=== PATIENT | female | born 1955 | race Caucasian/White ===

== ENCOUNTER → 2021-06-20 11:16 | Outpatient (REF) | payer MEDICARE, SELFPAY | LOC: ANHLAB 11:16 | PROVIDERS: PCP Internal Medicine; Visit Provider Nurse Practitioner | DX: R22.9 Localized swelling, mass and lump, unspecified (principal); L72.0 Epidermal cyst | CPT/HCPCS: 88304 ==

== ENCOUNTER 2021-12-03 22:15 | Emergency (ER) | payer MEDICARE, SELFPAY ==
[2021-12-03 22:18] VITALS: BP 194/81; PULSE 62; RESP 18; TEMP 36.8; O2SAT 99
--- NOTE | 2021-12-04 03:09 | PC.NURSE ---
0242 CALLED PT TO COME BACK TO MAIN ED - NO ANSWER
== END 2021-12-04 02:42 | disposition left against medical advice (07) ==
PROVIDERS: PCP Internal Medicine
DX: R22.0 Localized swelling, mass and lump, head (principal)
CPT/HCPCS: 99199

== ENCOUNTER 2023-10-07 09:32 | Emergency (ER) | payer MEDICARE, SELFPAY ==
--- NOTE | ~2023-10-07 | XR_ITS ---
XR heel RT min 2V Ordering provider: Jaimee Rodríguez APRN History: . TWISTING INJURY, POSTERIOR ANKLE PAIN WITH EXT/FLEX . Comparison: None. FINDINGS: BONES: No acute fracture or dislocation. Calcaneus and spur. JOINT SPACES: Normal. SOFT TISSUES: Normal. Ossification of the insertion of the tendo Achilles. IMPRESSION: No acute osseous abnormality of the right calcaneus. Reviewed, dictated and finalized at location A.
[2023-10-07 09:42] VITALS: BP 177/96; PULSE 54; RESP 20; TEMP 36.7; O2SAT 99
--- NOTE | 2023-10-07 09:55 | ED.LOWEXIN ---
HPI - Extremity Injury (Lower) General Chief Complaint: Extremity Injury, Lower Stated Complaint: Right Ankle Injury Time Seen by Provider: 10/07/23 09:55 Source: patient, RN notes reviewed and old records reviewed Mode of arrival: ambulatory Limitations: no limitations History of Present Illness HPI Narrative: 60-year-old female to [facility] for complaint right heel pain. patient reports when ambulating down a set steps yesterday she missed the bottom step causing her to twist her right ankle. Patient stating that her back tendon hurts 2/10 currently but pain increases with ambulation. patient has attempted to treat at home with Biofreeze Tylenol with little improvement. Patient denies prior injury, numbness, tingling, weakness. Patient in no acute distress. Related Data Home Medications Medication Instructions Recorded Confirmed lisinopril 40 mg tablet 40 mg PO DAILY 12/02/19 10/07/23 thyroid (pork) 15 mg tablet (CTE TEACHER 15 mg PO DAILY 10/07/23 10/07/23 Thyroid) Allergies Allergy/AdvReac Type Severity Reaction Status Date / Time No Known Allergies Allergy Verified 07/02/21 11:16 Review of Systems Review of Systems: All systems reviewed & are unremarkable except as noted in HPI and below Constitutional: Constitutional: Reports no additional constitutional complaints Eyes: Eyes: Reports no additional eye complaints ENT: Reports system reviewed and no additional complaints, except as documented Cardiovascular: Cardiovascular: Reports no additional cardiovascular complaints, Denies chest pain and Denies dyspnea Respiratory: Respiratory: Reports no additional respiratory complaints, Denies cough and Denies dyspnea Musculoskeletal: Musculoskeletal: Reports as per HPI and Reports joint swelling ( and pain; Right ankle) Neurologic: Reports as per HPI, Denies numbness, Denies Sensory deficit (Neuro), Denies tingling and Denies weakness Psychiatric: Psychiatric: Reports no additional psychiatric complaints [facility] Surgical History Surgical History History of bilateral breast reduction surgery History of cosmetic plastic surgery History of hysterectomy Abdominoplasty 2018 Family History Family History Father Family history of Alzheimer's disease Social History Social History Smoking status: Never smoker Second hand tobacco smoke exposure: No Alcohol intake: never Comments At the time of my signature, I reviewed and agree with the nursing past medical, surgical, social, and family history. There is no relevant family history pertinent to the patient complaint. Exam Const: General: cooperative, healthy appearing, comfortable, no acute distress, alert and well nourished Nutritional Appearance: well nourished Orientation/consciousness: patient oriented x3 Limitations: no limitations HENMT: Head: normal to inspection Ears: external ears normal Face/Nose/Sinus: Normal external nose present, Normal nares present, normal facial exam, No erythema and No edema Face and sinus: normal facial exam, no erythema and no edema Mouth: Yes Normal oral and palatal mucosa present Eyes: General: appearance normal, both eyes and all related structures Neck: Neck: normal visual inspection, full ROM and no meningeal signs Lymphatic: no lymphadenopathy noted and no lymphedema noted Chest: Chest palpation & inspection: normal inspection of the chest Resp: Effort & Inspection: normal respiratory effort and able to speak in complete sentences Cardio: Jugular venous distension: no JVD Rate: regular rate Rhythm: regular rhythm Back/Spine/Pelvis: Cervical Spine: cervical ROM normal Skin: General skin exam: normal color, no rashes or lesions noted and turgor normal Neuro: General: patient oriented x3, gait normal, moves all extremit
== END 2023-10-07 10:52 | disposition home or self-care (01) ==
PROVIDERS: Emergency Provider Nurse Practitioner Family
DX: S86.011A Strain of right Achilles tendon, initial encounter (principal); X50.9XXA Other and unspecified overexertion or strenuous movements or postures, initial encounter; I10 Essential (primary) hypertension; E03.9 Hypothyroidism, unspecified
CPT/HCPCS: 73650; 99213; G0463

== ENCOUNTER 2024-06-15 07:13 | Emergency (ER) | payer MEDICARE, SELFPAY ==
--- OUTSIDE RECORDS SUMMARY | 2024-06-15 07:15 | XMS_ITS | Patient Health Summary ---
Author Organization [email or web address] Address [address] [place] [address] Care Team Providers Care Electrical Logging Operator Name Role Phone Chito Harrison MD Primary Care Provider [phone] Note from [facility],non-owned Affiliates and Associated Physician Practices is amultiple site organization consisting of ambulatory clinics and hospital sitesin [place], [place], [place] and [place]. This disclosure is being madepursuant to the Care Everywhere program and may not contain all information available regarding this patient. Last updated 18.[email or web address] Allergies No known active allergies Medications * Be aware that medications may not be up to date on this document. Alwaysverify current medications with the patient. * lisinopril (PRINIVIL; ZESTRIL) 40 MG tablet Take 40 mg by mouth 2 times daily * aspirin EC (ECOTRIN) 81 MG tablet Take 81 mg by mouth once daily * rosuvastatin (CRESTOR) 20 MG tablet(Started 02/27/2020) Take 1 tablet by mouth at bedtime 3 refills by 02/26/2021 Social History Tobacco Use Types Packs/Day Years Used Date Smoking Tobacco: Never Assessed Sex and Gender Information Value Date Recorded Sex Assigned at Not on file Gender Identity Not on file Sexual Orientation Not on file Last Filed Vital Signs Vital Sign Reading Time Taken Comments Blood Pressure 140/80 02/27/2020 8:05 AM PROCESSING ASSOCIATE Pulse 60 02/27/2020 8:05 AM PROCESSING ASSOCIATE Temperature - - Respiratory Rate 12 02/27/2020 8:05 AM PROCESSING ASSOCIATE Oxygen Saturation - - Inhaled Oxygen Concentration - - Weight 108.4 kg (239 lb) 02/27/2020 8:05 AM PROCESSING ASSOCIATE Height 161.3 cm (5' 3.5 ) 02/27/2020 8:05 AM PROCESSING ASSOCIATE Body Mass Index 41.67 02/27/2020 8:05 AM PROCESSING ASSOCIATE Procedures * ECHOCARDIOGRAM LIMITED(Performed 02/27/2020) Performed for Nonrheumatic aortic valve stenosis * LAB MISC TEST(Performed 01/30/2020) * CT CHEST W CONTRAST(Performed 11/13/2018) * ECHOCARDIOGRAM COMPLETE(Performed 11/02/2018) Results * ECHOCARDIOGRAM LIMITED (02/27/2020 11:35 AM PROCESSING ASSOCIATE) Narrative Deneen Hooks - 02/27/2020 11:35 AM PROCESSING ASSOCIATE Luanne Pineda RDMS 02/27/2020 11:36 AM See scan Procedure Note Luanne Pineda RDMS - 02/27/2020 11:35 AM CST See scan Liang Rollins MD ECHO ORDERABLES * LAB MISC TEST (01/30/2020) Blood BLOOD SPECIMEN / Unknown Historical Provider LAB SEND OUT * CT CHEST W CONTRAST (11/13/2018) Anatomical Region Laterality Modality Chest Other Historical Provider CT ORDERABLES * ECHOCARDIOGRAM COMPLETE (11/02/2018) Historical Provider ECHO ORDERABLES Care Teams Electrical Logging Operator Relationship Specialty Start Date End Date Chito Harrison MD [address] [place] [address] PCP - General 06/26/21
--- OUTSIDE RECORDS SUMMARY | 2024-06-15 07:15 | XMS_ITS | Clinical Summary ---
Author Organization [employer] [facility] Address [address] [place] [address] Care Team Providers Care Qm Nurse Name Role Phone Chito Harrison MD Primary Care Provider [phone] Source Comments [facility],non-owned Affiliates and Associated Physician Practices is amultiple site organization consisting of ambulatory clinics and hospital sitesin [place], [place], [place] and [place]. This disclosure is being madepursuant to the Care Everywhere program and may not contain all information available regarding this patient. Last updated 18.[facility] Allergies No known active allergies Medications * Be aware that medications may not be up to date on this document. Alwaysverify current medications with the patient. Medication Sig Dispensed Refills Start Date End Date Status lisinopril (PRINIVIL; ZESTRIL) 40 MG tablet Take 40 mg by mouth 2 times daily Active aspirin EC (ECOTRIN) 81 MG tablet Take 81 mg by mouth once daily Active rosuvastatin (CRESTOR) 20 MG tablet Take 1 tablet by mouth at bedtime 90 tablet 3 02/27/2020 Active Social History Tobacco Use Types Packs/Day Years Used Date Smoking Tobacco: Never Assessed Sex and Gender Information Value Date Recorded Sex Assigned at Not on file Gender Identity Not on file Sexual Orientation Not on file Last Filed Vital Signs Vital Sign Reading Time Taken Comments Blood Pressure 140/80 02/27/2020 8:05 AM AIR AND WATER TESTER Pulse 60 02/27/2020 8:05 AM AIR AND WATER TESTER Temperature - - Respiratory Rate 12 02/27/2020 8:05 AM AIR AND WATER TESTER Oxygen Saturation - - Inhaled Oxygen Concentration - - Weight 108.4 kg (239 lb) 02/27/2020 8:05 AM AIR AND WATER TESTER Height 161.3 cm (5' 3.5 ) 02/27/2020 8:05 AM AIR AND WATER TESTER Body Mass Index 41.67 02/27/2020 8:05 AM AIR AND WATER TESTER Plan of Treatment Health Maintenance Due Date Last Done Comments BONE DENSITY TESTING 1955 COLOGUARD (AGES 45-75) - COL ON CA SCREENING 1955 COLON MONITORING 1955 COLONOSCOPY - COLON CA SCREENING 1955 CT COLONOGRAPHY - COLON CA SCREENING 1955 Colorectal Cancer Screening 1955 FIT - COLON CA SCREENING 1955 FLEX SIG - COLON CA SCREENING 1955 MAMMOGRAM 1955 MEDICARE AWV 12 MONTHS 1955 HEPATITIS C SCREENING 12/28/1972 DTAP/TDAP/TD VACCINES (1 - Tdap) 1974 PNEUMOCOCCAL VACCINE 50+ (1 of 1 - PCV) 2005 ZOSTER VACCINE (1 of 2) 2005 Respiratory Syncytial Virus (RSV) Vaccine Pt: or over 60 yrs (1 - Risk 60-74 years 1-dose series) 2015 SCREENING FOR DIABETES 02/27/2020 COVID-19 VACCINE ( - 2023-2 5 season) 2023 INFLUENZA VACCINE (#1) 2023 DEPRESSION SCREENING 04/13/2024 HEPATITIS B VACCINE Aged Out No longe r eligible based on patient's age to complete this topic HIB VACCINE Aged Out No longer eligi ble based on patient's age to complete this topic HPV VACCINE Aged Out No longer eligi ble based on patient's age to complete this topic MENINGOCOCCAL (Group B) VACCINE Aged Out No longer eligible based on patient's age to complete this topic MENINGOCOCCAL VACCINE Aged Out No yahir jolly eligible based on patient's age to complete this topic Care Teams Qm Nurse Relationship Specialty Start Date End Date Chito Harrison MD [address] [place] [address] PCP - General 06/26/21
--- OUTSIDE RECORDS SUMMARY | 2024-06-15 07:15 | XMS_ITS | Referral Summary ---
Author Organization [facility] Address [address] [place] [address] Care Team Providers Care Synthetic Department Supervisor Name Role Phone Chito Harrison MD Primary Care Provider [phone] Source Comments [facility],non-owned Affiliates and Associated Physician Practices is amultiple site organization consisting of ambulatory clinics and hospital sitesin [place], [place], [place] and [place]. This disclosure is being madepursuant to the Care Everywhere program and may not contain all information available regarding this patient. Last updated 18.[facility] Allergies No known active allergies Medications * [...] Comments Blood Pressure 140/80 02/27/2020 8:05 AM GARNETT FIXER Pulse 60 02/27/2020 8:05 AM GARNETT FIXER Temperature - - Respiratory Rate 12 02/27/2020 8:05 AM GARNETT FIXER Oxygen Saturation - - Inhaled Oxygen Concentration - - Weight 108.4 kg (239 lb) 02/27/2020 8:05 AM GARNETT FIXER Height 161.3 cm (5' 3.5 ) 02/27/2020 8:05 AM GARNETT FIXER Body Mass Index 41.67 02/27/2020 8:05 AM GARNETT FIXER Plan of Treatment Not on file Care Teams Synthetic Department Supervisor Relationship Specialty Start Date End Date Chito Harrison MD [address] [place] [id number] PCP - General 06/26/21
--- OUTSIDE RECORDS SUMMARY | 2024-06-15 07:15 | XMS_ITS | Clinical Summary ---
Author Organization [facility] Address [address] [place] [address] Care Team Providers Care Electric Plater Name Role Phone Shanda Mead BRIAN Primary Care Provider Allergies No known active allergies Medications UNABLE TO FIND Methyl-B12 spray daily Active UNABLE TO FIND Liposomal Vit C 1600 mg 1x a day Active ubidecarenone (coenzyme Q10) 100 mg tablet Take by mouth Active UNABLE TO FIND Orthomune (Zinc, D, C) 1x a day Active UNABLE TO FIND Balance of Nature Veggies Fruits Active UNABLE TO FIND Apply topically Med Name: E2(Estradiol), E3(estrogen0, T2(testosteron e) 1-2-2mg/ml crm - compound medication Active lisinopriL (PRINIVIL,ZESTRIL) 40 mg tablet Take 1 tablet (40 mg total) by mouth 2 (two) times a day Active UNABLE TO FIND 1 each daily Med Name: Thyrodain Active furosemide (LASIX) 20 mg tablet Take 1 tablet (20 mg total) by mouth 2 (two) times a day 60 tablet 1 05/27/19 25 025 Active cholecalciferol (VITAMIN D-3) 2,000 unit capsule daily. 025 Discontin ued(Patie nt Reported) ADVERTISING JOB TITLES Thyroid 15 mg tabletIndications: Acquired hypothyroidism Take 1 tablet (15 mg total) by mouth daily 90 tablet 3 02/19/20 23 025 Discontin ued(Patie nt Reported) hydroCHLOROthiazid e (HYDRODIURIL) 25 mg tabletIndications: Primary hypertension Take 1.5 tablets (37.5 mg total) by mouth daily 135 tablet 3 02/25/20 24 025 Discontin ued(Anayeli nt Reported) Active Problems Problem Noted Date Diagnosed Date Medicare annual wellness visit, subsequent 02/24 Assessment & Plan (02/25/2024 10:16 AM NON CATEGORICAL PRESCHOOL TEACHER): In regard to health maintenance, Colonoscopy- Declined Mammogram- declined DEXA- declined Influenza vaccine- UTD Pneumococcal vaccine- Declined Shingrix vaccine- Declined Eat a healthy diet: focus on lean meats and proteins, more fruits, vegetables and whole grains and low in sugars and fats. Limit red meat and avoid processed meat. Maintain a healthy weight; avoid being overweight. Aim for a normal body mass index (BMI) of 18.5-24.9. Help learning to eat healthier, we can set up appointment with it software developer/program aide. Have an active lifestyle, strive for 30 minutes of moderate exercise 5 times a week and strength or resistance training at least twice a week. Use broad-spectrum (UVA+UVB) sunscreen with SPF 30 or greater, is water resistant, limit time spent in the sun (10 am-4pm), wear hat, wear UV protective clothing, wear sunglasses. Never use a tanning bed. Skin that was irradiated may be more sensitive over your lifetime. Limit alcohol intake, 1 drink per day for a woman and 2 drinks per day for a man. Encounter for screening for lipid disorder 02/24 Assessment & Plan (02/25/2024 10:17 AM NON CATEGORICAL PRESCHOOL TEACHER): Lipid panel ordered. Will continue to monitor. Acquired hypothyroidism 02/18/2023 Assessment & Plan (06/07/2024 3:29 PM NON CATEGORICAL PRESCHOOL TEACHER): Last TSH at goal, taking natural supplements Will continue to monitor closely Assessment & Plan (02/25/2024 10:15 AM NON CATEGORICAL PRESCHOOL TEACHER): Will recheck TSH and T4. Will continue to take OTC thyroid medication and seeing it software developer. Class 3 severe obesity due t o excess calories with serious comorbidity and body mass index (BMI) of 40.0 to 44.9 in adult 02/18/2023 Assessment & Plan (06/07/2024 3:29 PM NON CATEGORICAL PRESCHOOL TEACHER): Not well controlled, has been having weight gain over the past 5 months Patient is counseled to work on weight loss through dietary and activity changes. Patient is encouraged to decrease caloric intake through portion control, choosing lower calorie foods, and targeting 5-6 servings of vegetables and fruit per day. Patient is encouraged to maintain or target a minimum of 30 minutes moderate intensity exercise 5 days per week. Assessment & Plan (02/25/2024 10:15 AM NON CATEGORICAL PRESCHOOL TEACHER): Encouraged heart healthy diet and lifestyle. Advised 150 min/week of aerobic exercise. Hypertension 12/02/2016 Assessment & Plan (06/07/2024 3:29 PM NON CATEGORICAL PRESCHOOL TEACHER): Stable, well controlled, blood pressure mildly elevated today, some peripheral edema with limited relief Will start furosemide 20 mg b.i.d., continue lisinopril 40 mg, discontinue hydrochlorothiazide Assessment & Plan (02/25/2024 10:14 AM NON CATEGORICAL PRESCHOOL TEACHER): Blood pressure not well controlled. Will increase HCTZ 1.5 tablets to see how that will help HTN. Will F/U in 3 months for additional evaluation. Assessment & Plan (01/08/2024 9:42 AM CDT): Chronic, stable Dr. Watson would like her to switch from Lisinopril to HCTZ or Spironolactone Stop Lisinopril and start HCTZ 25 mg daily Monitor BP at home Follow up 6 weeks Assessment & Plan (02/18/2023 10:15 AM NON CATEGORICAL PRESCHOOL TEACHER): Stable, currently well-controlled BP at visit 120/84 Continue lisinopril 40 mg daily Resolved Problems Problem Noted Date Diagnosed Date Resolved Date Ascending aortic aneurysm 07/26/2014 Assessment & Plan (02/25/2024 10:25 AM NON CATEGORICAL PRESCHOOL TEACHER): Continues with routine monitoring. Will continue to follow. Assessment & Plan (02/18/2023 11:51 AM NON CATEGORICAL PRESCHOOL TEACHER): Gets regular monitoring Patient will call back with location she would like to get next US done at Encounters Date Type Department Care Team Description 05/27/2024 1:15 PM NON CATEGORICAL PRESCHOOL TEACHER Office Visit [facility] Primary Care at [address] [place] [phone] Anibal Avendano MD Primary hypertension (Primary Dx); SHANIQUE (obstructive sleep apnea); Acquired hypothyroidism; Class 3 severe obesity due to excess calories with serious comorbidity and body mass index (BMI) of 40.0 to 44.9 in adult (HCC) 05/19/2024 [facility]phone [facility] [address] [address] Shanda Mead NP Appointment Request 04/22/2024 Telephone [facility] [address] [address] Shanda Mead NP Med Refill from Last 3 Months Immunizations Immunization Administration Dates Next Due Influenza, Unspecified 02/25/2024(Deferr ed: Patient Refused),01/08/2024(Deferred: Patient Refused),01/11/2023(Deferred: Patient Refused),01/11/2023(Deferred: Patient Refused),12/12/2022(Deferred: Patient Refused),01/11/2022(Deferred: Patient Refused) Surgical History Surgery Date Site/Laterality Comments REDUCTION MAMMAPLASTY x2 MOLE REMOVAL Right right breast CYST REMOVAL Left left shoulder blade LITHOTRIPSY HYSTERECTOMY CATARACT EXTRACTION, BILATERAL Bilateral HAND SURGERY Right thumb and ring finger OTHER SURGICAL HISTORY Tummy Tuck OTHER SURGICAL HISTORY Right PRP HIP RIGHT Medical History Medical History Date Comments Thyroid disease Thoracic ascending aortic aneurysm Hypertension Family History Medical History Relation Name Comments No Known Problems Father No Known Problems Mother Aneurysm Son Aneurysm - (Add ed by TW Conv) Relation Name Status Comments Father Mother Son Social History Tobacco Use Types Packs/Day Years Used Date Smoking Tobacco: Never Smokeless Tobacco: Never Tobacco Cessation:Counseling Given: Not Answered [facility] Utilities Answer Date Recorded In the past 12 months has [employer], gas, oil, or water [employer] threatened to shut off services in your home? No 02/18/2023 Humiliation, Afraid, Rape, and Kick questionnair e Answer Date Recorded Within the last year, have y ou been afraid of your partner or ex-partner? No 02/18/2023 Within the last year, have y ou been humiliated or emotionally abused in other ways by your partner or ex-partner? No Within the last year, have y ou been kicked, hit, slapped, or otherwise physically hurt by your partner or ex-partner? No 02/18/2023 Within the last year, have y ou been raped or forced to have any kind of sexual activity by your partner or ex-partner? No 02/18/2023 Social Connection and Isolat ion Panel [NHANES] Answer Date Recorded In a typical week, how many times do you talk on the phone with family, friends, or neighbors? More than three times a week 02/18/2023 How often do you get togethe r with friends or relatives? More than three times a week 02/18/2023 How often do you attend chur or pentecostal services? Never 02/18/2023 Do you belong to any clubs o r organizations such as presybeterian groups, unions, fraternal or athletic groups, or school groups? No 02/18/2023 How often do you attend meet ings of the clubs or organizations you belong to? Never 02/18/2023 Are you , , di vorced, , never , or living with a partner? 02/18/2023 AUDIT-C Answer Date Recorded Q1: How often do you have a drink containing alc ohol? Monthly or less 02/18/2023 Q2: How many drinks containi ng alcohol do you have on a typical day when you are drinking? 1 or 2 02/18/2023 Q3: How often do you have si x or more drinks on one occasion? Never 02/18/2023 Overall Financial Resource Strain (CARDIA) Answe r Date Recorded How hard is it for you to pa y for the very basics like food, housing, medical care, and heating? Not hard at all 02/18/2023 PHQ-2 Answer Date Recorded PHQ-2 Total Score (If total score is 3 or more points, staff should administer the PHQ-9) 0 02/25/2024 [facility] of Occupat ional Health - Occupational Stress Questionnaire Answer Date Recorded Do you feel stress - tense, restless, nervous, or anxious, or unable to sleep at night because your mind is troubled all the time - these days? Only a little 02/18/2023 Exercise Vital Sign Answer Date Recorde d On average, how many days pe r week do you engage in moderate to strenuous exercise (like a brisk walk)? 7 days 02/18/2023 On average, how many minutes do you engage in exercise at this level? 50 min 02/18/2023 Hunger Vital Sign Answer Date Recorded Within the past 12 months, y ou worried that your food would run out before you got the money to buy more. Never true 02/19/20 23 Within the past 12 months, t he food you bought just didn't last and you didn't have money to get more. Never true 02/18/2023 PRAPARE - Transportation Answer Date Re corded In the past 12 months, has l ack of transportation kept you from medical appointments or from getting medications? No 11/2022 In the past 12 months, has l ack of transportation kept you from meetings, work, or from getting things needed for daily living? No 02/18/2023 Housing Stability Vital Sign Answer Kristian e Recorded In the last 12 months, was t here a time when you were not able to pay the mortgage or rent on time? No 02/18/2023 In the last 12 months, how many places have you lived? 2 02/18/2023 In the last 12 months, was t here a time when you did not have a steady place to sleep or slept in a halfway (including now)? No 02/18/2023 Comments Unknown Sex and Gender Information Value Date Recorded Sex Assigned at Not on file Legal Sex Female 2:32 AM NON CATEGORICAL PRESCHOOL TEACHER Gender Identity Not on file Sexual Orientation Not on file Obstetrics History Last Filed Vital Signs Vital Sign Reading Time Taken Comments Blood Pressure 136/92 05/27/2024 1:09 PM NON CATEGORICAL PRESCHOOL TEACHER Pulse 65 05/27/2024 1:09 PM NON CATEGORICAL PRESCHOOL TEACHER Temperature 36.2 C (97.2 F) 05/27/2024 1:09 PM NON CATEGORICAL PRESCHOOL TEACHER Respiratory Rate 16 02/25/2024 9:53 AM NON CATEGORICAL PRESCHOOL TEACHER Oxygen Saturation 98% 05/27/2024 1:09 PM NON CATEGORICAL PRESCHOOL TEACHER Inhaled Oxygen Concentration - - Weight 113.4 kg (250 lb) 05/27/2024 1:09 PM NON CATEGORICAL PRESCHOOL TEACHER Height 165.1 cm (5' 5 ) 05/27/2024 1:09 PM NON CATEGORICAL PRESCHOOL TEACHER Body Mass Index 41.6 05/27/2024 1:09 PM NON CATEGORICAL PRESCHOOL TEACHER Plan of Treatment Health Maintenance Due Date Last Done Comments Breast Cancer Screening-Mammogram 1955 Colon Cancer Screening-Colonoscopy 1955 Hepatitis C Screening 1955 Osteoporosis Screening-Bone Density Scan 1955 DTaP/Tdap/Td Vaccine (1 - Tdap) 1966 Hepatitis B Screening 1973 Pneumococcal vaccine 65+ (1 of 1 - PCV) 2005 Zoster Vaccine (1 of 2) 2005 Influenza Vaccine (#1) 2024 Postp oned from 12/13/2023 (Patient declined, but will receive in the future) Depression Screening 02/24/2025 02/25/2024, 01/08/2024, 02/18/2023, Additional history exists Fall Risk Assessment 02/24/2025 02/25/2024, 02/19/20 23 Well Visit 65+ 02/24/2025 02/25/2024, 02/18/2023 Insurance MEDICARE BL CHOICE PRF PPO [place] MEDICARE [employer] SENIOR SUPPLEMENT Care Teams Electric Plater Relationship Specialty Start Date End Date Shanda Mead NP PCP - General Family Medicine 02/18/23
--- OUTSIDE RECORDS SUMMARY | 2024-06-15 07:15 | XMS_ITS | Encounter Summary ---
Author Organization [facility] Address [address] [place] [address] Phone Care Team Providers Care Solar Development Engineer Name Role Phone Patti Aiken MD Primary Care Provider [phone] Shanda Mead NP Primary Care Provider [phone] Encounter Details Date Type Department Care Team (Late st Contact Info) Description 03/21/2019 Telephone [facility] Cardiology [address] [facility] 8th [place] [address] [place] [address] Caleb Garcia MD PhD [address] [facility] [address] [place] [address] Social History Tobacco Use Types Packs/Day Years Used Date Smoking Tobacco: Never Smokeless Tobacco: Never Comments Unknown Sex and Gender Information Value Date Recorded Sex Assigned at Not on file 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
--- OUTSIDE RECORDS SUMMARY | 2024-06-15 07:15 | XMS_ITS | Encounter Summary ---
Author Organization [facility] Address [address] [place] [address] Care Team Providers Care Mechanic Sound Technician Name Role Phone Shanda Mead NP Primary Care Provider [phone] Reason for Visit * Reason Onset Date Comments Appointment Request 05/19/2024 Encounter Details Date Type Department Care Team (Late st Contact Info) Description 05/19/2024 Telephone [facility] [address] [place] [address] Shanda Mead NP [address] [place] [address] Appointment Request Social History Tobacco Use Types Packs/Day Years Used Date Smoking Tobacco: Never Smokeless Tobacco: Never [facility] Utilities Answer Date Recorded In the past 12 months has [facility] [employer], gas, oil, or water [address] threatened to shut off services in your [...] How often do you attend chur or jewish services? Never 02/18/2023 Do you belong to any clubs o r organizations such as jewish groups, unions, frashopandsave or athletic groups, or school groups? No [...] staff should administer the PHQ-9) 0 02/25/2024 [facility] of Occupat ional Health - Occupational Stress [...] place to sleep or slept in a alf (including now)? 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 BER PIPE FITTING * Telephone Encounter - Nancy Rob - 05/19/2024 9:55 AM CST Appointment Request What visit type does the patient need? Visit Type: Established Patient What is the reason for the visit? 3 month follow up What is the reason we were unable to schedule the appointment? Current appointment availability didnot meet patient's need. If applicable, were all members of the patient's PCP care team offered (e.g., nurse practioner(s), physician general surgery physician assistant(s)) ? Yes Additional Comments: Patient was scheduled for 05.27.24 but the appointment was cancelled by the office and rescheduled to October. Patient stated that this appointment was to discuss her blood pressure and she would like to be seen sooner. Does message need to be routed? Yes-Action Needed BER PIPE FITTING documented in this encounter Plan of Treatment Not on file documented as of this encounter Visit Diagnoses Not on filedocumented in this encounter Care Teams Mechanic Sound Technician Relationship Specialty Start Date End Date Shanda Mead NP PCP - General Family Medicine 02/18/23 documented as of this encounter
--- OUTSIDE RECORDS SUMMARY | 2024-06-15 07:15 | XMS_ITS | Referral Summary ---
Author Organization [facility] Address [address] [place] [address] Care Team Providers Care Impact Hammer Operator Name Role Phone Shanda Mead NP Primary Care Provider [phone] Encounters Date Type Department Care Team Description 05/27/2024 1:15 PM AQUATICS SPECIALIST Office Visit [facility] Primary Care at [address] [place] [phone] Anibal Avendano MD Primary hypertension (Primary Dx); SHANIQUE (obstructive sleep apnea); Acquired hypothyroidism; Class 3 severe obesity due to excess calories with serious comorbidity and body mass index (BMI) of 40.0 to 44.9 in adult (HCC) 05/19/2024 [facility]phone [facility] [address] [address] Shanda Mead NP Appointment Request 04/22/2024 Telephone [facility] [address] [address] Shanda Mead NP Med Refill from Last 3 Months Allergies No known active allergies Medications UNABLE [...] capsule daily. 025 Discontin ued(Patie nt Reported) QUALITY HEAD Thyroid 15 mg tabletIndications: Acquired hypothyroidism Take 1 tablet (15 mg total) by mouth daily 90 tablet 3 02/19/20 23 025 Discontin ued(Patie nt Reported) hydroCHLOROthiazid e (HYDRODIURIL) 25 mg tabletIndications: Primary hypertension Take 1.5 tablets (37.5 mg total) by mouth daily 135 tablet 3 02/25/20 24 025 Discontin ued(Patie nt Reported) Active Problems Problem Noted Date Diagnosed Date Medicare annual wellness visit, subsequent 02/24 Assessment & Plan (02/25/2024 10:16 AM AQUATICS SPECIALIST): In regard to health maintenance, Colonoscopy- Declined [...] healthier, we can set up appointment with textbook associate/federal mediation commissioner. Have an active lifestyle, strive for 30 [...] 02/24 Assessment & Plan (02/25/2024 10:17 AM AQUATICS SPECIALIST): Lipid panel ordered. Will continue to monitor. Acquired hypothyroidism 02/18/2023 Assessment & Plan (06/07/2024 3:29 PM AQUATICS SPECIALIST): Last TSH at goal, taking natural supplements Will continue to monitor closely Assessment & Plan (02/25/2024 10:15 AM AQUATICS SPECIALIST): Will recheck TSH and T4. Will continue to take OTC thyroid medication and seeing textbook associate. Class 3 severe obesity due t o excess calories with serious comorbidity and body mass index (BMI) of 40.0 to 44.9 in adult 02/18/2023 Assessment & Plan (06/07/2024 3:29 PM AQUATICS SPECIALIST): Not well controlled, has been having weight [...] week. Assessment & Plan (02/25/2024 10:15 AM AQUATICS SPECIALIST): Encouraged heart healthy diet and lifestyle. Advised 150 min/week of aerobic exercise. Hypertension 12/02/2016 Assessment & Plan (06/07/2024 3:29 PM AQUATICS SPECIALIST): Stable, well controlled, blood pressure mildly elevated today, some peripheral edema with limited relief Will start furosemide 20 mg b.i.d., continue lisinopril 40 mg, discontinue hydrochlorothiazide Assessment & Plan (02/25/2024 10:14 AM AQUATICS SPECIALIST): Blood pressure not well controlled. Will increase [...] weeks Assessment & Plan (02/18/2023 10:15 AM AQUATICS SPECIALIST): Stable, currently well-controlled BP at visit 120/84 Continue lisinopril 40 mg daily Resolved Problems Problem Noted Date Diagnosed Date Resolved Date Ascending aortic aneurysm 07/26/2014 Assessment & Plan (02/25/2024 10:25 AM AQUATICS SPECIALIST): Continues with routine monitoring. Will continue to follow. Assessment & Plan (02/18/2023 11:51 AM AQUATICS SPECIALIST): Gets regular monitoring Patient will call back with location she would like to get next US done at Immunizations Immunization Administration Dates Next Due Influenza, Unspecified 02/25/2024(Deferr ed: Patient Refused),01/08/2024(Deferred: Patient Refused),01/11/2023(Deferred: Patient Refused),01/11/2023(Deferred: Patient Refused),12/12/2022(Deferred: Patient Refused),01/11/2022(Deferred: Patient Refused) Social History Tobacco Use Types Packs/Day Years Used Date Smoking Tobacco: Never Smokeless Tobacco: Never Tobacco Cessation:Counseling Given: Not Answered [facility] Utilities Answer Date Recorded In the past 12 months has [facility] [employer] oil, or water [employer] threatened to shut off services in your [...] 02/18/2023 How often do you attend chur ch or spiritism services? Never 02/18/2023 Do you belong to any clubs o r organizations such as worship groups, unions, fraternal or athletic groups, or [...] staff should administer the PHQ-9) 0 02/25/2024 [facility] [place] of Occupat ional Health - Occupational Stress [...] place to sleep or slept in a chcf (including now)? No 02/18/2023 Comments Unknown Sex and Gender Information Value Date Recorded Sex Assigned at Not on file Legal Sex Female 2:32 AM AQUATICS SPECIALIST Gender Identity Not on file Sexual Orientation Not on file Last Filed Vital Signs Vital Sign Reading Time Taken Comments Blood Pressure 136/92 05/27/2024 1:09 PM AQUATICS SPECIALIST Pulse 65 05/27/2024 1:09 PM AQUATICS SPECIALIST Temperature 36.2 C (97.2 F) 05/27/2024 1:09 PM AQUATICS SPECIALIST Respiratory Rate 16 02/25/2024 9:53 AM AQUATICS SPECIALIST Oxygen Saturation 98% 05/27/2024 1:09 PM AQUATICS SPECIALIST Inhaled Oxygen Concentration - - Weight 113.4 kg (250 lb) 05/27/2024 1:09 PM AQUATICS SPECIALIST Height 165.1 cm (5' 5 ) 05/27/2024 1:09 PM AQUATICS SPECIALIST Body Mass Index 41.6 05/27/2024 1:09 PM AQUATICS SPECIALIST Plan of Treatment Not on file Insurance MEDICARE CHOICE PRF [place]PO [place] MED[place]ARE [employer] SENIOR SUPPLEMENT Care Teams Impact Hammer Operator Relationship Specialty Start Date End Date Shanda Mead NP PCP - General Family Medicine 02/18/23
--- OUTSIDE RECORDS SUMMARY | 2024-06-15 07:15 | XMS_ITS | Encounter Summary ---
Author Organization [facility] Address [address] [place] [address] Phone Care Team Providers Care Mathematical Engineer Name Role Phone Patti Aiken MD Primary Care Provider [phone] Shanda Mead NP Primary Care Provider [phone] Encounter Details Date Type Department Care Team (Latest Contact Info) Description 09/08/2018 Orders Only [facility] Scanning, Provider Social History Tobacco Use Types Packs/Day Years Used Date Smoking Tobacco: Never Smokeless Tobacco: Never Comments Unknown Sex and Gender Information Value Date Recorded Sex Assigned at Not on file 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 Gender Identity Not on file Sexual Orientation Not on file documented as of this encounter Plan of Treatment Not on file documented as of this encounter Procedures Procedure Name Priority Date/Time Associated Diagnosis Comments SCAN - LABS 09/08/2018 documented in this encounter Results * SCAN - LABS (09/08/2018) us Provider Scanning Final Result documented in this encounter Visit Diagnoses Not on filedocumented in this encounter Care Teams Mathematical Engineer Relationship Specialty Start Date End Date Patti Aiken MD PCP - General 10/31/16 02/17/23 Shanda Mead NP PCP - General Family Medicine 02/18/23 documented as of this encounter
--- OUTSIDE RECORDS SUMMARY | 2024-06-15 07:15 | XMS_ITS | Clinical Summary ---
Author Organization [facility] Address [address] [place] [address] Phone Care Team Providers Care Advanced Practice Professional Name Role Phone Patti Aiken MD Primary Care Provider [phone] Allergies No known active allergies Medications lisinopril (PRINIVIL, ZESTRIL) 10 MG Tablet Take 10 mg by mouth daily. Active Aspirin 81 MG Tablet Take 81 mg by mouth daily. 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 Gender Identity Not on file Sexual Orientation Not on file Last Filed Vital Signs Vital Sign Reading Time Taken Comments Blood Pressure 144/81 08/11/2017 2:29 PM CDT Pulse 57 08/11/2017 2:29 PM CDT Temperature - - Respiratory Rate - - Oxygen Saturation - - Inhaled Oxygen Concentration - - Weight 106.1 kg (234 lb) 08/11/2017 2:29 PM CDT Height 167.6 cm (5' 6 ) 08/11/2017 2:29 PM CDT Body Mass Index 37.77 08/11/2017 2:29 PM CDT Plan of Treatment Health Maintenance Due Date Last Done Comments DEXA Bone Density 1955 Hepatitis C Virus (HCV) Screening 1955 TdaP Immunization 1955 Colonoscopy 01/03/2000 Colorectal Cancer Screening 01/03/2000 Cologuard 2005 Immunochemical Fecal Occult Blood 2005 Mammogram 2005 Pneumococcal Immunization (5 0+ years) (1 of 1 - PCV) 2005 Zoster Immunization (1 of 2) 2005 Influenza Immunization (#1) 2023 SARS-COV-2 Immunization (1 - 2023-25 season) 2023 Respiratory Syncytial Virus (RSV) Immunization (Adult) (1 - 1-dose 75+ series) 2030 Hepatitis B Immunization Aged Out No longer eligible based on patient's age to complete this topic Meningococcal Immunization (ACWY) Aged Out No longer eligible based on patient's age to complete this topic Rotavirus Immunization Aged Out No lo nger eligible based on patient's age to complete this topic Insurance [facility] Care Teams Advanced Practice Professional Relationship Specialty Start Date End Date Patti Aiken MD [address] [place] [address] PCP - General Family Medicine 04/14/17
--- OUTSIDE RECORDS SUMMARY | 2024-06-15 07:15 | XMS_ITS | Clinical Summary ---
Author Organization [facility] Address [address] [place] [address] Care Team Providers Care Crime Scene Specialist Name Role Phone Patti Aiken MD Primary Care Provider [phone] Allergies No known active allergies Medications XARELTO 20 mg Tablet Take 20 mg by mouth daily. 3 07/13/2018 Active lisinopril (PRINIVIL) 10 mg tablet Take 20 mg by mouth daily. 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 Gender Identity Not on file Sexual Orientation Not on file Last Filed Vital Signs Vital Sign Reading Time Taken Comments Blood Pressure 121/84 09/08/2018 2:54 PM CDT Pulse 61 09/08/2018 2:54 PM CDT Temperature 36.7 C (98.1 F) 09/08/2018 2:54 PM CDT Respiratory Rate - - Oxygen Saturation 96% 09/08/2018 2:54 PM CDT Inhaled Oxygen Concentration - - Weight 89 kg (196 lb 4.8 oz) 09/08/2018 2:54 PM CDT Height 167.6 cm (5' 6 ) 09/08/2018 2:54 PM CDT Body Mass Index 31.68 09/08/2018 2:54 PM CDT Plan of Treatment Health Maintenance Due Date Last Done Comments DTAP/TDAP/TD VACCINES (1 - Tdap) 1974 BREAST CANCER SCREENING 1995 COLORECTAL SCREENING 01/03/2000 Colorectal Cancer Screening 01/03/2000 FIT-DNA Q 3 years 01/03/2000 FIT/FOBT Q 1 year 01/03/2000 Flex Sig/CT Colonography Q 5 years 01/03/2000 PNEUMOCOCCAL VACCINE 50+ YEARS (1 of 1 - PCV) 01/03/20 05 ZOSTER VACCINE (1 of 2) 2005 OSTEOPOROSIS SCREENING 01/03/2020 INFLUENZA VACCINE (#1) 2023 RSV VACCINE (60+ or ) (1 - 1-dose 75+ series) 2030 Insurance [facility] PREFERRED Care Teams Crime Scene Specialist Relationship Specialty Start Date End Date Patti Aiken MD [address] [place] [id number] PCP - General Family Practice 08/11/18
[2024-06-15 07:16] VITALS: BP 158/91; PULSE 67; RESP 16; TEMP 36.6; O2SAT 98
[2024-06-15] MEDS: FAMOTIDINE 20 MG TABLET PO (09:36)
[2024-06-15] MEDS: diphenhydrAMINE HCl CAP 25 MG CAPSULE PO (09:36)
[2024-06-15] MEDS: methylPREDNISolone SOD SUCC 125 MG VIAL IM (09:37)
[2024-06-15 09:55] VITALS: BP 166/82; PULSE 61; RESP 12; O2SAT 98
--- NOTE | 2024-06-15 09:58 | ED_ITS ---
HPI - Allergic Reaction General Chief complaint: Allergic Reaction Stated complaint: reports throat is swelling Time Seen by Provider: 06/15/24 09:18 Source: patient Mode of arrival: ambulatory Limitations: no limitations History of Present Illness HPI narrative: Patient is a 69-year-old female who presents the ED with report of throat swelling. Patient reports she woke up around 1:00 a.m. this morning with a se nsation of her throat swelling. She took a Benadryl at that time reported some improvement with this. She then woke up again this morning with persistent sensation of her throat swelling. Feels as though there is a golf ball in her throat. Attempted taking another Benadryl, but denied improvement. Prompted here for further evaluation. Patient reports she has had 4 episodes of this over the last few years. She is on lisinopril and has always attributed this to her lisinopril. Her last dose was last night around 7:00 p.m.. Patient denies any other allergic triggers that she is aware of, denies any new medications, soaps, detergents, foods, make up, exposures. She complains of slight constricted breathing and swallowing currently. Is maintaining secretions. Denies chest or abdominal pain, nausea, vomiting, rash, itching. Related Data Home Medications ?Medication ?Instructions ?Recorded ?Confirmed ?Last Taken ?Type lisinopril 40 mg tablet 40 mg PO DAILY 12/02/19 10/07/23 Unknown History thyroid (pork) 15 mg tablet (MAGAZINE WORKER 15 mg PO DAILY 10/07/23 10/07/23 Unknown History Thyroid) Allergies Allergy/AdvReac Type Severity Reaction Status Date / Time lisinopril Allergy Severe Swelling Verified 06/15/24 09:32 of Lip/Tongue/Throat Review of Systems Review of Systems: All systems reviewed & are unremarkable except as noted in HPI. All systems reviewed & are unremarkable except as noted in HPI and below PMFSH Surgical History Surgical History History of cosmetic plastic surgery History of hysterectomy Abdominoplasty 2018 History of bilateral breast reduction surgery Family History Family History Father Family history of Alzheimer's disease Social History Social History Smoking status: Never smoker Second hand tobacco smoke exposure: No Alcohol intake: never Exam Narrative: GENERAL: Well appearing, obese with BMI of 39.7, non-toxic, in no acute distress. HEAD: Normocephalic, atraumatic. ENT: No swelling of tongue/lips. No oral mucosal lesions. No stridor or trismus. No significant erythema to posterior pharynx. Slight anterior cervical lymphadenopathy palpated, nontender. Maintaining secretions. Speaking in full uninterrupted sentences. RESPIRATORY: Airway patent, respirations nonlabored. Clear to auscultation bilaterally, no rales, rhonchi, wheezing. CARDIOVASCULAR: Regular rate and rhythm without murmurs, rubs, or gallops. MUSCULOSKELETAL: Moves all extremities. No gross deformities. SKIN: Warm, dry, normal color. No rash or urticaria. NEURO: A&O X3. Speech clear. Cranial nerves II-XII grossly intact. Steady gait. No ataxic movements. PSYCHIATRIC: Appropriate mood and affect. Normal interaction. Course Vital Signs Vital signs: Vital Signs Temperature 97.8 F 06/15/24 07:16 Pulse Rate 67 06/15/24 07:16 Respiratory Rate 16 06/15/24 07:16 Blood Pressure 158/91 H 06/15/24 07:16 Pulse Oximetry 98 06/15/24 07:16 Oxygen Delivery Room Air 06/15/24 07:16 Temperature 97.8 F 06/15/24 07:16 Pulse Rate 60 06/15/24 11:16 Respiratory Rate 14 06/15/24 11:16 Blood Pressure 161/96 H 06/15/24 11:16 Pulse Oximetry 96 06/15/24 11:16 Oxygen Delivery Room Air 06/15/24 09:55 MDM - Allergic Reaction MDM Narrative Medical decision making narrative: Patient presented to ED with concern for allergic reaction to lisinopril. Described as though there is a golf ball in her throat. States she has had a few other episodes of this in the past few years, but has never been told to stop her lisinopril. Last dose was last night. Patient is tolerating secretions, no stridor/trismus or obvious respiratory distress on exam. No 2 system involvement. No evidence of anaphylaxis at this time. Given Solu- Medrol, Benadryl, Pepcid in the ED. On re-evaluation, patient feeling slightly improved. Still feels some globus sensation. Given GI cocktail and on further reeval, reports near resolution of symptoms. Discussed possibility of esophagitis picture. Will refer to GI for this. Nonetheless, did recommend that patient discontinue her lisinopril and follow-up closely with her primary care doctor for alternative to blood pressure medication. Patient is planning to go to her primary care doctor when she leaves here. Will discharge on prednisone. Patient given strict return precautions should symptoms continue or worsen. She voiced understanding. She does feel comfortable going home. Discharged in stable condition. Medical Records Attestation: I reviewed the patient's medical records. Discharge Plan Discharge Clinical Impression: Globus sensation Patient Disposition: Home, Self-Care Condition: Stable Instructions: Antibiotic Form, Anaphylaxis (ED), Esophageal Spasm (ED), Angioedema (ED), Esophagitis (ED) Additional Instructions: Discontinue Lisinopril usage. Follow-up closely with your primary care doctor for further evaluation and to discuss alternative blood pressure medications. You may also follow-up with GI for recurrent issues. Take steroids as prescribed over the next several days. Return to the ED if you experience worsening or recurrent symptoms, difficulty breathing or swallowing, unable to keep down food or drink, hives or rash, or any other symptoms of concern. Patient Language: Ghanaian Prescriptions: New prednisone 50 mg tablet 50 mg PO DAILY Qty: 5 0RF No Action thyroid (pork) [MAGAZINE WORKER Thyroid] 15 mg tablet 15 mg PO DAILY lisinopril 40 mg tablet 40 mg PO DAILY Follow-up/Referrals: Juan Alberto,MD Anibal [Primary Care Provider] - Barron Alonzo MD [Physician] - (GI) Time of Disposition: 12:37
--- OUTSIDE RECORDS SUMMARY | 2024-06-15 10:33 | XMS_ITS | Clinical Summary ---
Author Organization [facility] Address [address] [place] [address] Care Team Providers Care Restaurant Server Name Role Phone Patti Aiken MD Primary Care Provider [phone] Allergies No known active allergies Medications XARELTO [...] on file Legal Sex Female 4:34 AM RIVET PASSER Gender Identity Not on file Sexual Orientation [...] (1 - 1-dose 75+ series) 2030 Insurance [facility] PREFERRED Care Teams Restaurant Server Relationship Specialty Start Date End Date Patti Aiken MD [address] [place] [id number] PCP - General Family Practice 08/11/18
--- OUTSIDE RECORDS SUMMARY | 2024-06-15 10:33 | XMS_ITS | Clinical Summary ---
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 Care Teams Heel Splitter Relationship Specialty Start Date End Date Patti Aiken MD [address] [place] [address] PCP - General Family Medicine 04/14/17
--- OUTSIDE RECORDS SUMMARY | 2024-06-15 10:34 | XMS_ITS | Encounter Summary ---
Author Organization [facility] Address [address] [place] [address] Phone Care Team Providers Care Race Car Mechanic Name Role Phone Patti Aiken MD Primary Care Provider [phone] Shanda Mead NP Primary Care Provider [phone] Encounter Details Date Type Department Care Team (Latest Contact Info) Description 09/08/2018 Orders Only [facility] Scanning, Provider Social History Tobacco Use Types Packs/Day Years Used Date Smoking Tobacco: Never Smokeless Tobacco: Never Comments Unknown Sex and Gender Information Value Date Recorded Sex Assigned at Not on file 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
--- OUTSIDE RECORDS SUMMARY | 2024-06-15 10:34 | XMS_ITS | Patient Health Summary ---
Author Organization [facility] Address [address] [place] [address] Care Team Providers Care Supervisor Payroll Name Role Phone Chito Harrison MD Primary Care Provider [phone] Note from [facility],non-owned Affiliates and Associated Physician Practices is amultiple site organization consisting of ambulatory clinics and hospital sitesin [place], [place], [place] and [place]. This disclosure is being madepursuant to the Care Everywhere program and may not contain all information available regarding this patient. Last updated 18.[facility] Allergies No known active allergies Medications * [...] Comments Blood Pressure 140/80 02/27/2020 8:05 AM SAP CONSULTANT Pulse 60 02/27/2020 8:05 AM SAP CONSULTANT Temperature - - Respiratory Rate 12 02/27/2020 8:05 AM SAP CONSULTANT Oxygen Saturation - - Inhaled Oxygen Concentration - - Weight 108.4 kg (239 lb) 02/27/2020 8:05 AM SAP CONSULTANT Height 161.3 cm (5' 3.5 ) 02/27/2020 8:05 AM SAP CONSULTANT Body Mass Index 41.67 02/27/2020 8:05 AM SAP CONSULTANT Procedures * ECHOCARDIOGRAM LIMITED(Performed 02/27/2020) Performed for Nonrheumatic aortic valve stenosis * LAB MISC TEST(Performed 01/30/2020) * CT CHEST W CONTRAST(Performed 11/13/2018) * ECHOCARDIOGRAM COMPLETE(Performed 11/02/2018) Results * ECHOCARDIOGRAM LIMITED (02/27/2020 11:35 AM SAP CONSULTANT) Narrative Deneen Hooks - 02/27/2020 11:35 AM SAP CONSULTANT Luanne Pineda RDMS 02/27/2020 11:36 AM See [...] (11/02/2018) Historical Provider ECHO ORDERABLES Care Teams Supervisor Payroll Relationship Specialty Start Date End Date Chito Harrison MD [address] [place] [address] PCP - General 06/26/21
--- OUTSIDE RECORDS SUMMARY | 2024-06-15 10:34 | XMS_ITS | Clinical Summary ---
Author Organization [facility] Address [address] [place] [address] Care Team Providers Care Big Data Platform Architect Name Role Phone Shanda Mead BRIAN Primary Care Provider [phone] Allergies No known active allergies Medications UNABLE [...] capsule daily. 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 Have an active lifestyle, strive for 30 [...] 02/24 Assessment & Plan (02/25/2024 10:17 AM FARM BUTCHER): Lipid panel ordered. Will continue to monitor. Acquired hypothyroidism 02/18/2023 Assessment & Plan (06/07/2024 3:29 PM FARM BUTCHER): Last TSH at goal, taking natural supplements Will continue to monitor closely Assessment & Plan (02/25/2024 10:15 AM FARM BUTCHER): Will recheck TSH and T4. Will continue to take OTC thyroid medication and seeing facility environmental technician. Class 3 severe obesity due t o excess calories with serious comorbidity and body mass index (BMI) of 40.0 to 44.9 in adult 02/18/2023 Assessment & Plan (06/07/2024 3:29 PM FARM BUTCHER): Not well controlled, has been having weight [...] week. Assessment & Plan (02/25/2024 10:15 AM FARM BUTCHER): Encouraged heart healthy diet and lifestyle. Advised 150 min/week of aerobic exercise. Hypertension 12/02/2016 Assessment & Plan (06/07/2024 3:29 PM FARM BUTCHER): Stable, well controlled, blood pressure mildly elevated today, some peripheral edema with limited relief Will start furosemide 20 mg b.i.d., continue lisinopril 40 mg, discontinue hydrochlorothiazide Assessment & Plan (02/25/2024 10:14 AM FARM BUTCHER): Blood pressure not well controlled. Will increase [...] weeks Assessment & Plan (02/18/2023 10:15 AM FARM BUTCHER): Stable, currently well-controlled BP at visit 120/84 Continue lisinopril 40 mg daily Resolved Problems Problem Noted Date Diagnosed Date Resolved Date Ascending aortic aneurysm 07/26/2014 Assessment & Plan (02/25/2024 10:25 AM FARM BUTCHER): Continues with routine monitoring. Will continue to follow. Assessment & Plan (02/18/2023 11:51 AM FARM BUTCHER): Gets regular monitoring Patient will call back with location she would like to get next US done at Encounters Date Type Department Care Team Description 05/27/2024 1:15 PM FARM BUTCHER Office Visit [facility] Primary Care at [address] [place] [phone] Anibal Avendano MD Primary hypertension (Primary Dx); SHANIQUE (obstructive sleep apnea); Acquired hypothyroidism; Class 3 severe obesity due to excess calories with serious comorbidity and body mass index (BMI) of 40.0 to 44.9 in adult (HCC) 05/19/2024 [facility]phone [facility] [address] [address] Shanda Mead NP Appointment Request 04/22/2024 Telephone [facility] [address] [address] Shanda Mead NP Med Refill [...] Tobacco: Never Tobacco Cessation:Counseling Given: Not Answered [facility] Utilities Answer Date Recorded In the past 12 months has [employer], gas, oil, or water [employer] threatened to shut off services in your [...] How often do you attend chur or hoahaoism services? Never 02/18/2023 Do you belong to any clubs o r organizations such as zoroastrian groups, unions, fraternal or athletic groups, or [...] staff should administer the PHQ-9) 0 02/25/2024 [facility] [place] of Occupat ional Health - Occupational Stress [...] place to sleep or slept in a correction (including now)? No 02/18/2023 Comments Unknown Sex and Gender Information Value Date Recorded Sex Assigned at Not on file Legal Sex Female 2:32 AM FARM BUTCHER Gender Identity Not on file Sexual Orientation Not on file Obstetrics History Last Filed Vital Signs Vital Sign Reading Time Taken Comments Blood Pressure 136/92 05/27/2024 1:09 PM FARM BUTCHER Pulse 65 05/27/2024 1:09 PM FARM BUTCHER Temperature 36.2 C (97.2 F) 05/27/2024 1:09 PM FARM BUTCHER Respiratory Rate 16 02/25/2024 9:53 AM FARM BUTCHER Oxygen Saturation 98% 05/27/2024 1:09 PM FARM BUTCHER Inhaled Oxygen Concentration - - Weight 113.4 kg (250 lb) 05/27/2024 1:09 PM FARM BUTCHER Height 165.1 cm (5' 5 ) 05/27/2024 1:09 PM FARM BUTCHER Body Mass Index 41.6 05/27/2024 1:09 PM FARM BUTCHER Plan of Treatment Health Maintenance Due Date [...] 02/18/2023 Insurance MEDICARE [employer] PPO [place] MEDICARE [employer] SENIOR SUPPLEMENT Care Teams Big Data Platform Architect Relationship Specialty Start Date End Date Shanda Mead NP PCP - General Family Medicine 02/18/23
--- OUTSIDE RECORDS SUMMARY | 2024-06-15 10:34 | XMS_ITS | Encounter Summary ---
Author Organization [facility] Address [address] [place] [address] Phone Care Team Providers Care Transport Aircrewman Name Role Phone Patti Aiken MD Primary Care Provider [phone] Shanda Mead NP Primary Care Provider [phone] Encounter Details Date Type Department Care Team (Late st Contact Info) Description 03/21/2019 Telephone [facility] Cardiology [address] [facility] [address] [place] [address] [place] [address] Caleb Garcia MD PhD [address] [place] [address] Social History Tobacco Use Types Packs/Day Years Used Date Smoking Tobacco: Never Smokeless Tobacco: Never Comments Unknown Sex and Gender Information Value Date Recorded Sex Assigned at Not on file Legal Sex Female 2:32 AM SUPERINTENDENT SANITATION Gender Identity Not on file Sexual Orientation Not on file documented as of this encounter Plan of Treatment Not on file documented as of this encounter Visit Diagnoses Not on filedocumented in this encounter Care Teams Transport Aircrewman Relationship Specialty Start Date End Date Patti Aiken MD PCP - General 10/31/16 02/17/23 Shanda Mead NP PCP - General Family Medicine 02/18/23 documented as of this encounter
--- OUTSIDE RECORDS SUMMARY | 2024-06-15 10:34 | XMS_ITS | Encounter Summary ---
Author Organization [facility] Address [address] [place] [address] Care Team Providers Care General Manager Farm Name Role Phone Shanda Mead NP Primary Care Provider [phone] Reason for Visit * Reason Onset Date Comments Appointment Request 05/19/2024 Encounter Details Date Type Department Care Team (Late st Contact Info) Description 05/19/2024 Telephone [facility] [address] [place] [address] Shanda Mead NP [address] [place] [address] Appointment Request Social History Tobacco Use Types Packs/Day Years Used Date Smoking Tobacco: Never Smokeless Tobacco: Never [facility] Utilities Answer Date Recorded In the past 12 months has [facility] [employer], gas, oil, or water [employer] threatened to shut off services in your [...] How often do you attend chur or scientologist services? Never 02/18/2023 Do you belong to any clubs o r organizations such as hindu groups, unions, fraUniversity of [place] or athletic groups, or school groups? No [...] staff should administer the PHQ-9) 0 02/25/2024 [facility] of Occupat ional Health - Occupational Stress [...] place to sleep or slept in a detention (including now)? No 02/18/2023 Comments Unknown Sex and Gender Information Value Date Recorded Sex Assigned at Not on file Legal Sex Female 2:32 AM BATHHOUSE KEEPER Gender Identity Not on file Sexual Orientation Not on file documented as of this encounter Miscellaneous Notes * Telephone Encounter - Theresa Cohen - 05/19/2024 11:39 AM CST Scheduled. HOUSE KEEPER * Telephone Encounter - Nancy Rob - [...] care team offered (e.g., nurse practioner(s), physician studio assistant(s)) ? Yes Additional Comments: Patient was scheduled for 05.27.24 but the appointment was cancelled by the office and rescheduled to October. Patient stated that this appointment was to discuss her blood pressure and she would like to be seen sooner. Does message need to be routed? Yes-Action Needed HOUSE KEEPER documented in this encounter Plan of Treatment Not on file documented as of this encounter Visit Diagnoses Not on filedocumented in this encounter Care Teams General Manager Farm Relationship Specialty Start Date End Date Shanda Mead NP PCP - General Family Medicine 02/18/23 documented as of this encounter
--- OUTSIDE RECORDS SUMMARY | 2024-06-15 10:34 | XMS_ITS | Referral Summary ---
Author Organization [employer] Address [address] [facility] [place] [address] Care Team Providers Care Rehab Aid Name Role Phone Chito Harrison MD Primary Care Provider [phone] Source Comments [facility],non-owned Affiliates and Associated Physician Practices is amultiple site organization consisting of ambulatory clinics and hospital sitesin [place], [place], [place] and [place]. This disclosure is being madepursuant to the Care Everywhere program and may not contain all information available regarding this patient. Last updated 18.[facility] Allergies No known active allergies Medications * [...] Comments Blood Pressure 140/80 02/27/2020 8:05 AM PATIENT FINANCIAL SERVICES MANAGER Pulse 60 02/27/2020 8:05 AM PATIENT FINANCIAL SERVICES MANAGER Temperature - - Respiratory Rate 12 02/27/2020 8:05 AM PATIENT FINANCIAL SERVICES MANAGER Oxygen Saturation - - Inhaled Oxygen Concentration - - Weight 108.4 kg (239 lb) 02/27/2020 8:05 AM PATIENT FINANCIAL SERVICES MANAGER Height 161.3 cm (5' 3.5 ) 02/27/2020 8:05 AM PATIENT FINANCIAL SERVICES MANAGER Body Mass Index 41.67 02/27/2020 8:05 AM PATIENT FINANCIAL SERVICES MANAGER Plan of Treatment Not on file Care Teams Rehab Aid Relationship Specialty Start Date End Date Chito Harrison MD [address] [place] [id number] PCP - General 06/26/21
--- OUTSIDE RECORDS SUMMARY | 2024-06-15 10:34 | XMS_ITS | Referral Summary ---
Author Organization [facility] Address [address] [place] [address] Care Team Providers Care Computer Language Coder Name Role Phone Shanda Mead NP Primary Care Provider [phone] Encounters Date Type Department Care Team Description 05/27/2024 1:15 PM LIBRARIAN HELPER Office Visit [facility] Primary Care at [address] [place] [id number] Anibal Avendano MD Primary hypertension (Primary Dx); SHANIQUE (obstructive sleep apnea); Acquired hypothyroidism; Class 3 severe obesity due to excess calories with serious comorbidity and body mass index (BMI) of 40.0 to 44.9 in adult (HCC) 05/19/2024 [facility] [address] [address] Shanda Mead NP Appointment Request 04/22/2024 Telephone [facility] [address] [address] Shanda Mead NP Med Refill [...] capsule daily. 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 Have an active lifestyle, strive for 30 [...] 02/24 Assessment & Plan (02/25/2024 10:17 AM LIBRARIAN HELPER): Lipid panel ordered. Will continue to monitor. Acquired hypothyroidism 02/18/2023 Assessment & Plan (06/07/2024 3:29 PM LIBRARIAN HELPER): Last TSH at goal, taking natural supplements Will continue to monitor closely Assessment & Plan (02/25/2024 10:15 AM LIBRARIAN HELPER): Will recheck TSH and T4. Will continue to take OTC thyroid medication and seeing operations systems specialist. Class 3 severe obesity due t o excess calories with serious comorbidity and body mass index (BMI) of 40.0 to 44.9 in adult 02/18/2023 Assessment & Plan (06/07/2024 3:29 PM LIBRARIAN HELPER): Not well controlled, has been having weight [...] week. Assessment & Plan (02/25/2024 10:15 AM LIBRARIAN HELPER): Encouraged heart healthy diet and lifestyle. Advised 150 min/week of aerobic exercise. Hypertension 12/02/2016 Assessment & Plan (06/07/2024 3:29 PM LIBRARIAN HELPER): Stable, well controlled, blood pressure mildly elevated today, some peripheral edema with limited relief Will start furosemide 20 mg b.i.d., continue lisinopril 40 mg, discontinue hydrochlorothiazide Assessment & Plan (02/25/2024 10:14 AM LIBRARIAN HELPER): Blood pressure not well controlled. Will increase [...] weeks Assessment & Plan (02/18/2023 10:15 AM LIBRARIAN HELPER): Stable, currently well-controlled BP at visit 120/84 Continue lisinopril 40 mg daily Resolved Problems Problem Noted Date Diagnosed Date Resolved Date Ascending aortic aneurysm 07/26/2014 Assessment & Plan (02/25/2024 10:25 AM LIBRARIAN HELPER): Continues with routine monitoring. Will continue to follow. Assessment & Plan (02/18/2023 11:51 AM LIBRARIAN HELPER): Gets regular monitoring Patient will call back with location she would like to get next US done at Immunizations Immunization Administration Dates Next Due Influenza, Unspecified 02/25/2024(Deferr ed: Patient Refused),01/08/2024(Deferred: Patient Refused),01/11/2023(Deferred: Patient Refused),01/11/2023(Deferred: Patient Refused),12/12/2022(Deferred: Patient Refused),01/11/2022(Deferred: Patient Refused) Social History Tobacco Use Types Packs/Day Years Used Date Smoking Tobacco: Never Smokeless Tobacco: Never Tobacco Cessation:Counseling Given: Not Answered [facility] Utilities Answer Date Recorded In the past 12 months has [facility] [employer], [place], oil, or water [employer] threatened to shut off services in your [...] often do you attend chur ch or holiness services? Never 02/18/2023 Do you belong to any clubs o r organizations such as adventist groups, unions, fraternal or athletic groups, or [...] staff should administer the PHQ-9) 0 02/25/2024 [facility] of Occupat ional Health - Occupational Stress [...] place to sleep or slept in a residential (including now)? No 02/18/2023 Comments Unknown Sex and Gender Information Value Date Recorded Sex Assigned at Not on file Legal Sex Female 2:32 AM LIBRARIAN HELPER Gender Identity Not on file Sexual Orientation Not on file Last Filed Vital Signs Vital Sign Reading Time Taken Comments Blood Pressure 136/92 05/27/2024 1:09 PM LIBRARIAN HELPER Pulse 65 05/27/2024 1:09 PM LIBRARIAN HELPER Temperature 36.2 C (97.2 F) 05/27/2024 1:09 PM LIBRARIAN HELPER Respiratory Rate 16 02/25/2024 9:53 AM LIBRARIAN HELPER Oxygen Saturation 98% 05/27/2024 1:09 PM LIBRARIAN HELPER Inhaled Oxygen Concentration - - Weight 113.4 kg (250 lb) 05/27/2024 1:09 PM LIBRARIAN HELPER Height 165.1 cm (5' 5 ) 05/27/2024 1:09 PM LIBRARIAN HELPER Body Mass Index 41.6 05/27/2024 1:09 PM LIBRARIAN HELPER Plan of Treatment Not on file Insurance MEDICARE CHOICE PRF PPO [place] MEDICARE PARAMJIT[employer] SENIOR SUPPLEMENT Care Teams Computer Language Coder Relationship Specialty Start Date End Date Shanda Mead NP PCP - General Family Medicine 02/18/23
--- OUTSIDE RECORDS SUMMARY | 2024-06-15 10:34 | XMS_ITS | Clinical Summary ---
Author Organization [employer] Address [address] [facility] [place] [address] Care Team Providers Care Power Operator Name Role Phone Chito Harrison MD Primary Care Provider [phone] Source Comments [employer],non-owned Affiliates and Associated Physician Practices is amultiple site organization consisting of ambulatory clinics and hospital sitesin [place], [place], [place]. This disclosure is being madepursuant to the Care Everywhere program and may not contain all information available regarding this patient. Last updated 18.[employer] Allergies No known active allergies Medications * [...] Comments Blood Pressure 140/80 02/27/2020 8:05 AM LIPSTICK MOLDER Pulse 60 02/27/2020 8:05 AM LIPSTICK MOLDER Temperature - - Respiratory Rate 12 02/27/2020 8:05 AM LIPSTICK MOLDER Oxygen Saturation - - Inhaled Oxygen Concentration - - Weight 108.4 kg (239 lb) 02/27/2020 8:05 AM LIPSTICK MOLDER Height 161.3 cm (5' 3.5 ) 02/27/2020 8:05 AM LIPSTICK MOLDER Body Mass Index 41.67 02/27/2020 8:05 AM LIPSTICK MOLDER Plan of Treatment Health Maintenance Due Date [...] age to complete this topic Care Teams Power Operator Relationship Specialty Start Date End Date Chito Harrison MD [address] [place] [address] PCP - General 06/26/21
[2024-06-15 11:16] VITALS: BP 161/96; PULSE 60; RESP 14; O2SAT 96
[2024-06-15] MEDS: BELLADONNA ALK/PHENOB ELIX 10 ML, MAG HYDROX/ALUMINUM HYD/SIMETH 30 ML, LIDOCAINE 2% VI... PO (11:50)
== END 2024-06-15 13:00 | disposition home or self-care (01) ==
PROVIDERS: Emergency Provider Physician Assistant; PCP Hospitalist
DX: R09.A2 Foreign body sensation, throat (principal); T46.4X5A Adverse effect of angiotensin-converting-enzyme inhibitors, initial encounter; Z90.710 Acquired absence of both cervix and uterus
CPT/HCPCS: 96372; 99283; A9270; J2919

== ENCOUNTER 2024-09-16 10:25 | Outpatient (CLI) | payer MEDICARE, SELFPAY ==
--- OUTSIDE RECORDS SUMMARY | 2024-09-16 10:32 | XMS_ITS | Encounter Summary ---
Author Organization [facility] [employer] [facility] Address [address] [place] [address] Phone Care Team Providers Care Platform Worker Name Role Phone Patti Aiken MD Primary Care Provider [phone] Shanda Mead NP Primary Care Provider [phone] Encounter Details Date Type Department Care Team (Latest Contact Info) Description 09/08/2018 Orders Only [facility] Scanning, Provider Social History Tobacco Use Types Packs/Day Years Used Date Smoking Tobacco: Never Smokeless Tobacco: Never Comments Unknown Sex and Gender Information Value Date Recorded Sex Assigned at Not on file Legal Sex Female 2:32 AM CONTACT CENTER ASSOCIATE Gender Identity Not on file Sexual Orientation [...] on filedocumented in this encounter Care Teams Platform Worker Relationship Specialty Start Date End Date Patti Aiken MD PCP - General 10/31/16 02/17/23 Shanda Mead NP PCP - General Family Medicine 02/18/23 documented as of this encounter
--- OUTSIDE RECORDS SUMMARY | 2024-09-16 10:32 | XMS_ITS | Encounter Summary ---
Author Organization [facility] Address [address] [place] [address] Care Team Providers Care Glost Tile Sorter Name Role Phone Shanda Mead BRIAN Primary Care Provider [phone] Reason for Visit * Reason Comments Follow-up 4 week follow up Medication Problem Pt stopped taking fu rosemide, pt experienced increased swelling and red blotches under the skin in lower legs. Encounter Details Date Type Department Care Team (Late st Contact Info) Description 09/15/2024 9:00 AM CDT Office Visit [facility] [address] [facility] [place] [address] Anibal Avendano MD [address] [address] Peripheral edema (Primary Dx); Primary hypertension; Class 3 severe obesity due to excess calories with serious comorbidity and body mass index (BMI) of 40.0 to 44.9 in adult; SHANIQUE (obstructive sleep apnea) Social History Tobacco Use Types Packs/Day Years Used Date Smoking Tobacco: Never Smokeless Tobacco: Never [facility] Utilities Answer Date Recorded In the past 12 months has e electric, gas, oil, or water company threatened to shut off services in your [...] How often do you attend chur or rastafarian services? 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 Gender Identity Not on file Sexual Orientation Not on file documented as of this encounter Last Filed Vital Signs Vital Sign Reading Time Taken Comments Blood Pressure 130/80 09/15/2024 9:01 AM CDT Pulse 62 09/15/2024 9:01 AM CDT Temperature 36.6 C (97.8 F) 09/15/2024 9:01 AM CDT Respiratory Rate 18 09/15/2024 9:01 AM CDT Oxygen Saturation 95% 09/15/2024 9:01 AM CDT Inhaled Oxygen Concentration - - Weight 110.2 kg (243 lb) 09/15/2024 9:01 AM CDT Height 165.1 cm (5' 5) 09/15/2024 9:01 AM CDT Body Mass Index 40.44 09/15/2024 9:01 AM CDT documented in this encounter Progress Notes * Anibal Avendano MD - 09/15/2024 9:00 AM CDT Images from the original note were not included. Subjective/Objective Patient ID: Rere Garner is a 69 y.o. female. Chief Complaint Chief Complaint Patient presents with Follow-up 4 week follow up Medication Problem Pt stopped taking furosemide, pt experienced increased swelling and red blotches under the skin in lower legs. Diagnoses and all orders for this visit: Peripheral edema (Primary) Assessment & Plan: Improving; patient reported side effects associated with furosemide; good relief with current medication Continue spironolactone 25 mg daily Primary hypertension Assessment & Plan: Stable, well controlled, blood pressure at goal; continue spironolactone 25 mg daily Class 3 severe obesity due to excess calories with serious comorbidity and body mass index (BMI) of40.0 to 44.9 in adult Assessment & Plan: Stable, patient currently scheduled for umbilical surgery; would recommend increased physical activity; dietary changes after cleared post surgery SHANIQUE (obstructive sleep apnea) Assessment & Plan: Stable, well controlled, using CPAP; no having some difficulty due to nasal cannula; patient to follow-up with supplier for mask fitting Assessment & Plan Peripheral edema Chronic peripheral edema improved with spironolactone. Possible dehydration due to impaired thirst sensation, potentially linked to hypothalamic or pituitary dysfunction. - Continue spironolactone 25 mg oral daily. - Recommend magnesium 400-800 mg daily for muscle cramping. - Advise drinking fluids with electrolytes, especially post-activity. - Encourage gentle stretching exercises for posterior chain. - Consider evaluation for hypothalamic or pituitary dysfunction if symptoms persist. Primary hypertension Blood pressure well-controlled on spironolactone. Carvedilol discontinued. Spironolactone chosen for dual benefit in blood pressure control and edema reduction. - Continue spironolactone 25 mg oral daily. Class 3 severe obesity Class 3 obesity with BMI 40.0 to 44.9. Post-surgery focus on weight loss to reduce swelling and improve health. - Focus on weight loss after recovery from surgery. Umbilical hernia and kidney stones Scheduled for surgery to address umbilical hernia and kidney stones, minimizing anesthesia exposurerisk. - Proceed with scheduled surgery for umbilical hernia and kidney stones. Sleep apnea Uses CPAP with issues of nasal mask causing burning sensation and air leakage. Plans to consult supplier for better fitting mask. - Consult with CPAP supplier to find a better fitting mask. Return in about 3 months (around 12/16/2024). HPI Patient is a 69 y.o. year old female presenting today for management of chronic medical conditions. HPI HTN: -blood pressure at goal; has relief with edema and blood pressure with spironolactone Obesity: Hypothyroidism: SHANIQUE: -uses CPAP at night; some issues; some difficulty with current mask and machine; following with sleep medicine to adjust masks History of Present Illness Rere Garner is a 69 year old female who presents for pre-operative evaluation and management of leg swelling and CPAP issues. She is scheduled for surgery next Thursday to address kidney stones and a hernia. She has ongoing issues with leg swelling and has been taking spironolactone, which has improved her symptoms without significant side effects. Previously, she was on furosemide, which caused excessive urination and sensitivity to sunlight, leading to blotchy and swollen legs. Since stopping furosemide, her leg swelling and discoloration have improved. She experiences leg cramps, particularly at night, described as severe 'Jacques horses' that require assistance from Deondre to alleviate. She has considered dehydration and electrolyte imbalance as possible contributing factors and has been researching the role of antidiuretic hormone and magnesium in her symptoms. She uses a CPAP machine at night but experiences discomfort with the nasal mask, which causes burning around her nose and wakes her up early in the morning. She has tried different mask sizes but continues to have issues with air pressure and discomfort, particularly when sleeping on her side. She maintains an active lifestyle, engaging in heavy labor such as moving [employer] and [employer] that she is not sedentary. Despite her activity level, she experiences fluctuations in stamina and breathlessness, which she attributes to her sleep apnea and CPAP issues. BP 130/80 (BP Location: Right arm, Patient Position: Sitting) Pulse 62 Temp 36.6 ??C (97.8 ??F)(Temporal) Resp 18 Ht 165.1 cm (5' 5) Wt 110.2 kg (243 lb) SpO2 95% BMI 40.44 kg/m?? Current Outpatient Medications Medication Sig Dispense Refill spironolactone (ALDACTONE) 25 mg tablet Take 1 tablet (25 mg total) by mouth daily 90 tablet 4 ubidecarenone (coenzyme Q10) 100 mg tablet Take by mouth (Patient taking differently: Take by mouthdaily) UNABLE TO FIND Methyl-B12 spray daily UNABLE TO FIND Liposomal Vit C 1600 mg 1x a day (Patient taking differently: Take by mouth daily Liposomal Vit C 1600 mg 1x a day) UNABLE TO FIND Orthomune (Zinc, D, C) 1x a day (Patient taking differently: Take by mouth daily Orthomune (Zinc, D, C) 1x a day) UNABLE TO FIND Balance of Nature Veggies Fruits UNABLE TO FIND Apply topically Med Name: E2(Estradiol), E3(estrogen0, T2(testosterone) 1-2-2mg/ml crm - compound medication (Patient taking differently: Apply topically as needed Med Name: E2(Estradiol), E3(estrogen0, T2(testosterone) 1-2-2mg/ml crm - compound medication TWICE A WEEK) UNABLE TO FIND 1 each daily Med Name: Thyrodain (Patient taking differently: Take 1 each by mouth daily Med Name: Thyrodain) No current facility-administered medications for this visit. Allergies as of 09/15/2024 - Reviewed 09/15/2024 Allergen Reaction Noted Lisinopril Angioedema 06/15/2024 Amlodipine Swelling 08/09/2024 Review of Systems Physical Exam Vitals reviewed. Constitutional: Appearance: Normal appearance. HENT: Head: Normocephalic and atraumatic. Cardiovascular: Rate and Rhythm: Normal rate and regular rhythm. Pulses: Normal pulses. Heart sounds: Normal heart sounds. Pulmonary: Effort: Pulmonary effort is normal. Breath sounds: No wheezing, rhonchi or rales. Abdominal: General: Abdomen is flat. Palpations: Abdomen is soft. Musculoskeletal: General: No swelling or signs of injury. Normal range of motion. Skin: General: Skin is warm and dry. Neurological: General: No focal deficit present. Mental Status: She is alert and oriented to person, place, and time. Psychiatric: Mood and Affect: Mood normal. Behavior: Behavior normal. Thought Content: Thought content normal. Physical Exam Results Procedures Anibal Avendano MD documented in this encounter Miscellaneous Notes * Assessment & Plan Note - Anibal Avendano MD - 09/15/2024 12:50 PM CDT Associated Problem(s): SHANIQUE (obstructive sleep apnea) Stable, well controlled, using CPAP; no having some difficulty due to nasal cannula; patient to follow-up with supplier for mask fitting * Assessment & Plan Note - Anibal Avendano MD - 09/15/2024 12:49 PM CDT Associated Problem(s): Class 3 severe obesity due to excess calories with serious comorbidity and body mass index (BMI) of 40.0 to 44.9 in adult Stable, patient currently scheduled for umbilical surgery; would recommend increased physical activity; dietary changes after cleared post surgery * Assessment & Plan Note - Anibal Avendano MD - 09/15/2024 12:49 PM CDT Associated Problem(s): Hypertension Stable, well controlled, blood pressure at goal; continue spironolactone 25 mg daily * Assessment & Plan Note - Anibal Avendano MD - 09/15/2024 12:49 PM CDT Associated Problem(s): Peripheral edema Improving; patient reported side effects associated with furosemide; good relief with current medication Continue spironolactone 25 mg daily documented in this encounter Plan of Treatment Not on file documented as of this encounter Visit Diagnoses Diagnosis Peripheral edema- Primary Edema Primary hypertension Unspecified essential hypertension Class 3 severe obesity due to excess calories with serious comorbidity and body mass index (BMI) of 40.0 to 44.9 in adult SHANIQUE (obstructive sleep apnea) Obstructive sleep apnea (adult) (pediatric) documented in this encounter Discontinued Medications Medication Sig Discontinue Reason Start Date End Da te furosemide (LASIX) 40 mg tablet Take 1 tablet (40 mg total) by mouth daily Patient Reported 08/18/2024 09/15/2024 carvediloL (COREG) 6.25 mg tabletIndications:Primary hypertension Take 1 tablet (6.25 mg total) by mouth 2 (two) times a day with meals Patient Reported 08/09/2024 09/15/2024 documented as of this encounter Care Teams Glost Tile Sorter Relationship Specialty Start Date End Date Shanda Mead NP PCP - General Family Medicine 02/18/23 documented as of this encounter
--- OUTSIDE RECORDS SUMMARY | 2024-09-16 10:32 | XMS_ITS | Clinical Summary ---
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 Gender Identity Not on file Sexual Orientation Not on file Last Filed Vital Signs Vital Sign Reading Time Taken Comments Blood Pressure 144/81 08/11/2017 2:29 PM CDT Pulse 57 08/11/2017 2:29 PM CDT Temperature - - Respiratory Rate - - Oxygen Saturation - - Inhaled Oxygen Concentration - - Weight 106.1 kg (234 lb) 08/11/2017 2:29 PM CDT Height 167.6 cm (5' 6) 08/11/2017 2:29 PM CDT Body Mass Index [...] patient's age to complete this topic Insurance [facility] Care Teams Game Bird Farmer Relationship Specialty Start Date End Date Patti Aiken MD [address] [place] [address] PCP - General Family Medicine 04/14/17
--- OUTSIDE RECORDS SUMMARY | 2024-09-16 10:32 | XMS_ITS | Clinical Summary ---
Author Organization [facility] al Address [address] [place] [address] Care Team Providers Care Sky Cap Name Role Phone Shanda Mead BRIAN Primary Care Provider [phone] Allergies Active Allergy Reactions Criticality Noted Date Comments Amlodipine Swelling Medium 08/09/2024 Lisinopril Angioedema High 06/15/2024 Medications UNABLE TO FIND Methyl-B12 spray daily Active UNABLE TO FIND Liposomal Vit C 1600 mg 1x a day Active ubidecarenone (coenzyme Q10) 100 mg tablet Take by mouth Ac tive UNABLE TO FIND Orthomune (Zinc, D, C) 1x a day Active UNABLE TO FIND Balance of Nature Veggies Fruits Active UNABLE TO FIND Apply topically Med Name: E2(Estradiol), E3(estrogen0, T2(testosteron e) 1-2-2mg/ml crm - compound medication Active UNABLE TO FIND 1 each daily Med Name: Thyrodain Active spironolactone (ALDACTONE) 25 mg tablet Take 1 tablet (25 mg total) by mouth daily 90 tablet 4 5 026 Active carvediloL (COREG) 6.25 mg tabletIndication s:Primary hypertension Take 1 tablet (6.25 mg total) by mouth 2 (two) times a day with meals 60 tablet 11 5 025 Discontin ued(Patie nt Reported) furosemide (LASIX) 20 mg tablet Take 1 tablet (20 mg total) by mouth daily 90 tablet 4 5 025 Discontin ued(Reord er) furosemide (LASIX) 40 mg tablet Take 1 tablet (40 mg total) by mouth daily 90 tablet 5 025 Discontin ued(Patie nt Reported) Active Problems Problem Noted Date Diagnosed Date Umbilical hernia without obstruction and without gangrene 08/30/2024 Peripheral edema 08/09/2024 Assessment & Plan (09/15/2024 12:49 PM CDT): Improving; patient reported side effects associated with furosemide; good relief with current medication Continue spironolactone 25 mg daily Assessment & Plan (08/30/2024 3:30 PM CDT): Not well controlled; significant edema in bilateral lower extremities; may benefit from additional medications to help improve diuresis as well as management of electrolytes Increase furosemide to 40 mg daily, add spironolactone 25 mg daily Assessment & Plan (08/09/2024 3:06 PM CDT): Controlled; significant peripheral edema; patient reports no dyspnea on exertion; may benefit from echocardiogram Will start furosemide 20 mg 1 to twice daily to help with symptom relief SHANIQUE (obstructive sleep apnea) 06/30/2024 Assessment & Plan (09/15/2024 12:50 PM CDT): Stable, well controlled, using CPAP; no having some difficulty due to nasal cannula; patient to follow-up with supplier for mask fitting Medicare annual wellness visit, subsequent 02/24 Assessment & Plan (02/25/2024 10:16 AM 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 Have an active lifestyle, strive for 30 [...] 02/24 Assessment & Plan (02/25/2024 10:17 AM SCHOOL SECRETARY): Lipid panel ordered. Will continue to monitor. Acquired hypothyroidism 02/18/2023 Assessment & Plan (08/30/2024 3:31 PM CDT): Subclinical; continue to monitor; patient reports no symptoms associated with thyroid low Assessment & Plan (08/09/2024 3:06 PM CDT): Stable, well controlled, last TSH at goal; on supplements; continue to monitor Assessment & Plan (06/07/2024 3:29 PM SCHOOL SECRETARY): Last TSH at goal, taking natural supplements Will continue to monitor closely Assessment & Plan (02/25/2024 10:15 AM SCHOOL SECRETARY): Will recheck TSH and T4. Will continue to take OTC thyroid medication and seeing roll examiner. Class 3 severe obesity due t o excess calories with serious comorbidity and body mass index (BMI) of 40.0 to 44.9 in adult 02/18/2023 Assessment & Plan (09/15/2024 12:49 PM CDT): Stable, patient currently scheduled for umbilical surgery; would recommend increased physical activity; dietary changes after cleared post surgery Assessment & Plan (08/30/2024 3:31 PM CDT): Stable, no major changes to weight; encourage regular physical activity and exercise; may improve after hernia surgery Assessment & Plan (06/07/2024 3:29 PM SCHOOL SECRETARY): Not well controlled, has been having weight [...] week. Assessment & Plan (02/25/2024 10:15 AM SCHOOL SECRETARY): Encouraged heart healthy diet and lifestyle. Advised 150 min/week of aerobic exercise. Hypertension 12/02/2016 Assessment & Plan (09/15/2024 12:49 PM CDT): Stable, well controlled, blood pressure at goal; continue spironolactone 25 mg daily Assessment & Plan (08/30/2024 3:31 PM CDT): Stable, well controlled, blood pressure at goal; no chest pain pressure orthostatics Continue carvedilol 6.25 mg b.i.d., additional spironolactone 25 mg daily will help manage blood pressure Assessment & Plan (08/09/2024 3:06 PM CDT): Stable, well controlled, blood pressure at goal; discontinue amlodipine; start carvedilol 6.25 mg b.i.d. Assessment & Plan (06/07/2024 3:29 PM SCHOOL SECRETARY): Stable, well controlled, blood pressure mildly elevated today, some peripheral edema with limited relief Will start furosemide 20 mg b.i.d., continue lisinopril 40 mg, discontinue hydrochlorothiazide Assessment & Plan (02/25/2024 10:14 AM SCHOOL SECRETARY): Blood pressure not well controlled. Will increase [...] weeks Assessment & Plan (02/18/2023 10:15 AM SCHOOL SECRETARY): Stable, currently well-controlled BP at visit 120/84 Continue lisinopril 40 mg daily Resolved Problems Problem Noted Date Diagnosed Date Resolved Date Ascending aortic aneurysm 07/26/2014 Assessment & Plan (02/25/2024 10:25 AM SCHOOL SECRETARY): Continues with routine monitoring. Will continue to follow. Assessment & Plan (02/18/2023 11:51 AM SCHOOL SECRETARY): Gets regular monitoring Patient will call back with location she would like to get next US done at Encounters Date Type Department Care Team Description 09/15/2024 9:00 AM CDT [facility] Visit [facility] [address] [phone] Anibal Avendano MD Peripheral edema (Primary Dx); Primary hypertension; Class 3 severe obesity due to excess calories with serious comorbidity and body mass index (BMI) of 40.0 to 44.9 in adult; SHANIQUE (obstructive sleep apnea) 08/19/2024 Results [facility]Up [facility] [address] [phone] Anibal Avendano MD Hepatitis C antibody Blood, Hepatitis B surface antibody (immune status) Blood, Hepatitis B Surface Antigen Blood, Additional followed-up results: 6 08/18/2024 10:00 AM CDT Lab [facility] [address] [place] [address] Encounter for hepatitis C screening test for low risk patient; Need for hepatitis B screening test; Acquired hypothyroidism; Primary hypertension 08/18/2024 9:15 AM CDT Office Visit [facility] [address] [phone] Anibal Avendano MD Peripheral edema (Primary Dx); Need for hepatitis B screening test; Encounter for hepatitis C screening test for low risk patient; Primary hypertension; Acquired hypothyroidism; Class 3 severe obesity due to excess calories with serious comorbidity and body mass index (BMI) of 40.0 to 44.9 in adult; Umbilical hernia without obstruction and without gangrene 08/09/2024 9:00 AM CDT Office Visit [facility] [address] [phone] Anibal Avendano MD Primary hypertension (Primary Dx); Osteoporosis screening; Encounter for screening mammogram for malignant neoplasm of breast; Acquired hypothyroidism; Colon cancer screening; Peripheral edema 07/27/2024 Results Follow-Up [facility] [address] [facility] [address], [place] [address] August Pickett MD PSG 07/22/2024 7:15 PM CDT - 07/22/2024 11:59 PM CDT Hospital Encounter [facility] [address] [place] [id number] Severe Obstructive sleep apnea Discharge Disposition: Discharge to home or self care 07/08/2024 11:00 AM CDT Office Visit [facility] [address] [place] [address] [address] [place] [address] August Pickett MD Hypersomnia with sleep apnea (Primary Dx); Severe Obstructive sleep apnea; Morbid obesity with BMI of 40.0-44.9, adult (HCC) 07/06/2024 Results [facility] [address] [phone] Anibal Avendano MD Portable/Home Sleep Study 06/27/2024 10:00 AM CDT - 06/27/2024 11:59 PM CDT Hospital Encounter [facility] [address] [place] [address] SHANIQUE (obstructive sleep apnea) Discharge Disposition: Discharge to home or self care from Last 3 Months Immunizations Immunization Administration [...] Thyroid disease Thoracic ascending aortic aneurysm Hypertension Sleep apnea Kidney stones Hernia, abdominal Family History Medical History Relation Name Comments No Known Problems Father No Known Problems Mother Aneurysm Son Aneurysm - (Add ed by TW Conv) Relation Name Status Comments Father Mother Son Social History Tobacco Use Types Packs/Day Years Used Date Smoking Tobacco: Never Smokeless Tobacco: Never Tobacco Cessation:Counseling Given: Not Answered [facility] [employer] Answer Date Recorded In the past 12 months has e [employer], gas, oil, or water [employer] threatened to shut off services in your [...] How often do you attend chur or religion services? Never 02/18/2023 Do you belong to any clubs o r organizations such as anabaptism groups, unions, fraternal or athletic groups, or [...] staff should administer the PHQ-9) 0 02/[facility]2024 [facility] - Occupational Stress Questionnaire Answer Date Recorded [...] place to sleep or slept in a prison (including now)? No 02/18/2023 Comments Unknown Sex and Gender Information Value Date Recorded Sex Assigned at Not on file Legal Sex Female 2:32 AM SCHOOL SECRETARY Gender Identity Not on file Sexual Orientation [...] Mass Index 40.44 09/15/2024 9:01 AM CDT Plan of Treatment Health Maintenance Due Date Last Done Comments DTaP/Tdap/Td Vaccine (1 - Tdap) 1966 Pneumococcal vaccine 65+ (1 of 1 - PCV) 2005 Zoster Vaccine (1 of 2) 2005 Influenza Vaccine (Season Ended) 2024 Depression Screening 02/24/2025 02/25/2024, 01/08/2024, 02/18/2023, Additional history exists Fall Risk Assessment 02/24/2025 02/25/2024, 02/19/20 23 Well Visit 65+ 02/24/2025 02/25/2024, 02/18/2023 Breast Cancer Screening-Mammogram 05/16/2025 Postponed from 1955 (Patient declined, but will receive in the future) Colon Cancer Screening-Colonoscopy 05/19/2025 Postponed from 1955 (Patient declined, but will receive in the future) Osteoporosis Screening-Bone Density Scan 08/09/2025 Postponed from 1955 (Patient declined, but will receive in the future) Hepatitis B Screening Completed 08/18/2024 Hepatitis C Screening Completed 08/18/2024 Procedures Procedure Name Priority Date/Time Associated Diagnosis Comments EGFR Routine 08/18/2024 9:59 AM CDT Primary hypertension DIFFERENTIAL AUTO Routine 08/18/2024 9:5 9 AM CDT Primary hypertension LIPID PANEL Routine 08/18/2024 9:59 AM CDT Primary hypertension COMPREHENSIVE METABOLIC PANEL Routine 08/18/2024 9:59 AM CDT Primary hypertension CBC WITH AUTO DIFFERENTIAL Routine 08/18/2024 9:59 AM CDT Primary hypertension THYROID FUNCTION CASCADE Routine 08/18/2024 9:59 AM CDT Acquired hypothyroidism HEPATITIS B SURFACE ANTIGEN Routine 08/18/2024 9:59 AM CDT Need for hepatitis B screening test HEPATITIS B CORE ANTIBODY, TOTAL Routine 08/18/2024 9:59 AM CDT Need for hepatitis B screening test HEPATITIS B SURFACE ANTIBODY (IMMUNE STATUS) Routine 08/18/2024 9:59 AM CDT Need for hepatitis B screening test HEPATITIS C ANTIBODY Routine 08/18/2024 9:59 AM CDT Encounter for hepatitis C screening test for low risk patient PORTABLE/HOME SLEEP STUDY Routine 06/28/2024 11:03 AM CDT SHANIQUE (obstructive sleep apnea) from Last 3 Months Results * eGFR (08/18/2024 9:59 AM CDT) eGFR >90 >=60 mL/min/1. 73 m2 Comment: Interpretive Data Reference Interval Normal >/= 90 mL/min/1.73m2 Mildly decreased* 60 - 89 mL/min/1.73m2 Mildly to moderately decreased 45 - 59 mL/min/1.73m2 Moderately to severely decreased 30 - 44 mL/min/1.73m2 Severely decreased 15 - 29 mL/min/1.73m2 Kidney Failure < 15 mL/min/1.73m2 *Relative to young adult level Estimated glomerular filtration rate is determined by the 2020 CKD-EPI equation recommended by the National Kidney Foundation (A Unifying Approach to GFR Estimation: Recommendations of the NKF-ASK Task Force on Reassessing the Inclusion of Race in Diagnosing Kidney Disease, JASN 2020). The CKD-EPI equation should not be used for patients with unstable renal function and has not been validated in children and those over 70. Current interpretive data was last reviewed 2021. Testing performed by: [address] [address] Blood 08/18/2024 9:59 AM CDT 08/18/2024 3:51 PM CDT us Anibal Avendano MD LAB BLOOD ORDERABLES Carolyn cabezas Result WILLIAM GUTIERREZ ([place]) 1 [facility] Department [place] [address] * Differential, auto (08/18/2024 9:59 AM CDT) Neutrophil abs 2.86 1.50 - 6.50 K/cumm Comment:Testing performed by : [address], [address] Imm gran abs 0.03 0.00 - 0.10 K/cumm WILLIAM GUTIERREZ ([place]) Comment:Testing performed by : [address], [address] Lymphocyte abs 1.07 0.80 - 3.30 K/cumm WILLIAM GUTIERREZ ([place]) Comment:Testing performed by : [address], [address] Monocyte abs 0.45 0.20 - 0.80 K/cumm WILLIAM GUTIERREZ ([place]) Comment:Testing performed by : [address] [address] Eosinophil abs 0.09 0.00 - 0.50 K/cumm [facility] ([place]) Comment:Testing performed by : [address] [address] Basophil abs 0.04 0.00 - 0.10 K/cumm [facility] ([place]) Comment:Testing performed by : [address] [address] Neutrophil pct 62.9 % [facility] ([place]) Comment: Interpretive Data Percent cell count reference ranges are not reported, since discordance with absolute values may lead to misinterpretation of CBC data. Current Interpretive Data was last revised on 2017. Testing performed by: [address] [address] Imm gran pct 0.7 % [facility] ([place]) Comment: Interpretive Data Percent cell count reference ranges are not reported, since discordance with absolute values may lead to misinterpretation of CBC data. Current Interpretive Data was last revised on 2017. Testing performed by: [address] [address] Lymphocyte pct 23.6 % [facility] ([place]) Comment: Interpretive Data Percent cell count reference ranges are not reported, since discordance with absolute values may lead to misinterpretation of CBC data. Current Interpretive Data was last revised on 2017. Testing performed by: [address] [address] Monocyte pct 9.9 % [facility] ([place]) Comment: Interpretive Data Percent cell count reference ranges are not reported, since discordance with absolute values may lead to misinterpretation of CBC data. Current Interpretive Data was last revised on 2017. Testing performed by: [address] [address] Eosinophil pct 2.0 % [facility] ([place]) Comment: Interpretive Data Percent cell count reference ranges are not reported, since discordance with absolute values may lead to misinterpretation of CBC data. Current Interpretive Data was last revised on 2017. Testing performed by: [address] [address] Basophil pct 0.9 % [facility] ([place]) Comment: Interpretive Data Percent cell count reference ranges are not reported, since discordance with absolute values may lead to misinterpretation of CBC data. Current Interpretive Data was last revised on 2017. Testing performed by: [facility], [address] [place] [address]., [id number] Blood 08/18/2024 9:59 AM CDT 08/18/2024 3:51 PM CDT Anibal Avendano MD LAB BLOOD ORDERABLES Carolyn l Result WILLIAM GUTIERREZ ([place]) [address] [facility] [place] [address] * Thyroid Function Keo (08/18/2024 9:59 AM CDT) TSH 2.55 0.30 - 4.20 mcIUnit/mL Comment:Testing performed by : [facility], [address] [place] [address], [id number] Blood 08/18/2024 9:59 AM CDT 08/18/2024 3:51 PM CDT Anibal Avendano MD LAB BLOOD ORDERABLES Carolyn l Result Performing Organization Address City/[facility]/ZIP Co de Phone Number WILLIAM GUTIERREZ ([place]) [address] [place] [address] * (ABNORMAL) CBC with auto differential (08/18/2024 9:59 AM CDT) WBC 4.54 3.80 - 9.90 K/cumm Comment:Testing performed by : [address] [address] Hgb 12.0 11.9 - 15.5 g/dL [facility] ([place]) Comment:Testing performed by : [address] [address] Hct 38.7 35.6 - 45.5 % [facility] ([place]) Comment:Testing performed by : [address], [address] Plt 255 150 - 400 K/cumm [facility] ([place]) Comment:Testing performed by : [address], [address] MPV 10.2 9.1 - 12.3 fL [facility] ([place]) Comment:Testing performed by : [address], [address] RBC 4.02 3.90 - 5.20 M/cumm [facility] ([place]) Comment:Testing performed by : [address], [address] MCV 96.3 81.3 - 96.4 fL [facility] ([place]) Comment:Testing performed by : [address], [address] MCH 29.9 27.1 - 33.3 pg [facility] ([place]) Comment:Testing performed by : [address], [address] MCHC 31.0(L) 32.3 - 35.7 g/dL [facility] ([place]) Comment:Testing performed by : [address], [address] RDW CV 15.0(H) 11.1 - 14.9 % [facility] ([place]) Comment:Testing performed by : [address], [address] RDW SD 53.1(H) 35.7 - 48.1 fL [facility] ([place]) Comment:Testing performed by : [address], [address] NRBC abs 0.00 0.00 - 0.01 K/cumm [facility] ([place]) Comment:Testing performed by : [address], [address] Blood 08/18/2024 9:59 AM CDT 08/18/2024 3:51 PM CDT us Anibal Avendano MD LAB BLOOD ORDERABLES Carolyn cabezas Result WILLIAM GUTIERREZ ([place]) [address] [facility] [employer] [address] * Hepatitis C antibody Blood (08/18/2024 9:59 AM CDT) Hep C Ab Nonreactive Nonreactive Comment: Interpretive Data Nonreactive: Antibodies to HCV not detected. Does NOT exclude the possibility of recent exposure to HCV. Equivocal: Equivocal for HCV antibodies. Supplemental molecular testing will be automatically performed to determine infection status in accordance with current CDC screening recommendations. Reactive: Positive for HCV antibodies. This may represent current or past HCV infection. Supplemental molecular testing will be automatically performed to determine current infection status in accordance with current CDC screening recommendations. Interpretive data was last revised on 2019. Testing performed by: [facility], [address] [place] [address], [id number] Blood 08/18/2024 9:59 AM CDT 08/18/2024 3:52 PM CDT Anibal Avendano MD LAB MICROBIOLOGY - GENERA L ORDERABLES Final Result Performing Organization Address [facility] de Phone Number WILLIAM GUTIERREZ ([place]) [address] [place] [address] * Hepatitis B core antibody, total Blood (08/18/2024 9:59 AM CDT) Hep B core IgG/IgM Nonreactive Nonreactive Comment:Testing performed by : [facility], [address] [place] [address], [place]., [address] Blood 08/18/2024 9:59 AM CDT 08/19/2024 9:49 AM CDT Anibal Avendano MD LAB MICROBIOLOGY - GENERA L ORDERABLES Final Result [facility] ([place]) 1 [facility] Department of [employer] [place] [address] * Hepatitis B surface antibody (immune status) Blood (08/18/2024 9:59 AM CDT) HBsAb (immune status) Nonreactive Comment: Interpretive Data Nonreactive: This result is consistent with a lack of immunity to Hepatitis B Virus when used in the setting of routine screening. Equivocal: The immune status of the individual should be further assessed, if appropriate, after consideration of clinical status, risk factors, and additional diagnostic information. Reactive: This result is consistent with immunity to Hepatitis B Virus when used in the setting of routine screening. Current interpretive data was last revised on 19. Testing performed by: [facility], [address] [place] [address]., [id number] Blood 08/18/2024 9:59 AM CDT 08/18/2024 3:52 PM CDT Anibal Avendano MD LAB MICROBIOLOGY - [facility] L ORDERABLES Final Result Performing Organization Address City/[facility]/ZIP Co de Phone Number [facility] ([place]) 1 [facility] [employer] [place] [place] [address] * Hepatitis B Surface Antigen Blood (08/18/2024 9:59 AM CDT) HepBsAg Nonreactive Nonreactive Comment:Testing performed by : [facility], [address] [place] [address]., [id number] Blood 08/18/2024 9:59 AM CDT 08/18/2024 3:52 PM CDT Anibal Avendano MD LAB MICROBIOLOGY - [facility] L ORDERABLES Final Result [facility] ([place]) 1 [facility] [employer] [place] [address] * (ABNORMAL) Lipid panel (08/18/2024 9:59 AM CDT) Cholesterol 259(H) 30 - 199 mg/dL Comment: Interpretive Data Ages < or = 19 years Acceptable: <170 mg/dL Borderline high: 170-199 mg/dL High: >or= 200 mg/dL Ages > or = 20 years Desirable: <200 mg/dL Borderline high: 200-239 mg/dL High: >or= 240 mg/dL Literature References: 1. Expert Panel on Integrated Guidelines for Cardiovascular Health and Risk Reduction in Children and Adolescents. Pediatrics 2011;128:S213 2. NCEP Expert Panel. Circulation 2004;110:227 Current Interpretive Data was last revised on 2017. Testing performed by: [facility], [address] [place] [address]., [address] Triglycerides 154(H) <=149 mg/dL [facility] ([place]) Comment: Interpretive Data Ages < or = 9 years Acceptable: <75 mg/dL Borderline high: 75-99 mg/dL High: >or= 100 mg/dL Ages 10 to 20 years Acceptable: <90 mg/dL Borderline high: 90-129 mg/dL High: >or= 130 mg/dL Ages > or = 20 years Desirable: <150 mg/dL Borderline high: 150-199 mg/dL High: 200-499 mg/dL Very high: >or= 499 mg/dL Literature References: 1. Expert Panel on Integrated Guidelines for Cardiovascular Health and Risk Reduction in Children and Adolescents. Pediatrics 2011;128:S213 2. NCEP Expert Panel. Circulation 2004;110:227 Current Interpretive Data was last revised on 2017. Testing performed by: [facility], [address] [place] [address]., [id number] HDL 47 >=40 mg/dL [facility] ([place]) Comment: Interpretive Data Ages < or = 19 years Acceptable: >45 mg/dL Borderline low: 40-45 mg/dL Low: <40 mg/dL Ages > or = 20 years Desirable: >or= 60 mg/dL Low: <40 mg/dL Literature References: 1. Expert Panel on Integrated Guidelines for Cardiovascular Health and Risk Reduction in Children and Adolescents. Pediatrics 2011;128:S213 2. NCEP Expert Panel. Circulation 2004;110:227 Current Interpretive Data was last revised on 2017. Testing performed by: [facility], [address] [place] [address]., [address] LDL, calculated 184(H) <=129 mg/dL [facility] ([place]) Comment: Interpretive Data Ages < or = 19 years Acceptable: <110 mg/dL Borderline high: 110-129 mg/dL High: >or= 130 mg/dL Ages > or = 20 years Optimal: <100 mg/dL Near optimal: 100-129 mg/dL Borderline high: 130-159 mg/dL High: >160 mg/dL Calculated using the Edgar LDL-C estimating equation. This equation was implemented on 2023. Prior to this date LDL-C was estimated using the Friedewald equation. Literature References: 1. Expert Panel on Integrated Guidelines for Cardiovascular Health and Risk Reduction in Children and Adolescents. Pediatrics 2011;128:S213 2. NCEP Expert Panel. Circulation 2004;110:227 3. Edgar Beltran et al. JUNIOR Cardiol. 2020 August 11;5(5):540-548. doi: 10.1001/jamacardio.2020.0013 Current Interpretive Data was last revised on 2023. Testing performed by: [address] [address] Non-HDL Cholesterol 212 mg/dL WILLIAM GUTIERREZ ([place]) Comment: Interpretive Data Ages < or = 19 years Acceptable: <120 mg/dL Borderline high: 120-144 mg/dL High: >145 mg/dL Ages > or = 20 years When triglycerides are >200 mg/dL, Non-HDL cholesterol is a secondary target of therapy with treatment goals that are 30 mg/dL greater than the LDL cholesterol target. Literature References: 1. Expert Panel on Integrated Guidelines for Cardiovascular Health and Risk Reduction in Children and Adolescents. Pediatrics 2011;128:S213 2. NCEP Expert Panel. Circulation 2004;110:227 Current Interpretive Data was last revised on 2017. Testing performed by: [address] [address] Chol/HDL ratio 6 MARIAMA GUTIERREZ ([place]) Comment:Testing performed by : [address] [id number] Blood 08/18/2024 9:59 AM CDT 08/18/2024 3:51 PM CDT us Anibal Avendano MD LAB BLOOD ORDERABLES Carolyn cabezas Result WILLIAM GUTIERREZ ([place]) 1 [facility] Department of [employer] [place] [address] * Comprehensive metabolic panel (08/18/2024 9:59 AM CDT) Sodium 141 135 - 145 mmol/L Comment:Testing performed by : [facility], [address] [place] [address]., [id number] Potassium, pl 3.9 3.3 - 4.9 mmol/L [facility] ([place]) Comment:Testing performed by : [facility], [address] [place] [address], [id number] Chloride 105 97 - 110 mmol/L [facility] ([place]) Comment:Testing performed by : [facility], [address] [place] [address], [id number] CO2 27 22 - 32 mmol/L [facility] ([place]) Comment:Testing performed by : [address], [address] Anion gap 9 2 - 15 mmol/L [facility] ([place]) Comment:Testing performed by : [address], [address] BUN 15 6 - 25 mg/dL [facility] ([place]) Comment:Testing performed by : [address], [address] Creatinine 0.61 0.60 - 1.10 mg/dL [facility] ([place]) Comment:Testing performed by : [address], [address] Glucose 94 70 - 199 mg/dL [facility] ([place]) Comment: Interpretive Data Fasting glucose >/= 126 mg/dl is diagnostic for diabetes. Fasting is defined as no caloric intake for at least 8 hours. Fasting glucose between 100 mg/dl to 125 mg/dl is diagnostic of prediabetes. In a patient with classic symptoms of hyperglycemia or hyperglycemic crisis, a random glucose >/= 200 mg/dl is diagnostic for diabetes. In the absence of unequivocal hyperglycemia, results should be confirmed by repeat testing. The classification and Diagnosis of Diabetes Diabetes Care 2021; 46: S19-S40. Current interpretive data was last revised 2022. Testing performed by: [facility], [address] [place] [address]., [id number] Calcium 9.2 8.5 - 10.3 mg/dL [facility] ([place]) Comment:Testing performed by : [facility], [address] [place] [address]., [id number] Bilirubin, total 0.5 0.1 - 1.2 mg/dL [facility] ([place]) Comment:Testing performed by : [facility], [address] [place] [address], [id number] Protein, pl 6.9 6.5 - 8.5 g/dL [facility] ([place]) Comment:Testing performed by : [facility], [address] [place] [address], [id number] Albumin 4.0 3.5 - 5.0 g/dL [facility] ([place]) Comment:Testing performed by : [facility], [address] [place] [address], [id number] Alk phos 56 40 - 130 Units/L [facility] ([place]) Comment:Testing performed by : [facility], [address] [place] [address], [id number] ALT 34 7 - 45 Units/L [facility] ([place]) Comment:Testing performed by : [facility], [address] [place] [address], [id number] AST 30 10 - 45 Units/L [facility] ([place]) Comment:Testing performed by : [facility], [address] [place] [address], [id number] Blood 08/18/2024 9:59 AM CDT 08/18/2024 3:51 PM CDT us Anibal Avendano MD LAB BLOOD ORDERABLES Carolyn l Result [facility] ([place]) 1 [facility] Department [place] [address] * Portable/Home Sleep Study (06/28/2024 11:03 AM CDT) Impressions August Pickett MD - 06/28/2024 11:03 AM CDT Indication for study: Ms. Garner is a 69-year-old with chief complaints of snoring, unrefreshing sleep and excessive daytime sleepiness. The patient's [place] Sleepiness scale score is 10 Vital statistics: Age: 69 years BMI: 41.6 Procedure: Unless otherwise noted, respiratory events were scored in accordance with recommended parameters outlined in the AASM Manual for the Scoring of Sleep and Associated Events, Version 2.6 Hypopneas were scored in accordance with acceptable parameters as outline in Chapter IX, Part 1: HSAT utilizing Respiratory Flow and or Effort Parameters, Category H., Section 1b. This study was performed using a [employer]ito[employer] apnea Link portable monitoring unit, a type 3 portable monitoring device. Variable monitored included nasal/oral pressure transduced airflow( PTAF), single respiratory effort (thoracic belt), snoring (derived from PTAF sensor) and pulse oximetry. Description of Polysomnography findings: Patient had 8 hours and 25 minutes of monitored time. 8 hours and 13 minutes flow evaluation was present. 8 hours and 13 minutes oxygen saturation analysis was present. The apnea-hypopnea index was 45.1. The AHI was 45.6 in the supine position. There were 140 obstructive apneas and 231 hypopneas recorded. Baseline oxygen saturation was 97%. Lowest oxygen saturation was 73%. Average oxygen saturation was 91%. The oxygen desaturation index was 45.7. 1 hour and 42 minutes oxygen saturation less than 88% documented. Pulse evaluation revealed maximum 96 beats per minute, minimum 51 beats per minute and averaging 61 beats per minute Impression: 1. Severe obstructive sleep disorder breathing 2. 1 hour and 42 minutes oxygen saturation less than 88% documented. 3. Consider Positive Airway Pressure (PAP) devices such as continuous PAP (CPAP), auto-adjusting PAP (APAP), and bi-level PAP (Bi-PAP). 4. CPAP titration to determine optimal pressure required to alleviate sleep disordered breathing 5. Sleep hygiene should be reviewed to assess factors that may improve sleep quality. 6. Weight management and regular exercise should be initiated or continued 7. Avoid alcohol sedatives and other [employer] depression that may worsen sleep apnea and disrupt normal sleep architecture 8. Patients with sleep apnea may have significant daytime hypersomnolence. If that is the case, driving or handling heavy machinery should be avoided until the apnea and excessive sleepiness have resolved. Limitations of the study: 1. A sleep EEG was not recorded; therefore, the actual amount of time spent in sleep, stages of sleep and respiratory events associated with arousals cannot be determined by this study. 2. All indexes are computed against monitoring time, not total sleep time. For this reason, the degree of severity may be underestimated 3. The severity of the sleep apnea may vary from night to night depending on body position during sleep, REM sleep and sleep efficiency. These factors should be taken into consideration. Narrative August Pickett MD - 06/28/2024 11:03 AM CDT Ocst is ready for review us Anibal Avendano MD SLEEP CENTER ORDERABLES F inal Result from Last 3 Months Insurance MEDICARE CHOICE PRF PPO [place] MEDICARE [employer] SENIOR SUPPLEMENT Care Teams Sky Cap Relationship Specialty Start Date End Date Shanda Mead NP PCP - General Family Medicine 02/18/23
--- OUTSIDE RECORDS SUMMARY | 2024-09-16 10:32 | XMS_ITS | Referral Summary ---
Author Organization [facility] Address [address] [place] [address] Care Team Providers Care Fixed Route Bus Operator Name Role Phone MeadShanda BRIAN Primary Care Provider [phone] Encounters Date Type Department Care Team Description 09/15/2024 9:00 AM CDT [facility] Visit [facility] [address] [address] Anibal Avendano MD Peripheral edema (Primary Dx); Primary hypertension; Class 3 severe obesity due to excess calories with serious comorbidity and body mass index (BMI) of 40.0 to 44.9 in adult; SHANIQUE (obstructive sleep apnea) 08/19/2024 Results Follow-Up [facility] [address] [address] Anibal Avendano MD Hepatitis C antibody Blood, Hepatitis B surface antibody (immune status) Blood, Hepatitis B Surface Antigen Blood, Additional followed-up results: 6 08/18/2024 10:00 AM CDT Lab [facility] [address] [place] [address] Encounter for hepatitis C screening test for low risk patient; Need for hepatitis B screening test; Acquired hypothyroidism; Primary hypertension 08/18/2024 9:15 AM CDT [facility] Visit [facility] [address] [address] Anibal Avendano MD Peripheral edema (Primary Dx); [...] AM CDT Office Visit [facility] [address] [address] Anibal Avendano MD Primary hypertension (Primary Dx); Osteoporosis screening; Encounter for screening mammogram for malignant neoplasm of breast; Acquired hypothyroidism; Colon cancer screening; Peripheral edema 07/27/2024 Results Follow-Up [facility]/ [address] [facility] [address], [place] [address] August Pickett MD PSG 07/22/2024 7:15 PM CDT - 07/22/2024 11:59 PM CDT Hospital Encounter [facility] [address] [place] [address] Severe Obstructive sleep apnea Discharge Disposition: Discharge to home or self care 07/08/2024 11:00 AM CDT Office Visit [facility] [address] [place] [address] [address] [place] [address] August Pickett MD Hypersomnia with sleep apnea (Primary Dx); Severe Obstructive sleep apnea; Morbid obesity with BMI of 40.0-44.9, adult ([facility]) 07/06/2024 Results [facility] [address] [address] Anibal Avendano MD Portable/Home Sleep Study 06/27/2024 10:00 AM CDT - 06/27/2024 11:59 PM CDT Hospital Encounter [facility] [address] [place] [address] SHANIQUE (obstructive sleep apnea) Discharge Disposition: Discharge to home or self care from Last 3 Months Allergies Active Allergy Reactions Criticality Noted Date [...] 02/24 Assessment & Plan (02/25/2024 10:16 AM SANDER AND BUFFER): In regard to health maintenance, Colonoscopy- Declined [...] healthier, we can set up appointment with esthetician and manager medical spa/prototype machinist. Have an active lifestyle, strive for 30 [...] 02/24 Assessment & Plan (02/25/2024 10:17 AM SANDER AND BUFFER): Lipid panel ordered. Will continue to monitor. Acquired hypothyroidism 02/18/2023 Assessment & Plan (08/30/2024 3:31 PM CDT): Subclinical; continue to monitor; patient reports no symptoms associated with thyroid low Assessment & Plan (08/09/2024 3:06 PM CDT): Stable, well controlled, last TSH at goal; on supplements; continue to monitor Assessment & Plan (06/07/2024 3:29 PM SANDER AND BUFFER): Last TSH at goal, taking natural supplements Will continue to monitor closely Assessment & Plan (02/25/2024 10:15 AM SANDER AND BUFFER): Will recheck TSH and T4. Will continue to take OTC thyroid medication and seeing esthetician and manager medical spa. Class 3 severe obesity due t o [...] surgery Assessment & Plan (06/07/2024 3:29 PM SANDER AND BUFFER): Not well controlled, has been having weight [...] week. Assessment & Plan (02/25/2024 10:15 AM SANDER AND BUFFER): Encouraged heart healthy diet and lifestyle. Advised [...] b.i.d. Assessment & Plan (06/07/2024 3:29 PM SANDER AND BUFFER): Stable, well controlled, blood pressure mildly elevated today, some peripheral edema with limited relief Will start furosemide 20 mg b.i.d., continue lisinopril 40 mg, discontinue hydrochlorothiazide Assessment & Plan (02/25/2024 10:14 AM SANDER AND BUFFER): Blood pressure not well controlled. Will increase [...] weeks Assessment & Plan (02/18/2023 10:15 AM SANDER AND BUFFER): Stable, currently well-controlled BP at visit 120/84 Continue lisinopril 40 mg daily Resolved Problems Problem Noted Date Diagnosed Date Resolved Date Ascending aortic aneurysm 07/26/2014 Assessment & Plan (02/25/2024 10:25 AM SANDER AND BUFFER): Continues with routine monitoring. Will continue to follow. Assessment & Plan (02/18/2023 11:51 AM SANDER AND BUFFER): Gets regular monitoring Patient will call back with location she would like to get next US done at Immunizations Immunization Administration Dates Next Due Influenza, Unspecified 02/25/2024(Deferr ed: Patient Refused),01/08/2024(Deferred: Patient Refused),01/11/2023(Deferred: Patient Refused),01/11/2023(Deferred: Patient Refused),12/12/2022(Deferred: Patient Refused),01/11/2022(Deferred: Patient Refused) Social History Tobacco Use Types Packs/Day Years Used Date Smoking Tobacco: Never Smokeless Tobacco: Never Tobacco Cessation:Counseling Given: Not Answered [facility] Utilities Answer Date Recorded In the past 12 months has [facility] [employer], gas, oil, or water company threatened to [...] How often do you attend chur or alevism services? Never 02/18/2023 Do you belong to any clubs o r organizations such as mosque groups, unions, fraternal or athletic groups, or [...] staff should administer the PHQ-9) 0 02/25/2024 [facility] - Occupational Stress [...] place to sleep or slept in a long term (including now)? No 02/18/2023 Comments Unknown Sex and Gender Information Value Date Recorded Sex Assigned at Not on file Legal Sex Female 2:32 AM SANDER AND BUFFER Gender Identity Not on file Sexual Orientation [...] 09/15/2024 9:01 AM CDT Plan of Treatment Not on file Procedures Procedure Name Priority Date/Time Associated Diagnosis [...] was last reviewed 2021. Testing performed by: [facility], [address] [place] [address], [place]., [address] Blood 08/18/2024 9:5 9 AM CDT 08/18/2024 3:51 PM CDT us Anibal Avendano MD LAB BLOOD ORDERABLES Carolyn cabezas Result CIARANILL PWN (OSHKOSH [facility] Department [place] [address] * Differential, auto (08/18/2024 9:59 AM CDT) Neutrophil abs 2.86 1.50 - 6.50 K/cumm Comment:Testing performed by : [address] [place] [address] Imm gran abs 0.03 0.00 - 0.10 K/cumm [facility] ([place]) Comment:Testing performed by : [facility], [address] [place] [address]., [address] Lymphocyte abs 1.07 0.80 - 3.30 K/cumm [facility] ([place]) Comment:Testing performed by : [address], [address] Monocyte abs 0.45 0.20 - 0.80 K/cumm [facility] ([place]) Comment:Testing performed by : [facility], [address] [place] [address], [address] Eosinophil abs 0.09 0.00 - 0.50 K/cumm [facility] ([place]) Comment:Testing performed by : [facility], [address] [place] [address], [address] Basophil abs 0.04 0.00 - 0.10 K/cumm [facility] ([place]) Comment:Testing performed by : [address] [address] Neutrophil pct 62.9 % [facility] ([place]) Comment: Interpretive Data Percent cell count reference ranges are not reported, since discordance with absolute values may lead to misinterpretation of CBC data. Current Interpretive Data was last revised on 2017. Testing performed by: [facility], [address] [place] [address]., [address] Imm gran pct 0.7 % [facility] ([place]) Comment: Interpretive Data Percent cell count reference ranges are not reported, since discordance with absolute values may lead to misinterpretation of CBC data. Current Interpretive Data was last revised on 2017. Testing performed by: [address] [address] Lymphocyte pct 23.6 % [facility] ([place]) Comment: Interpretive Data Percent cell count reference ranges are not reported, since discordance with absolute values may lead to misinterpretation of CBC data. Current Interpretive Data was last revised on 2017. Testing performed by: [address], [address] Monocyte pct 9.9 % [facility] ([place]) Comment: Interpretive Data Percent cell count reference ranges are not reported, since discordance with absolute values may lead to misinterpretation of CBC data. Current Interpretive Data was last revised on 2017. Testing performed by: [facility], [address] [place] [address]., [address] Eosinophil pct 2.0 % [facility] ([place]) Comment: Interpretive Data Percent cell count reference ranges are not reported, since discordance with absolute values may lead to misinterpretation of CBC data. Current Interpretive Data was last revised on 2017. Testing performed by: [facility], [address] [place] [address]., [address] Basophil pct 0.9 % [facility] ([place]) Comment: Interpretive Data Percent cell count reference ranges are not reported, since discordance with absolute values may lead to misinterpretation of CBC data. Current Interpretive Data was last revised on 2017. Testing performed by: [facility], [address] [place] [address]., [id number] Blood 08/18/2024 9:59 AM CDT 08/18/2024 3:51 PM CDT Anibal Avendano MD LAB BLOOD ORDERABLES Carolyn l Result Performing Organization Address City/[facility]/ZIP Co de Phone Number WILLIAM GUTIERREZ (OSHKOSH) [address] [facility] [place] [address] * Thyroid Function Willis (08/18/2024 9:59 AM CDT) TSH 2.55 0.30 - 4.20 mcIUnit/mL Comment:Testing performed by : [facility], [address] [place] [address]., [id number] Blood 08/18/2024 9:59 AM CDT 08/18/2024 3:51 PM CDT Anibal Avendano MD LAB BLOOD ORDERABLES Carolyn l Result CIARANALIZE MATT ([place]) 1 [facility] [place] [address] * (ABNORMAL) CBC with auto differential (08/18/2024 9:59 AM CDT) WBC 4.54 3.80 - 9.90 K/cumm Comment:Testing performed by : [address], [address] Hgb 12.0 11.9 - 15.5 g/dL [facility] ([place]) Comment:Testing performed by : [address], [address] Hct 38.7 35.6 - 45.5 % [facility] ([place]) Comment:Testing performed by : [address], [address] Plt 255 150 - 400 K/cumm [facility] ([place]) Comment:Testing performed by : [address], [address] MPV 10.2 9.1 - 12.3 fL [facility] ([place]) Comment:Testing performed by : [address], [address] RBC 4.02 3.90 - 5.20 M/cumm [facility] ([place]) Comment:Testing performed by : [address], [address] MCV 96.3 81.3 - 96.4 fL [facility] ([place]) Comment:Testing performed by : [address], [address] MCH 29.9 27.1 - 33.3 pg [facility] ([place]) Comment:Testing performed by : [address], [address] MCHC 31.0(L) 32.3 - 35.7 g/dL [facility] ([place]) Comment:Testing performed by : [address], [address] RDW CV 15.0(H) 11.1 - 14.9 % [facility] ([place]) Comment:Testing performed by : [address], [address] RDW SD 53.1(H) 35.7 - 48.1 fL [facility] ([place]) Comment:Testing performed by : [facility], [address] [place] [address]., [address] NRBC abs 0.00 0.00 - 0.01 K/cumm CIARANALIZE GUTIERREZ ([place]) Comment:Testing performed by : [facility], [address] [place] [address]., [address] Blood 08/18/2024 9:59 AM CDT 08/18/2024 3:51 PM CDT Anibal Avendano MD LAB BLOOD ORDERABLES Carolyn l Result Performing Organization Address City/[facility]/ZIP Co de Phone Number WILLIAM GUTIERREZ ([place]) 1 [facility] [place] [address] * Hepatitis C antibody Blood (08/18/2024 9:59 [...] last revised on 2019. Testing performed by: [facility], [address] [place] [address]., [address] Blood 08/18/2024 9:59 AM CDT 08/18/2024 3:52 PM CDT Anibal Avendano MD LAB MICROBIOLOGY - GENERA L ORDERABLES Final Result Performing Organization Address City/[facility] Co de Phone Number WILLIAM GUTIERREZ ([place]) 1 [facility] [place] [address] * Hepatitis B core antibody, total Blood (08/18/2024 9:59 AM CDT) Hep B core IgG/IgM Nonreactive Nonreactive Comment:Testing performed by : [facility], [address] [facility] [place]., [address] Blood 08/18/2024 9:59 AM CDT 08/19/2024 9:49 AM CDT Anibal Avendano MD LAB MICROBIOLOGY - GENERA L ORDERABLES Final Result WILLIAM GUTIERREZ (OSHKOSH) [address] [place] [address] * Hepatitis B surface antibody (immune status) [...] last revised on 19. Testing performed by: [address], [address] Blood 08/18/2024 9:59 AM CDT 08/18/2024 3:52 PM CDT Anibal Avendano MD LAB MICROBIOLOGY - GENERA L ORDERABLES Final Result Performing Organization Address City/[facility] Co de Phone Number [facility] ([place]) [address] [place] [address] * Hepatitis B Surface Antigen Blood (08/18/2024 9:59 AM CDT) HepBsAg Nonreactive Nonreactive Comment:Testing performed by : [address], [address] Blood 08/18/2024 9:59 AM CDT 08/18/2024 3:52 PM CDT Anibal Avendano MD LAB MICROBIOLOGY - GENERA L ORDERABLES Final Result WILLIAM GUTIERREZ (OSHKOSH) 1 [facility] [place] [address] * (ABNORMAL) Lipid panel (08/18/2024 9:59 AM [...] last revised on 2017. Testing performed by: [address] [address] Triglycerides 154(H) <=149 mg/dL WILLIAM GUTIERREZ ([place]) Comment: Interpretive Data [...] last revised on 2017. Testing performed by: [facility], [address] [place] [address]., [address] HDL 47 >=40 mg/dL WILLIAM GUTIERREZ ([place]) Comment: Interpretive Data [...] last revised on 2017. Testing performed by: [facility], [address] [place] [address]., [address] LDL, calculated 184(H) <=129 mg/dL WILLIAM GUTIERREZ ([place]) Comment: Interpretive Data [...] 3. Edgar Beltran et al. JUNIOR Cardiol. 2019August 11;5(5):540-548. doi: [email or web address] Current Interpretive Data was last revised on 2023. Testing performed by: [address] [address] Non-HDL Cholesterol 212 mg/dL WILLIAM GUTIERREZ ([place]) [...] last revised on 2017. Testing performed by: [address] [address] Chol/HDL ratio 6 [facility] ([place]) Comment:Testing performed by : [address] [address] Blood 08/18/2024 9:59 AM CDT 08/18/2024 3:51 PM CDT us Anibal Avendano MD LAB BLOOD ORDERABLES Carolyn raulito Result [facility] ([place]) 1 [facility] Department [place] [address] * Comprehensive metabolic panel (08/18/2024 9:59 AM CDT) Sodium 141 135 - 145 mmol/L Comment:Testing performed by : [address], [address] Potassium, pl 3.9 3.3 - 4.9 mmol/L [facility] ([place]) Comment:Testing performed by : [address], [address] Chloride 105 97 - 110 mmol/L [facility] ([place]) Comment:Testing performed by : [address], [address] CO2 27 22 - 32 mmol/L [facility] ([place]) Comment:Testing performed by : [address], [address] Anion gap 9 2 - 15 mmol/L [facility] ([place]) Comment:Testing performed by : [address], [address] BUN 15 6 - 25 mg/dL [facility] ([place]) Comment:Testing performed by : [address], [address] Creatinine 0.61 0.60 - 1.10 mg/dL [facility] ([place]) Comment:Testing performed by : [address], [address] Glucose 94 70 - 199 mg/dL [facility] ([place]) Comment: Interpretive Data Fasting glucose [...] was last revised 2022. Testing performed by: [facility], [address] [place] [address], [address] Calcium 9.2 8.5 - 10.3 mg/dL [facility] ([place]) Comment:Testing performed by : [address], [address] Bilirubin, total 0.5 0.1 - 1.2 mg/dL [facility] ([place]) Comment:Testing performed by : [address], [address] Protein, pl 6.9 6.5 - 8.5 g/dL [facility] ([place]) Comment:Testing performed by : [facility], [address] [place] [address], [address] Albumin 4.0 3.5 - 5.0 g/dL [facility] ([place]) Comment:Testing performed by : [address], [address] Alk phos 56 40 - 130 Units/L [facility] ([place]) Comment:Testing performed by : [address], [address] ALT 34 7 - 45 Units/L [facility] ([place]) Comment:Testing performed by : [facility], [address] [place] [address], [address] AST 30 10 - 45 Units/L [facility] ([place]) Comment:Testing performed by : [address], [address] Blood 08/18/2024 9:59 AM CDT 08/18/2024 3:51 PM CDT us Anibal Avendano MD LAB BLOOD ORDERABLES Carolyn cabezas Result [facility] ([place]) 1 [facility] [place] [address] * Portable/Home Sleep Study (06/28/2024 11:03 AM CDT) Impressions August Pickett MD - 06/28/2024 11:03 AM CDT Indication for study: Ms. Garner is a 69-year-old with chief complaints of snoring, unrefreshing sleep and excessive daytime sleepiness. The patient's Quincy Sleepiness scale score is 10 Vital statistics: [...] 1b. This study was performed using a [employer] apnea Link portable monitoring unit, a type [...] continued 7. Avoid alcohol sedatives and other VACUUM EXTRACTOR OPERATOR depression that may worsen sleep apnea and [...] 3 Months Insurance MEDICARE [place] [facility] Address: [address] [address] [place] [address] [employer] S[employer] Care Teams Fixed Route Bus Operator Relationship Specialty Start Date End Date Shanda Mead NP PCP - General Family Medicine 02/18/23
--- OUTSIDE RECORDS SUMMARY | 2024-09-16 10:32 | XMS_ITS | Clinical Summary ---
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 Gender Identity Not on file Sexual [...] 2:54 PM CDT Height 167.6 cm (5' 6) 09/08/2018 2:54 PM CDT Body Mass Index 31.68 09/08/2018 2:54 PM CDT Plan of Treatment Health Maintenance Due Date Last Done Comments DTAP/TDAP/TD VACCINES (1 - Tdap) 1974 COLORECTAL SCREENING 01/03/2000 Colorectal Cancer Screening 01/03/2000 FIT-DNA Q 3 years 01/03/2000 FIT/FOBT Q 1 year 01/03/2000 Flex Sig/CT Colonography Q 5 years 01/03/2000 PNEUMOCOCCAL VACCINE 50+ YEA RS (1 of 1 - PCV) 2005 ZOSTER VACCINE (1 of 2) 2005 BREAST CANCER SCREENING 04/10/2018 04/10/2017, 04/10 OSTEOPOROSIS SCREENING 01/03/2020 INFLUENZA VACCINE (#1) 2023 RSV VACCINE (60+ or ) (1 - 1-dose 75+ series) 2030 Insurance [facility] PREFERRED Care Teams Assembler Seat Relationship Specialty Start Date End Date Patti Aiken MD [address] [place] [id number] PCP - General Family Practice 08/11/18
--- OUTSIDE RECORDS SUMMARY | 2024-09-16 10:32 | XMS_ITS | Clinical Summary ---
Author Organization [facility] Address [address] [facility] [place] [address] Care Team Providers Care Financial Systems Analyst Name Role Phone Chito Harrison MD Primary Care Provider Source Comments [facility],non-owned Affiliates and Associated Physician Practices is amultiple site organization consisting of ambulatory clinics and hospital sitesin [place], [place], [place] and [place]. This disclosure is being madepursuant to the Care Everywhere program and may not contain all information available regarding this patient. Last updated 18.[facility] Allergies No known active allergies Medications * Be aware that medications may not be up to date on this document. Alwaysverify current medications with the patient. 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 Gender Identity Not on file Sexual Orientation Not on file Last Filed Vital Signs Vital Sign Reading Time Taken Comments Blood Pressure 140/80 02/27/2020 8:05 AM CLAY MODELER Pulse 60 02/27/2020 8:05 AM CLAY MODELER Temperature - - Respiratory Rate 12 02/27/2020 8:05 AM CLAY MODELER Oxygen Saturation - - Inhaled Oxygen Concentration - - Weight 108.4 kg (239 lb) 02/27/2020 8:05 AM CLAY MODELER Height 161.3 cm (5' 3.5) 02/27/2020 8:05 AM CLAY MODELER Body Mass Index 41.67 02/27/2020 8:05 AM CLAY MODELER Plan of Treatment Health Maintenance Due Date Last Done Comments BONE DENSITY TESTING 1955 COLOGUARD (AGES 45-75) - COL ON CA SCREENING 1955 COLON MONITORING 1955 COLONOSCOPY - COLON CA SCREENING 1955 CT COLONOGRAPHY - COLON CA SCREENING 1955 Colorectal Cancer Screening 1955 FIT - COLON CA SCREENING 1955 FLEX SIG - COLON CA SCREENING 1955 MAMMOGRAM 1955 HEPATITIS C SCREENING 12/28/1972 DTAP/TDAP/TD VACCINES (1 - Tdap) 1974 PNEUMOCOCCAL VACCINE 50+ (1 of 1 - PCV) 2005 ZOSTER VACCINE (1 of 2) 2005 SCREENING FOR DIABETES 02/27/2020 COVID-19 VACCINE (1 - 2023-2 5 season) 2023 DEPRESSION SCREENING 04/13/2024 INFLUENZA VACCINE (Season Ended) 2024 Respiratory Syncytial Virus (RSV) Vaccine Pt: or over 60 yrs (1 - 1-dose 75+ series) 2030 HEPATITIS B VACCINE Aged Out No longe r eligible based on patient's age to complete this topic HIB VACCINE Aged Out No longer eligi ble based on patient's age to complete this topic HPV VACCINE Aged Out No longer eligi ble based on patient's age to complete this topic MENINGOCOCCAL (Group B) VACC INE SHARED DECISION-MAKING Aged Out No longer eligibl e based on patient's age to complete this topic MENINGOCOCCAL GROUPS A/C/Y/W VACCINE Aged Out No longer eligible b ased on patient's age to complete this topic Insurance MEDICARE COMMERCIAL GENERIC MEDICARE Care Teams Financial Systems Analyst Relationship Specialty Start Date End Date Chito Harrison MD [address] [place] [address] PCP - General 06/26/21
--- OUTSIDE RECORDS SUMMARY | 2024-09-16 10:32 | XMS_ITS | Encounter Summary ---
Author Organization [facility] Address [address] [place] [address] Phone Care Team Providers Care Reel Film Inspector Name Role Phone Patti Aiken MD Primary Care Provider [phone] Shanda Mead NP Primary Care Provider [phone] Encounter Details Date Type Department Care Team (Late st Contact Info) Description 03/21/2019 Telephone [facility] Cardiology [address] [facility] 8th [place] [address] [place] [address] Caleb Garcia MD PhD [address] [facility] [address] [place] [address] Social History Tobacco Use Types Packs/Day Years Used Date Smoking Tobacco: Never Smokeless Tobacco: Never Comments Unknown Sex and Gender Information Value Date Recorded Sex Assigned at Not on file 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
--- OUTSIDE RECORDS SUMMARY | 2024-09-16 10:32 | XMS_ITS | Encounter Summary ---
Author Organization [facility] Healthcare Address [address] [place] [address] Care Team Providers Care Hand Slitter Name Role Phone Shanda Mead BRIAN Primary Care Provider [phone] Reason for Visit * Reason Onset Date Comments Test results 08/19/2024 Encounter Details Date Type Department Care Team (Late st Contact Info) Description 08/19/2024 Results Follow-Up Family Physicians [facility] [address] [place] [address] Anibal Avendano MD [address] [address] Hepatitis C antibody Blood, Hepatitis B surface antibody (immune status) Blood, Hepatitis B Surface Antigen Blood, Additional followed-up results: 6 Social History Tobacco Use Types Packs/Day Years Used Date Smoking Tobacco: Never Smokeless Tobacco: Never [facility] Utilities Answer Date Recorded In the past 12 months has [facility], gas, oil, or water [employer] threatened to shut off services in your [...] often do you attend chur ch or mandaen services? 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 Patient would like a copy sent to them, so will send them a copy. documented in this encounter Plan of Treatment Not on file documented as of this encounter Visit Diagnoses Not on filedocumented in this encounter Care Teams Hand Slitter Relationship Specialty Start Date End Date Shanda Mead NP PCP - General Family Medicine 02/18/23 documented as of this encounter
--- OUTSIDE RECORDS SUMMARY | 2024-09-16 10:32 | XMS_ITS | Encounter Summary ---
Author Organization [facility] Healthcare Address [address] [place] [address] Care Team Providers Care Inside Sales Manager Name Role Phone Shanda Mead BRIAN Primary Care Provider [phone] Encounter Details Date Type Department Care Team (Late st Contact Info) Description 07/27/2024 Results Follow-Up [facility] [address] August Pickett MD [address] [place] [address] [address] [address] [place] Social History Tobacco Use Types Packs/Day Years Used Date Smoking Tobacco: Never Smokeless Tobacco: Never [facility] Utilities Answer Date Recorded In the past 12 months has [facility] [employer], gas, oil, or water [employer] threatened to shut off services in your [...] often do you attend chur ch or rastafari services? Never 02/18/2023 Do you belong to any clubs o r organizations such as christianity groups, unions, fraternal or athletic groups, or [...] PHQ-9) 0 02/25/2024 [facility] of Occupat ionar Health - Occupational Stress Questionnaire Answer Date [...] money to buy more. Never true 02/19/20 Within the past 12 months, t he [...] place to sleep or slept in a skilled nursing (including now)? 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 Order faxed to [facility]. documented in this encounter Plan of Treatment Not on file documented as of this encounter Visit Diagnoses Not on filedocumented in this encounter Care Teams Inside Sales Manager Relationship Specialty Start Date End Date Shanda Mead NP PCP - General Family Medicine 02/18/23 documented as of this encounter
--- NOTE | 2024-09-16 10:34 | ECG_ITS ---
Test Date: 2024-09-16 10:58:09 Measurements Intervals [place] Rate: 54 P: 13 OK: 168 QRS: -10 QRSD: 123 T: 50 QT: 430 QTc: 409 Interpretive Statements SINUS BRADYCARDIA INTRAVENTRICULAR CONDUCTION DELAY LEFT VENTRICULAR HYPERTROPHY WITH ST-T CHANGE POOR R WAVE PROGRESSION BASELINE ARTIFACT- I, II, III, AVR, AVL BORDERLINE ECG No previous ECG available for comparison Electronically Signed On 09-16-2024 11:10:31 CDT by Diego Barber D.O.
[2024-09-16 11:26] LABS: Anion Gap 8 mmol/L (4-12); Blood Urea Nitrogen 16 mg/dL (7-17); Calcium 9.6 mg/dL (8.4-10.2); Carbon Dioxide 28 mmol/L (22-30); Chloride 104 mmol/L (98-107); Estimated Glomerular Filt Rate > 60; Glucose 92 mg/dL (65-110); Potassium 4.1 mmol/L (3.4-5.0); Sodium 140 mmol/L (137-145)
[2024-09-16 11:27] LABS: INR 1.1
[2024-09-16 11:28] LABS: Partial Thromboplastin Time 28.6 Seconds (22.3-36.8)
== END 2024-09-16 10:26 | disposition home or self-care (01) ==
PROVIDERS: Anesthesiology; PCP Hospitalist; Visit Provider Urology
DX: Z01.818 Encounter for other preprocedural examination (principal); I45.89 Other specified conduction disorders; N20.0 Calculus of kidney; I10 Essential (primary) hypertension; K42.9 Umbilical hernia without obstruction or gangrene
CPT/HCPCS: 36415; 80048; 85610; 85730; 86850; 86900; 86901; 87086; 93005

== ENCOUNTER 2024-09-23 01:22 | Day surgery (SDC) | payer MEDICARE, SELFPAY ==
--- NOTE | 2024-09-09 15:06 | PC.NURSE ---
Report to the Outpatient Waiting Room, entrance under the green pavilion located off [facility], at time __11 AM on date _09/23/24 . Planned Procedure Time: __1:00 PM .? Time changes happen often and if your time is changed the preop area will call you the afternoon before. - You and your visitor will be asked to self-screen and do not enter if you have any COVID symptoms. Please call surgeon if you need to reschedule. - A mask is optional within the hospital at this time. Patients may have clear liquids (water, carbonated beverages, clear teas, apple juice) until 3 hours prior to surgery ( 10 AM) with a maximum of 20 ounces. - No food from midnight until time of surgery and no smoking, or chewing tobacco (or any form of nicotine). No chewing gum, candy or mints. - Take only the following medications with a SIP of water on the morning of surgery: NONE DO NOT STOP ANY OF YOUR OTHER PRESCRIPTION MEDICATIONS PRIOR TO SURGERY EXCEPT THE FOLLOWING Hold all vitamins and supplements for 3 days per anesthesiologist.LAST DOSE 09/19/24 Medications to discontinue per physician NONE Date to take last dose Please no make-up, nail citizen of [place], hairspray, perfume, deodorant, or body powder the day of surgery.? No jewelry (including any body piercings) or valuables the day of surgery, leave them at home.? Please take a shower or bath the night before, or the morning of, surgery with an antibacterial soap.? Wear comfortable, loose fitting clothing.? Children are encouraged to wear pajamas. - Jewelry must be removed prior to entering the operating room.? Rings and piercings that are not removed may be cut off. - The hospital will not accept responsibility for valuables.? - Please leave all valuables, including medications, at home the day of surgery. If you are going home after surgery, a licensed rolloff truck driver must drive you home.? - NO public transportation without another adult if you receive anesthesia. - We recommend that an adult stay with you for 24 hours following discharge. - We also recommend that you do not drive, make important decision, drink alcoholic beverages, or take any drugs that were not prescribed by your health care provider for at least 24 hours after your discharge time. For Pediatric surgeries, we recommend two adults accompany the child home. Follow any additional instructions given to you from your surgeon. Telephone instructions given to __PATIENT and asked if any additional questions and then verbalized understanding. Patient advised to call surgeon office or pre surgery nurse liaison [phone] if any additional questions.
[2024-09-09 15:24] VITALS: BMI 39.2
--- NOTE | 2024-09-21 06:54 | P.HP_ITS ---
History of Present Illness History of Present Illness Consent: Risks, benefits, and alternatives have been discussed and questions answered. Patient agrees to proceed with procedure. Chief complaint: left renal stone, umbilical hernia Narrative: Rere Garner is a 69 year old female with remote history of urolithiasis. Recent imaging demonstrates bilat. non-obstructing 13-15mm calcified stones. She denies gross hematuria, n/v or fever. Also has troublesome umbilical hematuria and has met w/ Dr. Marsh to discuss repair. Review of Systems Review of Systems: All systems reviewed & are unremarkable except as noted in HPI and below PMFSH Past Medical History Medical History (Updated 08/17/24 @ 10:28 by Octavia Baxter CMA) Hypertension Surgical History Surgical History (Updated 08/17/24 @ 10:02 by Arnie Danielle MA) H/O abdominoplasty 02/2018 History of cosmetic plastic surgery History of hysterectomy 12/2015 History of bilateral breast reduction surgery 1976 1978 Family History Family History (Updated 08/17/24 @ 10:03 by Arnie Danielle MA) Father Family history of Alzheimer's disease Mother Diabetes mellitus Sibling Hypertension Social History Social History (Updated 08/17/24 @ 10:04 by Arnie Danielle MA) Smoking status: Never smoker Second hand tobacco smoke exposure: No Alcohol intake: current Alcohol use details: ONE/MONTH Do You Feel Safe in your Home?: Yes Lack of Transportation: No Lack of Food: Never True Current Housing: I Have Housing Concerned About Future Housing: No Difficulty Paying Gas/Electric Bills: No Difficulty Paying for Meds: No Currently Unemployed: No Education: High School Diploma/GED Difficulty w/ Childcare or Family Care: No Living arrangements: with family Spiritual care concerns: No Meds Home Medications and Allergies Home Medications ?Medication ?Instructions ?Recorded ?Confirmed ?Type carvedilol 6.25 mg tablet 6.25 mg PO Q12H 08/17/24 09/09/24 History furosemide 20 mg tablet 20 mg PO QAM 08/17/24 09/09/24 History ascorbic acid (vitamin C) 1,000 mg 1 g PO DAILY 09/09/24 09/09/24 History tablet (C-1000) spironolactone 25 mg tablet 25 mg PO DAILY 09/09/24 09/09/24 History vitamin B complex (Vitamins B 1 cap PO DAILY 09/09/24 09/09/24 History Complex capsule) Allergies Allergy/AdvReac Type Severity Reaction Status Date / Time lisinopril Allergy Severe Swelling Verified 09/09/24 15:04 of Lip/Tongue/Throat Exam Const: General: no acute distress Resp: Effort & Inspection: normal respiratory effort GI: Inspection: non-distended GI Palp: No abdominal tenderness, No Guarding due to palpation present (GI) and Yes Hernia present umbilical Auscultation: normal bowel sounds Assessment and Plan Assessment and plan (1) Umbilical hernia: Qualifiers: Obstruction and gangrene presence: without obstruction or gangrene Qualified Code(s): K42.9 - Umbilical hernia without obstruction or gangrene Code(s): K42.9 - Umbilical hernia without obstruction or gangrene Status: Acute (2) Kidney stones: Code(s): N20.0 - Calculus of kidney Status: Acute Assessment and Plan: * Cystoscopy, left ureteral stent placement, left ESWL
[2024-09-23] VITALS (18 sets, daily range): BP systolic 145–170; BP diastolic 67–97; PULSE 53–63; RESP 12–18; TEMP 36.3–36.8; O2SAT 90–100; BMI 38.7
--- NOTE | ~2024-09-23 | XR_ITS ---
XR abdomen/kub 1V 09/23/2024 10:54 INDICATION: Renal stones TECHNIQUE: KUB COMPARISON: Comparison to multiple prior studies sequentially, with oldest reviewed study dated 09/2015. FINDINGS: Bowel gas pattern is normal. There is no evidence of free air, mass, organomegaly, ascites or obstruction. There are bilateral renal stones. No stones are in the expected course of the ureter s.. The bones appear intact. IMPRESSION: 1: Bilateral nephrolithiasis.. Reviewed, dictated and finalized at location B.
--- OUTSIDE RECORDS SUMMARY | 2024-09-23 01:26 | XMS_ITS | Clinical Summary ---
Author Organization [facility] Address [address] [facility] [facility] [place] [address] Care Team Providers Care Equal Opportunity Specialist Name Role Phone Patti Aiken MD Primary Care Provider [phone] Allergies No known active allergies Medications XARELTO [...] on file Legal Sex Female 4:34 AM ICT SUPPORT ENGINEER Gender Identity Not on file Sexual Orientation [...] (1 - 1-dose 75+ series) 2030 Insurance [facility] PREFERR[facility] Care Teams Equal Opportunity Specialist Relationship Specialty Start Date End Date Patti Aiken MD [address] [place] [id number] PCP - General Family Practice 08/11/18
--- OUTSIDE RECORDS SUMMARY | 2024-09-23 01:27 | XMS_ITS | Encounter Summary ---
Author Organization [facility] Healthcare Address [address] [place] [address] Care Team Providers Care Neon Glass Blower Name Role Phone Shanda Mead BRIAN Primary Care Provider [phone] Reason for Visit * Reason Onset Date Comments Test results 08/19/2024 Encounter Details Date Type Department Care Team (Late st Contact Info) Description 08/19/2024 Results Follow-Up Family Physicians [facility] [address] [place] [address] Anibal Avendano MD [address] [place] [address] Hepatitis C antibody Blood, Hepatitis B surface antibody (immune status) Blood, Hepatitis B Surface Antigen Blood, Additional followed-up results: 6 Social History Tobacco Use Types Packs/Day Years Used Date Smoking Tobacco: Never Smokeless Tobacco: Never [facility] Utilities Answer Date Recorded In the past 12 months has [facility] [employer], gas, oil, or water [employer] threatened to shut off services in your [...] often do you attend chur ch or amish services? 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
--- OUTSIDE RECORDS SUMMARY | 2024-09-23 01:27 | XMS_ITS | Clinical Summary ---
Author Organization [facility] Address [address] [facility] [place] [address] Care Team Providers Care Freight Representative Name Role Phone Chito Harrison MD Primary Care Provider Source Comments [facility],non-owned Affiliates and Associated Physician Practices is amultiple site organization consisting of ambulatory clinics and hospital sitesin [place], [place], [place] and [place]. This disclosure is being madepursuant to the Care Everywhere program and may not contain all information available regarding this patient. 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 Gender Identity Not on file Sexual Orientation Not on file Last Filed Vital Signs Vital Sign Reading Time Taken Comments Blood Pressure 140/80 02/27/2020 8:05 AM PLATFORM WORKER Pulse 60 02/27/2020 8:05 AM PLATFORM WORKER Temperature - - Respiratory Rate 12 02/27/2020 8:05 AM PLATFORM WORKER Oxygen Saturation - - Inhaled Oxygen Concentration - - Weight 108.4 kg (239 lb) 02/27/2020 8:05 AM PLATFORM WORKER Height 161.3 cm (5' 3.5) 02/27/2020 8:05 AM PLATFORM WORKER Body Mass Index 41.67 02/27/2020 8:05 AM PLATFORM WORKER Plan of Treatment Health Maintenance Due Date [...] Insurance MEDICARE COMMERCIAL GENERIC MEDICARE Care Teams Freight Representative Relationship Specialty Start Date End Date Chito Harrison MD [address] [place] [address] PCP - General 06/26/21
--- OUTSIDE RECORDS SUMMARY | 2024-09-23 01:27 | XMS_ITS | Referral Summary ---
Author Organization [facility] Address [address] [place] [address] Care Team Providers Care Food Counselor Name Role Phone MeadShanda BRIAN Primary Care Provider [phone] Encounters Date Type Department Care Team Description 09/15/2024 9:00 AM CDT [facility] Visit [facility] [address] [address] Anibal Avendano MD Peripheral edema (Primary Dx); Primary hypertension; Class 3 severe obesity due to excess calories with serious comorbidity and body mass index (BMI) of 40.0 to 44.9 in adult; SHANIQUE (obstructive sleep apnea) 08/19/2024 Results Follow-Up [facility] [address] [address] Anibal Avendano MD Hepatitis C antibody Blood, Hepatitis B surface antibody (immune status) Blood, Hepatitis B Surface Antigen Blood, Additional followed-up results: 6 08/18/2024 10:00 AM CDT Lab [facility] [address] [place] [address] Encounter for hepatitis C screening test for low risk patient; Need for hepatitis B screening test; Acquired hypothyroidism; Primary hypertension 08/18/2024 9:15 AM CDT Office Visit [facility] [address] [address] Anibal Avendano MD Peripheral edema [...] AM CDT Office Visit [facility] [address] [phone] Anibal Avendano MD Primary hypertension (Primary Dx); Osteoporosis screening; Encounter for screening mammogram for malignant neoplasm of breast; Acquired hypothyroidism; Colon cancer screening; Peripheral edema 07/27/2024 Results Follow-Up [facility]/ [address] [facility] [address], [place] [address] August Pickett MD PSG 07/22/2024 7:15 PM CDT - 07/22/2024 11:59 PM CDT Hospital Encounter [facility] [address] [place] [id number] Severe Obstructive sleep apnea Discharge Disposition: Discharge to home or self care 07/08/2024 11:00 AM CDT Office Visit [facility] [address] [place] [address] [address] [place] [address] August Pikcett MD Hypersomnia with sleep apnea (Primary Dx); Severe Obstructive sleep apnea; Morbid obesity with BMI of 40.0-44.9, adult ([facility]) 07/06/2024 Results [facility] [address] [phone] Anibal Avendano MD Portable/Home Sleep Study 06/27/2024 10:00 AM CDT - 06/27/2024 11:59 PM CDT Hospital Encounter [facility] [address] [place] [id number] SHANIQUE (obstructive sleep apnea) Discharge Disposition: Discharge [...] 025 Discontin ued(Patie nt Reported) furosemide (LASIX) 40 mg tablet Take 1 [...] 02/24 Assessment & Plan (02/25/2024 10:16 AM AIR BRAKE RIGGER): In regard to health maintenance, Colonoscopy- Declined [...] healthier, we can set up appointment with copy center specialist/desktop manager. Have an active lifestyle, strive for 30 [...] 02/24 Assessment & Plan (02/25/2024 10:17 AM AIR BRAKE RIGGER): Lipid panel ordered. Will continue to monitor. Acquired hypothyroidism 02/18/2023 Assessment & Plan (08/30/2024 3:31 PM CDT): Subclinical; continue to monitor; patient reports no symptoms associated with thyroid low Assessment & Plan (08/09/2024 3:06 PM CDT): Stable, well controlled, last TSH at goal; on supplements; continue to monitor Assessment & Plan (06/07/2024 3:29 PM AIR BRAKE RIGGER): Last TSH at goal, taking natural supplements Will continue to monitor closely Assessment & Plan (02/25/2024 10:15 AM AIR BRAKE RIGGER): Will recheck TSH and T4. Will continue to take OTC thyroid medication and seeing copy center specialist. Class 3 severe obesity due t [...] surgery Assessment & Plan (06/07/2024 3:29 PM AIR BRAKE RIGGER): Not well controlled, has been having weight [...] week. Assessment & Plan (02/25/2024 10:15 AM AIR BRAKE RIGGER): Encouraged heart healthy diet and lifestyle. Advised [...] b.i.d. Assessment & Plan (06/07/2024 3:29 PM AIR BRAKE RIGGER): Stable, well controlled, blood pressure mildly elevated today, some peripheral edema with limited relief Will start furosemide 20 mg b.i.d., continue lisinopril 40 mg, discontinue hydrochlorothiazide Assessment & Plan (02/25/2024 10:14 AM AIR BRAKE RIGGER): Blood pressure not well controlled. Will increase [...] weeks Assessment & Plan (02/18/2023 10:15 AM AIR BRAKE RIGGER): Stable, currently well-controlled BP at visit 120/84 Continue lisinopril 40 mg daily Resolved Problems Problem Noted Date Diagnosed Date Resolved Date Ascending aortic aneurysm 07/26/2014 Assessment & Plan (02/25/2024 10:25 AM AIR BRAKE RIGGER): Continues with routine monitoring. Will continue to follow. Assessment & Plan (02/18/2023 11:51 AM AIR BRAKE RIGGER): Gets regular monitoring Patient will call back with location she would like to get next US done at Immunizations Immunization Administration Dates Next Due Influenza, Unspecified 02/25/2024(Deferr ed: Patient Refused),01/08/2024(Deferred: Patient Refused),01/11/2023(Deferred: Patient Refused),01/11/2023(Deferred: Patient Refused),12/12/2022(Deferred: Patient Refused),01/11/2022(Deferred: Patient Refused) Social History Tobacco Use Types Packs/Day Years Used Date Smoking Tobacco: Never Smokeless Tobacco: Never Tobacco Cessation:Counseling Given: Not Answered [facility] Utilities Answer Date Recorded In the past 12 months has th e [employer], gas, oil, or water company threatened to [...] often do you attend chur ch or hinduism services? Never 02/18/2023 Do you belong to any clubs o r organizations such as denominational groups, unions, fraternal or athletic groups, or [...] 0 02/25/2024 [facility] Occupat [facility] - Occupational Stress Questionnaire Answer [...] on file Legal Sex Female 2:32 AM AIR BRAKE RIGGER Gender Identity Not on file Sexual Orientation [...] Results * eGFR (08/18/2024 9:59 AM CDT) Pathologist [facility] eGFR >90 >=60 mL/min/1. 73 m2 Comment: [...] was last reviewed 2021. Testing performed by: [address] [address] Blood 08/18/2024 9:59 AM CDT 08/18/2024 3:51 PM CDT us Anibal Avendano MD LAB BLOOD ORDERABLES Carolyn cabezas Result WILLIAM GUTIERREZ ([place]) 1 [facility] [place] [address] * Differential, auto (08/18/2024 9:59 AM CDT) Pathologist [facility] Neutrophil abs 2.86 1.50 - 6.50 K/cumm Comment:Testing performed by : [address] [address] Imm gran abs 0.03 0.00 - 0.10 K/cumm WILLIAM GUTIERREZ ([place]) Comment:Testing performed by : [address], [place]., [address] Lymphocyte abs 1.07 0.80 - 3.30 K/cumm [facility] ([place]) Comment:Testing performed by : [address] [address] Monocyte abs 0.45 0.20 - 0.80 K/cumm [facility] ([place]) Comment:Testing performed by : [facility], [address] [place] [address]., [address] Eosinophil abs 0.09 0.00 - 0.50 K/cumm [facility] ([place]) Comment:Testing performed by : [facility], [address] [place] [address]., [address] Basophil abs 0.04 0.00 - 0.10 K/cumm [facility] ([place]) Comment:Testing performed by : [address] [address] Neutrophil pct 62.9 % [facility] ([place]) Comment: Interpretive Data Percent cell count reference ranges are not reported, since discordance with absolute values may lead to misinterpretation of CBC data. Current Interpretive Data was last revised on 2017. Testing performed by: [address] [address] Imm gran pct 0.7 % [facility] ([place]) Comment: Interpretive Data Percent cell count reference ranges are not reported, since discordance with absolute values may lead to misinterpretation of CBC data. Current Interpretive Data was last revised on 2017. Testing performed by: [address] [address] Lymphocyte pct 23.6 % [facility] ([place]) Comment: Interpretive Data Percent cell count reference ranges are not reported, since discordance with absolute values may lead to misinterpretation of CBC data. Current Interpretive Data was last revised on 2017. Testing performed by: [address] [address] Monocyte pct 9.9 % [facility] ([place]) Comment: Interpretive Data Percent cell count reference ranges are not reported, since discordance with absolute values may lead to misinterpretation of CBC data. Current Interpretive Data was last revised on 2017. Testing performed by: [facility] [address] [place] [address]., [address] Eosinophil pct 2.0 % [facility] ([place]) Comment: Interpretive Data Percent cell count reference ranges are not reported, since discordance with absolute values may lead to misinterpretation of CBC data. Current Interpretive Data was last revised on 2017. Testing performed by: [facility], [address] [place] [address]., [address] Basophil pct 0.9 % [facility] ([place]) Comment: Interpretive Data Percent cell count reference ranges are not reported, since discordance with absolute values may lead to misinterpretation of CBC data. Current Interpretive Data was last revised on 2017. Testing performed by: [facility], [address] [place] [address]., [address] Blood 08/18/2024 9:59 AM CDT 08/18/2024 3:51 PM CDT Anibal Avendano MD LAB BLOOD ORDERABLES Carolyn l Result WILLIAM GUTIERREZ ([place]) 1 [facility] [email or web address] [address] * Thyroid Function Castro (08/18/2024 9:59 AM CDT) Pathologist [facility] TSH 2.55 0.30 - 4.20 mcIUnit/mL Comment:Testing performed by : [facility], [address] [place] [address]., [address] Blood 08/18/2024 9:59 AM CDT 08/18/2024 3:51 PM CDT Anibal Avendano MD LAB BLOOD ORDERABLES Caorlyn l Result WILLIAM GUTIERREZ ([place]) 1 [facility] [place] [address] * (ABNORMAL) CBC with auto differential (08/18/2024 9:59 AM CDT) WBC 4.54 3.80 - 9.90 K/cumm Comment:Testing performed by : [address], [address] Hgb 12.0 11.9 - 15.5 g/dL [facility] ([place]) Comment:Testing performed by : [address], [address] Hct 38.7 35.6 - 45.5 % [facility] ([place]) Comment:Testing performed by : [facility], [address] [place] [address], [address] Plt 255 150 - 400 K/cumm [facility] ([place]) Comment:Testing performed by : [address], [address] MPV 10.2 9.1 - 12.3 fL [facility] ([place]) Comment:Testing performed by : [address], [address] RBC 4.02 3.90 - 5.20 M/cumm [facility] ([place]) Comment:Testing performed by : [address], [address] MCV 96.3 81.3 - 96.4 fL [facility] ([place]) Comment:Testing performed by : [address], [address] MCH 29.9 27.1 - 33.3 pg [facility] ([place]) Comment:Testing performed by : [address], [address] MCHC 31.0(L) 32.3 - 35.7 g/dL [facility] ([place]) Comment:Testing performed by : [address], [address] RDW CV 15.0(H) 11.1 - 14.9 % [facility] ([place]) Comment:Testing performed by : [address], [address] RDW SD 53.1(H) 35.7 - 48.1 fL [facility] ([place]) Comment:Testing performed by : [address], [address] NRBC abs 0.00 0.00 - 0.01 K/cumm [facility] ([place]) Comment:Testing performed by : [facility], [address] [place] [address]., [address] Blood 08/18/2024 9:59 AM CDT 08/18/2024 3:51 PM CDT Anibal Avendano MD LAB BLOOD ORDERABLES Carolyn l Result Performing Organization Address City/[facility]/ZIP Co de Phone Number WILLIAM GUTIERREZ ([place]) 1 [facility] [place] [address] * Hepatitis C antibody Blood (08/18/2024 9:59 [...] last revised on 2019. Testing performed by: [facility], [address] [place] [address], [place]., [address] Blood 08/18/2024 9:59 AM CDT 08/18/2024 3:52 PM CDT us Anibal Avendano MD LAB MICROBIOLOGY - GENERA L ORDERABLES Final Result Performing Organization Address City/[facility] Co de Phone Number WILLIAM GUTIERREZ ([place]) 1 [facility] [place] [address] * Hepatitis B core antibody, total Blood (08/18/2024 9:59 AM CDT) Hep B core IgG/IgM Nonreactive Nonreactive Comment:Testing performed by : [facility], [address] [facility] [place]., [address] Blood 08/18/2024 9:59 AM CDT 08/19/2024 9:49 AM CDT Anibal Avendano MD LAB MICROBIOLOGY - GENERA L ORDERABLES Final Result WILLIAM GUTIERREZ ([place]) 1 [facility] [email or web address] [address] * Hepatitis B surface antibody (immune status) [...] last revised on 19. Testing performed by: [address], [address] Blood 08/18/2024 9:59 AM CDT 08/18/2024 3:52 PM CDT Anibal Avendano MD LAB MICROBIOLOGY - GENERA L ORDERABLES Final Result Performing Organization Address [facility] Co de Phone Number WILLIAM GUTIERREZ ([place]) 1 [facility] [email or web address] [address] * Hepatitis B Surface Antigen Blood (08/18/2024 9:59 AM CDT) HepBsAg Nonreactive Nonreactive Comment:Testing performed by : [address] [address] Blood 08/18/2024 9:59 AM CDT 08/18/2024 3:52 PM CDT Anibal Avendano MD LAB MICROBIOLOGY - GENERA L ORDERABLES Final Result WILLIAM GUTIERREZ ([place]) 1 [facility] [place] [address] * (ABNORMAL) Lipid panel (08/18/2024 9:59 AM [...] last revised on 2017. Testing performed by: [address] [address] Triglycerides 154(H) <=149 mg/dL WILLIAM GUTIERREZ ([place]) [...] last revised on 2017. Testing performed by: [facility], [address] [place] [address]., [address] HDL 47 >=40 mg/dL WILLIAM GUTIERREZ ([place]) [...] last revised on 2017. Testing performed by: [facility], [address] [place] [address]., [address] LDL, calculated 184(H) <=129 mg/dL WILLIAM GUTIERREZ [...] last revised on 2023. Testing performed by: [facility], [address] [place] [address]., [address] Non-HDL Cholesterol 212 mg/dL WILLIAM GUTIERREZ ([place]) [...] last revised on 2017. Testing performed by: [facility], [address] [place] [address]., [address] Chol/HDL ratio 6 [facility] ([place]) Comment:Testing performed by : [facility], [address] [place] [address]., [address] Blood 08/18/2024 9:59 AM CDT 08/18/2024 3:51 PM CDT us Anibal Avendano MD LAB BLOOD ORDERABLES Carolyn raulito Result [facility] ([place]) 1 [facility] [place] [address] * Comprehensive metabolic panel (08/18/2024 9:59 AM CDT) Sodium 141 135 - 145 mmol/L Comment:Testing performed by : [facility], [address] [place] [address]., [address] Potassium, pl 3.9 3.3 - 4.9 mmol/L [facility] ([place]) Comment:Testing performed by : [facility], [address] [place] [address]., [address] Chloride 105 97 - 110 mmol/L [facility] ([place]) Comment:Testing performed by : [address] [address] CO2 27 22 - 32 mmol/L [facility] ([place]) Comment:Testing performed by : [address] [address] Anion gap 9 2 - 15 mmol/L [facility] ([place]) Comment:Testing performed by : [address] [address] BUN 15 6 - 25 mg/dL [facility] ([place]) Comment:Testing performed by : [address], [address] Creatinine 0.61 0.60 - 1.10 mg/dL [facility] ([place]) Comment:Testing performed by : [address], [address] Glucose 94 70 - 199 mg/dL CERNER [...] classification and Diagnosis of Diabetes Diabetes Care 202; 46: S19-S40. Current interpretive data was last revised 2022. Testing performed by: [facility], [address] [place] [address]., [address] Calcium 9.2 8.5 - 10.3 mg/dL [facility] ([place]) Comment:Testing performed by : [facility], [address] [place] [address], [address] Bilirubin, total 0.5 0.1 - 1.2 mg/dL [facility] ([place]) Comment:Testing performed by : [facility], [address] [place] [address], [address] Protein, pl 6.9 6.5 - 8.5 g/dL [facility] ([place]) Comment:Testing performed by : [facility], [address] [place] [address], [address] Albumin 4.0 3.5 - 5.0 g/dL [facility] ([place]) Comment:Testing performed by : [facility], [address] [place] [address], [address] Alk phos 56 40 - 130 Units/L [facility] ([place]) Comment:Testing performed by : [address], [address] ALT 34 7 - 45 Units/L [facility] ([place]) Comment:Testing performed by : [address], [address] AST 30 10 - 45 Units/L [facility] ([place]) Comment:Testing performed by : [address], [address] Blood 08/18/2024 9:59 AM CDT 08/18/2024 3:51 PM CDT us Anibal Avendano MD LAB BLOOD ORDERABLES Carolyn cabezas Result [facility] ([place]) 1 [facility] [place] [address] * Portable/Home Sleep Study (06/28/2024 11:03 AM CDT) Impressions August Picektt MD - 06/28/2024 11:03 AM CDT Indication for study: Ms. Garner is a 69-year-old with chief complaints of snoring, unrefreshing sleep and excessive daytime sleepiness. The patient's [place] Sleepiness scale score is 10 Vital statistics: [...] 1b. This study was performed using a [employer] apnea Link portable monitoring unit, a type [...] continued 7. Avoid alcohol sedatives and other VESSEL TRAFFIC OFFICER depression that may worsen sleep apnea and [...] 3 Months Insurance MEDICARE CHOICE PRF [place]PO [place] MEDICARE [facility] Address: [address] [address] [place] [address] [employer] Care Teams Food Counselor Relationship Specialty Start Date End Date Shanda Mead NP PCP - General Family Medicine 02/18/23
--- OUTSIDE RECORDS SUMMARY | 2024-09-23 01:27 | XMS_ITS | Clinical Summary ---
Author Organization [facility] al Address [address] [place] [address] Care Team Providers Care Pit Hand Name Role Phone Shanda Mead BRIAN Primary Care Provider [phone] Allergies Active Allergy Reactions Criticality Noted Date [...] mg total) by mouth daily 90 tablet 05/08/ 025 Discontin ued(Patie nt Reported) Active Problems [...] 02/24 Assessment & Plan (02/25/2024 10:16 AM SUGAR GRINDER): In regard to health maintenance, Colonoscopy- Declined [...] healthier, we can set up appointment with recruitment director/solid waste analyst. Have an active lifestyle, strive for 30 [...] 02/24 Assessment & Plan (02/25/2024 10:17 AM SUGAR GRINDER): Lipid panel ordered. Will continue to monitor. Acquired hypothyroidism 02/18/2023 Assessment & Plan (08/30/2024 3:31 PM CDT): Subclinical; continue to monitor; patient reports no symptoms associated with thyroid low Assessment & Plan (08/09/2024 3:06 PM CDT): Stable, well controlled, last TSH at goal; on supplements; continue to monitor Assessment & Plan (06/07/2024 3:29 PM SUGAR GRINDER): Last TSH at goal, taking natural supplements Will continue to monitor closely Assessment & Plan (02/25/2024 10:15 AM SUGAR GRINDER): Will recheck TSH and T4. Will continue to take OTC thyroid medication and seeing recruitment director. Class 3 severe obesity due t o [...] surgery Assessment & Plan (06/07/2024 3:29 PM SUGAR GRINDER): Not well controlled, has been having weight [...] week. Assessment & Plan (02/25/2024 10:15 AM SUGAR GRINDER): Encouraged heart healthy diet and lifestyle. Advised [...] b.i.d. Assessment & Plan (06/07/2024 3:29 PM SUGAR GRINDER): Stable, well controlled, blood pressure mildly elevated today, some peripheral edema with limited relief Will start furosemide 20 mg b.i.d., continue lisinopril 40 mg, discontinue hydrochlorothiazide Assessment & Plan (02/25/2024 10:14 AM SUGAR GRINDER): Blood pressure not well controlled. Will increase [...] weeks Assessment & Plan (02/18/2023 10:15 AM SUGAR GRINDER): Stable, currently well-controlled BP at visit 120/84 Continue lisinopril 40 mg daily Resolved Problems Problem Noted Date Diagnosed Date Resolved Date Ascending aortic aneurysm 07/26/2014 Assessment & Plan (02/25/2024 10:25 AM SUGAR GRINDER): Continues with routine monitoring. Will continue to follow. Assessment & Plan (02/18/2023 11:51 AM SUGAR GRINDER): Gets regular monitoring Patient will call back with location she would like to get next US done at Encounters Date Type Department Care Team Description 09/15/2024 9:00 AM CDT [facility] Visit [facility] [address] [address] Anibal Avendano MD Peripheral edema (Primary Dx); Primary hypertension; Class 3 severe obesity due to excess calories with serious comorbidity and body mass index (BMI) of 40.0 to 44.9 in adult; SHANIQUE (obstructive sleep apnea) 08/19/2024 Results Follow-Up [facility] [address] [id number] Anibal Avendano MD Hepatitis C antibody Blood, Hepatitis B surface antibody (immune status) Blood, Hepatitis B Surface Antigen Blood, Additional followed-up results: 6 08/18/2024 10:00 AM CDT Lab [facility] [address] [place] [address] Encounter for hepatitis C screening test for low risk patient; Need for hepatitis B screening test; Acquired hypothyroidism; Primary hypertension 08/18/2024 9:15 AM CDT Office Visit [facility] [address] [address] Anibal Avendano MD Peripheral edema (Primary Dx); [...] AM CDT Office Visit [facility] [address] [phone] Anibal Avendnao MD Primary hypertension (Primary Dx); Osteoporosis screening; Encounter for screening mammogram for malignant neoplasm of breast; Acquired hypothyroidism; Colon cancer screening; Peripheral edema 07/27/2024 Results Follow-Up [facility] [address] [facility] [address] [place] [address] August Pickett MD PSG 07/22/2024 7:15 PM CDT - 07/22/2024 11:59 PM CDT Hospital Encounter [facility] [address] [place] [address] Severe Obstructive sleep apnea Discharge Disposition: Discharge to home or self care 07/08/2024 11:00 AM CDT Office Visit [facility] [address] [place] [address] [address] [place] [address] August Pickett MD Hypersomnia with sleep apnea (Primary Dx); Severe Obstructive sleep apnea; Morbid obesity with BMI of 40.0-44.9, adult ([facility]) 07/06/2024 Results [facility]-Up [facility] [address] [phone] Anibal Avendano MD Portable/Home Sleep Study 06/27/2024 10:00 AM CDT - 06/27/2024 11:59 PM CDT Hospital Encounter [facility] [address] [place] [address] SHANIQUE (obstructive sleep apnea) Discharge Disposition: Discharge [...] Tobacco: Never Tobacco Cessation:Counseling Given: Not Answered [facility] Utilities Answer Date Recorded In the past 12 months has e [employer], gas, oil, or water [employer] threatened to shut off services in your [...] often do you attend chur ch or sabianism services? Never 02/18/2023 Do you belong to any clubs o r organizations such as jew groups, unions, fraternal or athletic groups, or [...] staff should administer the PHQ-9) 0 02/25/2024 [facility] - Occupational Stress Questionnaire Answer Date [...] place to sleep or slept in a care home (including now)? No 02/18/2023 Comments Unknown Sex and Gender Information Value Date Recorded Sex Assigned at Not on file Legal Sex Female 2:32 AM SUGAR GRINDER Gender Identity Not on file Sexual Orientation [...] was last reviewed 2021. Testing performed by: [facility], [address] [place] [address]., [id number] Blood 08/18/2024 9:59 AM CDT 08/18/2024 3:51 PM CDT Anibal Avendano MD LAB BLOOD ORDERABLES Carolyn cabezas Result [facility]IAM [facility]IERRE[facility] ([place]) 1 [facility] Department [place] [address] * Differential, auto (08/18/2024 9:59 AM CDT) Neutrophil abs 2.86 1.50 - 6.50 K/cumm Comment:Testing performed by : [address], [address] Imm gran abs 0.03 0.00 - 0.10 K/cumm [facility] ([place]) Comment:Testing performed by : [address] [address] Lymphocyte abs 1.07 0.80 - 3.30 K/cumm [facility] ([place]) Comment:Testing performed by : [address], [address] Monocyte abs 0.45 0.20 - 0.80 K/cumm [facility] ([place]) Comment:Testing performed by : [address], [address] Eosinophil abs 0.09 0.00 - 0.50 K/cumm [facility] ([place]) Comment:Testing performed by : [address] [address] Basophil abs 0.04 0.00 - 0.10 K/cumm [facility] ([place]) Comment:Testing performed by : [address] [address] Neutrophil pct 62.9 % [facility] ([place]) Comment: Interpretive Data Percent cell count reference ranges are not reported, since discordance with absolute values may lead to misinterpretation of CBC data. Current Interpretive Data was last revised on 2017. Testing performed by: [address] [address] Imm gran pct 0.7 % [facility] ([place]) Comment: Interpretive Data Percent cell count reference ranges are not reported, since discordance with absolute values may lead to misinterpretation of CBC data. Current Interpretive Data was last revised on 2017. Testing performed by: [address] [address] Lymphocyte pct 23.6 % [facility] ([place]) Comment: Interpretive Data Percent cell count reference ranges are not reported, since discordance with absolute values may lead to misinterpretation of CBC data. Current Interpretive Data was last revised on 2017. Testing performed by: [address] [address] Monocyte pct 9.9 % [facility] ([place]) Comment: Interpretive Data Percent cell count reference ranges are not reported, since discordance with absolute values may lead to misinterpretation of CBC data. Current Interpretive Data was last revised on 2017. Testing performed by: [address] [address] Eosinophil pct 2.0 % [facility] ([place]) Comment: Interpretive Data Percent cell count reference ranges are not reported, since discordance with absolute values may lead to misinterpretation of CBC data. Current Interpretive Data was last revised on 2017. Testing performed by: [address] [address] Basophil pct 0.9 % [facility] ([place]) Comment: Interpretive Data Percent cell count reference ranges are not reported, since discordance with absolute values may lead to misinterpretation of CBC data. Current Interpretive Data was last revised on 2017. Testing performed by: [facility], [address] [place] [address]., [address] Blood 08/18/2024 9:59 AM CDT 08/18/2024 3:51 PM CDT Anibal Avendano MD LAB BLOOD ORDERABLES Carolyn l Result Performing Organization Address City/[facility]/ZIP Co de Phone Number [facility] GUTIERRE[facility] ([place]) 1 [facility] [place] [address] * Thyroid Function [place] (08/18/2024 9:59 AM CDT) TSH 2.55 0.30 - 4.20 mcIUnit/mL Comment:Testing performed by : [facility], [address] [place] [address], [address] Blood 08/18/2024 9:59 AM CDT 08/18/2024 3:51 PM CDT Anibal Avendano MD LAB BLOOD ORDERABLES Carolyn l Result Performing Organization Address [facility] de Phone Number WILLIAM GUTIERREZ ([place]) [address] [place] [address] * (ABNORMAL) CBC with auto differential (08/18/2024 9:59 AM CDT) WBC 4.54 3.80 - 9.90 K/cumm Comment:Testing performed by : [facility], [address] [place] [address]., [address] Hgb 12.0 11.9 - 15.5 g/dL [facility] ([place]) Comment:Testing performed by : [address], [address] Hct 38.7 35.6 - 45.5 % [facility] ([place]) Comment:Testing performed by : [address], [address] Plt 255 150 - 400 K/cumm [facility] ([place]) Comment:Testing performed by : [address], [address] MPV 10.2 9.1 - 12.3 fL [facility] ([place]) Comment:Testing performed by : [address], [address] RBC 4.02 3.90 - 5.20 M/cumm [facility] ([place]) Comment:Testing performed by : [address], [address] MCV 96.3 81.3 - 96.4 fL [facility] ([place]) Comment:Testing performed by : [address], [address] MCH 29.9 27.1 - 33.3 pg [facility] ([place]) Comment:Testing performed by : [address], [address] MCHC 31.0(L) 32.3 - 35.7 g/dL [facility] ([place]) Comment:Testing performed by : [address], [address] RDW CV 15.0(H) 11.1 - 14.9 % [facility] ([place]) Comment:Testing performed by : [address], [address] RDW SD 53.1(H) 35.7 - 48.1 fL [facility] ([place]) Comment:Testing performed by : [address], [address] NRBC abs 0.00 0.00 - 0.01 K/cumm [facility] ([place]) Comment:Testing performed by : [address], [address] Blood 08/18/2024 9:59 AM CDT 08/18/2024 3:51 PM CDT us Anibal Avendano MD LAB BLOOD ORDERABLES Carolyn cabezas Result [facility] ([place]) 1 [facility] [place] [address] * Hepatitis C antibody Blood (08/18/2024 9:59 [...] last revised on 2019. Testing performed by: [facility], [address] [place] [address]., [address] Blood 08/18/2024 9:59 AM CDT 08/18/2024 3:52 PM CDT Anibal Avendano MD LAB MICROBIOLOGY - [employer] L ORDERABLES Final Result Performing Organization Address City/[facility]/ZIP Co de Phone Number [facility] ([place]) [address] [place] [address] [place] [address] * Hepatitis B core antibody, total Blood (08/18/2024 9:59 AM CDT) Pathologist [facility] Hep B core IgG/IgM Nonreactive Nonreactive Comment:Testing performed by : [facility], [address] [place] [address], [place]., [address] Blood 08/18/2024 9:59 AM CDT 08/19/2024 9:49 AM CDT Anibal Avendano MD LAB MICROBIOLOGY - GENERA L ORDERABLES Final Result [facility] ([place]) 1 [facility] [place] [address] * Hepatitis B surface antibody (immune status) [...] last revised on 19. Testing performed by: [facility], [address] [place] [address]., [address] Blood 08/18/2024 9:59 AM CDT 08/18/2024 3:52 PM CDT Anibal Avendano MD LAB MICROBIOLOGY - GENERA L ORDERABLES Final Result Performing Organization Address City/[facility]/ZIP Co de Phone Number WILLIAM GUTIERREZ [place]) 1 [facility] [place] [address] * Hepatitis B Surface Antigen Blood (08/18/2024 9:59 AM CDT) HepBsAg Nonreactive Nonreactive Comment:Testing performed by : [facility], [address] [place] [address]., [address] Blood 08/18/2024 9:59 AM CDT 08/18/2024 3:52 PM CDT Anibal Avendano MD LAB MICROBIOLOGY - GENERA L ORDERABLES Final Result Performing Organization Address City/[facility] Co de Phone Number WILLIAM GUTIERREZ ([place]) 1 [facility] [place] [address] * (ABNORMAL) Lipid panel (08/18/2024 9:59 AM [...] last revised on 2017. Testing performed by: [facility], [address] [place] [address]., [address] Triglycerides 154(H) <=149 mg/dL [facility] ([place]) Comment: Interpretive Data Ages < [...] last revised on 2017. Testing performed by: [facility], [address] [place] [address]., [address] HDL 47 >=40 mg/dL [facility] ([place]) Comment: Interpretive Data Ages < [...] last revised on 2017. Testing performed by: [facility], [address] [place] [address]., [address] LDL, calculated 184(H) <=129 mg/dL [facility] ([place]) Comment: Interpretive Data Ages < or = 19 years Acceptable: <110 mg/dL Borderline high: 110-129 mg/dL High: >or= 130 mg/dL Ages > or = 20 years Optimal: <100 mg/dL Near optimal: 100-129 mg/dL Borderline high: 130-159 mg/dL High: >160 mg/dL Calculated using the Hernández LDL-C estimating equation. This equation was implemented [...] last revised on 2023. Testing performed by: [address] [address] Non-HDL Cholesterol 212 mg/dL [facility] ([place]) [...] last revised on 2017. Testing performed by: [facility], [address] [place] [address]., [address] Chol/HDL ratio 6 [facility] ([place]) Comment:Testing performed by : [address] [address] Blood 08/18/2024 9:59 AM CDT 08/18/2024 3:51 PM CDT us Anibal Avendano MD LAB BLOOD ORDERABLES Carolyn cabezas Result [facility]UT[facility] ([place]) 1 [facility] Department [place] [address] * Comprehensive metabolic panel (08/18/2024 9:59 AM CDT) [facility] Signature Sodium 141 135 - 145 mmol/L Comment:Testing performed by : [facility], [address] [place] [address]., [address] Potassium, pl 3.9 3.3 - 4.9 mmol/L [facility] ([place]) Comment:Testing performed by : [facility], [address] [place] [address]., [address] Chloride 105 97 - 110 mmol/L [facility] ([place]) Comment:Testing performed by : [facility], [address] [place] [address], [address] CO2 27 22 - 32 mmol/L [facility] ([place]) Comment:Testing performed by : [address], [address] Anion gap 9 2 - 15 mmol/L [facility] ([place]) Comment:Testing performed by : [address], [address] BUN 15 6 - 25 mg/dL [facility] ([place]) Comment:Testing performed by : [address], [address] Creatinine 0.61 0.60 - 1.10 mg/dL [facility] ([place]) Comment:Testing performed by : [address], [address] Glucose 94 70 - 199 mg/dL CERNER [...] was last revised 2022. Testing performed by: [address], [address] Calcium 9.2 8.5 - 10.3 mg/dL [facility] ([place]) Comment:Testing performed by : [address], [address] Bilirubin, total 0.5 0.1 - 1.2 mg/dL [facility] ([place]) Comment:Testing performed by : [facility], [address] [place] [address]., [address] Protein, pl 6.9 6.5 - 8.5 g/dL [facility] ([place]) Comment:Testing performed by : [facility], [address] [place] [address], [address] Albumin 4.0 3.5 - 5.0 g/dL [facility] ([place]) Comment:Testing performed by : [facility], [address] [place] [address], [address] Alk phos 56 40 - 130 Units/L [facility] ([place]) Comment:Testing performed by : [facility], [address] [place] [address], [address] ALT 34 7 - 45 Units/L [facility] ([place]) Comment:Testing performed by : [facility], [address] [place] [address], [address] AST 30 10 - 45 Units/L [facility] ([place]) Comment:Testing performed by : [facility], [address] [place] [address], [address] Blood 08/18/2024 9:59 AM CDT 08/18/2024 3:51 PM CDT Anibal Avendano MD LAB BLOOD ORDERABLES Carolyn cabezas Result [facility] ([place]) 1 [facility] Department [place] [address] * Portable/Home Sleep Study (06/28/2024 11:03 AM CDT) [facility] August Pickett MD - 06/28/2024 11:03 AM CDT Indication for study: Ms. Garner is a 69-year-old with chief complaints of snoring, unrefreshing sleep and excessive daytime sleepiness. The patient's [place] Sleepiness scale score is 10 Vital statistics: [...] 1b. This study was performed using a [employer] apnea Link portable monitoring unit, a type [...] continued 7. Avoid alcohol sedatives and other [place] depression that may worsen sleep apnea and [...] 3 Months Insurance MEDICARE CHOICE [place] [employer] SENIOR SUPPLEMENT Care Teams Pit Hand Relationship Specialty Start Date End Date Shanda Mead NP PCP - General Family Medicine 02/18/23
--- OUTSIDE RECORDS SUMMARY | 2024-09-23 01:27 | XMS_ITS | Encounter Summary ---
Author Organization [facility] Healthcare Address [address] [place] [address] Care Team Providers Care Spring Fitter Helper Name Role Phone Shanda Mead BRIAN Primary Care Provider Encounter Details Date Type Department Care Team (Late st Contact Info) Description 07/27/2024 Results Follow-Up [facility] [address] August Pickett MD [address] [place] [address] [address] [address] PSG Social History Tobacco Use Types Packs/Day Years Used Date Smoking Tobacco: Never Smokeless Tobacco: Never [facility] Utilities Answer Date Recorded In the past 12 months has [facility] electric, gas, oil, or water [employer] threatened to shut off services in your [...] often do you attend chur ch or congregation services? 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 Order faxed to [facility]. documented in this encounter Plan of Treatment Not on file documented as of this encounter Visit Diagnoses Not on filedocumented in this encounter Care Teams Spring Fitter Helper Relationship Specialty Start Date End Date Shanda Mead NP PCP - General Family Medicine 02/18/23 documented as of this encounter
--- OUTSIDE RECORDS SUMMARY | 2024-09-23 01:27 | XMS_ITS | Clinical Summary ---
Author Organization [facility] Address [address] [place] [address] Phone Care Team Providers Care Operating Table Assembler Name Role Phone Patti Aiken MD Primary Care Provider [phone] Allergies No known active allergies Medications lisinopril [...] on file Legal Sex Female 2:04 PM CLIP RIVETER Gender Identity Not on file Sexual Orientation [...] patient's age to complete this topic Insurance [facility] Care Teams Operating Table Assembler Relationship Specialty Start Date End Date Patti Aiken MD [address] [place] [address] PCP - General Family Medicine 04/14/17
--- OUTSIDE RECORDS SUMMARY | 2024-09-23 01:27 | XMS_ITS | Encounter Summary ---
Author Organization [facility] Address [address] [place] [address] Phone Care Team Providers Care Pharmacy Resource Tech Name Role Phone Patti Aiken MD Primary Care Provider [phone] Shanda Mead NP Primary Care Provider [phone] Encounter Details Date Type Department Care Team (Late st Contact Info) Description 03/21/2019 Telephone [facility] Cardiology [address] [facility] Advanced [facility] 8th [place] [address] [place] [address] Caleb Garcia MD PhD [address] [facility] [address] [place] [address] Social History Tobacco Use Types Packs/Day Years Used Date Smoking Tobacco: Never Smokeless Tobacco: Never Comments Unknown Sex and Gender Information Value Date Recorded Sex Assigned at Not on file Legal Sex Female 2:32 AM HOGSHEAD LINER Gender Identity Not on file Sexual Orientation Not on file documented as of this encounter Plan of Treatment Not on file documented as of this encounter Visit Diagnoses Not on filedocumented in this encounter Care Teams Pharmacy Resource Tech Relationship Specialty Start Date End Date Patti Aiken MD PCP - General 10/31/16 02/17/23 Shanda Mead NP PCP - General Family Medicine 02/18/23 documented as of this encounter
--- OUTSIDE RECORDS SUMMARY | 2024-09-23 01:27 | XMS_ITS | Encounter Summary ---
Author Organization [facility] Address [address] [place] [address] Phone Care Team Providers Care Oncology Technician Name Role Phone Patti Aiken MD Primary Care Provider [phone] Shanda Mead NP Primary Care Provider [phone] Encounter Details Date Type Department Care Team (Latest Contact Info) Description 09/08/2018 Orders Only [facility] Scanning, Provider Social History Tobacco Use Types Packs/Day Years Used Date Smoking Tobacco: Never Smokeless Tobacco: Never Comments Unknown Sex and Gender Information Value Date Recorded Sex Assigned at Not on file Legal Sex Female 2:32 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
--- NOTE | 2024-09-23 06:18 | WPDHPUPDATE1 ---
History and Physical Update Update Date/Time: 09/23/24 06:18 History and Physical has been reviewed, including an updated exam of the patient. There are NO changes in the patient's condition. Risks, benefits, and alternatives have been discussed and questions answered. Patient agrees to proceed with procedure.
[2024-09-23] MEDS: ceFAZolin 2 GM/D5W 50 ML 2 GM/50 ML BAG IVPB (11:25)
[2024-09-23] MEDS: LACTATED RINGERS 1,000 ML 30 ML IV CONT ×2 (11:25→16:08)
[2024-09-23] MEDS: KETOROLAC 15 MG/ML VIAL (*BKC) IV PUSH (11:30)
[2024-09-23] MEDS: ACETAMINOPHEN 500 MG TABLET 1000 MG PO (11:30)
--- NOTE | 2024-09-23 11:43 | P.PNAN_ITS ---
Anes - Initial Pre Proc Eval Procedure: Operation Date: 09/23/24 13:00 Proposed Procedures p Left Extracorporeal Shock Wave Lithotripsy, - Fernando Keane MD s Cystoscopy, Left Stent Placement, - Fernando Keane MD s Robotic Assisted Umbilical Hernia Repair with Mesh - Andria Marsh MD Date/Time: 09/23/24 11:43 Surgeon: Fernando Keane MD Pre Op Diagnosis: left renal stone, umbilical hernia Patient Data Age: 69 Gender: F Height: 1.68 m Weight: 110.25 kg Allergies Allergy/AdvReac Type Severity Reaction Status Date / Time lisinopril Allergy Severe Swelling Verified 09/23/24 11:44 of Lip/Tongue/Throat Home Medications ?Medication ?Instructions ?Recorded ?Confirmed ?Type carvedilol 6.25 mg tablet 6.25 mg PO Q12H 08/17/24 09/09/24 History furosemide 20 mg tablet 20 mg PO QAM 08/17/24 09/09/24 History ascorbic acid (vitamin C) 1,000 mg 1 g PO DAILY 09/09/24 09/09/24 History tablet (C-1000) spironolactone 25 mg tablet 25 mg PO DAILY 09/09/24 09/09/24 History vitamin B complex (Vitamins B 1 cap PO DAILY 09/09/24 09/09/24 History Complex capsule) Patient hx anesthesia problems: none Family hx anesthesia problems: none Results Review: All pre-operative results and documents have been reviewed as part of the pre- operative evaluation. [facility] Past Medical History Medical History (Updated 09/23/24 @ 11:43 by Karthik Heller MD) SHANIQUE on CPAP Obesity Hypertension Surgical History Surgical History H/O abdominoplasty 02/2018 History of cosmetic plastic surgery History of hysterectomy 12/2015 History of bilateral breast reduction surgery 1976 1978 Family History Family History Father Family history of Alzheimer's disease Mother Diabetes mellitus Sibling Hypertension Social History Social History Smoking status: Never smoker Second hand tobacco smoke exposure: No Alcohol intake: current Alcohol use details: ONE/MONTH Do You Feel Safe in your Home?: Yes Lack of Transportation: No Lack of Food: Never True Current Housing: I Have Housing Concerned About Future Housing: No Difficulty Paying Gas/Electric Bills: No Difficulty Paying for Meds: No Currently Unemployed: No Education: High School Diploma/GED Difficulty w/ Childcare or Family Care: No Living arrangements: with family Spiritual care concerns: No Anes - Eval Final PreProcedure Day of Procedure 09/23/24 11:43 Patient weight: morbidly obese Heart: regular rate and rhythm Lungs: clear to auscultation Airway: Mallampati scale class 1 Neurological: alert and oriented Last oral intake: >/= 8 hours ASA classification: III Emergent: no Anesthetic plan: proceed Anesthesia type and monitoring: general ETT and standard monitoring Results Review: All pre-operative results and documents have been reviewed as part of the pre- operative evaluation. Informed Consent: The patient's anesthetic plan and its attendant risks and benefits were discussed with the patient/family/POA. Questions were solicited and answers provided to the satisfaction of the patient/family/POA.
--- NOTE | 2024-09-23 12:05 | WPDHPUPDATE1 ---
History and Physical Update Update Date/Time: 09/23/24 12:05 History and Physical has been reviewed, including an updated exam of the patient. There are NO changes in the patient's condition. Risks, benefits, and alternatives have been discussed and questions answered. Patient agrees to proceed with procedure.
--- NOTE | 2024-09-23 12:05 | PM.IMHP ---
H&P: HPI History of Present Illness Date/Time: 09/23/24 12:05 Chief Complaint: umbilical hernia Narrative: 69 yo woman presents for umbilical hernia repair with Dr. Marsh. She reports no changes since last seen in office. Review of Systems Review of Systems: All systems reviewed & are unremarkable except as noted in HPI and below Constitutional: Constitutional: Denies chills, Denies fever(s), Denies headache(s) and Denies weight loss Eyes: Eyes: Denies change in vision ENT: Denies dizziness, Denies headache(s), Denies neck mass and Denies throat swelling Cardiovascular: Cardiovascular: Denies chest pain, Denies lightheadedness and Denies dyspnea Respiratory: Respiratory: Denies cough, Denies dyspnea and Denies wheezing Gastrointestinal: Gastrointestinal: Denies abdominal pain, Denies change in bowel habits, Denies nausea and Denies vomiting Genitourinary: Genitourinary: Denies hematuria and Denies dysuria Musculoskeletal: Musculoskeletal: Reports as per HPI Integumentary/Breasts: Skin/Breast: Reports as per HPI Neurologic: Denies dizziness and Denies headache(s) Allergic/Immunologic: Allergic/Immunologic: Denies throat swelling and Denies wheezing [facility] Past Medical History Medical History (Updated 09/23/24 @ 11:43 by Karthik Heller MD) SHANIQUE on CPAP Obesity Hypertension Surgical History Surgical History H/O abdominoplasty 02/2018 History of cosmetic plastic surgery History of hysterectomy 12/2015 History of bilateral breast reduction surgery 1976 1978 Family History Family History Father Family history of Alzheimer's disease Mother Diabetes mellitus Sibling Hypertension Social History Social History Smoking status: Never smoker Second hand tobacco smoke exposure: No Alcohol intake: current Alcohol use details: ONE/MONTH Do You Feel Safe in your Home?: Yes Lack of Transportation: No Lack of Food: Never True Current Housing: I Have Housing Concerned About Future Housing: No Difficulty Paying Gas/Electric Bills: No Difficulty Paying for Meds: No Currently Unemployed: No Education: High School Diploma/GED Difficulty w/ Childcare or Family Care: No Living arrangements: with family Spiritual care concerns: No Meds Home Medications and Allergies Home Medications ?Medication ?Instructions ?Recorded ?Confirmed ?Type carvedilol 6.25 mg tablet 6.25 mg PO Q12H 08/17/24 09/09/24 History furosemide 20 mg tablet 20 mg PO QAM 08/17/24 09/09/24 History ascorbic acid (vitamin C) 1,000 mg 1 g PO DAILY 09/09/24 09/23/24 History tablet (C-1000) spironolactone 25 mg tablet 25 mg PO DAILY 09/09/24 09/23/24 History vitamin B complex (Vitamins B 1 cap PO DAILY 09/09/24 09/23/24 History Complex capsule) Allergies Allergy/AdvReac Type Severity Reaction Status Date / Time lisinopril Allergy Severe Swelling Verified 09/23/24 11:44 of Lip/Tongue/Throat Vital Signs Vital Signs - 24 hr 09/23/24 10:50 Temperature 98.2 F Pulse Rate 58 L Respiratory Rate 18 Blood Pressure 170/79 H Pulse Oximetry 97 Oxygen Delivery Room Air Exam Const: General: no acute distress and alert Orientation/consciousness: patient oriented x3 HENMT: Head: normocephalic and atraumatic Ears: hearing grossly normal bilaterally Face/Nose/Sinus: Normal nares present Mouth: Yes Normal oral and palatal mucosa present Eyes: Periorbital: periorbital findings normal Sclera: sclerae normal EOM: EOMs intact bilaterally Neck: Neck: normal visual inspection, no lymphadenopathy and trachea midline Chest: Chest palpation & inspection: normal inspection of the chest Resp: Effort & Inspection: normal respiratory effort Auscultation: clear to auscultation bilaterally Cardio: Jugular venous distension: no JVD Rate: regular rate Rhythm: regular rhythm Heart sounds: S1 normal heart sound present and S2 normal heart sound present Peripheral pulses: Peripheral pulses 2+ throughout GI: Inspection: normal to inspection GI Palp: Yes Soft to palpation, No Tenderness to palpation present (GI), No Guarding due to palpation present (GI), Yes Hernia present umbilical 3-10 cm and No Rebound tenderness present Percussion: Yes normal to percussion Auscultation: normal bowel sounds : General: Yes no CVA tenderness Back/Spine/Pelvis: Back: no CVA tenderness Neuro: General: patient oriented x3, no focal motor deficits and CN's II-XI intact bilaterally Cognition (Neuro): normal cognition Speech: normal speech Motor exam (neuro): 5/5 motor strength present throughout Extrem: General: capillary refill normal and no clubbing, cyanosis or edema Assessment and Plan Assessment and plan (1) Umbilical hernia: Qualifiers: Obstruction and gangrene presence: without obstruction or gangrene Qualified Code(s): K42.9 - Umbilical hernia without obstruction or gangrene Code(s): K42.9 - Umbilical hernia without obstruction or gangrene Status: Acute Assessment and Plan: Dr. Marsh will proceed with Laparoscopic umbilical hernia repair with mesh, da Shadi assisted. He has discussed the procedure, risks, benefits, and alternatives with the patient. All questions answered. No changes since last seen in office.
--- NOTE | 2024-09-23 12:28 | P.OP_ITS ---
Procedure Note - Detailed Date of Procedure 09/23/24 Pre-op Diagnosis Left renal stone, umbilical hernia Post-op Diagnosis Same Procedure Performed Cystoscopy, left ureteral stent placement, left ESWL Surgeon Fernando Keane MD Anesthesia General Description of Procedure The patient was brought to the operative suite where she was placed in the frog- legged position on the Dornier lithotripter table. Flexible cystoscopy was undertaken with a 16F flexible cystoscopy. Her urethra and bladder neck were endoscopically normal. The bladder mucosa was normal and there was a single, orthotopic ureteral orifice bilaterally. A 0.035 glidewire was advanced into the left renal pelvis under fluoroscopy. A 4.8F J-J ureteral stent was positioned with the proximal coil in the renal pelvis and the distal coil in the bladder. The patient was then repositioned in the supine position and the focal point of the lithotriptor was placed at a 6-7mm left mid-ureteral calculus. A total of 2500 shocks were delivered at a power setting of 1-5. There appeared to be good fragmentation of the stone. The patient tolerated the procedure well and was taken to the recovery room in good condition. Drains No Packing No Pathology Yes Complications No immediate complications Condition Stable
[2024-09-23] MEDS: BUPIVACAINE/EPINEPHRINE 0.5% 30 ML VIAL INFILTRATE (13:25)
--- NOTE | 2024-09-23 14:15 | W.PM.PROC2 ---
Procedure Note - Detailed Date of Procedure 09/23/24 Pre-op Diagnosis Incarcerated umbilical hernia measuring 4 cm Post-op Diagnosis Same Procedure Performed Robotic assisted repair incarcerated umbilical measuring 4 cm with mesh Surgeon Andria Marsh MD Anesthesia General and Local Indications 60-year-old female presenting incarcerated hernia. Patient reports slow growth in size and symptomatology. Findings 4 cm incarcerated umbilical hernia, incarcerated omentum Description of Procedure The patient was taken the operating room placed in the supine position. After adequate induction of general anesthesia, the patient was prepped and draped in normal sterile fashion. A time-out was then done to verify the patient's identity as well as the procedure being performed. I began by making a 8 mm incision in the left upper quadrant. Through this, a Veress needle was placed into the peritoneal cavity and CO2 gas was insufflated. After adequate pneumoperitoneum was achieved, a 8 mm trocar was placed through this incision. I then placed the laparoscope through this trocar site and under direct visualization I placed a 8 mm port in the left mid abdomen as well as an additional 8 mm port in the left lower abdomen. The robot was then docked to the 3 port sites. I then went to the robotic console. I began by identifying the hernia. A moderate-sized incarcerated umbilical hernia was noted. There was noted to be incarcerated omentum and this was carefully reduced. I created a preperitoneal flap approximately 6 cm lateral to the hernia. This flap was carried widely superior and inferior to the defect. I then was able to reduce this hernia. The hernia was noted to contain a large amount of preperitoneal fat. I then carried the flap distally past the hernia. I then closed the approximately 4 cm defect with 0 strata fix suture. I then placed a 15 x [address] mesh into the abdominal cavity. The positional stitch was placed in the middle of the mesh and brought up centering the mesh over the defect. Once this was done, I used 2 O vicryl suture to suture the mesh to the abdominal wall. Once the mesh was sutured in, I was happy with our tension-free repair. The mesh was noted to have good overlap of the defect. I then closed the flap with 2 0 V lock. At this point, the robot was undocked and all ports were removed. All port sites were then closed with 4 O Monocryl subcuticular suture. The patient tolerated the procedure well, is extubated in the operating room postoperative, and will be transferred to the recovery room in stable condition. Implants 15 x [address] mesh Estimated Blood Loss 10 Drains No Packing No Pathology None sent Complications No immediate complications Condition Stable Disposition PACU [facility] Billing Surgery - Charge Forward: Surgery Billing
[2024-09-23] MEDS: ONDANSETRON INJ 4 MG/2 ML VIAL IV PUSH (15:33)
[2024-09-23] MEDS: fentaNYL CITRATE INJ (*CRX) 100 MCG/2 ML VIAL 25 MCG IV PUSH ×2 (15:55→16:06)
[2024-09-23] MEDS: SCOPOLAMINE 1 MG PATCH 1 PATCH TRANSDERM (16:46)
[2024-09-23] MEDS: diphenhydrAMINE HCl INJ 50 MG/ML VIAL 12.5 MG IV PUSH (16:49)
[2024-09-23] MEDS: oxyCODONE HCL (*CRX) 5 MG TAB IR PO (17:39)
== END 2024-09-23 18:44 | disposition home or self-care (01) ==
PROVIDERS: Surgery; PCP Hospitalist; Visit Provider Urology
PROC: (CPT 50590; principal; 2024-09-23 13:00)
PROC: (CPT 52352; 2024-09-23 13:00)
PROC: (CPT 49594; 2024-09-23 13:00)
DX: N20.0 Calculus of kidney (principal); K42.9 Umbilical hernia without obstruction or gangrene; I10 Essential (primary) hypertension; G47.33 Obstructive sleep apnea (adult) (pediatric); E66.01 Morbid (severe) obesity due to excess calories; Z68.38 Body mass index [BMI] 38.0-38.9, adult; Z99.89 Dependence on other enabling machines and devices; Z98.890 Other specified postprocedural states
CPT/HCPCS: 52332; 50590; 49594; S2900; 74018; A9270; C1769; C1781; C2617; J0690; J1200; J1885; J2003; J2250; J2405; J2704; J3010; J7030; J7120

== ENCOUNTER 2024-10-26 10:01 | Outpatient (CLI) | payer MEDICARE, SELFPAY ==
--- NOTE | ~2024-10-26 | XR_ITS ---
Supine and upright views of the abdomen Clinical history: Umbilical hernia COMPARISON: 09/23/2024 Findings: Bowel gas pattern is nonspecific. No evidence for obstruction or free air. Left ureteral st ent in place. Multiple left renal stones are present, largest measuring approximately 10 mm. 14 mm ov oid stone present at the right renal pelvis region. Osseous structures are intact. Impression: Bilateral nephrolithiasis, similar to prior exam. Left ureteral stent in place. Reviewed, dictated and finalized at location . Impression: Bilateral nephrolithiasis, similar to prior exam. Left ureteral stent in place.
--- OUTSIDE RECORDS SUMMARY | 2024-10-26 10:14 | XMS_ITS | Clinical Summary ---
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
--- OUTSIDE RECORDS SUMMARY | 2024-10-26 10:15 | XMS_ITS | Encounter Summary ---
Author Organization [facility] Address [address] [place] [address] Phone Care Team Providers Care Retail [employer] Restaurant Associate Name Role Phone Patti Aiken MD Primary Care Provider [phone] Shanda Mead NP Primary Care Provider [phone] Encounter Details Date Type Department Care Team (Latest Contact Info) Description 09/08/2018 Orders Only [facility] Scanning, Provider Social History Tobacco Use Types Packs/Day Years Used Date Smoking Tobacco: Never Smokeless Tobacco: Never Comments Unknown Sex and Gender Information Value Date Recorded Sex Assigned at Not on file 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
--- OUTSIDE RECORDS SUMMARY | 2024-10-26 10:15 | XMS_ITS | Clinical Summary ---
Author Organization [facility] Address [address] [place] [address] Care Team Providers Care Title One Teacher Name Role Phone Chito Harrison MD Primary Care Provider Source Comments [email or web address] [email or web address],non-owned Affiliates and Associated Physician Practices is amultiple site organization consisting of ambulatory clinics and hospital sitesin [place], [place], [place] and [place]. This disclosure is being madepursuant to the Care Everywhere program and may not contain all information available regarding this patient. 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 Gender Identity Not on file Sexual Orientation Not on file Last Filed Vital Signs Vital Sign Reading Time Taken Comments Blood Pressure 140/80 02/27/2020 8:05 AM BLADE GRADER OPERATOR Pulse 60 02/27/2020 8:05 AM BLADE GRADER OPERATOR Temperature - - Respiratory Rate 12 02/27/2020 8:05 AM BLADE GRADER OPERATOR Oxygen Saturation - - Inhaled Oxygen Concentration - - Weight 108.4 kg (239 lb) 02/27/2020 8:05 AM BLADE GRADER OPERATOR Height 161.3 cm (5' 3.5) 02/27/2020 8:05 AM BLADE GRADER OPERATOR Body Mass Index 41.67 02/27/2020 8:05 AM BLADE GRADER OPERATOR Plan of Treatment Health Maintenance Due Date [...] season) 2023 DEPRESSION SCREENING 04/13/2024 INFLUENZA VACCINE (#1) 2024 Respiratory Syncytial Virus (RSV) Vaccine Pt: [...] Insurance MEDICARE COMMERCIAL GENERIC MEDICARE Care Teams Title One Teacher Relationship Specialty Start Date End Date Chito Harrison MD [address] [place] [address] PCP - General 06/26/21
--- OUTSIDE RECORDS SUMMARY | 2024-10-26 10:15 | XMS_ITS | Clinical Summary ---
Author Organization [facility] al Address [address] [place] [address] Care Team Providers Care Educational Aid Name Role Phone Shanda Mead BRIAN Primary Care Provider [phone] Allergies Active Allergy Reactions Criticality Noted Date [...] FIND Apply topically Med Name: E2(Estradiol), E3(estrogen0, T2(testosterone ) 1-2-2mg/ml crm - compound medication Active UNABLE TO FIND 1 each daily Med Name: Thyrodain Active spironolactone (ALDACTONE) 25 mg tablet Take 1 tablet (25 mg total) by mouth daily 90 tablet 4 5 08/19/19 26 Active tirzepatide, weight loss, (Zepbound) 2.5 mg/0.5 mL pen injectorIndicati ons:SHANIQUE (obstructive sleep apnea),Class 3 severe obesity due to excess calories with serious comorbidity and body mass index (BMI) of 40.0 to 44.9 in adult Inject 0.5 mL (2.5 mg total) under the skin once a week 2 mL 5 Active tirzepatide, weight loss, (Zepbound) 2.5 mg/0.5 mL pen injectorIndicati ons:SHANIQUE (obstructive sleep apnea) Inject 0.5 mL (2.5 mg total) under the skin once a week 2 mL Active Active Problems Problem Noted Date Diagnosed [...] 02/24 Assessment & Plan (02/25/2024 10:16 AM HAIRSPRING II INSPECTOR): In regard to health maintenance, Colonoscopy- Declined [...] healthier, we can set up appointment with 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 Have an active lifestyle, strive for 30 [...] 02/24 Assessment & Plan (02/25/2024 10:17 AM HAIRSPRING II INSPECTOR): Lipid panel ordered. Will continue to monitor. Acquired hypothyroidism 02/18/2023 Assessment & Plan (08/30/2024 3:31 PM CDT): Subclinical; continue to monitor; patient reports no symptoms associated with thyroid low Assessment & Plan (08/09/2024 3:06 PM CDT): Stable, well controlled, last TSH at goal; on supplements; continue to monitor Assessment & Plan (06/07/2024 3:29 PM HAIRSPRING II INSPECTOR): Last TSH at goal, taking natural supplements Will continue to monitor closely Assessment & Plan (02/25/2024 10:15 AM HAIRSPRING II INSPECTOR): Will recheck TSH and T4. Will continue to take OTC thyroid medication and seeing financial sales advisor. Class 3 severe obesity due t o [...] surgery Assessment & Plan (06/07/2024 3:29 PM HAIRSPRING II INSPECTOR): Not well controlled, has been having weight [...] week. Assessment & Plan (02/25/2024 10:15 AM HAIRSPRING II INSPECTOR): Encouraged heart healthy diet and lifestyle. Advised [...] b.i.d. Assessment & Plan (06/07/2024 3:29 PM HAIRSPRING II INSPECTOR): Stable, well controlled, blood pressure mildly elevated today, some peripheral edema with limited relief Will start furosemide 20 mg b.i.d., continue lisinopril 40 mg, discontinue hydrochlorothiazide Assessment & Plan (02/25/2024 10:14 AM HAIRSPRING II INSPECTOR): Blood pressure not well controlled. Will increase [...] weeks Assessment & Plan (02/18/2023 10:15 AM HAIRSPRING II INSPECTOR): Stable, currently well-controlled BP at visit 120/84 Continue lisinopril 40 mg daily Resolved Problems Problem Noted Date Diagnosed Date Resolved Date Ascending aortic aneurysm 07/26/2014 Assessment & Plan (02/25/2024 10:25 AM HAIRSPRING II INSPECTOR): Continues with routine monitoring. Will continue to follow. Assessment & Plan (02/18/2023 11:51 AM HAIRSPRING II INSPECTOR): Gets regular monitoring Patient will call back with location she would like to get next US done at Encounters Date Type Department Care Team Description 10/07/2024 10:00 AM CDT Office Visit [facility] [address] [place] [address] [address] [place] [address] August Pickett MD Severe Obstructive sleep apnea (Primary Dx); Hypersomnia with sleep apnea; Morbid obesity with BMI of 40.0-44.9, adult ([facility]) 10/07/2024 Telephone [facility] [address] [place] [address] [address] [place] [id number] August Pickett MD 09/23/2024 Orders Only [facility] Health Information Management [address] [place] [address] Scanning, Provider 09/15/2024 9:00 AM CDT Office Visit [facility] [address] [address] Anibal Avendano MD Peripheral edema (Primary Dx); Primary hypertension; Class 3 severe obesity due to excess calories with serious comorbidity and body mass index (BMI) of 40.0 to 44.9 in adult; SHANIQUE (obstructive sleep apnea) 08/19/2024 Results Follow-Up [facility] [address] [address] Anibal Avendano MD Hepatitis C antibody Blood, Hepatitis B surface antibody (immune status) Blood, Hepatitis B Surface Antigen Blood, Additional followed-up results: 6 08/18/2024 10:00 AM CDT Lab [facility] [address] [place] [address] Encounter for hepatitis C screening test for low risk patient; Need for hepatitis B screening test; Acquired hypothyroidism; Primary hypertension 08/18/2024 9:15 AM CDT Office Visit [facility] [address] [place] [address] Anibal Avendano MD Peripheral edema (Primary [...] 9:00 AM CDT Office Visit [facility] [address] [place] [address] Anibal Avendano MD Primary hypertension (Primary Dx); Osteoporosis screening; Encounter for screening mammogram for malignant neoplasm of breast; Acquired hypothyroidism; Colon cancer screening; Peripheral edema 07/27/2024 Results Follow-Up [facility]/[address] [address] August Pickett MD PSG from Last 3 Months Immunizations Immunization Administration [...] Son Aneurysm - (Add ed by TW Cristi) Relation Name Status Comments Father Mother Son Social History Tobacco Use Types Packs/Day Years Used Date Smoking Tobacco: Never Smokeless Tobacco: Never Tobacco Cessation:Counseling Given: Not Answered [facility] Utilities Answer Date Recorded In the past 12 months has e [employer], oil, or water [employer] threatened to shut off services in your [...] often do you attend chur ch or mandaeism services? Never 02/18/2023 Do you belong to [...] staff should administer the PHQ-9) 0 02/25/2024 [facility] - [...] place to sleep or slept in a group home (including now)? No 02/18/2023 Comments Unknown Sex and Gender Information Value Date Recorded Sex Assigned at Not on file Legal Sex Female 2:32 AM HAIRSPRING II INSPECTOR Gender Identity Not on file Sexual Orientation Not on file Obstetrics History Last Filed Vital Signs Vital Sign Reading Time Taken Comments Blood Pressure 130/80 09/15/2024 9:01 AM CDT Pulse 62 10/07/2024 10:11 AM CDT Temperature 36.6 C (97.8 F) 09/15/2024 9:01 AM CDT Respiratory Rate 18 09/15/2024 9:01 AM CDT Oxygen Saturation 95% 10/07/2024 10: 11 AM CDT Inhaled Oxygen Concentration - - Weight 109.6 kg (241 lb 9.6 oz) 025 10:11 AM CDT Height 165.1 cm (5' 5) 10/07/2024 10:1 1 AM CDT Body Mass Index 40.2 10/07/2024 10:11 AM CDT Plan of Treatment Health Maintenance Due Date Last Done Comments DTaP/Tdap/Td Vaccine (1 - Tdap) 1966 Pneumococcal vaccine 65+ (1 of 1 - PCV) 2005 Zoster Vaccine (1 of 2) 2005 Influenza Vaccine (#1) 2024 Depression Screening 02/24/2025 02/25/2024, 01/08/2024, 02/18/2023, [...] Priority Date/Time Associated Diagnosis Comments SCAN - RADIOLOGY/IMAGING 09/23/2024 EGFR Routine 08/18/2024 9:59 AM CDT Primary [...] C screening test for low risk patient from Last 3 Months Results * SCAN - RADIOLOGY/IMAGING (09/23/2024) Anatomical Region Laterality Modality Other us Provider Scanning Final Result * eGFR (08/18/2024 9:59 AM CDT) eGFR [...] was last reviewed 2021. Testing performed by: [address] [address] Blood 08/18/2024 9:59 AM CDT 08/18/2024 3:51 PM CDT us Anibal Avendano MD LAB BLOOD ORDERABLES Carolyn cabezas Result WILLIAM GUTIERREZ ([place]) 1 [facility] [place] [address] * Differential, auto (08/18/2024 9:59 AM CDT) Neutrophil abs 2.86 1.50 - 6.50 K/cumm Comment:Testing performed by : [facility], [address] [place] [address]., [address] Imm gran abs 0.03 0.00 - 0.10 K/cumm [facility] ([place]) Comment:Testing performed by : [address] [address] Lymphocyte abs 1.07 0.80 - 3.30 K/cumm [facility] ([place]) Comment:Testing performed by : [address] [address] Monocyte abs 0.45 0.20 - 0.80 K/cumm [facility] ([place]) Comment:Testing performed by : [facility], [address] [place] [address]., [address] Eosinophil abs 0.09 0.00 - 0.50 K/cumm [facility] ([place]) Comment:Testing performed by : [address] [address] Basophil abs 0.04 0.00 - 0.10 K/cumm [facility] ([place]) Comment:Testing performed by : [address] [address] Neutrophil pct 62.9 % [facility] ([place]) Comment: Interpretive Data Percent cell count reference ranges are not reported, since discordance with absolute values may lead to misinterpretation of CBC data. Current Interpretive Data was last revised on 2017. Testing performed by: [address] [address] Imm gran pct 0.7 % [facility] ([place]) Comment: Interpretive Data Percent cell count reference ranges are not reported, since discordance with absolute values may lead to misinterpretation of CBC data. Current Interpretive Data was last revised on 2017. Testing performed by: [address] [address] Lymphocyte pct 23.6 % [facility] ([place]) Comment: Interpretive Data Percent cell count reference ranges are not reported, since discordance with absolute values may lead to misinterpretation of CBC data. Current Interpretive Data was last revised on 2017. Testing performed by: [address] [address] Monocyte pct 9.9 % [facility] ([place]) Comment: Interpretive Data Percent cell count reference ranges are not reported, since discordance with absolute values may lead to misinterpretation of CBC data. Current Interpretive Data was last revised on 2017. Testing performed by: [address] [address] Eosinophil pct 2.0 % [facility] ([place]) Comment: Interpretive Data Percent cell count reference ranges are not reported, since discordance with absolute values may lead to misinterpretation of CBC data. Current Interpretive Data was last revised on 2017. Testing performed by: [address], [address] Basophil pct 0.9 % [facility] ([place]) Comment: Interpretive Data Percent cell count reference ranges are not reported, since discordance with absolute values may lead to misinterpretation of CBC data. Current Interpretive Data was last revised on 2017. Testing performed by: [address] [address] Blood 08/18/2024 9:59 AM CDT 08/18/2024 3:51 PM CDT Anibal Avendano MD LAB BLOOD ORDERABLES Carolyn l Result Performing Organization Address City/[facility]/ZIP Co de Phone Number WILLIAM GUTIERREZ ([place]) 1 [facility] [place] [address] * Thyroid Function [place] (08/18/2024 9:59 AM CDT) TSH 2.55 0.30 - 4.20 mcIUnit/mL Comment:Testing performed by : [address], [address] Blood 08/18/2024 9:59 AM CDT 08/18/2024 3:51 PM CDT Anibal Avendano MD LAB BLOOD ORDERABLES Carolyn l Result Performing Organization Address [facility] Co de Phone Number WILLIAM GUTIERREZ ([place]) [address] [place] [address] * (ABNORMAL) CBC with auto differential (08/18/2024 9:59 AM CDT) WBC 4.54 3.80 - 9.90 K/cumm Comment:Testing performed by : [address] [address] Hgb 12.0 11.9 - 15.5 g/dL [facility] ([place]) Comment:Testing performed by : [address] [address] Hct 38.7 35.6 - 45.5 % [facility] ([place]) Comment:Testing performed by : [address] [address] Plt 255 150 - 400 K/cumm [facility] ([place]) Comment:Testing performed by : [facility], [address], [place]., [address] MPV 10.2 9.1 - 12.3 fL [facility] ([place]) Comment:Testing performed by : [facility], [address] [place] [address], [address] RBC 4.02 3.90 - 5.20 M/cumm [facility] ([place]) Comment:Testing performed by : [facility], [address] [place] [address], [address] MCV 96.3 81.3 - 96.4 fL [facility] ([place]) Comment:Testing performed by : [facility], [address] [place] [address], [address] MCH 29.9 27.1 - 33.3 pg [facility] ([place]) Comment:Testing performed by : [address], [address] MCHC 31.0(L) 32.3 - 35.7 g/dL [facility] ([place]) Comment:Testing performed by : [address], [address] RDW CV 15.0(H) 11.1 - 14.9 % [facility] ([place]) Comment:Testing performed by : [address], [address] RDW SD 53.1(H) 35.7 - 48.1 fL [facility] ([place]) Comment:Testing performed by : [address], [address] NRBC abs 0.00 0.00 - 0.01 K/cumm [facility] ([place]) Comment:Testing performed by : [address], [address] Blood 08/18/2024 9:59 AM CDT 08/18/2024 3:51 PM CDT us Anibal Avendano MD LAB BLOOD ORDERABLES Carolyn cabezas Result [facility] ([place]) 1 [facility] [place] [address] * Hepatitis C antibody Blood (08/18/2024 9:59 [...] last revised on 2019. Testing performed by: [facility], [address] [place] [address], [address] Blood 08/18/2024 9:59 AM CDT 08/18/2024 3:52 PM CDT Anibal Avendano MD LAB MICROBIOLOGY - [place] L ORDERABLES Final Result Performing Organization Address [facility]/ZIP Co de Phone Number [facility] ([place]) 1 [facility] [place] [employer] [place] [address] * Hepatitis B core antibody, total Blood (08/18/2024 9:59 AM CDT) Pathologist [facility] Hep B core IgG/IgM Nonreactive Nonreactive Comment:Testing performed by : [facility], [address] [place] [address]., [address] Blood 08/18/2024 9:59 AM CDT 08/19/2024 9:49 AM CDT Anibal Avendano MD LAB MICROBIOLOGY - [place] L ORDERABLES Final Result [facility] ([place]) 1 [facility] [employer] [place], [place] [id number] * Hepatitis B surface antibody (immune status) Blood (08/18/2024 9:59 AM CDT) Pathologist [facility] HBsAb (immune status) Nonreactive Comment: Interpretive Data [...] last revised on 19. Testing performed by: [facility], [address] [place] [address]., [address] Blood 08/18/2024 9:59 AM CDT 08/18/2024 3:52 PM CDT Anibal Avendano MD LAB MICROBIOLOGY - GENERA L ORDERABLES Final Result Performing Organization Address City/[facility]/ZIP Co de Phone Number [facility] ([place]) [address] [place] [address] [place] [address] * Hepatitis B Surface Antigen Blood (08/18/2024 9:59 AM CDT) HepBsAg Nonreactive Nonreactive Comment:Testing performed by : [facility], [address] [place] [address]., [address] Blood 08/18/2024 9:59 AM CDT 08/18/2024 3:52 PM CDT Anibal Avendano MD LAB MICROBIOLOGY - GENERA L ORDERABLES Final Result Performing Organization Address [facility] Co de Phone Number [facility] ([place]) 1 [facility] [place] [address] * (ABNORMAL) Lipid panel (08/18/2024 9:59 AM [...] last revised on 2017. Testing performed by: [facility], [address] [place] [address]., [address] Triglycerides 154(H) <=149 mg/dL WILLIAM GUTIERREZ ([place]) [...] last revised on 2017. Testing performed by: [facility], [address] [place] [address]., [address] HDL 47 >=40 mg/dL WILLIAM GUTIERREZ ([place]) [...] last revised on 2017. Testing performed by: [facility], [address] [place] [address]., [address] LDL, calculated 184(H) <=129 mg/dL WILLIAM GUTIERREZ [...] last revised on 2023. Testing performed by: [facility], [address] [place] [address]., [address] Non-HDL Cholesterol 212 mg/dL WILLIAM GUTIERREZ ([place]) Comment: Interpretive Data Ages < or = [...] last revised on 2017. Testing performed by: [facility], [address] [place] [address]., [address] Chol/HDL ratio 6 MARIAMA GUTIERREZ ([place]) Comment:Testing performed by : [address] [address] Blood 08/18/2024 9:59 AM CDT 08/18/2024 3:51 PM CDT us Anibal Avendano MD LAB BLOOD ORDERABLES Carolyn cabezas Result WILLIAM MATT ([place]) 1 [facility] [place] [address] * Comprehensive metabolic panel (08/18/2024 9:59 AM CDT) [facility] Signature Sodium 141 135 - 145 mmol/L Comment:Testing performed by : [address] [address] Potassium, pl 3.9 3.3 - 4.9 mmol/L [facility] ([place]) Comment:Testing performed by : [facility], [address] [place] [address]., [address] Chloride 105 97 - 110 mmol/L [facility] ([place]) Comment:Testing performed by : [address] [address] CO2 27 22 - 32 mmol/L [facility] ([place]) Comment:Testing performed by : [address] [address] Anion gap 9 2 - 15 mmol/L [facility] ([place]) Comment:Testing performed by : [address], [address] BUN 15 6 - 25 mg/dL [facility] ([place]) Comment:Testing performed by : [address], [address] Creatinine 0.61 0.60 - 1.10 mg/dL [facility] ([place]) Comment:Testing performed by : [address], [address] Glucose 94 70 - 199 mg/dL CERNER [...] was last revised 2022. Testing performed by: [address] [address] Calcium 9.2 8.5 - 10.3 mg/dL [facility] ([place]) Comment:Testing performed by : [address], [address] Bilirubin, total 0.5 0.1 - 1.2 mg/dL [facility] ([place]) Comment:Testing performed by : [address] [place] [address] Protein, pl 6.9 6.5 - 8.5 g/dL [facility] ([place]) Comment:Testing performed by : [facility], [address] [place] [address]., [address] Albumin 4.0 3.5 - 5.0 g/dL [facility] ([place]) Comment:Testing performed by : [facility], [address] [place] [address], [address] Alk phos 56 40 - 130 Units/L [facility] ([place]) Comment:Testing performed by : [facility], [address] [place] [address], [address] ALT 34 7 - 45 Units/L [facility] ([place]) Comment:Testing performed by : [facility], [address] [place] [address], [address] AST 30 10 - 45 Units/L [facility] ([place]) Comment:Testing performed by : [facility], [address] [place] [address], [address] Blood 08/18/2024 9:59 AM CDT 08/18/2024 3:51 PM CDT us Anibal Avendano MD LAB BLOOD ORDERABLES Carolyn cabezas Result [facility] ([place]) 1 [facility] [place] [address] from Last 3 Months Insurance MEDICARE [place] [employer] S[employer]IOR SUPPLEMENT Care Teams Educational Aid Relationship Specialty Start Date End Date Shanda Mead NP PCP - General Family Medicine 02/18/23
--- OUTSIDE RECORDS SUMMARY | 2024-10-26 10:15 | XMS_ITS | Referral Summary ---
Author Organization [facility] Address [address] [place] [address] Care Team Providers Care Dray Truck Driver Name Role Phone Shanda Mead BRIAN Primary Care Provider [phone] Encounters Date Type Department Care Team Description 10/07/2024 Telephone [facility] [address] [place] [address] [address] [place] [phone] August Pickett MD 10/07/2024 10:00 AM CDT Office Visit [facility] [address] [place] [address] [address] [place] [phone] August Pickett MD Severe Obstructive sleep apnea (Primary Dx); Hypersomnia with sleep apnea; Morbid obesity with BMI of 40.0-44.9, adult ([facility]) 09/23/2024 Orders Only [facility] Health Information Management [address] [place] [address] Scanning, Provider 09/15/2024 9:00 AM CDT Office Visit [facility] [address] [address] Anibal Avendano MD Peripheral edema (Primary Dx); Primary hypertension; Class 3 severe obesity due to excess calories with serious comorbidity and body mass index (BMI) of 40.0 to 44.9 in adult; SHANIQUE (obstructive sleep apnea) 08/19/2024 Results Follow-Up [facility] [address] [address] Anibal Avendano MD Hepatitis C antibody Blood, Hepatitis B surface antibody (immune status) Blood, Hepatitis B Surface Antigen Blood, Additional followed-up results: 6 08/18/2024 10:00 AM CDT Lab [facility] [address] [place] [address] Encounter for hepatitis C screening test for low risk patient; Need for hepatitis B screening test; Acquired hypothyroidism; Primary hypertension 08/18/2024 9:15 AM CDT Office Visit [facility] [address] [place] [address] Anibal Avendano MD Peripheral edema [...] 9:00 AM CDT Office Visit [facility] [address] [place] [address] Anibal Avendano MD Primary hypertension (Primary Dx); Osteoporosis screening; Encounter for screening mammogram for malignant neoplasm of breast; Acquired hypothyroidism; Colon cancer screening; Peripheral edema 07/27/2024 Results Follow-Up [facility]/[address] [address] August Pickett MD PSG from Last 3 Months Allergies Active Allergy [...] once a week 2 mL 5 Active Active Problems Problem Noted Date Diagnosed [...] 02/24 Assessment & Plan (02/25/2024 10:16 AM SAMPLE CARD MAKER): In regard to health maintenance, Colonoscopy- Declined [...] healthier, we can set up appointment with fuel verification technician/automation machine operator. Have an active lifestyle, strive for 30 [...] 02/24 Assessment & Plan (02/25/2024 10:17 AM SAMPLE CARD MAKER): Lipid panel ordered. Will continue to monitor. Acquired hypothyroidism 02/18/2023 Assessment & Plan (08/30/2024 3:31 PM CDT): Subclinical; continue to monitor; patient reports no symptoms associated with thyroid low Assessment & Plan (08/09/2024 3:06 PM CDT): Stable, well controlled, last TSH at goal; on supplements; continue to monitor Assessment & Plan (06/07/2024 3:29 PM SAMPLE CARD MAKER): Last TSH at goal, taking natural supplements Will continue to monitor closely Assessment & Plan (02/25/2024 10:15 AM SAMPLE CARD MAKER): Will recheck TSH and T4. Will continue to take OTC thyroid medication and seeing fuel verification technician. Class 3 severe obesity due t [...] surgery Assessment & Plan (06/07/2024 3:29 PM SAMPLE CARD MAKER): Not well controlled, has been having weight [...] week. Assessment & Plan (02/25/2024 10:15 AM SAMPLE CARD MAKER): Encouraged heart healthy diet and lifestyle. Advised [...] b.i.d. Assessment & Plan (06/07/2024 3:29 PM SAMPLE CARD MAKER): Stable, well controlled, blood pressure mildly elevated today, some peripheral edema with limited relief Will start furosemide 20 mg b.i.d., continue lisinopril 40 mg, discontinue hydrochlorothiazide Assessment & Plan (02/25/2024 10:14 AM SAMPLE CARD MAKER): Blood pressure not well controlled. Will increase [...] weeks Assessment & Plan (02/18/2023 10:15 AM SAMPLE CARD MAKER): Stable, currently well-controlled BP at visit 120/84 Continue lisinopril 40 mg daily Resolved Problems Problem Noted Date Diagnosed Date Resolved Date Ascending aortic aneurysm 07/26/2014 Assessment & Plan (02/25/2024 10:25 AM SAMPLE CARD MAKER): Continues with routine monitoring. Will continue to follow. Assessment & Plan (02/18/2023 11:51 AM SAMPLE CARD MAKER): Gets regular monitoring Patient will call back with location she would like to get next US done at Immunizations Immunization Administration Dates Next Due Influenza, Unspecified 02/25/2024(Deferr ed: Patient Refused),01/08/2024(Deferred: Patient Refused),01/11/2023(Deferred: Patient Refused),01/11/2023(Deferred: Patient Refused),12/12/2022(Deferred: Patient Refused),01/11/2022(Deferred: Patient Refused) Social History Tobacco Use Types Packs/Day Years Used Date Smoking Tobacco: Never Smokeless Tobacco: Never Tobacco Cessation:Counseling Given: Not Answered [facility] Utilities Answer Date Recorded In the past 12 months has th e [employer] Last 2 Left, oil, or water [employer] threatened to shut off services in your [...] often do you attend chur ch or alevism services? Never 02/18/2023 Do you belong to any clubs o r organizations such as orthodoxy groups, unions, fraternal or athletic groups, or [...] staff should administer the PHQ-9) 0 02/25/2024 [facility] Occupat ional [facility] - Occupational Stress Questionnaire Answer Date Recorded [...] place to sleep or slept in a mcfp (including now)? No 02/18/2023 Comments Unknown Sex and Gender Information Value Date Recorded Sex Assigned at Not on file Legal Sex Female 2:32 AM SAMPLE CARD MAKER Gender Identity Not on file Sexual Orientation [...] 10/07/2024 10:11 AM CDT Plan of Treatment Not on [...] was last reviewed 2021. Testing performed by: [address] [address] Blood 08/18/2024 9:59 AM CDT 08/18/2024 3:51 PM CDT Anibal Avendano MD LAB BLOOD ORDERABLES Carolyn l Result WILLIAM GUTIERREZ ([place]) 1 [facility] Department [place] [address] * Differential, auto (08/18/2024 9:59 AM CDT) Neutrophil abs 2.86 1.50 - 6.50 K/cumm Comment:Testing performed by : [facility], [address] [place] [address]., [address] Imm gran abs 0.03 0.00 - 0.10 K/cumm WILLIAM GUTIERREZ ([place]) Comment:Testing performed by : [address], [address] Lymphocyte abs 1.07 0.80 - 3.30 K/cumm [facility] ([place]) Comment:Testing performed by : [facility], [address] [place] [address]., [address] Monocyte abs 0.45 0.20 - 0.80 K/cumm [facility] ([place]) Comment:Testing performed by : [facility], [address] [place] [address]., [address] Eosinophil abs 0.09 0.00 - 0.50 K/cumm [facility] ([place]) Comment:Testing performed by : [facility], [address] [place] [address]., [address] Basophil abs 0.04 0.00 - 0.10 K/cumm [facility] ([place]) Comment:Testing performed by : [address] [address] Neutrophil pct 62.9 % [facility] ([place]) Comment: Interpretive Data Percent cell count reference ranges are not reported, since discordance with absolute values may lead to misinterpretation of CBC data. Current Interpretive Data was last revised on 2017. Testing performed by: [address] [address] Imm gran pct 0.7 % [facility] ([place]) Comment: Interpretive Data Percent cell count reference ranges are not reported, since discordance with absolute values may lead to misinterpretation of CBC data. Current Interpretive Data was last revised on 2017. Testing performed by: [address] [address] Lymphocyte pct 23.6 % [facility] ([place]) Comment: Interpretive Data Percent cell count reference ranges are not reported, since discordance with absolute values may lead to misinterpretation of CBC data. Current Interpretive Data was last revised on 2017. Testing performed by: [address] [address] Monocyte pct 9.9 % [facility] ([place]) Comment: Interpretive Data Percent cell count reference ranges are not reported, since discordance with absolute values may lead to misinterpretation of CBC data. Current Interpretive Data was last revised on 2017. Testing performed by: [facility], [address], [place]., [address] Eosinophil pct 2.0 % [facility] ([place]) Comment: Interpretive Data Percent cell count reference ranges are not reported, since discordance with absolute values may lead to misinterpretation of CBC data. Current Interpretive Data was last revised on 2017. Testing performed by: [facility], [address] [place] [address]., [address] Basophil pct 0.9 % [facility] ([place]) Comment: Interpretive Data Percent cell count reference ranges are not reported, since discordance with absolute values may lead to misinterpretation of CBC data. Current Interpretive Data was last revised on 2017. Testing performed by: [facility], [address] [place] [address]., [address] Blood 08/18/2024 9:59 AM CDT 08/18/2024 3:51 PM CDT Anibal Avendano MD LAB BLOOD ORDERABLES Carolyn l Result WILLIAM GUTIERREZ ([place]) 1 [facility] [place] [address] * Thyroid Function [place] (08/18/2024 9:59 AM CDT) TSH 2.55 0.30 - 4.20 mcIUnit/mL Comment:Testing performed by : [facility], [address] [place] [address]., [address] Blood 08/18/2024 9:59 AM CDT 08/18/2024 3:51 PM CDT Anibal Avendano MD LAB BLOOD ORDERABLES Carolyn l Result WILLIAM GUTIERREZ ([place]) 1 [facility] [place] [address] * (ABNORMAL) CBC with auto differential (08/18/2024 9:59 AM CDT) WBC 4.54 3.80 - 9.90 K/cumm Comment:Testing performed by : [facility], [address] [place] [address]., [address] Hgb 12.0 11.9 - 15.5 g/dL [facility] ([place]) Comment:Testing performed by : [address], [address] Hct 38.7 35.6 - 45.5 % [facility] ([place]) Comment:Testing performed by : [address], [address] Plt 255 150 - 400 K/cumm [facility] ([place]) Comment:Testing performed by : [facility], [address] [place] [address], [address] MPV 10.2 9.1 - 12.3 fL [facility] ([place]) Comment:Testing performed by : [address], [address] RBC 4.02 3.90 - 5.20 M/cumm [facility] ([place]) Comment:Testing performed by : [address], [address] MCV 96.3 81.3 - 96.4 fL [facility] ([place]) Comment:Testing performed by : [address], [address] MCH 29.9 27.1 - 33.3 pg [facility] ([place]) Comment:Testing performed by : [address], [address] MCHC 31.0(L) 32.3 - 35.7 g/dL [facility] ([place]) Comment:Testing performed by : [address], [address] RDW CV 15.0(H) 11.1 - 14.9 % [facility] ([place]) Comment:Testing performed by : [address], [address] RDW SD 53.1(H) 35.7 - 48.1 fL [facility] ([place]) Comment:Testing performed by : [address], [address] NRBC abs 0.00 0.00 - 0.01 K/cumm [facility] ([place]) Comment:Testing performed by : [address], [address] Blood 08/18/2024 9:59 AM CDT 08/18/2024 3:51 PM CDT Anibal Avendano MD LAB BLOOD ORDERABLES Carolyn l Result WILLIAM GUTIERREZ ([place]) [address] [place] [address] * Hepatitis C antibody Blood (08/18/2024 9:59 [...] last revised on 2019. Testing performed by: [facility], [address] [place] [address], [address] Blood 08/18/2024 9:59 AM CDT 08/18/2024 3:52 PM CDT Anibal Avendano MD LAB MICROBIOLOGY - GENERA L ORDERABLES Final Result Performing Organization Address City/[facility]/ZIP Co de Phone Number WILLIAM GUTIERREZ ([place]) [address] [place] [address] * Hepatitis B core antibody, total Blood (08/18/2024 9:59 AM CDT) Hep B core IgG/IgM Nonreactive Nonreactive Comment:Testing performed by : [facility], [address] [place] [address], [place]., [address] Blood 08/18/2024 9:59 AM CDT 08/19/2024 9:49 AM CDT Anibal Avendano MD LAB MICROBIOLOGY - GENERA L ORDERABLES Final Result Performing Organization Address City/[facility]/ZIP Co de Phone Number WILLIAM GUTIERREZ ([place]) 1 [facility] [place] [address] * Hepatitis B surface antibody (immune status) [...] last revised on 19. Testing performed by: [address], [address] Blood 08/18/2024 9:59 AM CDT 08/18/2024 3:52 PM CDT Anibal Avendano MD LAB MICROBIOLOGY - GENERA L ORDERABLES Final Result Performing Organization Address [facility] Co de Phone Number WILLIAM GUTIERREZ ([place]) [address] [place] [address] * Hepatitis B Surface Antigen Blood (08/18/2024 9:59 AM CDT) HepBsAg Nonreactive Nonreactive Comment:Testing performed by : [facility], [address] [place] [address]., [address] Blood 08/18/2024 9:59 AM CDT 08/18/2024 3:52 PM CDT Anibal Avendano MD LAB MICROBIOLOGY - GENERA L ORDERABLES Final Result WILLIAM GUTIERREZ ([place]) 1 [facility] [place] [address] * (ABNORMAL) Lipid panel (08/18/2024 9:59 AM [...] last revised on 2017. Testing performed by: [address] [address] Triglycerides 154(H) <=149 mg/dL WILLIAM GUTIERREZ ([place]) [...] last revised on 2017. Testing performed by: [facility], [address] [place] [address]., [address] HDL 47 >=40 mg/dL WILLIAM GUTIERREZ ([place]) [...] last revised on 2017. Testing performed by: [address] [address] LDL, calculated 184(H) <=129 mg/dL WILLIAM GUTIERREZ [...] last revised on 2023. Testing performed by: [address] [address] Non-HDL Cholesterol 212 mg/dL WILLIAM GUTIERREZ ([place]) [...] last revised on 2017. Testing performed by: [address] [address] Chol/HDL ratio 6 MARIAMA GUTIERREZ ([place]) Comment:Testing performed by : [address] [address] Blood 08/18/2024 9:59 AM CDT 08/18/2024 3:51 PM CDT us Anibal Avendano MD LAB BLOOD ORDERABLES Carolyn cabezas Result WILLIAM GUTIERREZ ([place]) 1 [facility] Department [place] [address] * Comprehensive metabolic panel (08/18/2024 9:59 AM CDT) Sodium 141 135 - 145 mmol/L Comment:Testing performed by : [address] [address] Potassium, pl 3.9 3.3 - 4.9 mmol/L [facility] ([place]) Comment:Testing performed by : [address] [address] Chloride 105 97 - 110 mmol/L [facility] ([place]) Comment:Testing performed by : [address], [address] CO2 27 22 - 32 mmol/L [facility] ([place]) Comment:Testing performed by : [address], [address] Anion gap 9 2 - 15 mmol/L [facility] ([place]) Comment:Testing performed by : [address] [address] BUN 15 6 - 25 mg/dL [facility] ([place]) Comment:Testing performed by : [address] [address] Creatinine 0.61 0.60 - 1.10 mg/dL [facility] ([place]) Comment:Testing performed by : [address], [address] Glucose 94 70 - 199 mg/dL [facility] ([place]) Comment: Interpretive Data Fasting glucose [...] was last revised 2022. Testing performed by: [facility], [address] [place] [address]., [address] Calcium 9.2 8.5 - 10.3 mg/dL [facility] ([place]) Comment:Testing performed by : [facility], [address] [place] [address], [address] Bilirubin, total 0.5 0.1 - 1.2 mg/dL [facility] ([place]) Comment:Testing performed by : [address], [address] Protein, pl 6.9 6.5 - 8.5 g/dL [facility] ([place]) Comment:Testing performed by : [facility], [address] [place] [address], [address] Albumin 4.0 3.5 - 5.0 g/dL [facility] ([place]) Comment:Testing performed by : [facility], [address] [place] [address], [address] Alk phos 56 40 - 130 Units/L [facility] ([place]) Comment:Testing performed by : [facility], [address] [place] [address], [address] ALT 34 7 - 45 Units/L [facility] ([place]) Comment:Testing performed by : [facility], [address] [place] [address], [address] AST 30 10 - 45 Units/L [facility] ([place]) Comment:Testing performed by : [address], [address] Blood 08/18/2024 9:5 9 AM CDT 08/18/2024 3:51 PM CDT us Anibal Avendano MD LAB BLOOD ORDERABLES Carolyn cabezas Result [facility] ([place]) 1 [facility] [place] [address] from Last 3 Months Insurance MEDICARE BL CHOICE PRF PPO [place] MEDICARE [employer] SENIOR SUPPLEMENT Care Teams Dray Truck Driver Relationship Specialty Start Date End Date Shanda Mead NP PCP - General Family Medicine 02/18/23
--- OUTSIDE RECORDS SUMMARY | 2024-10-26 10:15 | XMS_ITS | Encounter Summary ---
Author Organization [facility] [facility] Address [address] [place] [address] Phone Care Team Providers Care Assistant To The Vice President Name Role Phone Patti Aiken MD Primary Care Provider [phone] Shanda Mead NP Primary Care Provider [phone] Encounter Details Date Type Department Care Team (Late st Contact Info) Description 03/21/2019 Telephone [facility] Cardiology [address] [facility] 8th [place] [address] [place] [address] Caleb Garcia MD PhD [address] [facility] [address] [place] [address] Social History Tobacco Use Types Packs/Day Years Used Date Smoking Tobacco: Never Smokeless Tobacco: Never Comments Unknown Sex and Gender Information Value Date Recorded Sex Assigned at Not on file Legal Sex Female 2:32 AM ROVING DEPARTMENT SUPERVISOR Gender Identity Not on file Sexual Orientation Not on file documented as of this encounter Plan of Treatment Not on file documented as of this encounter Visit Diagnoses Not on filedocumented in this encounter Care Teams Assistant To The Vice President Relationship Specialty Start Date End Date Patti Aiken MD PCP - General 10/31/16 02/17/23 Shanda Mead NP PCP - General Family Medicine 02/18/23 documented as of this encounter
--- OUTSIDE RECORDS SUMMARY | 2024-10-26 10:15 | XMS_ITS | Clinical Summary ---
Author Organization [facility] Address [address] [place] [address] Care Team Providers Care Special Education Kindergarten Teacher Name Role Phone None, Provider Primary Care Provider Unavaila ble Social History Tobacco Use Types Packs/Day Years Used Date Smoking Tobacco: Never Assessed Comments Unknown Sex and Gender Information Value Date Recorded Sex Assigned at Female 06/21/2024 12:17 PM CDT Legal Sex Female 12:15 PM CDT Gender Identity Not on file Sexual Orientation Not on file Plan of Treatment Health Maintenance Due Date Last Done Comments Colorectal Cancer Screening Colonoscopy (10 Years) 1955 Hepatitis C 1973 DTaP, Tdap and Td Vaccines ( 1 - Tdap) 1974 Mammogram Screening 1995 Pneumococcal Vaccine: 50+ Ye ars (1 of 1 - PCV) 2005 Zoster Vaccines (1 of 2) 2005 Annual Medicare Wellness Visit 01/03/2020 Dexa Scan (General) 01/03/2020 COVID-19 Vaccine ( - 2023-2 5 season) 2023 RSV Immunization or 60+ Years (1 - 1-dose 75+ series) 2030 Meningococcal B Vaccine Aged Out No l onger eligible based on patient's age to complete this topic Meningococcal Vaccine Aged Out No yahir jolly eligible based on patient's age to complete this topic RSV Immunizations Under 20 Months Aged Out No longer eligible based on patient's age to complete this topic Insurance MEDICARE AET Care Teams Special Education Kindergarten Teacher Relationship Specialty Start Date End Date None, Provider, PCP - General UNKNOWN PHYSICIAN SPECIALTY 06/21/24
== END 2024-10-26 10:02 | disposition home or self-care (01) ==
PROVIDERS: PCP Hospitalist; Visit Provider Urology
DX: N20.0 Calculus of kidney (principal); K42.9 Umbilical hernia without obstruction or gangrene; Z96.0 Presence of urogenital implants
CPT/HCPCS: 74018

== ENCOUNTER 2024-10-29 10:54 | Observation (INO) | payer MEDICARE, SELFPAY ==
--- NOTE | ~2024-10-29 | CT_ITS ---
EXAMINATION: CT abdomen pelvis wo con DATE: 10/29/2024 12:09 INDICATION: Left flank pain TECHNIQUE: Computed tomography (CT) of the abdomen and pelvis was performed without intravenous contr ast. The dose-length product was 400.54 mGy-cm. Automated exposure control and iterative reconstructi on technique were employed. COMPARISON: CT dated 11/21/2011. FINDINGS: There is dependent atelectasis. Cardiomegaly. No significant pleural or pericardial effusio n. There are multiple distal left ureteral stones with moderate hydronephrosis. There are bilateral r enal stones. The liver, spleen, pancreas, adrenal glands are unremarkable. Gallbladder is present. No significant vascular abnormality. No lymphadenopathy. Nonobstructive bowel gas pattern. Moderate-s evere lumbar spondylosis. IMPRESSION: 1. Multiple obstructing distal left ureteral stones and and above the UVJ with moderate hydronephrosi s. There is perinephric and periureteral edema. 2: Bilateral nephrolithiasis. Reviewed, dictated and finalized at location A. IMPRESSION: 1. Multiple obstructing distal left ureteral stones and and above the UVJ with moderate hydronephrosis. There is perinephric and periureteral edema. 2: Bilateral nephrolithiasis.
--- NOTE | ~2024-10-29 | XR_ITS ---
XR abdomen/kub 1V 10/29/2024 13:56 Indication: Left ureteral stone Procedure: KUB Comparison: Comparison to multiple prior studies sequentially, with oldest reviewed study dated 01/12. Findings: Bowel gas pattern nonobstructive. There are bilateral renal stones. No acute osseous abnorm ality. There is mild scoliosis. Impression: 1: No acute abdominal abnormality. 2: Nonobstructing bilateral nephrolithiasis. Reviewed, dictated and finalized at location A. Impression: 1: No acute abdominal abnormality. 2: Nonobstructing bilateral nephrolithiasis.
--- NOTE | ~2024-10-29 | XR_ITS ---
Supine and upright views of the abdomen Clinical history: Ureteral stone COMPARISON: 10/29/2024 Findings: Bowel gas pattern is nonspecific. No evidence for obstruction or free air. 1 cm stone prese nt probably at the proximal to mid right ureter. Multiple stones probably at the left lower renal perfecto e are unchanged. Osseous structures are intact. Impression: Bilateral nephrolithiasis, probably unchanged from prior exam. Reviewed, dictated and finalized at location . Impression: Bilateral nephrolithiasis, probably unchanged from prior exam.
--- NOTE | ~2024-10-29 | XR_ITS ---
EXAMINATION: XR retrograde pyelo w/stent LT DATE: 10/30/2024 09:15 INDICATION: Left internal ureteral stent placement TECHNIQUE: Fluoroscopic images from a left internal ureteral stent placement are submitted for review . 35 seconds of fluoroscopy time. FINDINGS: There is a left double-J internal ureteral stent projecting in expected position, with proximal [place] loop at the level of the renal pelvis and distal loop in the pelvis within the bladder lumen. IMPRESSION: 1. Left internal ureteral stent placement. Please refer to real-time procedural findings for detail s. Reviewed, dictated and finalized at location A. IMPRESSION: 1. Left internal ureteral stent placement. Please refer to real-time procedur al findings for details.
--- OUTSIDE RECORDS SUMMARY | 2024-10-29 10:56 | XMS_ITS | Encounter Summary ---
Author Organization [facility] Address [address] [place] [address] Phone Care Team Providers Care Block Tester Name Role Phone Patti Aiken MD Primary Care Provider [phone] Shanda Mead NP Primary Care Provider [phone] Encounter Details Date Type Department Care Team (Latest Contact Info) Description 09/08/2018 Orders Only [facility] Scanning, Provider Social History Tobacco Use Types Packs/Day Years Used Date Smoking Tobacco: Never Smokeless Tobacco: Never Comments Unknown Sex and Gender Information Value Date Recorded Sex Assigned at Not on file Legal Sex Female 2:32 AM CLINICAL REHAB LIAISON Gender Identity Not on file Sexual Orientation [...] on filedocumented in this encounter Care Teams Block Tester Relationship Specialty Start Date End Date Patti Aiken MD PCP - General 10/31/16 02/17/23 Shanda Mead NP PCP - General Family Medicine 02/18/23 documented as of this encounter
--- OUTSIDE RECORDS SUMMARY | 2024-10-29 10:56 | XMS_ITS | Encounter Summary ---
Author Organization [facility] Address [address] [place] [address] Care Team Providers Care Covering Machine Operator Name Role Phone Shanda Mead BRIAN Primary Care Provider [phone] Encounter Details Date Type Department Care Team (Late st Contact Info) Description 10/07/2024 Telephone [facility] [address] [facility] [address] [place] [address] August Pickett MD [address] [place] [address] [address] [place] [address] Social History Tobacco Use Types Packs/Day Years Used Date Smoking Tobacco: Never Smokeless Tobacco: Never [facility] Utilities Answer Date Recorded In the past 12 months has [facility] electric, gas, oil, or water company threatened [...] often do you attend chur ch or shinto services? Never 02/18/2023 Do you belong to any clubs o r organizations such as latter day groups, unions, fraternal or athletic groups, or [...] staff should administer the PHQ-9) 0 02/25/2024 [facility] - Occupational Stress Questionnaire Answer Date [...] place to sleep or slept in a senior care (including now)? No 02/18/2023 Comments Unknown Sex and Gender Information Value Date Recorded Sex Assigned at Not on file Legal Sex Female 2:32 AM ROOM MAID Gender Identity Not on file Sexual Orientation Not on file documented as of this encounter Miscellaneous Notes * Telephone Encounter - Giana France MA - 10/28/2024 3:03 PM CDT Will need to call pharmacy or insurance to start prior auth * Telephone Encounter - Giana France MA - 10/27/2024 2:33 PM CDT Patient needs PA for Zepbound * Telephone Encounter - Kerline Steven CMA - 10/11/2024 10:17 AM CDT Order sent to pharmacy so we can get a yu to start a PA on zepbound 2.5mg * Telephone Encounter - Nicko Deleon - 10/07/2024 10:35 AM CDT Patient is needing prescription for zepbound and PA. documented in this encounter Plan of Treatment Not on file documented as of this encounter Visit Diagnoses Not on filedocumented in this encounter Care Teams Covering Machine Operator Relationship Specialty Start Date End Date Shanda Mead NP PCP - General Family Medicine 02/18/23 documented as of this encounter
--- OUTSIDE RECORDS SUMMARY | 2024-10-29 10:56 | XMS_ITS | Clinical Summary ---
Author Organization [facility] Address [address] [place] [address] Care Team Providers Care Quill Collector Name Role Phone Chito Harrison MD Primary Care Provider Source Comments [facility],non-owned Affiliates and Associated Physician Practices is amultiple site organization consisting of ambulatory clinics and hospital sitesin [place], [place], [place] and [place]. This disclosure is being madepursuant to the Care Everywhere program and may not contain all information available regarding this patient. Last updated 18.Ium [facility] Allergies No known active allergies Medications * [...] on file Legal Sex Female 2:32 PM CORPORATE SAFETY DIRECTOR Gender Identity Not on file Sexual Orientation Not on file Last Filed Vital Signs Vital Sign Reading Time Taken Comments Blood Pressure 140/80 02/27/2020 8:05 AM CORPORATE SAFETY DIRECTOR Pulse 60 02/27/2020 8:05 AM CORPORATE SAFETY DIRECTOR Temperature - - Respiratory Rate 12 02/27/2020 8:05 AM CORPORATE SAFETY DIRECTOR Oxygen Saturation - - Inhaled Oxygen Concentration - - Weight 108.4 kg (239 lb) 02/27/2020 8:05 AM CORPORATE SAFETY DIRECTOR Height 161.3 cm (5' 3.5) 02/27/2020 8:05 AM CORPORATE SAFETY DIRECTOR Body Mass Index 41.67 02/27/2020 8:05 AM CORPORATE SAFETY DIRECTOR Plan of Treatment Health Maintenance Due Date [...] Insurance MEDICARE COMMERCIAL GENERIC MEDICARE Care Teams Quill Collector Relationship Specialty Start Date End Date Chito Harrison MD [address] [place] [address] PCP - General 06/26/21
--- OUTSIDE RECORDS SUMMARY | 2024-10-29 10:56 | XMS_ITS | Clinical Summary ---
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
--- OUTSIDE RECORDS SUMMARY | 2024-10-29 10:56 | XMS_ITS | Encounter Summary ---
Author Organization [facility] Address [address] [place] [address] Phone Care Team Providers Care Mechanical Test Engineer Name Role Phone Patti Aiken MD Primary Care Provider [phone] Shanda Mead NP Primary Care Provider [phone] Encounter Details Date Type Department Care Team (Late st Contact Info) Description 03/21/2019 Telephone [facility] [address] [facility] 8th [place] [address] [place] [address] Caleb Garcia MD PhD [address] [facility] [address] [place] [address] Social History Tobacco Use Types Packs/Day Years Used Date Smoking Tobacco: Never Smokeless Tobacco: Never Comments Unknown Sex and Gender Information Value Date Recorded Sex Assigned at Not on file 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
--- OUTSIDE RECORDS SUMMARY | 2024-10-29 10:56 | XMS_ITS | Referral Summary ---
Author Organization [facility] Address [address] [place] [address] Care Team Providers Care Maintenance Mechanic Name Role Phone Shanda Mead BRIAN Primary Care Provider [phone] Encounters Date Type Department Care Team Description 10/07/2024 Telephone [facility] [address] [place] [address] [address] [place] [phone] August Pickett MD 10/07/2024 10:00 AM CDT Office Visit [facility] [address] [place] [address] [address] [place] [phone] August Pickett MD Severe Obstructive sleep apnea (Primary Dx); Hypersomnia with sleep apnea; Morbid obesity with BMI of 40.0-44.9, adult ([facility]) 09/23/2024 Orders Only [facility] Health Information Management [address] [place] [address] Scanning, Provider 09/15/2024 9:00 AM CDT Office Visit [facility] [address] [address] Anibal Avendano MD Peripheral edema (Primary Dx); Primary hypertension; Class 3 severe obesity due to excess calories with serious comorbidity and body mass index (BMI) of 40.0 to 44.9 in adult; SHANIQUE (obstructive sleep apnea) 08/19/2024 Results Follow-Up [facility] [address] [address] Anibal Avendano MD Hepatitis C antibody Blood, Hepatitis B surface antibody (immune status) Blood, Hepatitis B Surface Antigen Blood, Additional followed-up results: 6 08/18/2024 10:00 AM CDT Lab [facility] [address] [place] [address] Encounter for hepatitis C screening test for low risk patient; Need for hepatitis B screening test; Acquired hypothyroidism; Primary hypertension 08/18/2024 9:15 AM CDT [facility] Visit [facility] [address] [place] [address] Anibal Avendano MD Peripheral edema [...] 9:00 AM CDT [facility] [address] [place] [address] Anibal Avendano MD Primary hypertension (Primary Dx); Osteoporosis screening; Encounter for screening mammogram for malignant neoplasm of breast; Acquired hypothyroidism; Colon cancer screening; Peripheral edema from Last 3 Months Allergies Active Allergy [...] 02/24 Assessment & Plan (02/25/2024 10:16 AM PUBLIC TRANSIT SPECIALIST): In regard to health maintenance, Colonoscopy- [...] healthier, we can set up appointment with preparation department supervisor/ammonia still operator. Have an active lifestyle, strive for [...] 02/24 Assessment & Plan (02/25/2024 10:17 AM PUBLIC TRANSIT SPECIALIST): Lipid panel ordered. Will continue to monitor. Acquired hypothyroidism 02/18/2023 Assessment & Plan (08/30/2024 3:31 PM CDT): Subclinical; continue to monitor; patient reports no symptoms associated with thyroid low Assessment & Plan (08/09/2024 3:06 PM CDT): Stable, well controlled, last TSH at goal; on supplements; continue to monitor Assessment & Plan (06/07/2024 3:29 PM PUBLIC TRANSIT SPECIALIST): Last TSH at goal, taking natural supplements Will continue to monitor closely Assessment & Plan (02/25/2024 10:15 AM PUBLIC TRANSIT SPECIALIST): Will recheck TSH and T4. Will continue to take OTC thyroid medication and seeing preparation department supervisor. Class 3 severe obesity due t o [...] surgery Assessment & Plan (06/07/2024 3:29 PM PUBLIC TRANSIT SPECIALIST): Not well controlled, has been having [...] week. Assessment & Plan (02/25/2024 10:15 AM PUBLIC TRANSIT SPECIALIST): Encouraged heart healthy diet and lifestyle. [...] b.i.d. Assessment & Plan (06/07/2024 3:29 PM PUBLIC TRANSIT SPECIALIST): Stable, well controlled, blood pressure mildly elevated today, some peripheral edema with limited relief Will start furosemide 20 mg b.i.d., continue lisinopril 40 mg, discontinue hydrochlorothiazide Assessment & Plan (02/25/2024 10:14 AM PUBLIC TRANSIT SPECIALIST): Blood pressure not well controlled. Will [...] weeks Assessment & Plan (02/18/2023 10:15 AM PUBLIC TRANSIT SPECIALIST): Stable, currently well-controlled BP at visit 120/84 Continue lisinopril 40 mg daily Resolved Problems Problem Noted Date Diagnosed Date Resolved Date Ascending aortic aneurysm 07/26/2014 Assessment & Plan (02/25/2024 10:25 AM PUBLIC TRANSIT SPECIALIST): Continues with routine monitoring. Will continue to follow. Assessment & Plan (02/18/2023 11:51 AM PUBLIC TRANSIT SPECIALIST): Gets regular monitoring Patient will call back with location she would like to get next US done at Immunizations Immunization Administration Dates Next Due Influenza, Unspecified 02/25/2024(Deferr ed: Patient Refused),01/08/2024(Deferred: Patient Refused),01/11/2023(Deferred: Patient Refused),01/11/2023(Deferred: Patient Refused),12/12/2022(Deferred: Patient Refused),01/11/2022(Deferred: Patient Refused) Social History Tobacco Use Types Packs/Day Years Used Date Smoking Tobacco: Never Smokeless Tobacco: Never Tobacco Cessation:Counseling Given: Not Answered [facility] Utilities Answer Date Recorded In the past 12 months has e [employer], [employer], oil, or water [employer] threatened to shut off services in your [...] How often do you attend chur or samaritan services? Never 02/18/2023 Do you belong to any clubs o r organizations such as jehovah's witness groups, unions, fraternal or athletic groups, or [...] staff should administer the PHQ-9) 0 02/25/2024 [facility] - Occupational Stress Questionnaire Answer Date Recorded [...] place to sleep or slept in a intermediate (including now)? No 02/18/2023 Comments Unknown Sex and Gender Information Value Date Recorded Sex Assigned at Not on file Legal Sex Female 2:32 AM PUBLIC TRANSIT SPECIALIST Gender Identity Not on file Sexual [...] was last reviewed 2021. Testing performed by: [address] [address] Blood 08/18/2024 9:59 AM CDT 08/18/2024 3:51 PM CDT us Anibal Avendano MD LAB BLOOD ORDERABLES Carolyn cabezas Result WILLIAM GUTIERREZ ([place]) 1 [facility] Department [place] [address] * Differential, auto (08/18/2024 9:59 AM CDT) Neutrophil abs 2.86 1.50 - 6.50 K/cumm Comment:Testing performed by : [address] [address] Imm gran abs 0.03 0.00 - 0.10 K/cumm WILLIAM GUTIERREZ ([place]) Comment:Testing performed by : [address] [address] Lymphocyte abs 1.07 0.80 - 3.30 K/cumm WILLIAM GUTIERREZ ([place]) Comment:Testing performed by : [address] [address] Monocyte abs 0.45 0.20 - 0.80 K/cumm [facility] ([place]) Comment:Testing performed by : [facility], [address] [place] [address]., [address] Eosinophil abs 0.09 0.00 - 0.50 K/cumm [facility] ([place]) Comment:Testing performed by : [facility], [address] [place] [address]., [address] Basophil abs 0.04 0.00 - 0.10 K/cumm [facility] ([place]) Comment:Testing performed by : [facility], [address] [place] [address]., [address] Neutrophil pct 62.9 % [facility] ([place]) Comment: Interpretive Data Percent cell count reference ranges are not reported, since discordance with absolute values may lead to misinterpretation of CBC data. Current Interpretive Data was last revised on 2017. Testing performed by: [facility], [address] [place] [address]., [address] Imm gran pct 0.7 % [facility] ([place]) Comment: Interpretive Data Percent cell count reference ranges are not reported, since discordance with absolute values may lead to misinterpretation of CBC data. Current Interpretive Data was last revised on 2017. Testing performed by: [address] [address] Lymphocyte pct 23.6 % [facility] ([place]) Comment: Interpretive Data Percent cell count reference ranges are not reported, since discordance with absolute values may lead to misinterpretation of CBC data. Current Interpretive Data was last revised on 2017. Testing performed by: [address] [address] Monocyte pct 9.9 % [facility] ([place]) Comment: Interpretive Data Percent cell count reference ranges are not reported, since discordance with absolute values may lead to misinterpretation of CBC data. Current Interpretive Data was last revised on 2017. Testing performed by: [address] [address] Eosinophil pct 2.0 % [facility] ([place]) Comment: Interpretive Data Percent cell count reference ranges are not reported, since discordance with absolute values may lead to misinterpretation of CBC data. Current Interpretive Data was last revised on 2017. Testing performed by: [facility], [address] [place] [address]., [address] Basophil pct 0.9 % WILLIAM GUTIERREZ ([place]) Comment: Interpretive Data Percent cell count reference ranges are not reported, since discordance with absolute values may lead to misinterpretation of CBC data. Current Interpretive Data was last revised on 2017. Testing performed by: [facility], [address] [place] [address]., [address] Blood 08/18/2024 9:59 AM CDT 08/18/2024 3:51 PM CDT Anibal Avendano MD LAB BLOOD ORDERABLES Carolyn l Result Performing Organization Address City/[facility]/ZIP Co de Phone Number WILLIAM MATT ([place]) 1 [facility] Department [place] [address] * Thyroid Function [place] (08/18/2024 9:59 AM CDT) TSH 2.55 0.30 - 4.20 mcIUnit/mL Comment:Testing performed by : [facility], [address] [place] [address]., [address] Blood 08/18/2024 9:59 AM CDT 08/18/2024 3:51 PM CDT Anibal Avendano MD LAB BLOOD ORDERABLES Carolyn l Result Performing Organization Address City/[facility]/ZIP Co de Phone Number CIARANALIZE GUTIERREZ ([place]) 1 [facility] [place] [address] * (ABNORMAL) CBC with auto differential (08/18/2024 9:59 AM CDT) WBC 4.54 3.80 - 9.90 K/cumm Comment:Testing performed by : [facility], [address] [place] [address]., [address] Hgb 12.0 11.9 - 15.5 g/dL WILLIAM GUTIERREZ ([place]) Comment:Testing performed by : [facility], [address], [place]., [address] Hct 38.7 35.6 - 45.5 % [facility] ([place]) Comment:Testing performed by : [address], [address] Plt 255 150 - 400 K/cumm [facility] ([place]) Comment:Testing performed by : [address], [address] MPV 10.2 9.1 - 12.3 fL [facility] ([place]) Comment:Testing performed by : [address], [address] RBC 4.02 3.90 - 5.20 M/cumm [facility] ([place]) Comment:Testing performed by : [address], [address] MCV 96.3 81.3 - 96.4 fL [facility] ([place]) Comment:Testing performed by : [address], [address] MCH 29.9 27.1 - 33.3 pg [facility] ([place]) Comment:Testing performed by : [address], [address] MCHC 31.0(L) 32.3 - 35.7 g/dL [facility] ([place]) Comment:Testing performed by : [address], [address] RDW CV 15.0(H) 11.1 - 14.9 % [facility] ([place]) Comment:Testing performed by : [address], [address] RDW SD 53.1(H) 35.7 - 48.1 fL [facility] ([place]) Comment:Testing performed by : [address], [address] NRBC abs 0.00 0.00 - 0.01 K/cumm [facility] ([place]) Comment:Testing performed by : [address], [address] Blood 08/18/2024 9:59 AM CDT 08/18/2024 3:51 PM CDT Anibal Avendano MD LAB BLOOD ORDERABLES Carolyn l Result WILLIAM GUTIERREZ ([place]) 1 [facility] [place] [address] * Hepatitis C antibody Blood (08/18/2024 9:59 [...] last revised on 2019. Testing performed by: [facility], [address] [place] [address]., [address] Blood 08/18/2024 9:59 AM CDT 08/18/2024 3:52 PM CDT Anibal Avendano MD LAB MICROBIOLOGY - GENERA L ORDERABLES Final Result Performing Organization Address [facility] Co de Phone Number WILLIAM GUTIERREZ ([place]) [address] [place] [address] * Hepatitis B core antibody, total Blood (08/18/2024 9:59 AM CDT) Hep B core IgG/IgM Nonreactive Nonreactive Comment:Testing performed by : [facility], [address] [place] [address], [place]., [address] Blood 08/18/2024 9:59 AM CDT 08/19/2024 9:49 AM CDT Anibal Avendano MD LAB MICROBIOLOGY - GENERA L ORDERABLES Final Result WILLIAM GUTIERREZ ([place]) 1 [facility] [place] [address] * Hepatitis B surface antibody (immune status) [...] last revised on 19. Testing performed by: [facility], [address] [place] [address]., [address] Blood 08/18/2024 9:59 AM CDT 08/18/2024 3:52 PM CDT Anibal Avendano MD LAB MICROBIOLOGY - GENERA L ORDERABLES Final Result Performing Organization Address City/[facility]/ZIP Co de Phone Number [facility] ([place]) 1 [facility] [employer] [place] [address] * Hepatitis B Surface Antigen Blood (08/18/2024 9:59 AM CDT) HepBsAg Nonreactive Nonreactive Comment:Testing performed by : [facility], [address] [place] [address]., [address] Blood 08/18/2024 9:59 AM CDT 08/18/2024 3:52 PM CDT Anibal Avendano MD LAB MICROBIOLOGY - GENERA L ORDERABLES Final Result [facility] ([place]) 1 [facility] [employer] [place] [address] * (ABNORMAL) Lipid panel (08/18/2024 9:59 AM [...] last revised on 2017. Testing performed by: [facility], [address] [place] [address]., [address] Triglycerides 154(H) <=149 mg/dL [facility] ([place]) [...] last revised on 2017. Testing performed by: [facility], [address] [place] [address]., [address] HDL 47 >=40 mg/dL [facility] ([place]) [...] last revised on 2017. Testing performed by: [facility], [address] [place] [address]., [address] LDL, calculated 184(H) <=129 mg/dL [facility] ([place]) Comment: Interpretive Data Ages < or = [...] NCEP Expert Panel. Circulation 2004;110:227 3. Edgar M et al. JUNIOR Cardiol. 2020 August 11;5(5):540-548. doi: 10.1001/jamacardio.2020.0013 Current Interpretive Data was last revised on 2023. Testing performed by: [address] [address] Non-HDL Cholesterol 212 mg/dL WILLIAM MEREDITH) Comment: Interpretive Data Ages < or = [...] last revised on 2017. Testing performed by: [facility], [address] [place] [address]., [address] Chol/HDL ratio 6 MARIAMA GUTIERREZ ([place]) Comment:Testing performed by : [address] [address] Blood 08/18/2024 9:59 AM CDT 08/18/2024 3:51 PM CDT us Anibal Avendano MD LAB BLOOD ORDERABLES Carolyn cabezas Result WILLIAM MEREDITH) 1 [facility] Department [place] [address] * Comprehensive metabolic panel (08/18/2024 9:59 AM CDT) Sodium 141 135 - 145 mmol/L Comment:Testing performed by : [facility], [address] [place] [address]., [address] Potassium, pl 3.9 3.3 - 4.9 mmol/L WILILAM GUTIERREZ ([place]) Comment:Testing performed by : [facility], [address] [place] [address]., [address] Chloride 105 97 - 110 mmol/L [facility] ([place]) Comment:Testing performed by : [facility], [address] [place] [address]., [address] CO2 27 22 - 32 mmol/L WILLIAM GUTIERREZ ([place]) Comment:Testing performed by : [address], [address] Anion gap 9 2 - 15 mmol/L WILLIAM GUTIERREZ ([place]) Comment:Testing performed by : [facility], [address] [place] [address]., [address] BUN 15 6 - 25 mg/dL [facility] ([place]) Comment:Testing performed by : [facility], [address] [place] [address]., [address] Creatinine 0.61 0.60 - 1.10 mg/dL WILLIAM [facility] ([place]) Comment:Testing performed by : [address] [address] Glucose 94 70 - 199 mg/dL [facility] ([place]) Comment: Interpretive Data Fasting glucose >/= [...] was last revised 2022. Testing performed by: [facility], [address], [place]., [address] Calcium 9.2 8.5 - 10.3 mg/dL [facility] ([place]) Comment:Testing performed by : [facility], [address] [place] [address], [address] Bilirubin, total 0.5 0.1 - 1.2 mg/dL [facility] ([place]) Comment:Testing performed by : [facility], [address] [place] [address], [address] Protein, pl 6.9 6.5 - 8.5 g/dL [facility] ([place]) Comment:Testing performed by : [facility], [address] [place] [address], [address] Albumin 4.0 3.5 - 5.0 g/dL [facility] ([place]) Comment:Testing performed by : [facility], [address] [place] [address], [address] Alk phos 56 40 - 130 Units/L [facility] ([place]) Comment:Testing performed by : [address], [address] ALT 34 7 - 45 Units/L [facility] ([place]) Comment:Testing performed by : [facility], [address] [place] [address], [address] AST 30 10 - 45 Units/L [facility] ([place]) Comment:Testing performed by : [address], [address] Blood 08/18/2024 9:59 AM CDT 08/18/2024 3:51 PM CDT Anibal Avendano MD LAB BLOOD ORDERABLES Carolyn cabezas Result [facility] ([place]) 1 [facility] Department [place] [address] from Last 3 Months Insurance MEDICARE [facility] PPO [place] MEDICARE [employer] S[employer]IOR [employer]LEMENT Care Teams Maintenance Mechanic Relationship Specialty Start Date End Date Shanda Mead NP PCP - General Family Medicine 02/18/23
--- OUTSIDE RECORDS SUMMARY | 2024-10-29 10:56 | XMS_ITS | Clinical Summary ---
Author Organization [facility] al Address [address] [place] [address] Care Team Providers Care Spoon Maker Name Role Phone Shanad Mead BRIAN Primary Care Provider [phone] Allergies Active Allergy Reactions Criticality Noted Date [...] 02/24 Assessment & Plan (02/25/2024 10:16 AM SAP BOBJ DEVELOPER): In regard to health maintenance, Colonoscopy- Declined [...] healthier, we can set up appointment with emergency man/head librarian. Have an active lifestyle, strive for 30 [...] 02/24 Assessment & Plan (02/25/2024 10:17 AM SAP BOBJ DEVELOPER): Lipid panel ordered. Will continue to monitor. Acquired hypothyroidism 02/18/2023 Assessment & Plan (08/30/2024 3:31 PM CDT): Subclinical; continue to monitor; patient reports no symptoms associated with thyroid low Assessment & Plan (08/09/2024 3:06 PM CDT): Stable, well controlled, last TSH at goal; on supplements; continue to monitor Assessment & Plan (06/07/2024 3:29 PM SAP BOBJ DEVELOPER): Last TSH at goal, taking natural supplements Will continue to monitor closely Assessment & Plan (02/25/2024 10:15 AM SAP BOBJ DEVELOPER): Will recheck TSH and T4. Will continue to take OTC thyroid medication and seeing emergency man. Class 3 severe obesity due t o [...] surgery Assessment & Plan (06/07/2024 3:29 PM SAP BOBJ DEVELOPER): Not well controlled, has been having weight [...] week. Assessment & Plan (02/25/2024 10:15 AM SAP BOBJ DEVELOPER): Encouraged heart healthy diet and lifestyle. Advised [...] b.i.d. Assessment & Plan (06/07/2024 3:29 PM SAP BOBJ DEVELOPER): Stable, well controlled, blood pressure mildly elevated today, some peripheral edema with limited relief Will start furosemide 20 mg b.i.d., continue lisinopril 40 mg, discontinue hydrochlorothiazide Assessment & Plan (02/25/2024 10:14 AM SAP BOBJ DEVELOPER): Blood pressure not well controlled. Will increase [...] weeks Assessment & Plan (02/18/2023 10:15 AM SAP BOBJ DEVELOPER): Stable, currently well-controlled BP at visit 120/84 Continue lisinopril 40 mg daily Resolved Problems Problem Noted Date Diagnosed Date Resolved Date Ascending aortic aneurysm 07/26/2014 Assessment & Plan (02/25/2024 10:25 AM SAP BOBJ DEVELOPER): Continues with routine monitoring. Will continue to follow. Assessment & Plan (02/18/2023 11:51 AM SAP BOBJ DEVELOPER): Gets regular monitoring Patient will call back with location she would like to get next US done at Encounters Date Type Department Care Team Description 10/07/2024 10:00 AM CDT Office Visit [facility] [address] [place] [address] [address] [place] [address] August Pickett MD Severe Obstructive sleep apnea (Primary Dx); Hypersomnia with sleep apnea; Morbid obesity with BMI of 40.0-44.9, adult ([facility]LY [facility]) 10/07/2024 Telephone [facility] [address] [place] [address] [address] [place] [phone] August Pickett MD 09/23/2024 Orders Only [facility] Health Information Management [address] [place] [address] Scanning, Provider 09/15/2024 9:00 AM CDT [facility] Visit [facility] [address] [address] Anibal Avendano MD Peripheral edema (Primary Dx); Primary hypertension; Class 3 severe obesity due to excess calories with serious comorbidity and body mass index (BMI) of 40.0 to 44.9 in adult; SHANIQUE (obstructive sleep apnea) 08/19/2024 Results Follow-Up [facility] [address] [address] Anibal Avendano MD Hepatitis C antibody Blood, Hepatitis B surface antibody (immune status) Blood, Hepatitis B Surface Antigen Blood, Additional followed-up results: 6 08/18/2024 10:00 AM CDT Lab [facility] [address] [place] [phone] Encounter for hepatitis C screening test for low risk patient; Need for hepatitis B screening test; Acquired hypothyroidism; Primary hypertension 08/18/2024 9:15 AM CDT Office Visit [facility] [place] [address] [place] [phone] Anibal Avendano MD Peripheral edema (Primary Dx); [...] AM CDT Office Visit [facility] [place] [address] [place] [phone] Anibal Avendano MD Primary hypertension (Primary Dx); Osteoporosis screening; Encounter for screening mammogram for malignant neoplasm of breast; Acquired hypothyroidism; Colon cancer screening; Peripheral edema from Last 3 Months Immunizations Immunization Administration [...] Tobacco: Never Tobacco Cessation:Counseling Given: Not Answered [facility] Utilities Answer Date Recorded In the past 12 months has th e [employer], gas, oil, or water company threatened to [...] often do you attend chur ch or buddhist services? Never 02/18/2023 Do you belong to any clubs o r organizations such as gnosticism groups, unions, fraternal or athletic groups, or [...] staff should administer the PHQ-9) 0 02/[facility]/2024 [facility] - Occupational Stress Questionnaire Answer Date [...] place to sleep or slept in a snf (including now)? No 02/18/2023 Comments Unknown Sex and Gender Information Value Date Recorded Sex Assigned at Not on file Legal Sex Female 2:32 AM SAP BOBJ DEVELOPER Gender Identity Not on file Sexual Orientation [...] last reviewed 2021. Testing performed by: [facility], [address] [place] [address]., [id number] Blood 08/18/2024 9:59 AM CDT 08/18/2024 3:51 PM CDT us Anibal Avendano MD LAB BLOOD ORDERABLES Carolyn cabezas Result [facility] ([place]) 1 [facility] [place] [address] * Differential, auto (08/18/2024 9:59 AM CDT) Neutrophil abs 2.86 1.50 - 6.50 K/cumm Comment:Testing performed by : [facility], [address] [place] [address], [address] Imm gran abs 0.03 0.00 - 0.10 K/cumm [facility] ([place]) Comment:Testing performed by : [address] [address] Lymphocyte abs 1.07 0.80 - 3.30 K/cumm [facility] ([place]) Comment:Testing performed by : [address] [address] Monocyte abs 0.45 0.20 - 0.80 K/cumm [facility] ([place]) Comment:Testing performed by : [facility], [address] [place] [address]., [address] Eosinophil abs 0.09 0.00 - 0.50 K/cumm [facility] ([place]) Comment:Testing performed by : [address] [address] Basophil abs 0.04 0.00 - 0.10 K/cumm [facility] ([place]) Comment:Testing performed by : [address], [address] Neutrophil pct 62.9 % [facility] ([place]) Comment: Interpretive Data Percent cell count reference ranges are not reported, since discordance with absolute values may lead to misinterpretation of CBC data. Current Interpretive Data was last revised on 2017. Testing performed by: [facility], [address] [place] [address]., [address] Imm gran pct 0.7 % [facility] ([place]) Comment: Interpretive Data Percent cell count reference ranges are not reported, since discordance with absolute values may lead to misinterpretation of CBC data. Current Interpretive Data was last revised on 2017. Testing performed by: [address] [address] Lymphocyte pct 23.6 % [facility] ([place]) Comment: Interpretive Data Percent cell count reference ranges are not reported, since discordance with absolute values may lead to misinterpretation of CBC data. Current Interpretive Data was last revised on 2017. Testing performed by: [address] [address] Monocyte pct 9.9 % [facility] ([place]) Comment: Interpretive Data Percent cell count reference ranges are not reported, since discordance with absolute values may lead to misinterpretation of CBC data. Current Interpretive Data was last revised on 2017. Testing performed by: [address] [address] Eosinophil pct 2.0 % [facility] ([place]) Comment: Interpretive Data Percent cell count reference ranges are not reported, since discordance with absolute values may lead to misinterpretation of CBC data. Current Interpretive Data was last revised on 2017. Testing performed by: [address] [address] Basophil pct 0.9 % [facility] ([place]) Comment: Interpretive Data Percent cell count reference ranges are not reported, since discordance with absolute values may lead to misinterpretation of CBC data. Current Interpretive Data was last revised on 2017. Testing performed by: [address] [address] Blood 08/18/2024 9:59 AM CDT 08/18/2024 3:51 PM CDT Anibal Avendano MD LAB BLOOD ORDERABLES Carolyn l Result Performing Organization Address City/[facility]/ZIP Co de Phone Number [facility] ([place]) 1 [place] [address] * Thyroid Function [place] (08/18/2024 9:59 AM CDT) TSH 2.55 0.30 - 4.20 mcIUnit/mL Comment:Testing performed by : [address], [address] Blood 08/18/2024 9:59 AM CDT 08/18/2024 3:51 PM CDT Anibal Avendano MD LAB BLOOD ORDERABLES Carolyn l Result Performing Organization Address [facility] Co de Phone Number [facility] ([place]) [address] [facility] [place] [address] * (ABNORMAL) CBC with auto differential (08/18/2024 9:59 AM CDT) Pathologist [facility] WBC 4.54 3.80 - 9.90 K/cumm Comment:Testing performed by : [address], [address] Hgb 12.0 11.9 - 15.5 g/dL [facility] ([place]) Comment:Testing performed by : [address], [address] Hct 38.7 35.6 - 45.5 % [facility] ([place]) Comment:Testing performed by : [address], [address] Plt 255 150 - 400 K/cumm [facility] ([place]) Comment:Testing performed by : [address], [address] MPV 10.2 9.1 - 12.3 fL [facility] ([place]) Comment:Testing performed by : [address], [address] RBC 4.02 3.90 - 5.20 M/cumm [facility] ([place]) Comment:Testing performed by : [facility], [address] [place] [address], [address] MCV 96.3 81.3 - 96.4 fL [facility] ([place]) Comment:Testing performed by : [facility], [address] [place] [address], [address] MCH 29.9 27.1 - 33.3 pg [facility] ([place]) Comment:Testing performed by : [facility], [address] [place] [address], [address] MCHC 31.0(L) 32.3 - 35.7 g/dL [facility] ([place]) Comment:Testing performed by : [facility], [address] [place] [address], [address] RDW CV 15.0(H) 11.1 - 14.9 % [facility] ([place]) Comment:Testing performed by : [facility], [address] [place] [address], [address] RDW SD 53.1(H) 35.7 - 48.1 fL [facility] ([place]) Comment:Testing performed by : [facility], [address] [place] [address], [address] NRBC abs 0.00 0.00 - 0.01 K/cumm [facility] ([place]) Comment:Testing performed by : [address], [address] Blood 08/18/2024 9:59 AM CDT 08/18/2024 3:51 PM CDT us Anibal Avendano MD LAB BLOOD ORDERABLES Carolyn cabezas Result [facility] ([place]) 1 [facility] [place] [address] * Hepatitis C antibody Blood (08/18/2024 9:59 [...] revised on 2019. Testing performed by: [facility], [address] [place] [address]., [address] Blood 08/18/2024 9:59 AM CDT 08/18/2024 3:52 PM CDT Anibal Avendano MD LAB MICROBIOLOGY - femeninas L ORDERABLES Final Result [facility] ([place]) [facility] [place] [address] * Hepatitis B core antibody, total Blood (08/18/2024 9:59 AM CDT) Hep B core IgG/IgM Nonreactive Nonreactive Comment:Testing performed by : [facility], [address] [place] [address], [address] Blood 08/18/2024 9:59 AM CDT 08/19/2024 9:49 AM CDT Anibal Avendano MD LAB MICROBIOLOGY - femeninas L ORDERABLES Final Result [facility] ([place]) [address] [place] [address] [place] [address] * Hepatitis B surface antibody (immune status) [...] last revised on 19. Testing performed by: [facility], [address] [place] [address]., [address] Blood 08/18/2024 9:59 AM CDT 08/18/2024 3:52 PM CDT Anibal Avendano MD LAB MICROBIOLOGY - GENERA L ORDERABLES Final Result Performing Organization Address City/[facility]/ZIP Co de Phone Number [facility] ([place]) 1 [facility] [place] [address] * Hepatitis B Surface Antigen Blood (08/18/2024 9:59 AM CDT) HepBsAg Nonreactive Nonreactive Comment:Testing performed by : [address], [address] Blood 08/18/2024 9:59 AM CDT 08/18/2024 3:52 PM CDT Anibal Avendano MD LAB MICROBIOLOGY - GENERA L ORDERABLES Final Result Performing Organization Address City/[facility] Co de Phone Number [facility] ([place]) [facility] [place] [address] * (ABNORMAL) Lipid panel (08/18/2024 9:59 AM [...] last revised on 2017. Testing performed by: [address] [address] Triglycerides 154(H) <=149 mg/dL [facility] ([place]) Comment: Interpretive Data Ages < [...] last revised on 2017. Testing performed by: [address] [address] HDL 47 >=40 mg/dL [facility] ([place]) [...] revised on 2017. Testing performed by: [facility], [address] [place] [address]., [address] LDL, calculated 184(H) <=129 mg/dL [facility] [...] NCEP Expert Panel. Circulation 2004;110:227 3. Edgar Husain et al. JUNIOR Cardiol. 2020 August 11;5(5):540-548. doi: 10.1001/jamacardio.2020.0013 Current Interpretive Data was last revised on 2023. Testing performed by: [address] [address] Non-HDL Cholesterol 212 mg/dL [facility] ([place]) [...] last revised on 2017. Testing performed by: [address] [address] Chol/HDL ratio 6 [facility] ([place]) Comment:Testing performed by : [address] [address] Blood 08/18/2024 9:59 AM CDT 08/18/2024 3:51 PM CDT us Anibal Avendano MD LAB BLOOD ORDERABLES Carolyn cabezas Result [facility] ([place]) 1 [facility] [place] [address] * Comprehensive metabolic panel (08/18/2024 9:59 AM CDT) [facility] Signature Sodium 141 135 - 145 mmol/L Comment:Testing performed by : [address] [address] Potassium, pl 3.9 3.3 - 4.9 mmol/L [facility] ([place]) Comment:Testing performed by : [address] [address] Chloride 105 97 - 110 mmol/L [facility] ([place]) Comment:Testing performed by : [facility], [address] [place] [address]., [address] CO2 27 22 - 32 mmol/L [facility] ([place]) Comment:Testing performed by : [facility], [address] [place] [address]., [address] Anion gap 9 2 - 15 mmol/L [facility] ([place]) Comment:Testing performed by : [address] [address] BUN 15 6 - 25 mg/dL [facility] ([place]) Comment:Testing performed by : [address], [address] Creatinine 0.61 0.60 - 1.10 mg/dL [facility] ([place]) Comment:Testing performed by : [address], [address] Glucose 94 70 - 199 mg/dL [facility] [...] was last revised 2022. Testing performed by: [address] [address] Calcium 9.2 8.5 - 10.3 mg/dL [facility] ([place]) Comment:Testing performed by : [address] [address] Bilirubin, total 0.5 0.1 - 1.2 mg/dL [facility] ([place]) Comment:Testing performed by : [address] [address] Protein, pl 6.9 6.5 - 8.5 g/dL [facility] ([place]) Comment:Testing performed by : [facility], [address], [place]., [address] Albumin 4.0 3.5 - 5.0 g/dL [facility] ([place]) Comment:Testing performed by : [facility], [address] [place] [address], [address] Alk phos 56 40 - 130 Units/L [facility] ([place]) Comment:Testing performed by : [facility], [address] [place] [address], [address] ALT 34 7 - 45 Units/L [facility] ([place]) Comment:Testing performed by : [facility], [address] [place] [address], [address] AST 30 10 - 45 Units/L [facility] ([place]) Comment:Testing performed by : [facility], [address] [place] [address], [address] Blood 08/18/2024 9:59 AM CDT 08/18/2024 3:51 PM CDT Anibal Avendano MD LAB BLOOD ORDERABLES Carolyn cabezas Result [facility] ([place]) 1 [facility] [place] [address] from Last 3 Months [place] [address] MEDICARE [place] CHOICE [place] [employer] S[employer]IOR [employer]PPLEMENT [place] [id number] Care Teams Spoon Maker Relationship Specialty Start Date End Date Shanda Mead NP PCP - General Family Medicine 02/18/23
--- OUTSIDE RECORDS SUMMARY | 2024-10-29 10:56 | XMS_ITS | Clinical Summary ---
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
--- OUTSIDE RECORDS SUMMARY | 2024-10-29 10:56 | XMS_ITS | Clinical Summary ---
Author Organization [facility] Address [address] [place] [address] Care Team Providers Care Salt Washer [employer]ing [employer] Name Role Phone None, Provider Primary Care [...] this topic Insurance MEDICARE AET Care Teams [employer] Relationship Specialty Start Date End Date None, Provider, PCP - General UNKNOWN PHYSICIAN SPECIALTY 06/21/24
[2024-10-29 11:01] VITALS: BP 95/75; PULSE 71; RESP 20; TEMP 36.4; O2SAT 96
--- OUTSIDE RECORDS SUMMARY | 2024-10-29 11:21 | XMS_ITS | Clinical Summary ---
Author Organization [facility] Address [address] [facility] [place] [address] Care Team Providers Care Private Mortgage Banker Safe Name Role Phone Patti Aiken MD Primary Care Provider [phone] Allergies No known active allergies Medications XARELTO [...] on file Legal Sex Female 4:34 AM CURATOR [employer] Gender Identity Not on file Sexual Orientation [...] 2030 Insurance [facility] Care Teams Private Mortgage Banker Safe Relationship Specialty Start Date End Date Patti Aiken MD [address] [place] [address] PCP - General Family Practice 08/11/18
--- OUTSIDE RECORDS SUMMARY | 2024-10-29 11:21 | XMS_ITS | Clinical Summary ---
Author Organization [facility] al Address [address] [place] [address] Care Team Providers Care Scissors Sharpener Name Role Phone Shanda Mead BRIAN Primary Care Provider [phone] Allergies Active Allergy Reactions Criticality Noted Date [...] 02/24 Assessment & Plan (02/25/2024 10:16 AM LOUVER MORTISER OPERATOR): In regard to health maintenance, Colonoscopy- Declined [...] healthier, we can set up appointment with executive vice president/loop sewer. Have an active lifestyle, strive for 30 [...] 02/24 Assessment & Plan (02/25/2024 10:17 AM LOUVER MORTISER OPERATOR): Lipid panel ordered. Will continue to monitor. Acquired hypothyroidism 02/18/2023 Assessment & Plan (08/30/2024 3:31 PM CDT): Subclinical; continue to monitor; patient reports no symptoms associated with thyroid low Assessment & Plan (08/09/2024 3:06 PM CDT): Stable, well controlled, last TSH at goal; on supplements; continue to monitor Assessment & Plan (06/07/2024 3:29 PM LOUVER MORTISER OPERATOR): Last TSH at goal, taking natural supplements Will continue to monitor closely Assessment & Plan (02/25/2024 10:15 AM LOUVER MORTISER OPERATOR): Will recheck TSH and T4. Will continue to take OTC thyroid medication and seeing executive vice president. Class 3 severe obesity due t o [...] surgery Assessment & Plan (06/07/2024 3:29 PM LOUVER MORTISER OPERATOR): Not well controlled, has been having weight [...] week. Assessment & Plan (02/25/2024 10:15 AM LOUVER MORTISER OPERATOR): Encouraged heart healthy diet and lifestyle. Advised [...] b.i.d. Assessment & Plan (06/07/2024 3:29 PM LOUVER MORTISER OPERATOR): Stable, well controlled, blood pressure mildly elevated today, some peripheral edema with limited relief Will start furosemide 20 mg b.i.d., continue lisinopril 40 mg, discontinue hydrochlorothiazide Assessment & Plan (02/25/2024 10:14 AM LOUVER MORTISER OPERATOR): Blood pressure not well controlled. Will increase [...] weeks Assessment & Plan (02/18/2023 10:15 AM LOUVER MORTISER OPERATOR): Stable, currently well-controlled BP at visit 120/84 Continue lisinopril 40 mg daily Resolved Problems Problem Noted Date Diagnosed Date Resolved Date Ascending aortic aneurysm 07/26/2014 Assessment & Plan (02/25/2024 10:25 AM LOUVER MORTISER OPERATOR): Continues with routine monitoring. Will continue to follow. Assessment & Plan (02/18/2023 11:51 AM LOUVER MORTISER OPERATOR): Gets regular monitoring Patient will call back with location she would like to get next US done at Encounters Date Type Department Care Team Description 10/07/2024 10:00 AM CDT Office Visit [facility] [address] [place] [address] [address] [place] [id number] August Pickett MD Severe Obstructive sleep apnea (Primary Dx); Hypersomnia with sleep apnea; Morbid obesity with BMI of 40.0-44.9, adult ([facility]) 10/07/2024 Telephone [facility] [address] [place] [address] [address] [place] [phone] August Pickett MD 09/23/2024 Orders Only [facility] Health Information Management [address] [place] [address] Scanning, Provider 09/15/2024 9:00 AM CDT [facility] Visit [facility] [address] [address] Anibal Avendano MD Peripheral edema (Primary Dx); Primary hypertension; Class 3 severe obesity due to excess calories with serious comorbidity and body mass index (BMI) of 40.0 to 44.9 in adult; SHANIQUE (obstructive sleep apnea) 08/19/2024 Results Follow-Up [facility] [address] [address] Anibal Avendano MD Hepatitis C antibody Blood, Hepatitis B surface antibody (immune status) Blood, Hepatitis B Surface Antigen Blood, Additional followed-up results: 6 08/18/2024 10:00 AM CDT Lab [facility] [address] [place] [phone] Encounter for hepatitis C screening test for low risk patient; Need for hepatitis B screening test; Acquired hypothyroidism; Primary hypertension 08/18/2024 9:15 AM CDT Office Visit [facility] [place] [address] [place] [phone] Anibal Avendano MD Peripheral edema (Primary Dx); [...] AM CDT Office Visit [facility] [place] [address] [place] [phone] Anibal Avendano MD Primary hypertension (Primary Dx); [...] Tobacco: Never Tobacco Cessation:Counseling Given: Not Answered [facility] Utilities Answer Date Recorded In the past 12 months has th e [employer], gas, oil, or water company threatened to [...] often do you attend chur ch or gnosticism services? Never 02/18/2023 Do you belong to any clubs o r organizations such as methodist groups, unions, fraternal or athletic groups, or [...] 0 02/25/2024 [facility] - Occupational Stress Questionnaire Answer Date Recorded [...] place to sleep or slept in a penitentiary (including now)? No 02/18/2023 Comments Unknown Sex and Gender Information Value Date Recorded Sex Assigned at Not on file Legal Sex Female 2:32 AM LOUVER MORTISER OPERATOR Gender Identity Not on file Sexual [...] was last reviewed 2021. Testing performed by: [facility], [address] [place] [address]., [id number] Blood 08/18/2024 9:59 AM CDT 08/18/2024 3:51 PM CDT us Anibal Avendano MD LAB BLOOD ORDERABLES Carolyn cabezas Result WILLIAM GUTIERREZ ([place]) 1 [facility] Department [place] [address] * Differential, auto (08/18/2024 9:59 AM CDT) Neutrophil abs 2.86 1.50 - 6.50 K/cumm Comment:Testing performed by : [facility], [address] [place] [address], [id number] Imm gran abs 0.03 0.00 - 0.10 K/cumm [facility] ([place]) Comment:Testing performed by : [address] [address] Lymphocyte abs 1.07 0.80 - 3.30 K/cumm [facility] ([place]) Comment:Testing performed by : [address] [address] Monocyte abs 0.45 0.20 - 0.80 K/cumm [facility] ([place]) Comment:Testing performed by : [facility], [address] [place] [address]., [address] Eosinophil abs 0.09 0.00 - 0.50 K/cumm [facility] ([place]) Comment:Testing performed by : [address] [address] Basophil abs 0.04 0.00 - 0.10 K/cumm [facility] ([place]) Comment:Testing performed by : [address], [address] Neutrophil pct 62.9 % [facility] ([place]) Comment: Interpretive Data Percent cell count reference ranges are not reported, since discordance with absolute values may lead to misinterpretation of CBC data. Current Interpretive Data was last revised on 2017. Testing performed by: [facility], [address] [place] [address]., [address] Imm gran pct 0.7 % [facility] ([place]) Comment: Interpretive Data Percent cell count reference ranges are not reported, since discordance with absolute values may lead to misinterpretation of CBC data. Current Interpretive Data was last revised on 2017. Testing performed by: [address] [address] Lymphocyte pct 23.6 % [facility] ([place]) Comment: Interpretive Data Percent cell count reference ranges are not reported, since discordance with absolute values may lead to misinterpretation of CBC data. Current Interpretive Data was last revised on 2017. Testing performed by: [address] [address] Monocyte pct 9.9 % [facility] ([place]) Comment: Interpretive Data Percent cell count reference ranges are not reported, since discordance with absolute values may lead to misinterpretation of CBC data. Current Interpretive Data was last revised on 2017. Testing performed by: [address] [address] Eosinophil pct 2.0 % [facility] ([place]) Comment: Interpretive Data Percent cell count reference ranges are not reported, since discordance with absolute values may lead to misinterpretation of CBC data. Current Interpretive Data was last revised on 2017. Testing performed by: [address] [address] Basophil pct 0.9 % [facility] ([place]) Comment: Interpretive Data Percent cell count reference ranges are not reported, since discordance with absolute values may lead to misinterpretation of CBC data. Current Interpretive Data was last revised on 2017. Testing performed by: [address] [address] Blood 08/18/2024 9:59 AM CDT 08/18/2024 3:51 PM CDT Anibal Avendano MD LAB BLOOD ORDERABLES Carolyn l Result Performing Organization Address City/[facility]/ZIP Co de Phone Number WILLIAM GUTIERREZ ([place]) 1 [facility] [place] [address] * Thyroid Function [place] (08/18/2024 9:59 AM CDT) TSH 2.55 0.30 - 4.20 mcIUnit/mL Comment:Testing performed by : [address], [address] Blood 08/18/2024 9:59 AM CDT 08/18/2024 3:51 PM CDT Anibal Avendano MD LAB BLOOD ORDERABLES Carolyn l Result Performing Organization Address [facility] Co de Phone Number WILLIAM GUTIERREZ ([place]) 1 [facility] [place] [place] [address] * (ABNORMAL) CBC with auto differential (08/18/2024 9:59 AM CDT) Pathologist [facility] WBC 4.54 3.80 - 9.90 K/cumm Comment:Testing performed by : [address], [address] Hgb 12.0 11.9 - 15.5 g/dL [facility] ([place]) Comment:Testing performed by : [address], [address] Hct 38.7 35.6 - 45.5 % [facility] ([place]) Comment:Testing performed by : [address], [address] Plt 255 150 - 400 K/cumm [facility] ([place]) Comment:Testing performed by : [address], [address] MPV 10.2 9.1 - 12.3 fL [facility] ([place]) Comment:Testing performed by : [address], [address] RBC 4.02 3.90 - 5.20 M/cumm WILLIAM GUTIERREZ ([place]) Comment:Testing performed by : [facility], [address] [place] [address], [address] MCV 96.3 81.3 - 96.4 fL WILLIAM GUTIERREZ ([place]) Comment:Testing performed by : [facility], [address] [place] [address], [address] MCH 29.9 27.1 - 33.3 pg WILLIAM GUTIERREZ ([place]) Comment:Testing performed by : [facility], [address] [place] [address], [address] MCHC 31.0(L) 32.3 - 35.7 g/dL [facility] ([place]) Comment:Testing performed by : [facility], [address] [place] [address], [address] RDW CV 15.0(H) 11.1 - 14.9 % WILLIAM GUTIERREZ ([place]) Comment:Testing performed by : [facility], [address] [place] [address], [address] RDW SD 53.1(H) 35.7 - 48.1 fL WILLIAM GUTIERREZ ([place]) Comment:Testing performed by : [facility], [address] [place] [address], [address] NRBC abs 0.00 0.00 - 0.01 K/cumm WILLIAM GUTIERREZ ([place]) Comment:Testing performed by : [address], [address] Blood 08/18/2024 9:59 AM CDT 08/18/2024 3:51 PM CDT us Anibal Avendano MD LAB BLOOD ORDERABLES Carolyn cabezas Result WILLIAM GUTIERREZ ([place]) 1 [facility] Department [place] [address] * Hepatitis C antibody Blood [...] on 2019. Testing performed by: [facility], [address] [place] [address]., [address] Blood 08/18/2024 9:59 AM CDT 08/18/2024 3:52 PM CDT Anibal Avendano MD LAB MICROBIOLOGY - Teleport L ORDERABLES Final Result WILLIAM GUTIERREZ ([place]) 1 [facility] [place] [address] * Hepatitis B core antibody, total Blood (08/18/2024 9:59 AM CDT) Hep B core IgG/IgM Nonreactive Nonreactive Comment:Testing performed by : [facility], [address] [place] [address], [address] Blood 08/18/2024 9:59 AM CDT 08/19/2024 9:49 AM CDT Anibal Avendano MD LAB MICROBIOLOGY - Teleport L ORDERABLES Final Result WILLIAM GUTIERREZ ([place]) [address] [place] [address] [place] [address] * Hepatitis B surface antibody (immune status) [...] last revised on 19. Testing performed by: [facility], [address] [place] [address]., [address] Blood 08/18/2024 9:59 AM CDT 08/18/2024 3:52 PM CDT Anibal Avendano MD LAB MICROBIOLOGY - GENERA L ORDERABLES Final Result Performing Organization Address City/[facility]/ZIP Co de Phone Number [facility] ([place]) 1 [facility] [place] [address] * Hepatitis B Surface Antigen Blood (08/18/2024 9:59 AM CDT) HepBsAg Nonreactive Nonreactive Comment:Testing performed by : [address], [address] Blood 08/18/2024 9:59 AM CDT 08/18/2024 3:52 PM CDT Anibal Avendano MD LAB MICROBIOLOGY - GENERA L ORDERABLES Final Result Performing Organization Address City/[facility] Co de Phone Number [facility] ([place]) 1 [facility] [place] [address] * (ABNORMAL) Lipid panel (08/18/2024 9:59 AM [...] last revised on 2017. Testing performed by: [address] [address] Triglycerides 154(H) <=149 mg/dL [facility] ([place]) [...] last revised on 2017. Testing performed by: [address] [address] HDL 47 >=40 mg/dL WILLIAM GUTIERREZ ([place]) [...] on 2017. Testing performed by: [facility], [address] [place] [address]., [address] LDL, calculated 184(H) <=129 mg/dL WILLIAM GUTIERREZ [...] last revised on 2023. Testing performed by: [address] [address] Non-HDL Cholesterol 212 mg/dL WILLIAM GUTIERREZ ([place]) [...] last revised on 2017. Testing performed by: [address] [address] Chol/HDL ratio 6 MARIAMA GUTIERREZ ([place]) Comment:Testing performed by : [address] [address] Blood 08/18/2024 9:59 AM CDT 08/18/2024 3:51 PM CDT us Anibal Avendano MD LAB BLOOD ORDERABLES Carolyn cabezas Result WILLIAM GUTIERREZ ([place]) 1 [facility] Department [place] [address] * Comprehensive metabolic panel (08/18/2024 9:59 AM CDT) [facility] Signature Sodium 141 135 - 145 mmol/L Comment:Testing performed by : [address] [address] Potassium, pl 3.9 3.3 - 4.9 mmol/L WILLIAM GUTIERREZ ([place]) Comment:Testing performed by : [address] [address] Chloride 105 97 - 110 mmol/L [facility] ([place]) Comment:Testing performed by : [facility], [address] [place] [address]., [address] CO2 27 22 - 32 mmol/L [facility] ([place]) Comment:Testing performed by : [facility], [address] [place] [address]., [address] Anion gap 9 2 - 15 mmol/L [facility] ([place]) Comment:Testing performed by : [address] [address] BUN 15 6 - 25 mg/dL [facility] ([place]) Comment:Testing performed by : [address], [address] Creatinine 0.61 0.60 - 1.10 mg/dL [facility] ([place]) Comment:Testing performed by : [address], [address] Glucose 94 70 - 199 mg/dL CERNER [...] was last revised 2022. Testing performed by: [address] [address] Calcium 9.2 8.5 - 10.3 mg/dL [facility] ([place]) Comment:Testing performed by : [address] [address] Bilirubin, total 0.5 0.1 - 1.2 mg/dL [facility] ([place]) Comment:Testing performed by : [address] [address] Protein, pl 6.9 6.5 - 8.5 g/dL [facility] ([place]) Comment:Testing performed by : [facility], [address], [place]., [address] Albumin 4.0 3.5 - 5.0 g/dL [facility] ([place]) Comment:Testing performed by : [facility], [address] [place] [address], [address] Alk phos 56 40 - 130 Units/L [facility] ([place]) Comment:Testing performed by : [facility], [address] [place] [address], [address] ALT 34 7 - 45 Units/L [facility] ([place]) Comment:Testing performed by : [facility], [address] [place] [address], [address] AST 30 10 - 45 Units/L [facility] ([place]) Comment:Testing performed by : [facility], [address] [place] [address], [address] Blood 08/18/2024 9:59 AM CDT 08/18/2024 3:51 PM CDT Anibal Avendano MD LAB BLOOD ORDERABLES Carolyn cabezas Result [facility] ([place]) 1 [facility] Department [place] [address] from Last 3 Months [place] [address] MEDICARE [place]ICE [place] [employer] [place] [id number] Care Teams Scissors Sharpener Relationship Specialty Start Date End Date Shanda Mead NP PCP - General Family Medicine 02/18/23
--- OUTSIDE RECORDS SUMMARY | 2024-10-29 11:21 | XMS_ITS | Clinical Summary ---
Author Organization [facility] Address [address] [place] [address] Phone Care Team Providers Care Turn Supervisor Name Role Phone Patti Aiken MD Primary Care Provider [phone] Allergies No known active allergies Medications lisinopril [...] on file Legal Sex Female 2:[address] Gender Identity Not on file Sexual [...] patient's age to complete this topic Insurance [facility] Care Teams Turn Supervisor Relationship Specialty Start Date End Date Patti Aiken MD [address] [place] [address] PCP - General Family Medicine 04/14/17
--- OUTSIDE RECORDS SUMMARY | 2024-10-29 11:21 | XMS_ITS | Referral Summary ---
Author Organization [facility] Address [address] [place] [address] Care Team Providers Care Warp Hauler Name Role Phone Shanda Mead BRIAN Primary Care Provider [phone] Encounters Date Type Department Care Team Description 10/07/2024 Telephone [facility] [address] [place] [address] [address] [place] [phone] August Pickett MD 10/07/2024 10:00 AM CDT Office Visit [facility] [address] [place] [address] [address] [place] [phone] August Pickett MD Severe Obstructive sleep apnea (Primary Dx); Hypersomnia with sleep apnea; Morbid obesity with BMI of 40.0-44.9, adult ([facility]) 09/23/2024 Orders Only [facility] Information Management [address] [place] [address] Scanning, Provider 09/15/2024 9:00 AM CDT Office Visit [facility] [address] [address] Anibal Avendano MD Peripheral edema (Primary Dx); Primary hypertension; Class 3 severe obesity due to excess calories with serious comorbidity and body mass index (BMI) of 40.0 to 44.9 in adult; SHANIQUE (obstructive sleep apnea) 08/19/2024 Results Follow-Up [facility] [address] [address] Anibal Avendano MD Hepatitis C antibody Blood, Hepatitis B surface antibody (immune status) Blood, Hepatitis B Surface Antigen Blood, Additional followed-up results: 6 08/18/2024 10:00 AM CDT Lab [facility] [address] [place] [address] Encounter for hepatitis C screening test for low risk patient; Need for hepatitis B screening test; Acquired hypothyroidism; Primary hypertension 08/18/2024 9:15 AM CDT Office Visit [facility] [address] [place] [address] Anibal Avendano MD Peripheral edema [...] 9:00 AM CDT Office Visit [facility] [address] [place] [address] Anibal Avendano MD Primary hypertension [...] 02/24 Assessment & Plan (02/25/2024 10:16 AM SYNCHRO ASSEMBLER): In regard to health maintenance, Colonoscopy- Declined [...] healthier, we can set up appointment with cash controller/supervisor mold shop. Have an active lifestyle, strive for 30 [...] 02/24 Assessment & Plan (02/25/2024 10:17 AM SYNCHRO ASSEMBLER): Lipid panel ordered. Will continue to monitor. Acquired hypothyroidism 02/18/2023 Assessment & Plan (08/30/2024 3:31 PM CDT): Subclinical; continue to monitor; patient reports no symptoms associated with thyroid low Assessment & Plan (08/09/2024 3:06 PM CDT): Stable, well controlled, last TSH at goal; on supplements; continue to monitor Assessment & Plan (06/07/2024 3:29 PM SYNCHRO ASSEMBLER): Last TSH at goal, taking natural supplements Will continue to monitor closely Assessment & Plan (02/25/2024 10:15 AM SYNCHRO ASSEMBLER): Will recheck TSH and T4. Will continue to take OTC thyroid medication and seeing cash controller. Class 3 severe obesity due t o [...] surgery Assessment & Plan (06/07/2024 3:29 PM SYNCHRO ASSEMBLER): Not well controlled, has been having weight [...] week. Assessment & Plan (02/25/2024 10:15 AM SYNCHRO ASSEMBLER): Encouraged heart healthy diet and lifestyle. Advised [...] b.i.d. Assessment & Plan (06/07/2024 3:29 PM SYNCHRO ASSEMBLER): Stable, well controlled, blood pressure mildly elevated today, some peripheral edema with limited relief Will start furosemide 20 mg b.i.d., continue lisinopril 40 mg, discontinue hydrochlorothiazide Assessment & Plan (02/25/2024 10:14 AM SYNCHRO ASSEMBLER): Blood pressure not well controlled. Will increase [...] weeks Assessment & Plan (02/18/2023 10:15 AM SYNCHRO ASSEMBLER): Stable, currently well-controlled BP at visit 120/84 Continue lisinopril 40 mg daily Resolved Problems Problem Noted Date Diagnosed Date Resolved Date Ascending aortic aneurysm 07/26/2014 Assessment & Plan (02/25/2024 10:25 AM SYNCHRO ASSEMBLER): Continues with routine monitoring. Will continue to follow. Assessment & Plan (02/18/2023 11:51 AM SYNCHRO ASSEMBLER): Gets regular monitoring Patient will call back with location she would like to get next US done at Immunizations Immunization Administration Dates Next Due Influenza, Unspecified 02/25/2024(Deferr ed: Patient Refused),01/08/2024(Deferred: Patient Refused),01/11/2023(Deferred: Patient Refused),01/11/2023(Deferred: Patient Refused),12/12/2022(Deferred: Patient Refused),01/11/2022(Deferred: Patient Refused) Social History Tobacco Use Types Packs/Day Years Used Date Smoking Tobacco: Never Smokeless Tobacco: Never Tobacco Cessation:Counseling Given: Not Answered [facility] Utilities Answer Date Recorded In the past 12 months has e [employer], oil, or water [employer] threatened to shut off services in your [...] staff should administer the PHQ-9) 0 02/25/2024 [facility] - Occupational Stress Questionnaire Answer Date [...] on file Legal Sex Female 2:32 AM SYNCHRO ASSEMBLER Gender Identity Not on file Sexual Orientation [...] was last reviewed 2021. Testing performed by: [address] [address] Blood 08/18/2024 9:59 AM CDT 08/18/2024 3:51 PM CDT us Anibal Avendano MD LAB BLOOD ORDERABLES Carolyn cabezas Result WILLIAM GUTIERREZ ([place]) 1 [facility] Department [place] [address] * Differential, auto (08/18/2024 9:59 AM CDT) Neutrophil abs 2.86 1.50 - 6.50 K/cumm Comment:Testing performed by : [address] [address] Imm gran abs 0.03 0.00 - 0.10 K/cumm WILLIAM GUTIERREZ ([place]) Comment:Testing performed by : [address] [address] Lymphocyte abs 1.07 0.80 - 3.30 K/cumm WILLIAM GUTIERREZ ([place]) Comment:Testing performed by : [address] [address] Monocyte abs 0.45 0.20 - 0.80 K/cumm [facility] ([place]) Comment:Testing performed by : [facility], [address] [place] [address]., [address] Eosinophil abs 0.09 0.00 - 0.50 K/cumm [facility] ([place]) Comment:Testing performed by : [facility], [address] [place] [address]., [address] Basophil abs 0.04 0.00 - 0.10 K/cumm [facility] ([place]) Comment:Testing performed by : [facility], [address] [place] [address]., [address] Neutrophil pct 62.9 % [facility] ([place]) Comment: Interpretive Data Percent cell count reference ranges are not reported, since discordance with absolute values may lead to misinterpretation of CBC data. Current Interpretive Data was last revised on 2017. Testing performed by: [facility], [address] [place] [address]., [address] Imm gran pct 0.7 % [facility] ([place]) Comment: Interpretive Data Percent cell count reference ranges are not reported, since discordance with absolute values may lead to misinterpretation of CBC data. Current Interpretive Data was last revised on 2017. Testing performed by: [address] [address] Lymphocyte pct 23.6 % [facility] ([place]) Comment: Interpretive Data Percent cell count reference ranges are not reported, since discordance with absolute values may lead to misinterpretation of CBC data. Current Interpretive Data was last revised on 2017. Testing performed by: [address] [address] Monocyte pct 9.9 % [facility] ([place]) Comment: Interpretive Data Percent cell count reference ranges are not reported, since discordance with absolute values may lead to misinterpretation of CBC data. Current Interpretive Data was last revised on 2017. Testing performed by: [address] [address] Eosinophil pct 2.0 % [facility] ([place]) Comment: Interpretive Data Percent cell count reference ranges are not reported, since discordance with absolute values may lead to misinterpretation of CBC data. Current Interpretive Data was last revised on 2017. Testing performed by: [facility], [address] [place] [address]., [address] Basophil pct 0.9 % WILLIAM GUTIERREZ ([place]) Comment: Interpretive Data Percent cell count reference ranges are not reported, since discordance with absolute values may lead to misinterpretation of CBC data. Current Interpretive Data was last revised on 2017. Testing performed by: [facility], [address] [place] [address]., [address] Blood 08/18/2024 9:59 AM CDT 08/18/2024 3:51 PM CDT Anibal Avendano MD LAB BLOOD ORDERABLES Carolyn l Result Performing Organization Address City/[facility]/ZIP Co de Phone Number WILLIAM MATT ([place]) 1 [facility] [place] [address] * Thyroid Function Assumption (08/18/2024 9:59 AM CDT) TSH 2.55 0.30 - 4.20 mcIUnit/mL Comment:Testing performed by : [facility], [address] [place] [address]., [address] Blood 08/18/2024 9:59 AM CDT 08/18/2024 3:51 PM CDT Anibal Avendano MD LAB BLOOD ORDERABLES Carolyn l Result Performing Organization Address City/[facility]/ZIP Co de Phone Number CIARANALIZE GUTIERREZ ([place]) 1 [facility] [place] [address] * (ABNORMAL) CBC with auto differential (08/18/2024 9:59 AM CDT) WBC 4.54 3.80 - 9.90 K/cumm Comment:Testing performed by : [facility], [address] [place] [address]., [address] Hgb 12.0 11.9 - 15.5 g/dL WILLIAM GUTIERREZ ([place]) Comment:Testing performed by : [facility], [address], [place]., [address] Hct 38.7 35.6 - 45.5 % [facility] ([place]) Comment:Testing performed by : [address], [address] Plt 255 150 - 400 K/cumm [facility] ([place]) Comment:Testing performed by : [address], [address] MPV 10.2 9.1 - 12.3 fL [facility] ([place]) Comment:Testing performed by : [address], [address] RBC 4.02 3.90 - 5.20 M/cumm [facility] ([place]) Comment:Testing performed by : [address], [address] MCV 96.3 81.3 - 96.4 fL [facility] ([place]) Comment:Testing performed by : [address], [address] MCH 29.9 27.1 - 33.3 pg [facility] ([place]) Comment:Testing performed by : [address], [address] MCHC 31.0(L) 32.3 - 35.7 g/dL [facility] ([place]) Comment:Testing performed by : [address], [address] RDW CV 15.0(H) 11.1 - 14.9 % [facility] ([place]) Comment:Testing performed by : [address], [address] RDW SD 53.1(H) 35.7 - 48.1 fL [facility] ([place]) Comment:Testing performed by : [address], [address] NRBC abs 0.00 0.00 - 0.01 K/cumm [facility] ([place]) Comment:Testing performed by : [address], [address] Blood 08/18/2024 9:59 AM CDT 08/18/2024 3:51 PM CDT Anibal Avendano MD LAB BLOOD ORDERABLES Carolyn l Result WILLIAM GUTIERREZ ([place]) 1 [facility] [place] [address] * Hepatitis C antibody Blood (08/18/2024 9:59 [...] last revised on 2019. Testing performed by: [facility], [address] [place] [address]., [address] Blood 08/18/2024 9:59 AM CDT 08/18/2024 3:52 PM CDT Anibal Avendano MD LAB MICROBIOLOGY - GENERA L ORDERABLES Final Result Performing Organization Address [facility] Co de Phone Number WILLIAM GUTIERREZ ([place]) [address] [place] [address] * Hepatitis B core antibody, total Blood (08/18/2024 9:59 AM CDT) Hep B core IgG/IgM Nonreactive Nonreactive Comment:Testing performed by : [facility], [address] [place] [address], [place]., [address] Blood 08/18/2024 9:59 AM CDT 08/19/2024 9:49 AM CDT Anibal Avendano MD LAB MICROBIOLOGY - GENERA L ORDERABLES Final Result WILLIAM GUTIERREZ ([place]) 1 [facility] [place] [address] * Hepatitis B surface antibody (immune status) [...] last revised on 19. Testing performed by: [facility], [address] [place] [address]., [address] Blood 08/18/2024 9:59 AM CDT 08/18/2024 3:52 PM CDT Anibal Avendano MD LAB MICROBIOLOGY - GENERA L ORDERABLES Final Result Performing Organization Address City/[facility]/ZIP Co de Phone Number [facility] ([place]) 1 [facility] [place] [address] * Hepatitis B Surface Antigen Blood (08/18/2024 9:59 AM CDT) HepBsAg Nonreactive Nonreactive Comment:Testing performed by : [facility], [address] [place] [address]., [address] Blood 08/18/2024 9:59 AM CDT 08/18/2024 3:52 PM CDT Anibal Avendano MD LAB MICROBIOLOGY - GENERA L ORDERABLES Final Result [facility] ([place]) 1 [facility] [place] [address] * (ABNORMAL) Lipid panel (08/18/2024 9:59 AM [...] last revised on 2017. Testing performed by: [facility], [address] [place] [address]., [address] Triglycerides 154(H) <=149 mg/dL [facility] ([place]) [...] last revised on 2017. Testing performed by: [facility], [address] [place] [address]., [address] HDL 47 >=40 mg/dL [facility] ([place]) [...] last revised on 2017. Testing performed by: [facility], [address] [place] [address]., [address] LDL, calculated 184(H) <=129 mg/dL [facility] [...] last revised on 2023. Testing performed by: [address] [address] Non-HDL Cholesterol 212 mg/dL WILLIAM MEREDITH) Comment: [...] last revised on 2017. Testing performed by: [facility], [address] [place] [address]., [address] Chol/HDL ratio 6 MARIAMA GUTIERREZ ([place]) Comment:Testing performed by : [address] [address] Blood 08/18/2024 9:59 AM CDT 08/18/2024 3:51 PM CDT us Anibal Avendano MD LAB BLOOD ORDERABLES Carolyn cabezas Result WILLIAM MEREDITH) 1 [facility] Department [place] [address] * Comprehensive metabolic panel (08/18/2024 9:59 AM CDT) Sodium 141 135 - 145 mmol/L Comment:Testing performed by : [facility], [address] [place] [address]., [address] Potassium, pl 3.9 3.3 - 4.9 mmol/L WILLIAM GUTIERREZ ([place]) Comment:Testing performed by : [facility], [address] [place] [address]., [address] Chloride 105 97 - 110 mmol/L [facility] ([place]) Comment:Testing performed by : [facility], [address] [place] [address]., [address] CO2 27 22 - 32 mmol/L WILLIAM GUTIERREZ ([place]) Comment:Testing performed by : [address], [address] Anion gap 9 2 - 15 mmol/L WILLIAM GUTIERREZ ([place]) Comment:Testing performed by : [facility], [address] [place] [address]., [address] BUN 15 6 - 25 mg/dL [facility] ([place]) Comment:Testing performed by : [facility], [address] [place] [address]., [address] Creatinine 0.61 0.60 - 1.10 mg/dL WILLIAM [facility] ([place]) Comment:Testing performed by : [address] [address] Glucose 94 70 - 199 mg/dL [facility] ([place]) Comment: Interpretive Data Fasting [...] was last revised 2022. Testing performed by: [facility], [address], [place]., [address] Calcium 9.2 8.5 - 10.3 mg/dL [facility] ([place]) Comment:Testing performed by : [facility], [address] [place] [address], [address] Bilirubin, total 0.5 0.1 - 1.2 mg/dL [facility] ([place]) Comment:Testing performed by : [facility], [address] [place] [address], [address] Protein, pl 6.9 6.5 - 8.5 g/dL [facility] ([place]) Comment:Testing performed by : [facility], [address] [place] [address], [address] Albumin 4.0 3.5 - 5.0 g/dL [facility] ([place]) Comment:Testing performed by : [facility], [address] [place] [address], [address] Alk phos 56 40 - 130 Units/L [facility] ([place]) Comment:Testing performed by : [address], [address] ALT 34 7 - 45 Units/L [facility] ([place]) Comment:Testing performed by : [facility], [address] [place] [address], [address] AST 30 10 - 45 Units/L [facility] ([place]) Comment:Testing performed by : [address], [address] Blood 08/18/2024 9:59 AM CDT 08/18/2024 3:51 PM CDT Anibal Avendano MD LAB BLOOD ORDERABLES Carolyn cabezas Result [facility] ([place]) 1 [facility] Department [place] [address] from Last 3 Months Insurance MEDICARE [facility] [place]PO [place] MEDICARE [employer] SENIOR SUPPLEMENT Care Teams Warp Hauler Relationship Specialty Start Date End Date Shanda Mead NP PCP - General Family Medicine 02/18/23
--- OUTSIDE RECORDS SUMMARY | 2024-10-29 11:21 | XMS_ITS | Encounter Summary ---
Author Organization [facility] Address [address] [place] [address] Care Team Providers Care Ground Equipment Mechanic Name Role Phone Shanda Mead BRIAN Primary Care Provider [phone] Encounter Details Date Type Department Care Team (Late st Contact Info) Description 10/07/2024 Telephone [facility] [address] [facility] [address] [place] [address] August Pickett MD [address] [place] [address] [address] [place] [address] Social History Tobacco Use Types Packs/Day Years Used Date Smoking Tobacco: Never Smokeless Tobacco: Never [facility] Utilities Answer Date Recorded In the past 12 months has [facility] electric, gas, oil, or water company [...] often do you attend chur ch or jainism services? Never 02/18/2023 Do you belong to any clubs o r organizations such as faith groups, unions, fraternal or athletic groups, or [...] staff should administer the PHQ-9) 0 02/25/2024 [facility] - Occupational Stress Questionnaire Answer Date [...] place to sleep or slept in a longterm (including now)? No 02/18/2023 Comments Unknown Sex and Gender Information Value Date Recorded Sex Assigned at Not on file Legal Sex Female 2:32 AM GRADUATE ASSISTANT Gender Identity Not on file Sexual Orientation [...] on filedocumented in this encounter Care Teams Ground Equipment Mechanic Relationship Specialty Start Date End Date Shanda Mead NP PCP - General Family Medicine 02/18/23 documented as of this encounter
--- OUTSIDE RECORDS SUMMARY | 2024-10-29 11:22 | XMS_ITS | Encounter Summary ---
Author Organization [facility] Address [address] [place] [address] Phone Care Team Providers Care Hospital Liaison Name Role Phone Patti Aiken MD Primary Care Provider [phone] Shanda Mead NP Primary Care Provider [phone] Encounter Details Date Type Department Care Team (Latest Contact Info) Description 09/08/2018 Orders Only [facility] Scanning, Provider Social History Tobacco Use Types Packs/Day Years Used Date Smoking Tobacco: Never Smokeless Tobacco: Never Comments Unknown Sex and Gender Information Value Date Recorded Sex Assigned at Not on file Legal Sex Female 2:32 AM HOME CARE MANAGER Gender Identity Not on file Sexual [...] on filedocumented in this encounter Care Teams Hospital Liaison Relationship Specialty Start Date End Date Patti Aiken MD PCP - General 10/31/16 02/17/23 Shanda Mead NP PCP - General Family Medicine 02/18/23 documented as of this encounter
--- OUTSIDE RECORDS SUMMARY | 2024-10-29 11:22 | XMS_ITS | Encounter Summary ---
Author Organization [facility] Address [address] [place] [address] Phone Care Team Providers Care Paper Bag Machine Operator Name Role Phone Patti Aiken MD Primary Care Provider Shanda Mead NP Primary Care Provider [phone] Encounter Details Date Type Department Care Team (Late st Contact Info) Description 03/21/2019 Telephone [facility] [address] [facility] 8th [place] [address] [place] [address] Caleb Garcia MD PhD [address] [facility] [address] [place] [address] Social History Tobacco Use Types Packs/Day Years Used Date Smoking Tobacco: Never Smokeless Tobacco: Never Comments Unknown Sex and Gender Information Value Date Recorded Sex Assigned at Not on file Legal Sex Female 2:32 AM GREENHOUSE OR NURSERY TRANSPLANTER Gender Identity Not on file Sexual Orientation Not on file documented as of this encounter Plan of Treatment Not on file documented as of this encounter Visit Diagnoses Not on filedocumented in this encounter Care Teams Paper Bag Machine Operator Relationship Specialty Start Date End Date Patti Aiken MD PCP - General 10/31/16 02/17/23 Shanda Mead NP PCP - General Family Medicine 02/18/23 documented as of this encounter
--- OUTSIDE RECORDS SUMMARY | 2024-10-29 11:22 | XMS_ITS | Clinical Summary ---
Author Organization [facility] Address [address] [facility] [place] [address] Care Team Providers Care Coin Wrapping Machine Operator Name Role Phone Chito Harrison MD Primary Care Provider [phone] Source Comments [facility],non-owned Affiliates and Associated Physician Practices is amultiple site organization consisting of ambulatory clinics and hospital sitesin [place], [place], [place] and [place]. This disclosure is being madepursuant to the Care Everywhere program and may not contain all information available regarding this patient. Last updated 18.[facility] Allergies No known active allergies Medications * [...] on file Legal Sex Female 2:32 PM CONVENTION PLANNER Gender Identity Not on file Sexual Orientation Not on file Last Filed Vital Signs Vital Sign Reading Time Taken Comments Blood Pressure 140/80 02/27/2020 8:05 AM CONVENTION PLANNER Pulse 60 02/27/2020 8:05 AM CONVENTION PLANNER Temperature - - Respiratory Rate 12 02/27/2020 8:05 AM CONVENTION PLANNER Oxygen Saturation - - Inhaled Oxygen Concentration - - Weight 108.4 kg (239 lb) 02/27/2020 8:05 AM CONVENTION PLANNER Height 161.3 cm (5' 3.5) 02/27/2020 8:05 AM CONVENTION PLANNER Body Mass Index 41.67 02/27/2020 8:05 AM CONVENTION PLANNER Plan of Treatment Health Maintenance Due Date [...] Insurance MEDICARE COMMERCIAL GENERIC MEDICARE Care Teams Coin Wrapping Machine Operator Relationship Specialty Start Date End Date Chito Harrison MD [address] [place] [address] PCP - General 06/26/21
--- OUTSIDE RECORDS SUMMARY | 2024-10-29 11:22 | XMS_ITS | Clinical Summary ---
Author Organization [facility] Address [address] [place] [address] Care Team Providers Care Ornamental Painter Name Role Phone None, Provider Primary Care [...] this topic Insurance MEDICARE AET Care Teams Ornamental Painter Relationship Specialty Start Date End Date None, Provider, PCP - General UNKNOWN PHYSICIAN SPECIALTY 06/21/24
--- NOTE | 2024-10-29 11:33 | ED_ITS ---
HPI - General Adult General Chief complaint: Abdominal Pain Stated complaint: back pain/abdominal pain Time Seen by Provider: 10/29/24 11:13 History of Present Illness HPI narrative: 69-year-old female presenting to emergency department for evaluation for worsening left flank pain. Patient states that she did have a previous stone and stent. Patient did have the stent removed yesterday. Patient was told she did have some small stone fragments still the ureter and patient states that the pain significantly worsened approximately 830. Patient reports the pain is a 15/10 and patient is visibly uncomfortable at time of evaluation. Patient has history of kidney stones, obesity, hypertension Related Data Home Medications ?Medication ?Instructions ?Recorded ?Confirmed ?Last Taken ?Type ascorbic acid (vitamin C) 1,000 mg 1 g PO DAILY 09/09/24 10/29/24 09/20/24 History tablet (C-1000) spironolactone 25 mg tablet 100 mg PO DAILY 09/09/24 10/29/24 10/28/24 History vitamin B complex (Vitamins B 1 cap PO DAILY 09/09/24 10/29/24 10/28/24 History Complex capsule) Allergies Allergy/AdvReac Type Severity Reaction Status Date / Time lisinopril Allergy Severe Swelling Verified 10/29/24 15:13 of Lip/Tongue/Throat Review of Systems 2 Review of Systems: All systems reviewed & are unremarkable except as noted in HPI and below PMFSH Past Medical History Medical History (Updated 10/29/24 @ 15:04 by Lise Bergeron APRN) Kidney stones SHANIQUE on CPAP Obesity Hypertension Surgical History Surgical History H/O umbilical hernia repair 09/23/24 Robotic assisted repair incarcerated umbilical measuring [address] Marsh H/O abdominoplasty 02/2018 History of cosmetic plastic surgery History of hysterectomy 12/2015 History of bilateral breast reduction surgery 1976 1978 Family History Family History Father Family history of Alzheimer's disease Mother Diabetes mellitus Sibling Hypertension Social History Social History Smoking status: Never smoker Second hand tobacco smoke exposure: No Alcohol intake: current Alcohol use details: ONE/MONTH Substance use type: does not use Do You Feel Safe in your Home?: Yes Lack of Transportation: No Lack of Food: Never True Current Housing: I Have Housing Concerned About Future Housing: No Difficulty Paying Gas/Electric Bills: No Difficulty Paying for Meds: No Currently Unemployed: No Education: High School Diploma/GED Difficulty w/ Childcare or Family Care: No Living arrangements: with family Spiritual care concerns: No Exam 2 Narrative: APPEARANCE: Uncomfortable appearing HEAD: normocephalic, atraumatic. EYES: PERRLA/EOMI, conjunctivae clear. NOSE: Normal no drainage EARS:TMS clear with good light reflex. THROAT: Pharynx clear, no exudate. NECK: Supple. No adenopathy, no masses. RESPIRATORY: Airway patent, respirations nonlabored. Clear to auscultation bilaterally, no rales, rhonchi, wheezing. CARDIOVASCULAR: Regular rate and rhythm without murmurs rubs or gallops. ABDOMINAL: Soft, nontender, nondistended, normal bowel sounds MUSCULOSKELETAL: Moves all extremities. Strength/ROM intact, No edema, No calf tenderness. NEURO: Alert. Cranial nerves II through XII intact. Good gait. Good coordination SKIN: Warm, dry. Normal Color Course Vital Signs Vital signs: Vital Signs Temperature 97.5 F L 10/29/24 11:01 Pulse Rate 71 10/29/24 11:01 Respiratory Rate 20 10/29/24 11:01 Blood Pressure 95/75 L 10/29/24 11:01 Pulse Oximetry 96 10/29/24 11:01 Oxygen Delivery Room Air 10/29/24 11:01 Temperature 97.5 F L 10/29/24 15:44 Pulse Rate 71 10/29/24 15:44 Respiratory Rate 19 10/29/24 15:44 Blood Pressure 152/68 H 10/29/24 15:44 Pulse Oximetry 96 10/29/24 15:44 Oxygen Delivery Room Air 10/29/24 15:30 Medical Decision Making [facility] Narrative Medical decision making narrative: 69-year-old female present to the emergency department for evaluation for left flank pain. Patient is currently afebrile with no leukocytosis hemoglobin of 14.5. Patient has an INR 1.0. Patient's kidney function is similar to her baseline. UA does show some ketones and leukocyte esterase positive but no evidence of infected stone. CT scan was ordered and does show multiple small ureteral calculi at the UVJ. Patient did require 2 doses of Dilaudid for pain control and is still uncomfortable is medication wears off. I did discuss the case with Urology and Dr. Keane was consulted. Case discussed with hospitalist patient was accepted for admission. Patient family were updated on the plan for admission. Patient is already on pain medications at home and she has required multiple doses of pain medications in the emergency department and I would not be able to control her pain at home. Differential Diagnosis Differential Diagnosis: Ureteral calculi, UTI, infected kidney stone, colitis, diverticulitis Vital Signs Vital Signs: Vital Signs Temperature 97.5 F L 10/29/24 11:01 Pulse Rate 71 10/29/24 11:01 Respiratory Rate 20 10/29/24 11:01 Blood Pressure 95/75 L 10/29/24 11:01 Pulse Oximetry 96 10/29/24 11:01 Oxygen Delivery Room Air 10/29/24 11:01 Temperature 97.5 F L 10/29/24 15:44 Pulse Rate 71 10/29/24 15:44 Respiratory Rate 19 10/29/24 15:44 Blood Pressure 152/68 H 10/29/24 15:44 Pulse Oximetry 96 10/29/24 15:44 Oxygen Delivery Room Air 10/29/24 15:30 Lab Data Lab results reviewed: Yes I reviewed the patient's lab results. 10/29/24 11:35 10/29/24 11:35 Labs: Lab Results 10/29/24 10/29/24 10/29/24 Range/Units 11:35 11:46 12:06 WBC 9.8 (4.5-10.0) K/mm3 RBC 4.75 (4.2-5.4) M/mm3 Hgb 14.5 (12.0-15.0) g/dL Hct 43.0 (37.0-47.0) % MCV 90.5 (80-100) fl MCH 30.5 (26-34) pg MCHC 33.7 (32-36) g/dl RDW 14.2 (11.5-14.5) % Plt Count 265 (150-375) k/mm3 MPV 9.3 (7.4-10.4) fl Immature Gran % (Auto) 0.3 (0-0.5) % Neut % (Auto) 78.6 H (45.5-73.1) % Lymph % (Auto) 12.9 L (18.3-44.2) % Ogle % (Auto) 7.2 (2.6-8.5) % Eos % (Auto) 0.5 (0-4.4) % Baso % (Auto) 0.5 (0.2-1.2) % Lymph # (Auto) 1.26 (0.9-3.2) K/mm3 Ogle # (Auto) 0.7 H (0.1-0.6) K/mm3 Eos # (Auto) 0.1 (0-0.3) K/mm3 Baso # (Auto) 0.1 (0.0-0.1) K/mm3 Abs Immat Gran (auto) 0.03 (0.00-0.031) K/mm3 Absolute Neuts (auto) 7.7 H (1.3-6.7) K/mm3 Absolute Nucleated RBC 0.000 (0.0-0.012) K/mm3 Nucleated RBC % 0.0 (0.0-0.2) % PT 13.2 (11.1-14.7) Seconds INR 1.0 APTT 28.1 (22.3-36.8) Seconds Sodium 138 (137-145) mmol/L Potassium 4.1 (3.4-5.0) mmol/L Chloride 105 (98-107) mmol/L Carbon Dioxide 21 L (22-30) mmol/L Anion Gap 12 (4-12) mmol/L BUN 17 (7-17) mg/dL Creatinine 0.76 (0.7-1.0) mg/dL Estim Creat Clear Calc 57 ml/min Estimated GFR > 60 (59 - ) Glucose 167 H (65-110) mg/dL Calcium 10.0 (8.4-10.2) mg/dL Total Bilirubin 0.9 (0.2-1.3) mg/dL AST 46 H (14-36) U/L ALT 33 (6-35) U/L Alkaline Phosphatase 56 (38-126) U/L Total Protein 8.4 H (6.3-8.2) g/dL Albumin 4.6 (3.5-5.1) g/dL Urine Color Yellow (Yellow) Urine Appearance Clear (Clear) Urine pH 8.5 (5.0-9.0) Ur Specific [place] 1.023 (1.001-1.035) Urine Protein 1+ H (Negative) mg/dL Urine Glucose (UA) Negative (Negative) mg/dL Urine Ketones 1+ H (Negative) mg/dL Ur Blood (Man) Negative (Negative) Urine Nitrate Negative (Negative) Urine Bilirubin Negative (Negative) Urine Urobilinogen 0.2 (<2.0) mg/dL Leukocyte Esterase Rfl Trace H (Negative) [place]/UL Urine RBC 0-2 (0-2) /hpf Urine WBC 0-5 (0-3) /hpf Ur Squamous Epith Cells None seen (Few) /hpf Urine Bacteria None seen /hpf Urine Casts 0-2 Imaging Data Radiologist's impression: Impressions Abdomen/Pelvis CT 10/29/24 12:30 IMPRESSION: 1. Multiple obstructing distal left ureteral stones and and above the UVJ with moderate hydronephrosis. There is perinephric and periureteral edema. 2: Bilateral nephrolithiasis. Discharge Plan Discharge Clinical Impression: Calculus, ureteral Patient Disposition: Still a Patient Condition: Stable
[2024-10-29 11:39] LABS: Hematocrit 43.0 % (37.0-47.0); Hemoglobin 14.5 g/dL (12.0-15.0); Immature Granulocyte Percent A 0.3 % (0-0.5); Lymphocytes Absolute Auto 1.26 K/mm3 (0.9-3.2); Mean Corpuscular HGB Conc 33.7 g/dl (32-36); Mean Corpuscular Hemoglobin 30.5 pg (26-34); Mean Corpuscular Volume 90.5 fl (80-100); Nucleated Red Blood Cells Absolute Auto 0.000 K/mm3 (0.0-0.012); Nucleated Red Blood Cells Perc 0.0 % (0.0-0.2); Platelet Count Result 265 k/mm3 (150-375); Red Blood Count 4.75 M/mm3 (4.2-5.4); White Blood Count 9.8 K/mm3 (4.5-10.0)
[2024-10-29] MEDS: ONDANSETRON INJ 4 MG/2 ML VIAL IV PUSH ×2 (11:42→16:47)
[2024-10-29] MEDS: HYDROmorphone HCL INJ (*CRX) 2 MG/ML VIAL 0.5 MG IV PUSH ×5 (11:42→21:59)
[2024-10-29 11:45] VITALS: BP 158/100; PULSE 62; RESP 18; O2SAT 95
[2024-10-29 11:58] LABS: Add Urine Microscopic? YES; Appearance Urine Clear (Clear); Glucose Urine UA Negative (Negative); Leukocyte Esterase Ur Trace LEU/UL (Negative); Nitrate Urine Negative (Negative); Non Pathogenic Casts 0-2; Specific Grav Ur 1.023 (1.001-1.035)
[2024-10-29 12:21] LABS: Alanine Aminotransferase 33 U/L (6-35); Albumin Level 4.6 g/dL (3.5-5.1); Alkaline Phosphatase 56 U/L (38-126); Anion Gap 12 mmol/L (4-12); Aspartate Amino Transferase 46 U/L (14-36); Bilirubin,Total 0.9 mg/dL (0.2-1.3); Blood Urea Nitrogen 17 mg/dL (7-17); Calcium 10.0 mg/dL (8.4-10.2); Carbon Dioxide 21 mmol/L (22-30); Chloride 105 mmol/L (98-107); Estimated CRCL calculation 57 ml/min; Estimated Glomerular Filt Rate > 60; Glucose 167 mg/dL (65-110); Potassium 4.1 mmol/L (3.4-5.0); Sodium 138 mmol/L (137-145); Total Protein 8.4 g/dL (6.3-8.2)
[2024-10-29 12:26] LABS: INR 1.0; Prothrombin Time 13.2 Seconds (11.1-14.7)
[2024-10-29 12:27] LABS: Partial Thromboplastin Time 28.1 Seconds (22.3-36.8)
[2024-10-29] MEDS: TAMSULOSIN HCL 0.4 MG CAPSULE PO (12:48)
[2024-10-29 13:36] VITALS: PULSE 69; RESP 20; O2SAT 98
--- NOTE | 2024-10-29 14:55 | P.HP_ITS ---
H&P: HPI History of Present Illness Date/Time: 10/29/24 14:55 Chief Complaint: Flank Pain Narrative: 69 y/o F with PMH of hypertension, SHANIQUE on CPAP, and nephrolithiasis presents here with flank pain. The patient presents here from home for further evaluation of flank pain on 10/29. She reports acute onset of left-sided flank pain with radiation into her abdomen starting at 8:30 a.m. this morning. She reports associated nausea, vomiting, chills. She denies fever, body aches, constipation, diarrhea, dysuria, or hematuria. She reports a history significant for recent kidney stones with stent removal yesterday, 10/28, at [facility]. She reports she was told there were a few fragments that were small enough that she may pass them on her own. Initial VS at presentation: 97.5? F, HR 71, R 20, 95/75, and 96% on RA. ED workup showed: No leukocytosis, no anemia, normal coags, no significant electrolyte derangements, glucose 167, UA showed 1+ protein/1+ ketones/trace leuk esterase with no epithelial cells or bacteria. CT of the abdomen/pelvis showed multiple obstructing distal left ureteral stones in above the UVJ with moderate hydronephrosis with perinephric and periureteral edema and bilateral nephrolithiasis. Abdominal XR showed no acute abdominal abnormality and nonobstructing bilateral nephrolithiasis. Review of Systems Review of Systems: All systems reviewed & are unremarkable except as noted in HPI and below PMFSH Past Medical History Medical History (Updated 10/29/24 @ 15:04 by Lise Bergeron APRN) Kidney stones SHANIQUE on CPAP Obesity Hypertension Surgical History Surgical History H/O umbilical hernia repair 09/23/24 Robotic assisted repair incarcerated umbilical measuring [address] Marsh H/O abdominoplasty 02/2018 History of cosmetic plastic surgery History of hysterectomy 12/2015 History of bilateral breast reduction surgery 1976 1978 Family History Family History Father Family history of Alzheimer's disease Mother Diabetes mellitus Sibling Hypertension Social History Social History Smoking status: Never smoker Second hand tobacco smoke exposure: No Alcohol intake: current Alcohol use details: ONE/MONTH Substance use type: does not use Do You Feel Safe in your Home?: Yes Lack of Transportation: No Lack of Food: Never True Current Housing: I Have Housing Concerned About Future Housing: No Difficulty Paying Gas/Electric Bills: No Difficulty Paying for Meds: No Currently Unemployed: No Education: High School Diploma/GED Difficulty w/ Childcare or Family Care: No Living arrangements: with family Spiritual care concerns: No Meds Home Medications and Allergies Home Medications ?Medication ?Instructions ?Recorded ?Confirmed ?Type ascorbic acid (vitamin C) 1,000 mg 1 g PO DAILY 09/09/24 10/29/24 History tablet (C-1000) spironolactone 25 mg tablet 100 mg PO DAILY 09/09/24 10/29/24 History vitamin B complex (Vitamins B 1 cap PO DAILY 09/09/24 10/29/24 History Complex capsule) Allergies Allergy/AdvReac Type Severity Reaction Status Date / Time lisinopril Allergy Severe Swelling Verified 10/29/24 15:13 of Lip/Tongue/Throat Vital Signs Vital Signs - 24 hr 10/29/24 11:01 10/29/24 11:45 10/29/24 13:36 Temperature 97.5 F L Pulse Rate 71 62 69 Respiratory Rate 20 18 20 Blood Pressure 95/75 L 158/100 H Pulse Oximetry 96 95 98 Oxygen Delivery Room Air Exam Const: General: no acute distress and uncomfortable Other: , female, nontoxic appearance HENMT: Face/Nose/Sinus: Normal nares present Mouth: Yes moist mucous membranes Eyes: General: appearance normal, both eyes and all related structures Sclera: sclerae normal Pupils: Equal, round and reactive pupils present EOM: EOMs intact bilaterally Resp: Effort & Inspection: normal respiratory effort Auscultation: clear to auscultation bilaterally Cardio: Rate: regular rate Rhythm: regular rhythm Other: S1-S2 present without murmur, rub, ectopy GI: Other: left flank and LLQ pain with palpation. Abdomen otherwise soft, normoactive bowel sounds in all quadrants. Skin: General skin exam: normal color and no rashes or lesions noted Wounds: no wounds Neuro: Speech: normal speech Motor exam (neuro): 5/5 motor strength present throughout Sensory Exam: normal sensation Other: A&O x4 Extrem: General: normal to inspection Psych: Mental Status: mental status grossly normal Affect: normal affect Other: Good insight and judgment, pleasant H&P: Results Labs Labs: Short CBC 10/29/24 Range/Units 11:35 WBC 9.8 (4.5-10.0) K/mm3 Hgb 14.5 (12.0-15.0) g/dL Hct 43.0 (37.0-47.0) % Plt Count 265 (150-375) k/mm3 BMP 10/29/24 11:35 Sodium 138 Potassium 4.1 Chloride 105 Carbon Dioxide 21 L BUN 17 Creatinine 0.76 Glucose 167 H Calcium 10.0 Liver Function 10/29/24 Range/Units 11:35 Total Bilirubin 0.9 (0.2-1.3) mg/dL AST 46 H (14-36) U/L ALT 33 (6-35) U/L Alkaline Phosphatase 56 (38-126) U/L Albumin 4.6 (3.5-5.1) g/dL Urine 10/29/24 Range/Units 11:46 Urine Color Yellow (Yellow) Urine Appearance Clear (Clear) Urine pH 8.5 (5.0-9.0) Ur Specific [place] 1.023 (1.001-1.035) Urine Protein 1+ H (Negative) mg/dL Urine Glucose (UA) Negative (Negative) mg/dL Assessment and Plan Assessment and plan (1) Kidney stones: Code(s): N20.0 - Calculus of kidney Status: Acute Assessment and Plan: - CT abd/pelvis: 1. Multiple obstructing distal left ureteral stones and and above the UVJ with moderate hydronephrosis. There is perinephric and periureteral edema. 2: Bilateral nephrolithiasis. - abd XR: 1: No acute abdominal abnormality. 2: Nonobstructing bilateral nephrolithiasis. - UA showed low indication for infection with trace leuk esterase only and no epithelial cells or bacteria. - urology consulted, made NPO at midnight and repeat abdominal XR in a.m. - Pain control with Tylenol, Noble, Dilaudid - antiemetic p.r.n., patient has nausea and vomiting despite Zofran. Will add Reglan 10 mg IV x1. - monitor renal function and WBC - IV fluids: LR at 125 mL/hour (2) Benign essential hypertension: Code(s): I10 - Essential (primary) hypertension Status: Acute Assessment and Plan: - chronic, currently 152/68 - continue home medications: Spironolactone - monitor Plan Diet: Heart healthy, NPO been night GI Prophylaxis: N/a DVT Prophylaxis: SCDs IV fluids: 125 mL/hour Lines/Tubes: Peripheral IV Code Status: Full code Quality VTE Prophylaxis VTE prophylaxis: mechanical ordered Hospitalist MIPS Advance Care Plan I have confirmed that the patient's Advanced Care Plan is present, code status is documented, or surrogate decision maker is listed in patient medical record.: Yes Medication Reconciliation I have utilized all available resources to obtain, update and review the patients current medications (includes all prescriptions, OTC, herbals, cannabis, and nutritional supplements).: Yes
[2024-10-29 15:12] VITALS: BMI 38.8
--- NOTE | 2024-10-29 15:13 | ADMGEN ---
This patient, Rere Garner, was admitted to Medical Room 340-01. Patient/family oriented to hospital policies and general routines including ID bracelet, bed and alarms, visiting hours, pain management, procedures, bathroom and other care routines, personal items, smoking policy, room service/diet, and visiting hours. Information on how to activate the Rapid Response Team has been discussed. Patient/Family are encouraged to report perceived risks to care and to ask questions if they do not understand what they are told or what they should do.
[2024-10-29 15:44] VITALS: BP 152/68; PULSE 71; RESP 19; TEMP 36.4; O2SAT 96
[2024-10-29] MEDS: LACTATED RINGERS 1,000 ML 125 ML IV CONT (16:17)
--- NOTE | 2024-10-29 17:00 | PCRCNOTE ---
Pt was offered hospital CPAP machine to wear during her stay. Pt stated she was fine and did not want to use our machine or bring hers in from home. No order was entered for home CPAP.
[2024-10-29 21:53] VITALS: BP 126/72; PULSE 76; RESP 18; TEMP 36.6; O2SAT 93
[2024-10-29] MEDS: METOCLOPRAMIDE HCL INJ 10 MG/2 ML VIAL IV PUSH (21:59)
[2024-10-30] VITALS (8 sets, daily range): BP systolic 109–140; BP diastolic 61–89; PULSE 68–82; RESP 10–20; TEMP 36.3–36.9; O2SAT 92–97
[2024-10-30] MEDS: LACTATED RINGERS 1,000 ML 125 ML IV CONT (00:07)
[2024-10-30] MEDS: HYDROmorphone HCL INJ (*CRX) 2 MG/ML VIAL 0.5 MG IV PUSH ×2 (01:27→04:22)
[2024-10-30 05:56] LABS: Hematocrit 41.1 % (37.0-47.0); Hemoglobin 13.5 g/dL (12.0-15.0); Immature Granulocyte Percent A 0.3 % (0-0.5); Lymphocytes Absolute Auto 0.68 K/mm3 (0.9-3.2); Mean Corpuscular HGB Conc 32.8 g/dl (32-36); Mean Corpuscular Hemoglobin 30.8 pg (26-34); Mean Corpuscular Volume 93.8 fl (80-100); Nucleated Red Blood Cells Absolute Auto 0.000 K/mm3 (0.0-0.012); Nucleated Red Blood Cells Perc 0.0 % (0.0-0.2); Platelet Count Result 249 k/mm3 (150-375); Red Blood Count 4.38 M/mm3 (4.2-5.4); White Blood Count 11.3 K/mm3 (4.5-10.0)
[2024-10-30] MEDS: ONDANSETRON INJ 4 MG/2 ML VIAL IV PUSH (06:19)
[2024-10-30 06:20] LABS: Anion Gap 9 mmol/L (4-12); Blood Urea Nitrogen 25 mg/dL (7-17); Calcium 9.3 mg/dL (8.4-10.2); Carbon Dioxide 26 mmol/L (22-30); Chloride 100 mmol/L (98-107); Estimated CRCL calculation 52 ml/min; Estimated Glomerular Filt Rate 48; Glucose 132 mg/dL (65-110); Potassium 4.6 mmol/L (3.4-5.0); Sodium 135 mmol/L (137-145)
--- NOTE | 2024-10-30 06:46 | P.PNAN_ITS ---
Anes - Eval Pre Procedure Procedure: Operation Date: 10/30/24 08:30 Proposed Procedures p Cysto, RPG, Stone Ext, Stent Placement - Fernando Keane MD Date/Time: 10/30/24 06:46 Pre Op Diagnosis: ureteral calculi Patient Data Age: 69 Gender: F Height: 1.68 m Weight: 109.1 kg Last Vital Signs Temp 36.9 C 10/30/24 05:59 Pulse 70 10/30/24 05:59 Resp 18 10/30/24 05:59 BP 140/84 10/30/24 05:59 Pulse Ox 92 10/30/24 05:59 O2 Del Method Room Air 10/29/24 20:00 Allergies Allergy/AdvReac Type Severity Reaction Status Date / Time lisinopril Allergy Severe Swelling Verified 10/29/24 15:13 of Lip/Tongue/Throat Home Medications ?Medication ?Instructions ?Recorded ?Confirmed ?Type ascorbic acid (vitamin C) 1,000 mg 1 g PO DAILY 09/09/24 10/29/24 History tablet (C-1000) spironolactone 25 mg tablet 100 mg PO DAILY 09/09/24 10/29/24 History vitamin B complex (Vitamins B 1 cap PO DAILY 09/09/24 10/29/24 History Complex capsule) Laboratory Tests 10/29/24 10/29/24 10/29/24 11:35 11:46 12:06 WBC 9.8 K/mm3 (4.5-10.0) RBC 4.75 M/mm3 (4.2-5.4) Hgb 14.5 g/dL (12.0-15.0) Hct 43.0 % (37.0-47.0) MCV 90.5 fl (80-100) MCH 30.5 pg (26-34) MCHC 33.7 g/dl (32-36) RDW 14.2 % (11.5-14.5) Plt Count 265 k/mm3 (150-375) MPV 9.3 fl (7.4-10.4) Immature Gran % (Auto) 0.3 % (0-0.5) Neut % (Auto) 78.6 H % (45.5-73.1) Lymph % (Auto) 12.9 L % (18.3-44.2) [place] % (Auto) 7.2 % (2.6-8.5) Eos % (Auto) 0.5 % (0-4.4) Baso % (Auto) 0.5 % (0.2-1.2) Lymph # (Auto) 1.26 K/mm3 (0.9-3.2) [place] # (Auto) 0.7 H K/mm3 (0.1-0.6) Eos # (Auto) 0.1 K/mm3 (0-0.3) Baso # (Auto) 0.1 K/mm3 (0.0-0.1) Abs Immat Gran (auto) 0.03 K/mm3 (0.00-0.031) Absolute Neuts (auto) 7.7 H K/mm3 (1.3-6.7) Absolute Nucleated RBC 0.000 K/mm3 (0.0-0.012) Nucleated RBC % 0.0 % (0.0-0.2) PT 13.2 Seconds (11.1-14.7) INR 1.0 APTT 28.1 Seconds (22.3-36.8) Sodium 138 mmol/L (137-145) Potassium 4.1 mmol/L (3.4-5.0) Chloride 105 mmol/L (98-107) Carbon Dioxide 21 L mmol/L (22-30) Anion Gap 12 mmol/L (4-12) BUN 17 mg/dL (7-17) Creatinine 0.76 mg/dL (0.7-1.0) Estim Creat Clear Calc 57 ml/min Estimated GFR > 60 (59 - ) Glucose 167 H mg/dL (65-110) Calcium 10.0 mg/dL (8.4-10.2) Total Bilirubin 0.9 mg/dL (0.2-1.3) AST 46 H U/L (14-36) ALT 33 U/L (6-35) Alkaline Phosphatase 56 U/L (38-126) Total Protein 8.4 H g/dL (6.3-8.2) Albumin 4.6 g/dL (3.5-5.1) Urine Color Yellow (Yellow) Urine Appearance Clear (Clear) Urine pH 8.5 (5.0-9.0) Ur Specific [place] 1.023 (1.001-1.035) Urine Protein 1+ H mg/dL (Negative) Urine Glucose (UA) Negative mg/dL (Negative) Urine Ketones 1+ H mg/dL (Negative) Ur Blood (Man) Negative (Negative) Urine Nitrate Negative (Negative) Urine Bilirubin Negative (Negative) Urine Urobilinogen 0.2 mg/dL (<2.0) Leukocyte Esterase Rfl Trace H [place]/UL (Negative) Urine RBC 0-2 /hpf (0-2) Urine WBC 0-5 /hpf (0-3) Ur Squamous Epith Cells None seen /hpf (Few) Urine Bacteria None seen /hpf Urine Casts 0-2 10/30/24 04:57 WBC 11.3 H K/mm3 (4.5-10.0) RBC 4.38 M/mm3 (4.2-5.4) Hgb 13.5 g/dL (12.0-15.0) Hct 41.1 % (37.0-47.0) MCV 93.8 fl (80-100) MCH 30.8 pg (26-34) MCHC 32.8 g/dl (32-36) RDW 14.6 H % (11.5-14.5) Plt Count 249 k/mm3 (150-375) MPV 9.1 fl (7.4-10.4) Immature Gran % (Auto) 0.3 % (0-0.5) Neut % (Auto) 85.4 H % (45.5-73.1) Lymph % (Auto) 6.0 L % (18.3-44.2) [place] % (Auto) 8.1 % (2.6-8.5) Eos % (Auto) 0.0 % (0-4.4) Baso % (Auto) 0.2 % (0.2-1.2) Lymph # (Auto) 0.68 L K/mm3 (0.9-3.2) [place] # (Auto) 0.9 H K/mm3 (0.1-0.6) Eos # (Auto) 0.0 K/mm3 (0-0.3) Baso # (Auto) 0.0 K/mm3 (0.0-0.1) Abs Immat Gran (auto) 0.03 K/mm3 (0.00-0.031) Absolute Neuts (auto) 9.7 H K/mm3 (1.3-6.7) Absolute Nucleated RBC 0.000 K/mm3 (0.0-0.012) Nucleated RBC % 0.0 % (0.0-0.2) PT INR APTT Sodium 135 L mmol/L (137-145) Potassium 4.6 mmol/L (3.4-5.0) Chloride 100 mmol/L (98-107) Carbon Dioxide 26 mmol/L (22-30) Anion Gap 9 mmol/L (4-12) BUN 25 H mg/dL (7-17) Creatinine 1.13 H mg/dL (0.7-1.0) Estim Creat Clear Calc 52 ml/min Estimated GFR 48 L (59 - ) Glucose 132 H mg/dL (65-110) Calcium 9.3 mg/dL (8.4-10.2) Total Bilirubin AST ALT Alkaline Phosphatase Total Protein Albumin Urine Color Urine Appearance Urine pH Ur Specific [place] Urine Protein Urine Glucose (UA) Urine Ketones Ur Blood (Man) Urine Nitrate Urine Bilirubin Urine Urobilinogen Leukocyte Esterase Rfl Urine RBC Urine WBC Ur Squamous Epith Cells Urine Bacteria Urine Casts Patient hx anesthesia problems: none Family hx anesthesia problems: none Results Review: All pre-operative results and documents have been reviewed as part of the pre- operative evaluation. [facility] Past Medical History Medical History (Updated 10/29/24 @ 15:04 by Lise Bergeron APRN) Kidney stones SHANIQUE on CPAP Obesity Hypertension Surgical History Surgical History H/O umbilical hernia repair 09/23/24 Robotic assisted repair incarcerated umbilical measuring [address] Marsh H/O abdominoplasty 02/2018 History of cosmetic plastic surgery History of hysterectomy 12/2015 History of bilateral breast reduction surgery 1976 1978 Family History Family History Father Family history of Alzheimer's disease Mother Diabetes mellitus Sibling Hypertension Social History Social History Smoking status: Never smoker Second hand tobacco smoke exposure: No Alcohol intake: current Alcohol use details: ONE/MONTH Substance use type: does not use Do You Feel Safe in your Home?: Yes Lack of Transportation: No Lack of Food: Never True Current Housing: I Have Housing Concerned About Future Housing: No Difficulty Paying Gas/Electric Bills: No Difficulty Paying for Meds: No Currently Unemployed: No Education: High School Diploma/GED Difficulty w/ Childcare or Family Care: No Living arrangements: with family Spiritual care concerns: No Exam Day of Procedure 10/30/24 06:46 Patient weight: normal Heart: regular rate and rhythm Lungs: clear to auscultation and normal air movement Airway: Mallampati scale class II Neurological: alert and oriented
--- NOTE | 2024-10-30 07:19 | P.CONUR_ITS ---
Assessment and Plan Assessment and plan (1) Urolithiasis: Code(s): N20.9 - Urinary calculus, unspecified Status: Acute Assessment and Plan: * Obstructing residual fragments in left ureter after recent ESWL large left renal stone * Overnight, with hydration and analgesics, patient appears to have passed 1 of the 2 fragments in her distal ureter. Will plan cystoscopy with left ureteroscopy, stone extraction with possible laser lithotripsy and stent replacement Urology Consult Note HPI Date Seen: 10/30/24 Requesting Physician: Dionicio Espitia MD Primary Care Provider: Anibal Avendano, MD Consult Narrative Narrative: Rere Garner is a 69 year old female Well known to me with a history of recurrent urolithiasis. On September 23 she underwent left ESWL for a 1 cm renal pelvic stone. Follow-up imaging last week showed good fragmentation with just a few small residual pieces. The ureteral stent was removed. She did well for couple days but we presents with acute left ureteral colic, nausea vomiting. Imaging demonstrates 2 small stones in her left ureterovesical junction and some smaller fragments still in her left kidney.. [facility] Past Medical History Medical History (Updated 10/30/24 @ 07:23 by Fernando Keane MD) Kidney stones SHANIQUE on CPAP Obesity Hypertension Surgical History Surgical History H/O umbilical hernia repair 09/23/24 Robotic assisted repair incarcerated umbilical measuring [address] Marsh H/O abdominoplasty 02/2018 History of cosmetic plastic surgery History of hysterectomy 12/2015 History of bilateral breast reduction surgery 1976 1978 Family History Family History Father Family history of Alzheimer's disease Mother Diabetes mellitus Sibling Hypertension Social History Social History Smoking status: Never smoker Second hand tobacco smoke exposure: No Alcohol intake: current Alcohol use details: ONE/MONTH Substance use type: does not use Do You Feel Safe in your Home?: Yes Lack of Transportation: No Lack of Food: Never True Current Housing: I Have Housing Concerned About Future Housing: No Difficulty Paying Gas/Electric Bills: No Difficulty Paying for Meds: No Currently Unemployed: No Education: High School Diploma/GED Difficulty w/ Childcare or Family Care: No Living arrangements: with family Spiritual care concerns: No Meds Home Medications and Allergies Home Medications ?Medication ?Instructions ?Recorded ?Confirmed ?Type ascorbic acid (vitamin C) 1,000 mg 1 g PO DAILY 09/09/24 10/29/24 History tablet (C-1000) spironolactone 25 mg tablet 100 mg PO DAILY 09/09/24 10/29/24 History vitamin B complex (Vitamins B 1 cap PO DAILY 09/09/24 10/29/24 History Complex capsule) Allergies Allergy/AdvReac Type Severity Reaction Status Date / Time lisinopril Allergy Severe Swelling Verified 10/29/24 15:13 of Lip/Tongue/Throat Vital Signs Vital Signs - 24 hr 10/29/24 11:01 10/29/24 11:45 10/29/24 13:36 Temperature 97.5 F L Pulse Rate 71 62 69 Respiratory Rate 20 18 20 Blood Pressure 95/75 L 158/100 H Pulse Oximetry 96 95 98 Oxygen Delivery Room Air 10/29/24 15:30 10/29/24 15:44 10/29/24 20:00 Temperature 97.5 F L Pulse Rate 71 Respiratory Rate 19 Blood Pressure 152/68 H Pulse Oximetry 96 Oxygen Delivery Room Air Room Air 10/29/24 21:53 10/30/24 05:59 Temperature 97.8 F 98.4 F Pulse Rate 76 70 Respiratory Rate 18 18 Blood Pressure 126/72 140/84 Pulse Oximetry 93 92 Oxygen Delivery Exam 2 Const: General: no acute distress Resp: Effort & Inspection: normal respiratory effort GI: Inspection: non-distended GI Palp: No abdominal tenderness and No Guarding due to palpation present (GI) Auscultation: normal bowel sounds Results Labs 10/30/24 04:57 10/30/24 04:57 Labs: Short CBC 10/29/24 10/30/24 Range/Units 11:35 04:57 WBC 9.8 11.3 H (4.5-10.0) K/mm3 Hgb 14.5 13.5 (12.0-15.0) g/dL Hct 43.0 41.1 (37.0-47.0) % Plt Count 265 249 (150-375) k/mm3 [facility] 10/29/24 10/30/24 11:35 04:57 Sodium 138 135 L Potassium 4.1 4.6 Chloride 105 100 Carbon Dioxide 21 L 26 BUN 17 25 H Creatinine 0.76 1.13 H Glucose 167 H 132 H Calcium 10.0 9.3 Liver Function 10/29/24 Range/Units 11:35 Total Bilirubin 0.9 (0.2-1.3) mg/dL AST 46 H (14-36) U/L ALT 33 (6-35) U/L Alkaline Phosphatase 56 (38-126) U/L Albumin 4.6 (3.5-5.1) g/dL Urine 10/29/24 Range/Units 11:46 Urine Color Yellow (Yellow) Urine Appearance Clear (Clear) Urine pH 8.5 (5.0-9.0) Ur Specific [place] 1.023 (1.001-1.035) Urine Protein 1+ H (Negative) mg/dL Urine Glucose (UA) Negative (Negative) mg/dL
--- NOTE | 2024-10-30 07:24 | WPDHPUPDATE1 ---
History and Physical Update Update Date/Time: 10/30/24 07:24 History and Physical has been reviewed, including an updated exam of the patient. There are NO changes in the patient's condition. Risks, benefits, and alternatives have been discussed and questions answered. Patient agrees to proceed with procedure.
--- NOTE | 2024-10-30 07:58 | P.PNAN_ITS ---
Anes - Eval Final PreProcedure Day of Procedure 10/30/24 07:58 Patient weight: obese Heart: regular rate and rhythm Lungs: clear to auscultation Airway: Mallampati scale class II Neurological: alert and oriented Last oral intake: >/= 8 hours ASA classification: III Emergent: no Anesthetic plan: proceed Anesthesia type and monitoring: general LMA and standard monitoring Results Review: All pre-operative results and documents have been reviewed as part of the pre- operative evaluation. Informed Consent: The patient's anesthetic plan and its attendant risks and benefits were discussed with the patient/family/POA. Questions were solicited and answers provided to the satisfaction of the patient/family/POA.
--- NOTE | 2024-10-30 08:10 | PC.NURSE ---
Patient off of unit to surgery
[2024-10-30] MEDS: LIDOCAINE 2% GEL UROJET 10 ML PKG MUCOUS MEM (08:39)
--- NOTE | 2024-10-30 09:10 | S_PTH ---
PATIENT: Rere Garner LOC: [id number] U#:[id number] AGE/SX: 69/F ROOM: 340 RE10/29/[address]: Dionicio Espitia MD : 1955 BED: 01 DIS: 10/30/2024 SPEC #: [id number] RECD: 10/31/24 08:10 STATUS: TAMAR REJorge #: [id number] EMERY: 10/30/24 09:[address]: Fernando Keane DEPT: [facility] Surgical RECD BY: Abi Lorenzo ENTERED: 10/31/24 08:10 SP TYPE: Surgical OTHR DR: Anibal Avendano, HAZEL Wellington MD Tissues: A - Stone Procedures: Gross Exam Level 1 Crystalline Analysis
--- NOTE | 2024-10-30 09:12 | W.PM.PROC2 ---
Procedure Note - Detailed Date of Procedure 10/30/24 Pre-op Diagnosis Left ureteral calculi, left renal calculi Post-op Diagnosis Same Procedure Performed Cystoscopy, left ureteroscopy with laser lithotripsy, stone extraction, retrograde pyelogram and stent placement Surgeon Fernando Keane MD Anesthesia General Description of Procedure patient is brought to the operative suite she was prepped draped in routine sterile fashion while in dorsal lithotomy position after the uneventful induction of a general LMA anesthetic. Cystoscopy was undertaken with a 19 F rigid cystoscope. Bladder neck and urethra endoscopically normal. There is no intravesical foreign body or neoplasm but I can see a stone extruding from her left ureteral orifice. 0.035 in glidewire was advanced in the left renal pelvis and the distal ureter was dilated with an 8 F 10 F dilator. The safety wire was is placed. Distal ureteroscopy was undertaken with a short tapered semi-rigid ureteral scope. There was this 1 stone at the left UVJ with a couple smaller ones just above it. These are extracted with a 1.9 F disposable stone basket with ease. I then placed a 7.5 F flexible ureteral scope. She has fiber 6 small fragments were residing in a midpole calyx. Using a 200 micron Adan laser fiber I dusted these stones into sizes 2 mm or less. I then placed a 4.8 F left ureteral stent after doing a retrograde pyelogram through the flexible ureteral scope. The proximal coil was positioned in the renal pelvis and distal coil in the bladder. Scopes wires removed she was taken recovery room good condition. Estimated Blood Loss 0 Drains Yes Packing Yes Pathology Yes Complications No immediate complications Condition Stable Disposition PACU
[2024-10-30] MEDS: LACTATED RINGERS 1,000 ML 30 ML IV CONT (09:18)
--- NOTE | 2024-10-30 12:46 | P.DS_ITS ---
DS: Admitting Diagnosis Discharge Date 10/30/2024 Admitting Diagnosis Multiple obstructing distal left ureteral stones and and above the UVJ with moderate hydronephrosis DS: Discharge Diagnosis Discharge Diagnosis (1) Kidney stones: Code(s): N20.0 - Calculus of kidney Status: Acute (2) Benign essential hypertension: Code(s): I10 - Essential (primary) hypertension Status: Acute DS: Summary Hospital Course Reason for hospitalization: Multiple obstructing distal left ureteral stones and and above the UVJ with moderate hydronephrosis Hospital Course: Admission: Patient was a 69 y/o F with PMH of hypertension, SHANIQUE on CPAP, and nephrolithiasis presents here with flank pain. The patient had presented here from home for further evaluation of flank pain on 10/29. She reports acute onset of left-sided flank pain with radiation into her abdomen starting at 8:30 a.m. this morning. She reports associated nausea, vomiting, chills. She denies fever, body aches, constipation, diarrhea, dysuria, or hematuria. She reports a history significant for recent kidney stones with stent removal yesterday, 10/28, at [facility]. She reports she was told there were a few fragments that were small enough that she may pass them on her own. In the ED: No leukocytosis, no anemia, normal coags, no significant electrolyte derangements, glucose 167, UA showed 1+ protein/1+ ketones/trace leuk esterase with no epithelial cells or bacteria. CT of the abdomen/pelvis showed multiple obstructing distal left ureteral stones in above the UVJ with moderate hydronephrosis with perinephric and periureteral edema and bilateral nephrolithiasis. Abdominal XR showed no acute abdominal abnormality and nonobstructing bilateral nephrolithiasis. Hospital course: Patient was admitted and was started on IV fluids with pain management and straining all urine and underwent a Cystoscopy. Per Operative Notes: The Bladder neck and urethra endoscopically normal. There is no intravesical foreign body or neoplasm but I can see a stone extruding from her left ureteral orifice. 0.035 in glidewire was advanced in the left renal pelvis and the distal ureter was dilated with an 8 F 10 F dilator. The safety wire was is placed. Distal ureteroscopy was undertaken with a short tapered semi-rigid ureteral scope. There was this 1 stone at the left UVJ with a couple smaller ones just above it. These are extracted with a 1.9 F disposable stone basket with ease. I then placed a 7.5 F flexible ureteral scope. She has fiber 6 small fragments were residing in a midpole calyx. Using a 200 micron Adan laser fiber I dusted these stones into sizes 2 mm or less. I then placed a 4.8 F left ureteral stent after doing a retrograde pyelogram through the flexible ureteral scope. The proximal coil was positioned in the renal pelvis and distal coil in the bladder. Scopes wires removed she was taken recovery room good condition. Patient seen following the procedure in no acute issues and no complaints reported improvement to symptoms with no complaints. Patient with no post-op concerns or complaints. Was ambulatory and eating lunch with minimal post-op pain. Patient was discharged to home with follow-up scheduled with Urology outpatient. Status at Discharge Functional status at discharge: independent ambulation Overall status at discharge: patient is back to baseline Time Spent with Patient Time attestation: Total time spent providing and/or coordinating discharge services: Time spent: Greater than 30 minutes Exam Const: General: no acute distress and uncomfortable Other: , female, nontoxic appearance HENMT: Face/Nose/Sinus: Normal nares present Mouth: Yes moist mucous membranes Eyes: General: appearance normal, both eyes and all related structures Sclera: sclerae normal Pupils: Equal, round and reactive pupils present EOM: EOMs intact bilaterally Resp: Effort & Inspection: normal respiratory effort Auscultation: clear to auscultation bilaterally Cardio: Rate: regular rate Rhythm: regular rhythm Other: S1-S2 present without murmur, rub, ectopy GI: GI Palp: Yes Soft to palpation Auscultation: normal bowel sounds Skin: General skin exam: normal color and no rashes or lesions noted Wounds: no wounds Neuro: Cranial nerves: Yes Equal, round and reactive pupils present Speech: normal speech Motor exam (neuro): 5/5 motor strength present throughout Sensory Exam: normal sensation Other: A&O x4 Extrem: General: normal to inspection Psych: Mental Status: mental status grossly normal Affect: normal affect Other: Good insight and judgment, pleasant DS: Data Data Completed and Pending Pending studies at discharge: Pending at discharge 10/30/24 09:10 Surgical [PTH] Routine Labs on day of discharge: Labs from last 24 hours 10/30/24 04:57 WBC 11.3 H RBC 4.38 Hgb 13.5 Hct 41.1 MCV 93.8 MCH 30.8 MCHC 32.8 RDW 14.6 H Plt Count 249 MPV 9.1 Immature Gran % (Auto) 0.3 Neut % (Auto) 85.4 H Lymph % (Auto) 6.0 L [place] % (Auto) 8.1 Eos % (Auto) 0.0 Baso % (Auto) 0.2 Lymph # (Auto) 0.68 L [place] # (Auto) 0.9 H Eos # (Auto) 0.0 Baso # (Auto) 0.0 Abs Immat Gran (auto) 0.03 Absolute Neuts (auto) 9.7 H Absolute Nucleated RBC 0.000 Nucleated RBC % 0.0 Sodium 135 L Potassium 4.6 Chloride 100 Carbon Dioxide 26 Anion Gap 9 BUN 25 H Creatinine 1.13 H Estim Creat Clear Calc 52 Estimated GFR 48 L Glucose 132 H Calcium 9.3 Imaging Radiologist's impression: EXAMINATION: CT abdomen pelvis wo con DATE: 10/29/2024 12:09 INDICATION: Left flank pain TECHNIQUE: Computed tomography (CT) of the abdomen and pelvis was performed without intravenous contrast. The dose-length product was 400.54 mGy-cm. Automated exposure control and iterative reconstruction technique were employed. COMPARISON: CT dated 11/21/2011. FINDINGS: There is dependent atelectasis. Cardiomegaly. No significant pleural or pericardial effusion. There are multiple distal left ureteral stones with moderate hydronephrosis. There are bilateral renal stones. The liver, spleen, pancreas, adrenal glands are unremarkable. Gallbladder is present. No significant vascular abnormality. No lymphadenopathy. Nonobstructive bowel gas pattern. Moderate-severe lumbar spondylosis. IMPRESSION: 1. Multiple obstructing distal left ureteral stones and and above the UVJ with moderate hydronephrosis. There is perinephric and periureteral edema. 2: Bilateral nephrolithiasis. Discharge Plan Discharge Attending physician on discharge: Dionicio Espitia Consulting providers: Giana Prabhakar; Fernando Keane; Lise Bergeron; Paulino Moody; Tae Joel; Chance Spence; Isaac Kay Discharging Clinician: Fernando Keane Anticipated Discharge Date/Time: 10/30/24 11:16 Patient Disposition: Home Activity: other - see discharge instructions Diet: other - see discharge instructions Wound Care Instructions: other - see discharge instructions Discharge Instructions: 1) Activity: no driving or important decisions x24 hours. 2) Diet: resume your normal, pre-admission diet. 3) Follow-up: 7-14 days for stent removal / call for appointment ([phone]). Patient Instructions: Antibiotic Form Patient Language: Georgian Stand Alone Forms: General Discharge Information Follow-up/Referrals: Fernando Keane MD [Physician] - Discharge Medications: New hydrocodone-acetaminophen 5-325 mg tablet 1 - 2 tablet PO Q6H PRN (Reason: pain) Qty: 20 0RF cephalexin 500 mg capsule 500 mg PO Q8H Qty: 9 0RF Continued spironolactone 25 mg tablet 100 mg PO DAILY ascorbic acid (vitamin C) [C-1000] 1,000 mg tablet 1 g PO DAILY vitamin B complex [Vitamins B Complex] Capsule 1 cap PO DAILY Date of admission: 10/29/24 13:56 Primary Care Provider: BettyAnibal Admitting Provider: Dionicio Espitia Attending physician on admission: iDonicio Espitia Condition: Stable Quality VTE Prophylaxis VTE prophylaxis: mechanical ordered Hospitalist MIPS Heart Failure (Exclusion) Patient has history of Heart Transplant or Left Ventricular Assistive Device?: No IF YES, STOP HERE Heart Failure (Qualifier) Patient has current or prior documentation of LVEF less than or equal to 40%, or mod/servere depressed LVSF?: No IF NO, STOP HERE
== END 2024-10-30 13:25 | disposition home or self-care (01) ==
LOC: ANHED 13:56 → ANH3MED 14:57
PROVIDERS: Student in an Organized Health Care Education/Training Program; Urology; Admitting Provider Internal Medicine; Emergency Provider Emergency Medicine; PCP Hospitalist; Visit Provider Internal Medicine
PROC: (CPT 52352; principal; 2024-10-30 08:30)
DX: N20.2 Calculus of kidney with calculus of ureter (principal); I10 Essential (primary) hypertension; G47.33 Obstructive sleep apnea (adult) (pediatric); Z99.89 Dependence on other enabling machines and devices
CPT/HCPCS: 52356; 36415; 74018; 74176; 74420; 80048; 80053; 81001; 82365; 85025; 85610; 85730; 88300; 96361; 96374; 96375; 96376; 99285; J0690; A9270; C1769; C2617; G0378; J1100; J1171; J1885; J2003; J2250; J2405; J2704; J2765; J3010; J7120; Q9966

== ENCOUNTER 2024-11-11 14:16 | Outpatient (CLI) | payer MEDICARE, SELFPAY ==
--- NOTE | ~2024-11-11 | XR_ITS ---
XR abdomen/kub 1V 11/11/2024 14:46 Indication: Renal stone Procedure: KUB Comparison: Comparison to multiple prior studies sequentially, with oldest reviewed study dated 09/23. Findings: Bowel gas pattern nonobstructive. There is a left internal ureteral stent in expected posit ion. There are bilateral renal stones. There are probable distal left ureteral stones. Impression: 1: Interval placement of left internal ureteral stent. 2: Bilateral renal and probable distal left ureteral stones. Consider correlation with CT. Reviewed, dictated and finalized at location A. Impression: 1: Interval placement of left internal ureteral stent. 2: Bilateral renal and probable distal left ureteral stones. Consider correlati on with CT.
--- OUTSIDE RECORDS SUMMARY | 2024-11-11 14:20 | XMS_ITS | Clinical Summary ---
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
--- OUTSIDE RECORDS SUMMARY | 2024-11-11 14:20 | XMS_ITS | Clinical Summary ---
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 Gender Identity Not on file Sexual [...] Health Maintenance Due Date Last Done Comments Hepatitis C Virus (HCV) Screening 1955 TdaP Immunization 1955 Cologuard 01/03/2000 Colonoscopy 01/03/2000 Colorectal Cancer Screening 01/03/2000 Immunochemical Fecal Occult Blood 01/03/2000 Pneumococcal Immunization (5 0+ years) (1 of 1 - PCV) 2005 Zoster Immunization (1 of 2) 2005 SARS-COV-2 Immunization (1 - 2023- season) 2023 Influenza Immunization (#1) 2024 Respiratory Syncytial Virus (RSV) Immunization (Adult) (1 - 1-dose 75+ series) 2030 Hepatitis B Immunization Aged Out No longer eligible based on patient's age to complete this topic Human Papillomavirus (HPV) Immunization Aged Out No longer eligible b ased on patient's age to complete this topic Meningococcal Immunization (ACWY) Aged Out No longer eligible based on patient's age to complete this topic Rotavirus Immunization Aged Out No lo nger eligible based on patient's age to complete this topic Insurance [facility] Care Teams Wet Silk Hanger Relationship Specialty Start Date End Date Patti Aiken MD [address] [place] [address] PCP - General Family Medicine 04/14/17
--- OUTSIDE RECORDS SUMMARY | 2024-11-11 14:20 | XMS_ITS | Clinical Summary ---
Author Organization [facility] Address [address] [place] [address] Care Team Providers Care Knockup Worker Name Role Phone None, Provider Primary Care [...] this topic Insurance MEDICARE AET Care Teams Knockup Worker Relationship Specialty Start Date End Date None, Provider, PCP - General UNKNOWN PHYSICIAN SPECIALTY 06/21/24
--- OUTSIDE RECORDS SUMMARY | 2024-11-11 14:20 | XMS_ITS | Clinical Summary ---
Author Organization [facility] Address [address] [place] [address] Care Team Providers Care Credit Balance Specialist Name Role Phone Shanda Mead BRIAN Primary Care Provider [phone] Allergies Active Allergy Reactions Criticality Noted Date [...] 02/24 Assessment & Plan (02/25/2024 10:16 AM SKIVER OPERATOR): In regard to health maintenance, Colonoscopy- [...] healthier, we can set up appointment with paleobotanist/director of counseling. Have an active lifestyle, strive for 30 [...] 02/24 Assessment & Plan (02/25/2024 10:17 AM SKIVER OPERATOR): Lipid panel ordered. Will continue to monitor. Acquired hypothyroidism 02/18/2023 Assessment & Plan (08/30/2024 3:31 PM CDT): Subclinical; continue to monitor; patient reports no symptoms associated with thyroid low Assessment & Plan (08/09/2024 3:06 PM CDT): Stable, well controlled, last TSH at goal; on supplements; continue to monitor Assessment & Plan (06/07/2024 3:29 PM SKIVER OPERATOR): Last TSH at goal, taking natural supplements Will continue to monitor closely Assessment & Plan (02/25/2024 10:15 AM SKIVER OPERATOR): Will recheck TSH and T4. Will continue to take OTC thyroid medication and seeing paleobotanist. Class 3 severe obesity due t o [...] surgery Assessment & Plan (06/07/2024 3:29 PM SKIVER OPERATOR): Not well controlled, has been having [...] week. Assessment & Plan (02/25/2024 10:15 AM SKIVER OPERATOR): Encouraged heart healthy diet and lifestyle. [...] b.i.d. Assessment & Plan (06/07/2024 3:29 PM SKIVER OPERATOR): Stable, well controlled, blood pressure mildly elevated today, some peripheral edema with limited relief Will start furosemide 20 mg b.i.d., continue lisinopril 40 mg, discontinue hydrochlorothiazide Assessment & Plan (02/25/2024 10:14 AM SKIVER OPERATOR): Blood pressure not well controlled. Will [...] weeks Assessment & Plan (02/18/2023 10:15 AM SKIVER OPERATOR): Stable, currently well-controlled BP at visit 120/84 Continue lisinopril 40 mg daily Resolved Problems Problem Noted Date Diagnosed Date Resolved Date Ascending aortic aneurysm 07/26/2014 Assessment & Plan (02/25/2024 10:25 AM SKIVER OPERATOR): Continues with routine monitoring. Will continue to follow. Assessment & Plan (02/18/2023 11:51 AM SKIVER OPERATOR): Gets regular monitoring Patient will call back with location she would like to get next US done at Encounters Date Type Department Care Team Description 10/30/2024 Orders Only [facility] Information Management [address] [place] [address] Scanning, Provider 10/29/2024 Orders Only [facility] Information Management [address] [place] [address] Scanning, Provider 10/26/2024 Orders Only [facility] Information Management [address] [place] [address] Scanning, Provider 10/07/2024 10:00 AM CDT Office Visit [facility] [address] [place] [address] [address] [place] [phone] August Pickett MD Severe Obstructive sleep apnea (Primary Dx); Hypersomnia with sleep apnea; Morbid obesity with BMI of 40.0-44.9, adult ([facility]) 10/07/2024 Telephone [facility] [address] [place] [address] [address] [place] [phone] August Pickett MD 09/23/2024 Orders Only [facility] Information Management [address] [place] [address] Scanning, Provider 09/15/2024 9:00 AM CDT Office [facility] [address] [phone] Anibal Avendano MD Peripheral edema (Primary Dx); Primary hypertension; Class 3 severe obesity due to excess calories with serious comorbidity and body mass index (BMI) of 40.0 to 44.9 in adult; SHANIQUE (obstructive sleep apnea) 08/19/2024 Results Follow-Up [facility] [place] [id number] Anibal Avendano MD Hepatitis C antibody Blood, Hepatitis B surface antibody (immune status) Blood, Hepatitis B Surface Antigen Blood, Additional followed-up results: 6 08/18/2024 10:00 AM CDT Lab [facility] [address] [place] [phone] Encounter for hepatitis C screening test for low risk patient; Need for hepatitis B screening test; Acquired hypothyroidism; Primary hypertension 08/18/2024 9:15 AM CDT Office Visit [facility] [address] [phone] Anibal Avendano MD Peripheral edema (Primary Dx); Need for hepatitis B screening test; Encounter for hepatitis C screening test for low risk patient; Primary hypertension; Acquired hypothyroidism; Class 3 severe obesity due to excess calories with serious comorbidity and body mass index (BMI) of 40.0 to 44.9 in adult; Umbilical hernia without obstruction and without gangrene from Last 3 Months Immunizations Immunization Administration [...] Tobacco: Never Tobacco Cessation:Counseling Given: Not Answered [facility] Utilities Answer Date Recorded In the past 12 months has th e [employer], gas, oil, or water company threatened to [...] week 02/18/2023 How often do you attend [facility] or jew services? Never 02/18/2023 Do you belong to any clubs o r organizations such as jewish groups, unions, fraternal or athletic groups, or [...] should administer the PHQ-9) 0 02/25/2024 [facility] - [...] on file Legal Sex Female 2:32 AM SKIVER OPERATOR Gender Identity Not on file Sexual [...] Date/Time Associated Diagnosis Comments SCAN - RADIOLOGY/IMAGING 10/30/2024 SCAN - RADIOLOGY/IMAGING 10/29/2024 SCAN - RADIOLOGY/IMAGING 10/26/2024 SCAN - RADIOLOGY/IMAGING 09/23/2024 EGFR Routine 08/18/2024 [...] 3 Months Results * SCAN - RADIOLOGY/IMAGING (10/30/2024) Anatomical Region Laterality Modality Other us Provider Scanning Final Result * SCAN - RADIOLOGY/IMAGING (10/29/2024) Anatomical Region Laterality Modality Other us Provider Scanning Edited Result - Final * SCAN - RADIOLOGY/IMAGING (10/26/2024) Anatomical Region Laterality Modality Other us Provider Scanning Final Result * SCAN - RADIOLOGY/IMAGING (09/23/2024) Anatomical Region [...] was last reviewed 2021. Testing performed by: [address] [address] Blood 08/18/2024 9:59 AM CDT 08/18/2024 3:51 PM CDT Anibal Avendano MD LAB BLOOD ORDERABLES Carolyn l Result [facility] ([facility]) 1 [facility] [place] [address] * Differential, auto (08/18/2024 9:59 AM CDT) Neutrophil abs 2.86 1.50 - 6.50 K/cumm Comment:Testing performed by : [address] [address] Imm gran abs 0.03 0.00 - 0.10 K/cumm [facility] ([facility]) Comment:Testing performed by : [address], [address] Lymphocyte abs 1.07 0.80 - 3.30 K/cumm [facility] ([place]) Comment:Testing performed by : [facility], [address] [place] [address]., [address] Monocyte abs 0.45 0.20 - 0.80 K/cumm [facility] ([place]) Comment:Testing performed by : [facility], [address] [place] [address]., [address] Eosinophil abs 0.09 0.00 - 0.50 K/cumm [facility] ([place]) Comment:Testing performed by : [facility], [address] [place] [address]., [address] Basophil abs 0.04 0.00 - 0.10 K/cumm [facility] ([place]) Comment:Testing performed by : [address] [address] Neutrophil pct 62.9 % [facility] ([place]) Comment: Interpretive Data Percent cell count reference ranges are not reported, since discordance with absolute values may lead to misinterpretation of CBC data. Current Interpretive Data was last revised on 2017. Testing performed by: [facility], [address] [place] [address]., [address] Imm gran pct 0.7 % [facility] ([place]) Comment: Interpretive Data Percent cell count reference ranges are not reported, since discordance with absolute values may lead to misinterpretation of CBC data. Current Interpretive Data was last revised on 2017. Testing performed by: [address] [address] Lymphocyte pct 23.6 % [facility] ([place]) Comment: Interpretive Data Percent cell count reference ranges are not reported, since discordance with absolute values may lead to misinterpretation of CBC data. Current Interpretive Data was last revised on 2017. Testing performed by: [address] [address] Monocyte pct 9.9 % [facility] ([place]) Comment: Interpretive Data Percent cell count reference ranges are not reported, since discordance with absolute values may lead to misinterpretation of CBC data. Current Interpretive Data was last revised on 2017. Testing performed by: [facility], [address], [place]., [address] Eosinophil pct 2.0 % [facility] ([place]) Comment: Interpretive Data Percent cell count reference ranges are not reported, since discordance with absolute values may lead to misinterpretation of CBC data. Current Interpretive Data was last revised on 2017. Testing performed by: [facility], [address] [place] [address]., [address] Basophil pct 0.9 % [facility] ([place]) Comment: Interpretive Data Percent cell count reference ranges are not reported, since discordance with absolute values may lead to misinterpretation of CBC data. Current Interpretive Data was last revised on 2017. Testing performed by: [facility], [address] [place] [address]., [address] Blood 08/18/2024 9:59 AM CDT 08/18/2024 3:51 PM CDT Anibal Avendano MD LAB BLOOD ORDERABLES Carolyn l Result Performing Organization Address City/Va Hospital/ZIP Co de Phone Number [facility] ([facility]) 1 [facility] [place] [address] * Thyroid Function Snow (08/18/2024 9:59 AM CDT) TSH 2.55 0.30 - 4.20 mcIUnit/mL Comment:Testing performed by : [facility], [address] [place] [address]., [address] Blood 08/18/2024 9:59 AM CDT 08/18/2024 3:51 PM CDT Anibal Avendano MD LAB BLOOD ORDERABLES Carolyn l Result [facility] ([facility]) 1 [facility] [place] [address] * (ABNORMAL) CBC with auto differential (08/18/2024 9:59 AM CDT) WBC 4.54 3.80 - 9.90 K/cumm Comment:Testing performed by : [address] [address] Hgb 12.0 11.9 - 15.5 g/dL [facility] ([place]) Comment:Testing performed by : [address], [address] Hct 38.7 35.6 - 45.5 % [facility] ([place]) Comment:Testing performed by : [address], [address] Plt 255 150 - 400 K/cumm [facility] ([place]) Comment:Testing performed by : [facility], [address] [place] [address], [address] MPV 10.2 9.1 - 12.3 fL [facility] ([place]) Comment:Testing performed by : [address], [address] RBC 4.02 3.90 - 5.20 M/cumm [facility] ([place]) Comment:Testing performed by : [address], [address] MCV 96.3 81.3 - 96.4 fL [facility] ([place]) Comment:Testing performed by : [address], [address] MCH 29.9 27.1 - 33.3 pg [facility] ([place]) Comment:Testing performed by : [address], [address] MCHC 31.0(L) 32.3 - 35.7 g/dL [facility] ([place]) Comment:Testing performed by : [address], [address] RDW CV 15.0(H) 11.1 - 14.9 % [facility] ([place]) Comment:Testing performed by : [address], [address] RDW SD 53.1(H) 35.7 - 48.1 fL [facility] ([place]) Comment:Testing performed by : [address], [address] NRBC abs 0.00 0.00 - 0.01 K/cumm [facility] ([place]) Comment:Testing performed by : [address], [address] Blood 08/18/2024 9:59 AM CDT 08/18/2024 3:51 PM CDT Anibal Avendano MD LAB BLOOD ORDERABLES Carolyn l Result [facility] ([facility]) [address] [place] [address] * Hepatitis C antibody Blood (08/18/2024 9:59 [...] last revised on 2019. Testing performed by: [facility], [address] [place] [address]., [address] Blood 08/18/2024 9:59 AM CDT 08/18/2024 3:52 PM CDT Anibal Avendano MD LAB MICROBIOLOGY - GENERA L ORDERABLES Final Result [facility] ([facility]) 1 [facility] [place] [address] * Hepatitis B core antibody, total Blood (08/18/2024 9:59 AM CDT) Hep B core IgG/IgM Nonreactive Nonreactive Comment:Testing performed by : [facility], [address] [place] [address], [place]., [address] Blood 08/18/2024 9:59 AM CDT 08/19/2024 9:49 AM CDT Anibal Avendano MD LAB MICROBIOLOGY - GENERA L ORDERABLES Final Result Performing Organization Address City/Va Hospital/ZIP Co de Phone Number [facility] ([place]) 1 [facility] [place] [address] * Hepatitis B surface antibody (immune status) [...] last revised on 19. Testing performed by: [address], [address] Blood 08/18/2024 9:59 AM CDT 08/18/2024 3:52 PM CDT Anibal Avendano MD LAB MICROBIOLOGY - GENERA L ORDERABLES Final Result Performing Organization Address [facility] Co de Phone Number [facility] ([facility]) [address] [place] [address] * Hepatitis B Surface Antigen Blood (08/18/2024 9:59 AM CDT) HepBsAg Nonreactive Nonreactive Comment:Testing performed by : [facility], [address] [place] [address]., [address] Blood 08/18/2024 9:59 AM CDT 08/18/2024 3:52 PM CDT Anibal Avendano MD LAB MICROBIOLOGY - GENERA L ORDERABLES Final Result [facility] ([place]) 1 [facility] [place] [address] * (ABNORMAL) Lipid panel (08/18/2024 9:59 AM [...] last revised on 2017. Testing performed by: [facility], [address] [place] [address]., [address] Triglycerides 154(H) <=149 mg/dL [facility] ([place]) [...] last revised on 2017. Testing performed by: [facility], [address] [place] [address]., [address] HDL 47 >=40 mg/dL [facility] ([place]) [...] last revised on 2017. Testing performed by: [facility], [address] [place] [address]., [address] LDL, calculated 184(H) <=129 mg/dL [facility] [...] last revised on 2023. Testing performed by: [address] [address] Non-HDL Cholesterol 212 mg/dL [facility] ([place]) [...] revised on 2017. Testing performed by: [address] [address] Chol/HDL ratio 6 [facility] ([place]) Comment:Testing performed by : [address] [address] Blood 08/18/2024 9:5 9 AM CDT 08/18/2024 3:51 PM CDT us Anibal Avendano MD LAB BLOOD ORDERABLES Carolyn cabezas Result [facility] ([place]) 1 [facility] [place] [address] * Comprehensive metabolic panel (08/18/2024 9:59 AM CDT) Sodium 141 135 - 145 mmol/L Comment:Testing performed by : [address] [address] Potassium, pl 3.9 3.3 - 4.9 mmol/L [facility] ([place]) Comment:Testing performed by : [address] [address] Chloride 105 97 - 110 mmol/L [facility] ([place]) Comment:Testing performed by : [address], [address] CO2 27 22 - 32 mmol/L [facility] ([place]) Comment:Testing performed by : [address], [address] Anion gap 9 2 - 15 mmol/L [facility] ([place]) Comment:Testing performed by : [address] [address] BUN 15 6 - 25 mg/dL [facility] ([place]) Comment:Testing performed by : [address] [address] Creatinine 0.61 0.60 - 1.10 mg/dL [facility] ([place]) Comment:Testing performed by : [address], [address] Glucose 94 70 - 199 mg/dL [facility] Comment: Interpretive Data Fasting glucose [...] was last revised 2022. Testing performed by: [facility], [address] [place] [address]., [address] Calcium 9.2 8.5 - 10.3 mg/dL [facility] ([place]) Comment:Testing performed by : [facility], [address] [place] [address], [address] Bilirubin, total 0.5 0.1 - 1.2 mg/dL [facility] ([place]) Comment:Testing performed by : [address], [address] Protein, pl 6.9 6.5 - 8.5 g/dL [facility] ([place]) Comment:Testing performed by : [facility], [address] [place] [address], [address] Albumin 4.0 3.5 - 5.0 g/dL [facility] ([place]) Comment:Testing performed by : [facility], [address] [place] [address], [address] Alk phos 56 40 - 130 Units/L [facility] ([place]) Comment:Testing performed by : [facility], [address] [place] [address], [address] ALT 34 7 - 45 Units/L [facility] ([place]) Comment:Testing performed by : [facility], [address] [place] [address], [address] AST 30 10 - 45 Units/L [facility] ([place]) Comment:Testing performed by : [address], [address] Blood 08/18/2024 9:59 AM CDT 08/18/2024 3:51 PM CDT us Anibal Avendano MD LAB BLOOD ORDERABLES Carolyn cabezas Result [facility] ([place]) 1 [facility] [place] [address] from Last 3 Months Insurance MEDICARE [place] CHO[place] MEDICARE AET[employer] SENIOR SUPPLEMENT Care Teams Credit Balance Specialist Relationship Specialty Start Date End Date Shanda Mead NP PCP - General Family Medicine 02/18/23
--- OUTSIDE RECORDS SUMMARY | 2024-11-11 14:20 | XMS_ITS | Encounter Summary ---
Author Organization [facility] Address [address] [place] [address] Phone Care Team Providers Care Beauty Director Name Role Phone Patti Aiken MD Primary Care Provider [phone] Shanda Mead NP Primary Care Provider [phone] Encounter Details Date Type Department Care Team (Latest Contact Info) Description 09/08/2018 Orders Only [facility] Scanning, Provider Social History Tobacco Use Types Packs/Day Years Used Date Smoking Tobacco: Never Smokeless Tobacco: Never Comments Unknown Sex and Gender Information Value Date Recorded Sex Assigned at Not on file Legal Sex Female 2:32 AM 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
--- OUTSIDE RECORDS SUMMARY | 2024-11-11 14:20 | XMS_ITS | Clinical Summary ---
Author Organization [facility] Address [address] [place] [address] Care Team Providers Care Package Wrapper Name Role Phone Chito Harrison MD Primary Care Provider [phone] Source Comments [email or web address],non-owned Affiliates and Associated Physician Practices is amultiple site organization consisting of ambulatory clinics and hospital sitesin [place], [place], [place] and [place]. This disclosure is being madepursuant to the Care Everywhere program and may not contain all information available regarding this patient. 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 Gender Identity Not on file Sexual Orientation Not on file Last Filed Vital Signs Vital Sign Reading Time Taken Comments Blood Pressure 140/80 02/27/2020 8:05 AM CIVIL ESTIMATOR Pulse 60 02/27/2020 8:05 AM CIVIL ESTIMATOR Temperature - - Respiratory Rate 12 02/27/2020 8:05 AM CIVIL ESTIMATOR Oxygen Saturation - - Inhaled Oxygen Concentration - - Weight 108.4 kg (239 lb) 02/27/2020 8:05 AM CIVIL ESTIMATOR Height 161.3 cm (5' 3.5) 02/27/2020 8:05 AM CIVIL ESTIMATOR Body Mass Index 41.67 02/27/2020 8:05 AM CIVIL ESTIMATOR Plan of Treatment Health Maintenance Due Date [...] this topic Insurance MEDICARE COMMERCIAL GENERIC MEDICARE MEDICARE AET SELF PAY NO INSURANCE Member Subscriber Plan / Payer (Ef fective for All Dates) Name:ElsyKhanh husain Member ID:Not on file Relation to Subscriber:Not on file Name:KHANH CHIN Ruby Subscriber ID:Not on file (Home) Address: [address] [place] [address] [place] [address] Payer ID:Not on file Group ID:Not on file Type:Self Pay Address: [place], [place] Care Teams Package Wrapper Relationship Specialty Start Date End Date Chito Harrison MD [address] [place] [address] PCP - General 06/26/21
--- OUTSIDE RECORDS SUMMARY | 2024-11-11 14:20 | XMS_ITS | Referral Summary ---
Author Organization [facility] Address [address] [place] [address] Care Team Providers Care Home Service Advisor Name Role Phone Shanda Mead BRIAN Primary Care Provider [phone] Encounters Date Type Department Care Team Description 10/30/2024 Orders Only [facility] [address] [place] [address] Scanning, Provider 10/29/2024 Orders Only [facility] [address] [place] [phone] Scanning, Provider 10/26/2024 Orders Only [facility] Information [facility] [address] [place] [address] Scanning, Provider 10/07/2024 Telephone [facility] [address] [place] [address] [address] [place] [address] August Pickett MD 10/07/2024 10:00 AM CDT Office Visit [facility] [address] [place] [address] [address] [place] [id number] August Pickett MD Severe Obstructive sleep apnea (Primary Dx); Hypersomnia with sleep apnea; Morbid obesity with BMI of 40.0-44.9, adult (HCC) 09/23/2024 Orders Only [facility] Information [facility] [address] [place] [phone] Scanning, Provider 09/15/2024 9:00 AM CDT [facility] Visit [facility] [address] [place] [phone] Anibal Avendano MD Peripheral edema (Primary Dx); Primary hypertension; Class 3 severe obesity due to excess calories with serious comorbidity and body mass index (BMI) of 40.0 to 44.9 in adult; SHANIQUE (obstructive sleep apnea) 08/19/2024 Results Follow-Up [facility] [place] [address] Anibal Avendano MD Hepatitis C antibody Blood, Hepatitis B surface antibody (immune status) Blood, Hepatitis B Surface Antigen Blood, Additional followed-up results: 6 08/18/2024 10:00 AM CDT Lab [facility] [address] [place] [address] Encounter for hepatitis C screening test for low risk patient; Need for hepatitis B screening test; Acquired hypothyroidism; Primary hypertension 08/18/2024 9:15 AM CDT Office Visit [facility] [address] [phone] Anibal Avendano MD Peripheral edema (Primary Dx); Need for hepatitis B screening test; Encounter for hepatitis C screening test for low risk patient; Primary hypertension; Acquired hypothyroidism; Class 3 severe obesity due to excess calories with serious comorbidity and body mass index (BMI) of 40.0 to 44.9 in adult; Umbilical hernia without obstruction and without gangrene from Last 3 Months Allergies Active Allergy [...] loss, (Zepbound) 2.5 mg/0.5 mL pen injectorIndicati ons:SAHNIQUE (obstructive sleep apnea) Inject 0.5 mL (2.5 [...] 02/24 Assessment & Plan (02/25/2024 10:16 AM SUPERVISOR [employer]ARM): In regard to health maintenance, Colonoscopy- Declined [...] healthier, we can set up appointment with health care liaison/service delivery manager. Have an active lifestyle, strive for [...] 02/24 Assessment & Plan (02/25/2024 10:17 AM SUPERVIS[employer]): Lipid panel ordered. Will continue to monitor. Acquired hypothyroidism 02/18/2023 Assessment & Plan (08/30/2024 3:31 PM CDT): Subclinical; continue to monitor; patient reports no symptoms associated with thyroid low Assessment & Plan (08/09/2024 3:06 PM CDT): Stable, well controlled, last TSH at goal; on supplements; continue to monitor Assessment & Plan (06/07/2024 3:29 PM [employer]): Last TSH at goal, taking natural supplements Will continue to monitor closely Assessment & Plan (02/25/2024 10:15 AM SUPERVISOR [employer]): Will recheck TSH and T4. Will continue to take OTC thyroid medication and seeing health care liaison. Class 3 severe obesity due t o [...] surgery Assessment & Plan (06/07/2024 3:29 PM [employer]): Not well controlled, has been having weight [...] week. Assessment & Plan (02/25/2024 10:15 AM SUPERVIS[employer]): Encouraged heart healthy diet and lifestyle. Advised [...] b.i.d. Assessment & Plan (06/07/2024 3:29 PM SUPER[employer]): Stable, well controlled, blood pressure mildly elevated today, some peripheral edema with limited relief Will start furosemide 20 mg b.i.d., continue lisinopril 40 mg, discontinue hydrochlorothiazide Assessment & Plan (02/25/2024 10:14 AM SUPER[employer]): Blood pressure not well controlled. Will increase [...] weeks Assessment & Plan (02/18/2023 10:15 AM SUPERVIS[employer]): Stable, currently well-controlled BP at visit 120/84 Continue lisinopril 40 mg daily Resolved Problems Problem Noted Date Diagnosed Date Resolved Date Ascending aortic aneurysm 07/26/2014 Assessment & Plan (02/25/2024 10:25 AM SUPER[employer]): Continues with routine monitoring. Will continue to follow. Assessment & Plan (02/18/2023 11:51 AM SUPER[employer]): Gets regular monitoring Patient will call back with location she would like to get next US done at Immunizations Immunization Administration Dates Next Due Influenza, Unspecified 02/25/2024(Deferr ed: Patient Refused),01/08/2024(Deferred: Patient Refused),01/11/2023(Deferred: Patient Refused),01/11/2023(Deferred: Patient Refused),12/12/2022(Deferred: Patient Refused),01/11/2022(Deferred: Patient Refused) Social History Tobacco Use Types Packs/Day Years Used Date Smoking Tobacco: Never Smokeless Tobacco: Never Tobacco Cessation:Counseling Given: Not Answered [facility] Utilities Answer Date Recorded In the past 12 months has [employer], oil, or water [employer] threatened to shut off services in your [...] How often do you attend chur or restoration services? Never 02/18/2023 Do you belong to any clubs o r organizations such as moravian groups, unions, fraternal or athletic groups, or [...] staff should administer the PHQ-9) 0 02/25/2024 [facility] [place] of Occupat ional Health - Occupational Stress [...] place to sleep or slept in a retirement (including now)? No 02/18/2023 Comments Unknown Sex and Gender Information Value Date Recorded Sex Assigned at Not on file Legal Sex Female 2:32 AM SUPER[employer] Gender Identity Not on file Sexual Orientation [...] was last reviewed 2021. Testing performed by: [facility], [address] [place] [address], [place]., [address] Blood 08/18/2024 9:59 AM CDT 08/18/2024 3:51 PM CDT us Anibal Avendano MD LAB BLOOD ORDERABLES Carolyn cabezas Result [facility] [place]) 1 [facility] Department of Laboratories [place] [id number] * Differential, auto (08/18/2024 9:59 AM CDT) Neutrophil abs 2.86 1.50 - 6.50 K/cumm Comment:Testing performed by : [facility], [address] [place] [address]., [address] Imm gran abs 0.03 0.00 - 0.10 K/cumm [facility] ([place]) Comment:Testing performed by : [facility], [address] [place] [address]., [address] Lymphocyte abs 1.07 0.80 - 3.30 K/cumm [facility] ([place]) Comment:Testing performed by : [facility], [address] [place] [address]., [address] Monocyte abs 0.45 0.20 - 0.80 K/cumm [facility] ([place]) Comment:Testing performed by : [address] [address] Eosinophil abs 0.09 0.00 - 0.50 K/cumm [facility] ([place]) Comment:Testing performed by : [facility], [address] [place] [address]., [address] Basophil abs 0.04 0.00 - 0.10 K/cumm [facility] ([place]) Comment:Testing performed by : [facility], [address] [place] [address]., [address] Neutrophil pct 62.9 % [facility] ([place]) Comment: Interpretive Data Percent cell count reference ranges are not reported, since discordance with absolute values may lead to misinterpretation of CBC data. Current Interpretive Data was last revised on 2017. Testing performed by: [facility], [address] [place] [address]., [address] Imm gran pct 0.7 % [facility] ([place]) Comment: Interpretive Data Percent cell count reference ranges are not reported, since discordance with absolute values may lead to misinterpretation of CBC data. Current Interpretive Data was last revised on 2017. Testing performed by: [facility], [address] [place] [address]., [address] Lymphocyte pct 23.6 % [facility] ([place]) Comment: Interpretive Data Percent cell count reference ranges are not reported, since discordance with absolute values may lead to misinterpretation of CBC data. Current Interpretive Data was last revised on 2017. Testing performed by: [facility], [address] [place] [address]., [address] Monocyte pct 9.9 % [facility] ([place]) Comment: Interpretive Data Percent cell count reference ranges are not reported, since discordance with absolute values may lead to misinterpretation of CBC data. Current Interpretive Data was last revised on 2017. Testing performed by: [facility], [address] [place] [address]., [address] Eosinophil pct 2.0 % [facility] ([place]) Comment: Interpretive Data Percent cell count reference ranges are not reported, since discordance with absolute values may lead to misinterpretation of CBC data. Current Interpretive Data was last revised on 2017. Testing performed by: [facility], [address] [place] [address], [address] Basophil pct 0.9 % [facility] ([place]) Comment: Interpretive Data Percent cell count reference ranges are not reported, since discordance with absolute values may lead to misinterpretation of CBC data. Current Interpretive Data was last revised on 2017. Testing performed by: [address], [address] Blood 08/18/2024 9:59 AM CDT 08/18/2024 3:51 PM CDT us Anibal Avendano MD LAB BLOOD ORDERABLES Carolyn l Result [facility] ([place]) 1 [facility] Department [place] [address] * Thyroid Function [place] (08/18/2024 9:59 AM CDT) TSH 2.55 0.30 - 4.20 mcIUnit/mL Comment:Testing performed by : [address] [address] Blood 08/18/2024 9:59 AM CDT 08/18/2024 3:51 PM CDT us Anibal Avendano MD LAB BLOOD ORDERABLES Carolyn raulito Result [facility] ([place]) 1 [facility] Department [place] [address] * (ABNORMAL) CBC with auto differential (08/18/2024 9:59 AM CDT) WBC 4.54 3.80 - 9.90 K/cumm Comment:Testing performed by : [facility], [address] [place] [address], [address] Hgb 12.0 11.9 - 15.5 g/dL [facility] ([place]) Comment:Testing performed by : [address], [address] Hct 38.7 35.6 - 45.5 % [facility] ([place]) Comment:Testing performed by : [address], [address] Plt 255 150 - 400 K/cumm [facility] ([place]) Comment:Testing performed by : [address], [address] MPV 10.2 9.1 - 12.3 fL [facility] ([place]) Comment:Testing performed by : [address], [address] RBC 4.02 3.90 - 5.20 M/cumm [facility] ([place]) Comment:Testing performed by : [address], [address] MCV 96.3 81.3 - 96.4 fL [facility] ([place]) Comment:Testing performed by : [address], [address] MCH 29.9 27.1 - 33.3 pg [facility] ([place]) Comment:Testing performed by : [address], [address] MCHC 31.0(L) 32.3 - 35.7 g/dL [facility] ([place]) Comment:Testing performed by : [address], [address] RDW CV 15.0(H) 11.1 - 14.9 % [facility] ([place]) Comment:Testing performed by : [facility], [address] [place] [address]., [address] RDW SD 53.1(H) 35.7 - 48.1 fL [facility] ([place]) Comment:Testing performed by : [facility], [address] [place] [address], [address] NRBC abs 0.00 0.00 - 0.01 K/cumm [facility] ([place]) Comment:Testing performed by : [facility], [address] [place] [address], [address] Blood 08/18/2024 9:59 AM CDT 08/18/2024 3:51 PM CDT Anibal Avendano MD LAB BLOOD ORDERABLES Carolyn l Result Performing Organization Address City/[facility] Co de Phone Number [facility] ([place]) 1 [facility] [place] [address] * Hepatitis C antibody Blood (08/18/2024 9:59 [...] last revised on 2019. Testing performed by: [facility], [address] [place] [address], [address] Blood 08/18/2024 9:59 AM CDT 08/18/2024 3:52 PM CDT Anibal Avendano MD LAB MICROBIOLOGY - GENERA L ORDERABLES Final Result Performing Organization Address City/[facility]/ZIP Co de Phone Number [facility] ([place]) 1 [facility] [place] [address] * Hepatitis B core antibody, total Blood (08/18/2024 9:59 AM CDT) Hep B core IgG/IgM Nonreactive Nonreactive Comment:Testing performed by : [facility], [address] [place]., [address] Blood 08/18/2024 9:59 AM CDT 08/19/2024 9:49 AM CDT Anibal Avendano MD LAB MICROBIOLOGY - GENERA L ORDERABLES Final Result [facility] ([place]) 1 [facility] [place] [address] * Hepatitis B surface antibody (immune status) [...] last revised on 19. Testing performed by: [address] [address] Blood 08/18/2024 9:59 AM CDT 08/18/2024 3:52 PM CDT Anibal Avendano MD LAB MICROBIOLOGY - GENERA L ORDERABLES Final Result [facility] ([place]) 1 [facility] [place] [address] * Hepatitis B Surface Antigen Blood (08/18/2024 9:59 AM CDT) HepBsAg Nonreactive Nonreactive Comment:Testing performed by : [address] [place]., [address] Blood 08/18/2024 9:59 AM CDT 08/18/2024 3:52 PM CDT Anibal Avendano MD LAB MICROBIOLOGY - GENERA L ORDERABLES Final Result [facility] ([place]) 1 [facility] Department [place] [address] * (ABNORMAL) Lipid panel (08/18/2024 9:59 AM [...] last revised on 2017. Testing performed by: [facility], [address] [place] [address]., [address] Triglycerides 154(H) <=149 mg/dL [facility] ([place]) [...] last revised on 2017. Testing performed by: [address] [place] [address] HDL 47 >=40 mg/dL [facility] ([place]) [...] last revised on 2017. Testing performed by: [facility], [address] [place] [address]., [address] LDL, calculated 184(H) <=129 mg/dL [facility] [...] 3. Edgar Husain et al. JUNIOR Cardiol. 2019August 11;5(5):540-548. doi: 10.1001/[email or web address] Current Interpretive Data was last revised on 2023. Testing performed by: [facility], [id number] [place] [address]., [address] Non-HDL Cholesterol 212 mg/dL [facility] ([place]) [...] last revised on 2017. Testing performed by: [facility], [address] [place] [address]., [address] Chol/HDL ratio 6 [facility] ([place]) Comment:Testing performed by : [address] [address] Blood 08/18/2024 9:59 AM CDT 08/18/2024 3:51 PM CDT us Anibal Avendano MD LAB BLOOD ORDERABLES Carolyn cabezas Result [facility] ([place]) 1 [facility] Department [place] [address] * Comprehensive metabolic panel (08/18/2024 9:59 AM CDT) Sodium 141 135 - 145 mmol/L Comment:Testing performed by : [facility], [address] [place] [address]., [address] Potassium, pl 3.9 3.3 - 4.9 mmol/L [facility] ([place]) Comment:Testing performed by : [facility], [address] [place] [address]., [address] Chloride 105 97 - 110 mmol/L [facility] ([place]) Comment:Testing performed by : [address] [address] CO2 27 22 - 32 mmol/L [facility] ([place]) Comment:Testing performed by : [address], [address] Anion gap 9 2 - 15 mmol/L [facility] ([place]) Comment:Testing performed by : [address], [address] BUN 15 6 - 25 mg/dL [facility] ([place]) Comment:Testing performed by : [address], [address] Creatinine 0.61 0.60 - 1.10 mg/dL [facility] ([place]) Comment:Testing performed by : [address] [address] Glucose 94 70 - 199 mg/dL C[facility] [...] was last revised 2022. Testing performed by: [address] [address] Calcium 9.2 8.5 - 10.3 mg/dL [facility] ([place]) Comment:Testing performed by : [address], [address] Bilirubin, total 0.5 0.1 - 1.2 mg/dL [facility] ([place]) Comment:Testing performed by : [address], [address] Protein, pl 6.9 6.5 - 8.5 g/dL [facility] ([place]) Comment:Testing performed by : [address], [address] Albumin 4.0 3.5 - 5.0 g/dL [facility] ([place]) Comment:Testing performed by : [address], [address] Alk phos 56 40 - 130 Units/L [facility] ([place]) Comment:Testing performed by : [address], [address] ALT 34 7 - 45 Units/L [facility] ([place]) Comment:Testing performed by : [address], [address] AST 30 10 - 45 Units/L [facility] ([place]) Comment:Testing performed by : [address], [address] Blood 08/18/2024 9:59 AM CDT 08/18/2024 3:51 PM CDT us Anibal Avendano MD LAB BLOOD ORDERABLES Carolyn cabezas Result [facility] ([place]) 1 [facility] Department [place] [address] from Last 3 Months Insurance MEDICARE [place] CHO[place] [employer] SENIOR SUPPLEMENT Care Teams Home Service Advisor Relationship Specialty Start Date End Date Shanda Mead NP PCP - General Family Medicine 02/18/23
--- OUTSIDE RECORDS SUMMARY | 2024-11-11 14:20 | XMS_ITS | Encounter Summary ---
Author Organization [facility] Address [address] [place] [address] Phone Care Team Providers Care Plant And Machinery Valuer Name Role Phone Patti Aiken MD Primary Care Provider [phone] Shanda Mead NP Primary Care Provider Encounter Details Date Type Department Care Team (Late st Contact Info) Description 03/21/2019 Telephone [facility] Cardiology [address] [facility] 8th [place] [address] [place] [address] Caleb Garcia MD PhD [address] 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
== END 2024-11-11 14:17 | disposition home or self-care (01) ==
PROVIDERS: PCP Hospitalist; Visit Provider Urology
DX: N20.0 Calculus of kidney (principal); Z96.0 Presence of urogenital implants
CPT/HCPCS: 74018

== ENCOUNTER 2024-11-19 09:40 | Inpatient (IN) | payer MEDICARE, SELFPAY ==
[2024-11-19] VITALS (13 sets, daily range): BP systolic 144–170; BP diastolic 81–93; PULSE 59–76; RESP 12–19; TEMP 36.5–36.7; O2SAT 90–98; BMI 38.2
--- NOTE | ~2024-11-19 | XR_ITS ---
EXAMINATION: XR chest 2V DATE: 11/19/2024 10:20 INDICATION: Chest pain TECHNIQUE: frontal and lateral views of the chest were obtained. COMPARISON: Chest CT dated 08/19/2018 FINDINGS: The lungs are clear with no focal airspace opacities, pulmonary edema, pleural effusion or pneumothor ax. Cardiomegaly. Tortuous thoracic aorta. IMPRESSION: 1. Cardiomegaly. Reviewed, dictated and finalized at location A. IMPRESSION: 1. Cardiomegaly.
--- NOTE | ~2024-11-19 | CT_ITS ---
EXAMINATION: CTA chest PE protocol DATE: 11/19/2024 12:15 INDICATION: Right-sided pleuritic chest pain TECHNIQUE: Computed tomography (CT) pulmonary angiogram of the chest was performed with 100 mL Omnipa que-350 intravenous contrast. Additional 3D reconstructions utilizing coronal maximum intensity proje ction (MIP) were performed. Automated exposure control and iterative reconstruction technique were em ployed. The dose-length product was 594.92 mGy-cm. COMPARISON: Chest CT dated 08/29/2018 FINDINGS: There is mild to moderate motion artifact most prominent in the right mid and bilateral lower lung zo colleen which decreases sensitivity and specificity. There is an apparent intraluminal filling defect in the right lower lobar pulmonary artery suspicious for pulmonary embolism. Additional suspected pulmon sid arterial filling defects in the anterior and posterior segmental pulmonary arteries of the left l ower lobe and in the anterobasilar subsegmental pulmonary artery of the left lower lobe. There is caty e groundglass opacity at the anterobasilar segment of the right lower lobe which could represent pulm onary infarct or pneumonia. Mild linear discoid atelectasis at the bilateral lung bases. No pleural e ffusion. Cardiomegaly. No leftward bowing of the ventricular septum to suggest right heart strain. At herosclerotic coronary artery calcific location. No pericardial effusion. Fusiform ascending thoracic aortic aneurysm measuring up to 5.1 x 4.9 cm which measures up to 4.[address] from 6 years prior. T his tapers to a normal caliber at the distal aortic arch. No dissection. No pathologically enlarged t horacic lymphadenopathy. Diffuse hepatic steatosis. Moderate to severe spondylosis from the lower cer vical through the upper lumbar spine. IMPRESSION: 1. Multiple likely pulmonary emboli in right lower lobar and left upper lobar pulmonary arteries with moderate clot burden. Sensitivity and specificity is however decreased by moderate amount of motion artifact. No evident right heart strain. Dr. Sue discussed these findings with Dr. Clark at 12:38 PM. 2. Discoid atelectasis in the bilateral lower lobes with additional more groundglass opacity at the a nterobasilar segment of the right lower lobe which is more suspicious for pulmonary infarct and with differential including pneumonia. 3. Cardiomegaly. 4. Minimal change in a fusiform ascending thoracic aortic aneurysm measuring up to 5.1 x 4.9 cm. Reviewed, dictated and finalized at location A. IMPRESSION: 1. Multiple likely pulmonary emboli in right lower lobar and left upper lobar p ulmonary arteries with moderate clot burden. Sensitivity and specificity is how ever decreased by moderate amount of motion artifact. No evident right heart st rain. Dr. Sue discussed these findings with Dr. Clark at 12:38 PM. 2. Discoid atelectasis in the bilateral lower lobes with additional more ground glass opacity at the anterobasilar segment of the right lower lobe which is mor e suspicious for pulmonary infarct and with differential including pneumonia. 3. Cardiomegaly. 4. Minimal change in a fusiform ascending thoracic aortic aneurysm measuring up to 5.1 x 4.9 cm.
--- OUTSIDE RECORDS SUMMARY | 2024-11-19 09:43 | XMS_ITS | Encounter Summary ---
Author Organization [facility] Address [address] [place] [address] Phone Care Team Providers Care Editorial Cartoonist Name Role Phone Patti Aiken MD Primary Care Provider [phone] Shanda Mead NP Primary Care Provider [phone] Encounter Details Date Type Department Care Team (Late st Contact Info) Description 03/21/2019 Telephone [facility] Cardiology [address] [facility] 8th [place] [address] [place] [address] Caleb Garcia MD PhD [address] [facility] [address] [place] [address] Social History Tobacco Use Types Packs/Day Years Used Date Smoking Tobacco: Never Smokeless Tobacco: Never Comments Unknown Sex and Gender Information Value Date Recorded Sex Assigned at Not on file 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
--- OUTSIDE RECORDS SUMMARY | 2024-11-19 09:43 | XMS_ITS | Encounter Summary ---
Author Organization [facility] [employer] [facility] Address [address] [place] [address] Phone Care Team Providers Care Systems Admin Name Role Phone Patti Aiken MD Primary Care Provider [phone] Shanda Mead NP Primary Care Provider [phone] Encounter Details Date Type Department Care Team (Latest Contact Info) Description 09/08/2018 Orders Only [facility] Scanning, Provider Social History Tobacco Use Types Packs/Day Years Used Date Smoking Tobacco: Never Smokeless Tobacco: Never Comments Unknown Sex and Gender Information Value Date Recorded Sex Assigned at Not on file 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
--- OUTSIDE RECORDS SUMMARY | 2024-11-19 09:43 | XMS_ITS | Clinical Summary ---
Author Organization [facility] al Address [address] [place] [address] Care Team Providers Care Horse Shoer Name Role Phone Shanda Mead BRIAN Primary Care Provider [phone] Allergies Active Allergy Reactions Criticality Noted Date [...] 02/24 Assessment & Plan (02/25/2024 10:16 AM SOUND TECHNICIAN): In regard to health maintenance, Colonoscopy- Declined [...] healthier, we can set up appointment with bag liner/auto damage adjuster. Have an active lifestyle, strive for 30 [...] 02/24 Assessment & Plan (02/25/2024 10:17 AM SOUND TECHNICIAN): Lipid panel ordered. Will continue to monitor. Acquired hypothyroidism 02/18/2023 Assessment & Plan (08/30/2024 3:31 PM CDT): Subclinical; continue to monitor; patient reports no symptoms associated with thyroid low Assessment & Plan (08/09/2024 3:06 PM CDT): Stable, well controlled, last TSH at goal; on supplements; continue to monitor Assessment & Plan (06/07/2024 3:29 PM SOUND TECHNICIAN): Last TSH at goal, taking natural supplements Will continue to monitor closely Assessment & Plan (02/25/2024 10:15 AM SOUND TECHNICIAN): Will recheck TSH and T4. Will continue to take OTC thyroid medication and seeing bag liner. Class 3 severe obesity due t o [...] surgery Assessment & Plan (06/07/2024 3:29 PM SOUND TECHNICIAN): Not well controlled, has been having weight [...] week. Assessment & Plan (02/25/2024 10:15 AM SOUND TECHNICIAN): Encouraged heart healthy diet and lifestyle. Advised [...] b.i.d. Assessment & Plan (06/07/2024 3:29 PM SOUND TECHNICIAN): Stable, well controlled, blood pressure mildly elevated today, some peripheral edema with limited relief Will start furosemide 20 mg b.i.d., continue lisinopril 40 mg, discontinue hydrochlorothiazide Assessment & Plan (02/25/2024 10:14 AM SOUND TECHNICIAN): Blood pressure not well controlled. Will increase [...] weeks Assessment & Plan (02/18/2023 10:15 AM SOUND TECHNICIAN): Stable, currently well-controlled BP at visit 120/84 Continue lisinopril 40 mg daily Resolved Problems Problem Noted Date Diagnosed Date Resolved Date Ascending aortic aneurysm 07/26/2014 Assessment & Plan (02/25/2024 10:25 AM SOUND TECHNICIAN): Continues with routine monitoring. Will continue to follow. Assessment & Plan (02/18/2023 11:51 AM SOUND TECHNICIAN): Gets regular monitoring Patient will call back with location she would like to get next US done at Encounters Date Type Department Care Team Description 11/11/2024 Orders Only [facility] [address] [place] [address] Scanning, Provider 10/30/2024 Orders Only [facility] [address] [place] [address] Scanning, Provider 10/29/2024 Orders Only [facility] [address] [place] [address] Scanning, Provider 10/26/2024 Orders Only [facility] [address] [place] [address] Scanning, Provider 10/07/2024 10:00 AM CDT Office Visit [facility] [address] [place] [address] [address] [place] [address] August Pickett MD Severe Obstructive sleep apnea (Primary Dx); Hypersomnia with sleep apnea; Morbid obesity with BMI of 40.0-44.9, adult (HCC) 10/07/2024 Telephone [facility] [address] [place] [address] [address] [place] [phone] August Pickett MD 09/23/2024 Orders Only [facility] [address] [place] [address] Scanning, Provider 09/15/2024 9:00 AM CDT [facility] [address] [address] Anibal Avendano MD Peripheral edema (Primary Dx); Primary hypertension; Class 3 severe obesity due to excess calories with serious comorbidity and body mass index (BMI) of 40.0 to 44.9 in adult; SHANIQUE (obstructive sleep apnea) 08/19/2024 Results Follow-Up [facility] [address] [phone] Anibal Avendano MD Hepatitis C antibody Blood, Hepatitis B surface antibody (immune status) Blood, Hepatitis B Surface Antigen Blood, Additional followed-up results: 6 from Last 3 Months Immunizations Immunization Administration [...] Tobacco: Never Tobacco Cessation:Counseling Given: Not Answered [facility] Utilities Answer Date Recorded In the past 12 months has th e [employer], gas, oil, or water [employer] threatened to shut off services in your [...] often do you attend chur ch or yarsanism services? Never 02/18/2023 Do you belong to any clubs o r organizations such as congregation groups, unions, fraternal or athletic groups, or [...] should administer the PHQ-9) 0 02/25/2024 [facility] - Occupational Stress Questionnaire Answer Date [...] on file Legal Sex Female 2:32 AM SOUND TECHNICIAN Gender Identity Not on file Sexual Orientation [...] Date/Time Associated Diagnosis Comments SCAN - RADIOLOGY/IMAGING 11/11/2024 SCAN - RADIOLOGY/IMAGING 10/30/2024 SCAN - RADIOLOGY/IMAGING 10/29/2024 SCAN - RADIOLOGY/IMAGING 10/26/2024 SCAN - RADIOLOGY/IMAGING 09/23/2024 HEPATITIS C ANTIBODY Routine 08/18/2024 9:59 AM CDT Encounter for hepatitis C screening test for low risk patient from Last 3 Months or Most Recently Relevant to Health Maintenance Results * SCAN - RADIOLOGY/IMAGING (11/11/2024) Anatomical Region Laterality Modality Other Provider Scanning Final Result * SCAN - RADIOLOGY/IMAGING (10/30/2024) Anatomical Region Laterality Modality Other us Provider Scanning Final Result * SCAN - RADIOLOGY/IMAGING (10/29/2024) Anatomical Region Laterality Modality Other us Provider Scanning Edited Result - Final * SCAN - RADIOLOGY/IMAGING (10/26/2024) Anatomical Region Laterality Modality Other us Provider Scanning Final Result * SCAN - RADIOLOGY/IMAGING (09/23/2024) Anatomical Region Laterality Modality Other us Provider Scanning Final Result * Hepatitis C antibody Blood (08/18/2024 9:59 [...] last revised on 2019. Testing performed by: [facility], [address] [place] [address]., [address] Blood 08/18/2024 9:59 AM CDT 08/18/2024 3:52 PM CDT Anibal Avendano MD LAB MICROBIOLOGY - GENERA L ORDERABLES Final Result [facility] [address] [facility] Department [place] [address] from Last 3 Months or Most Recently Relevant to Health Maintenance Insurance MEDICARE CHOICE [facility] PPO [place] MEDICARE AETNA SENIOR SUPPLEMENT Care Teams Horse Shoer Relationship Specialty Start Date End Date Shanda Mead NP PCP - General Family Medicine 02/18/23
--- OUTSIDE RECORDS SUMMARY | 2024-11-19 09:43 | XMS_ITS | Clinical Summary ---
Author Organization [facility] Address [address] [place] [address] Phone Care Team Providers Care Sash Assembler Name Role Phone Patti Aiken MD Primary Care Provider [phone] Allergies No known active allergies Medications lisinopril [...] on file Legal Sex Female 2:04 PM STACKER AND SORTER OPERATOR Gender Identity Not on file Sexual [...] age to complete this topic Insurance [facility] Care Teams Sash Assembler Relationship Specialty Start Date End Date Patti Aiken MD [address] [place] [address] PCP - General Family Medicine 04/14/17
--- OUTSIDE RECORDS SUMMARY | 2024-11-19 09:43 | XMS_ITS | Clinical Summary ---
Author Organization [facility] Address [address] [facility] [place] [address] Care Team Providers Care Boom Operator Name Role Phone Patti Aiken MD Primary Care Provider [phone] Allergies No known active allergies Medications XARELTO [...] on file Legal Sex Female 4:34 AM NARCOTICS AND VICE DETECTIVE Gender Identity Not on file Sexual Orientation [...] (1 - 1-dose 75+ series) 2030 Insurance [facility] PREFERRED Care Teams Boom Operator Relationship Specialty Start Date End Date Patti Aiken MD [address] [place] [address] PCP - General Family Practice 08/11/18
--- OUTSIDE RECORDS SUMMARY | 2024-11-19 09:43 | XMS_ITS | Clinical Summary ---
Author Organization [facility] Address [address] [place] [address] Care Team Providers Care Estate Planning Attorney Name Role Phone None, Provider Primary Care [...] this topic Insurance MEDICARE AET Care Teams Estate Planning Attorney Relationship Specialty Start Date End Date None, Provider, PCP - General UNKNOWN PHYSICIAN SPECIALTY 06/21/24
--- OUTSIDE RECORDS SUMMARY | 2024-11-19 09:43 | XMS_ITS | Clinical Summary ---
Author Organization [facility] Address [address] [facility] [place] [address] Care Team Providers Care Care Coordinator Name Role Phone Chito Harrison MD Primary Care Provider [phone] Source Comments [facility],non-owned Affiliates and Associated Physician Practices is amultiple site organization consisting of ambulatory clinics and hospital sitesin [place], [place], [place] and [place]. This disclosure is being madepursuant to the Care Everywhere program and may not contain all information available regarding this patient. Last updated 18.[facility] Allergies No known active allergies Medications * [...] on file Legal Sex Female 2:32 PM ORDER EXPEDITER Gender Identity Not on file Sexual Orientation Not on file Last Filed Vital Signs Vital Sign Reading Time Taken Comments Blood Pressure 140/80 02/27/2020 8:05 AM ORDER EXPEDITER Pulse 60 02/27/2020 8:05 AM ORDER EXPEDITER Temperature - - Respiratory Rate 12 02/27/2020 8:05 AM ORDER EXPEDITER Oxygen Saturation - - Inhaled Oxygen Concentration - - Weight 108.4 kg (239 lb) 02/27/2020 8:05 AM ORDER EXPEDITER Height 161.3 cm (5' 3.5) 02/27/2020 8:05 AM ORDER EXPEDITER Body Mass Index 41.67 02/27/2020 8:05 AM ORDER EXPEDITER Plan of Treatment Health Maintenance Due Date [...] 2015 SCREENING FOR DIABETES 02/27/2020 COVID-19 VACCINE (1 - 2023-2 5 season) 2023 DEPRESSION SCREENING 04/13/2024 INFLUENZA VACCINE (#1) 2024 HEPATITIS B VACCINE Aged Out No longe [...] topic Insurance MEDICARE COMMERCIAL GENERIC MEDICARE MEDICARE AETNA SELF PAY NO INSURANCE Member Subscriber Plan / Payer (Ef fective for All Dates) Name:Khanh Chin Ruby Member ID:Not on file Relation to Subscriber:Not on file Name:KHANH CHIN Subscriber ID:Not on file (Home) Address: [address] [place] [address] [place] [address] Payer ID:Not on file Group ID:Not on file Type:Self Pay Address: [place], [place] Care Teams Care Coordinator Relationship Specialty Start Date End Date Chito Harrison MD [address] [place] [id number] PCP - General 06/26/21
--- NOTE | 2024-11-19 09:58 | ECG_ITS ---
Test Date: 2024-11-19 10:02:35 Measurements Intervals [place] Rate: 63 P: 8 WA: 161 QRS: -27 QRSD: 129 T: 74 QT: 391 QTc: 400 Interpretive Statements SINUS RHYTHM INTRAVENTRICULAR CONDUCTION DELAY DELAYED PRECORDIAL R/S TRANSITION LEFT VENTRICULAR HYPERTROPHY AND ST-T CHANGE BASELINE ARTIFACT- I, II, AVR, V5-V6 BORDERLINE ECG Compared to ECG 09/16/2024 10:58:09 HEART RATE HAS INCREASED Electronically Signed On 11-19-2024 11:03:04 CDT by Diego Barber D.O.
--- OUTSIDE RECORDS SUMMARY | 2024-11-19 10:31 | XMS_ITS | Encounter Summary ---
Author Organization [facility] Address [address] [place] [address] Phone Care Team Providers Care Line Cook Name Role Phone Patti Aiken MD Primary Care Provider [phone] Shanda Mead NP Primary Care Provider [phone] Encounter Details Date Type Department Care Team (Latest Contact Info) Description 09/08/2018 Orders Only [facility] Scanning, Provider Social History Tobacco Use Types Packs/Day Years Used Date Smoking Tobacco: Never Smokeless Tobacco: Never Comments Unknown Sex and Gender Information Value Date Recorded Sex Assigned at Not on file Legal Sex Female 2:32 AM SERVICE ADVISOR Gender Identity Not on file Sexual Orientation [...] on filedocumented in this encounter Care Teams Line Cook Relationship Specialty Start Date End Date Patti Aiken MD PCP - General 10/31/16 02/17/23 Shanda Mead NP PCP - General Family Medicine 02/18/23 documented as of this encounter
--- OUTSIDE RECORDS SUMMARY | 2024-11-19 10:31 | XMS_ITS | Clinical Summary ---
Author Organization [facility] Address [address] [facility] [place] [address] Care Team Providers Care Tufting Machine Operator Name Role Phone Chito Harrison MD Primary Care Provider [phone] Source Comments [facility],non-owned Affiliates and Associated Physician Practices is amultiple site organization consisting of ambulatory clinics and hospital sitesin [place], [place], [place] and [place]. This disclosure is being madepursuant to the Care Everywhere program and may not contain all information available regarding this patient. Last updated 18.[facility] Allergies No known active allergies Medications * [...] on file Legal Sex Female 2:32 PM MOLECULAR PHYSICIST Gender Identity Not on file Sexual Orientation Not on file Last Filed Vital Signs Vital Sign Reading Time Taken Comments Blood Pressure 140/80 02/27/2020 8:05 AM MOLECULAR PHYSICIST Pulse 60 02/27/2020 8:05 AM MOLECULAR PHYSICIST Temperature - - Respiratory Rate 12 02/27/2020 8:05 AM MOLECULAR PHYSICIST Oxygen Saturation - - Inhaled Oxygen Concentration - - Weight 108.4 kg (239 lb) 02/27/2020 8:05 AM MOLECULAR PHYSICIST Height 161.3 cm (5' 3.5) 02/27/2020 8:05 AM MOLECULAR PHYSICIST Body Mass Index 41.67 02/27/2020 8:05 AM MOLECULAR PHYSICIST Plan of Treatment Health Maintenance Due Date [...] CHIN Subscriber ID:Not on file (Home) Address: [address] [place] [address] [place] [address] Payer ID:Not on file Group ID:Not on file Type:Self Pay Address: [place], [place] Care Teams Tufting Machine Operator Relationship Specialty Start Date End Date Chito Harrison MD [address] [place] [id number] PCP - General 06/26/21
--- OUTSIDE RECORDS SUMMARY | 2024-11-19 10:31 | XMS_ITS | Encounter Summary ---
Author Organization [facility] Address [address] [place] [address] Phone Care Team Providers Care Mild Disabilities Teacher Name Role Phone Patti Aiken MD Primary Care Provider [phone] Shanda Mead NP Primary Care Provider [phone] Encounter Details Date Type Department Care Team (Late st Contact Info) Description 03/21/2019 Telephone [facility] Card[facility] [address] [facility] 8th [place] [address] [place] [address] Caleb Garcia MD PhD [address] [facility] [address] [place] [address] Social History Tobacco Use Types Packs/Day Years Used Date Smoking Tobacco: Never Smokeless Tobacco: Never Comments Unknown Sex and Gender Information Value Date Recorded Sex Assigned at Not on file Legal Sex Female 2:32 AM ORNAMENT MAKER HAND Gender Identity Not on file Sexual Orientation Not on file documented as of this encounter Plan of Treatment Not on file documented as of this encounter Visit Diagnoses Not on filedocumented in this encounter Care Teams Mild Disabilities Teacher Relationship Specialty Start Date End Date Patti Aiken MD PCP - General 10/31/16 02/17/23 Shanda Mead NP PCP - General Family Medicine 02/18/23 documented as of this encounter
--- OUTSIDE RECORDS SUMMARY | 2024-11-19 10:31 | XMS_ITS | Clinical Summary ---
Author Organization [facility] Address [address] [place] [address] Phone Care Team Providers Care Apparel Patternmaker Name Role Phone Patit Aiken MD Primary Care Provider [phone] Allergies No known active allergies Medications lisinopril [...] on file Legal Sex Female 2:04 PM TURNING SANDER TENDER Gender Identity Not on file Sexual [...] topic Insurance [facility] Care Teams Apparel Patternmaker Relationship Specialty Start Date End Date Patti Aiken MD [address] [place] [address] PCP - General Family Medicine 04/14/17
--- OUTSIDE RECORDS SUMMARY | 2024-11-19 10:31 | XMS_ITS | Clinical Summary ---
Author Organization [facility] Address [address] [place] [address] Care Team Providers Care Manager Respiratory Care Name Role Phone Shanda Mead BRIAN Primary Care Provider [phone] Allergies Active Allergy Reactions Criticality Noted Date [...] 02/24 Assessment & Plan (02/25/2024 10:16 AM ROTARY SOIL STABILIZER OPERATOR): In regard to health maintenance, Colonoscopy- [...] healthier, we can set up appointment with global transportation manager/military science instructor. Have an active lifestyle, strive for 30 [...] 02/24 Assessment & Plan (02/25/2024 10:17 AM ROTARY SOIL STABILIZER OPERATOR): Lipid panel ordered. Will continue to monitor. Acquired hypothyroidism 02/18/2023 Assessment & Plan (08/30/2024 3:31 PM CDT): Subclinical; continue to monitor; patient reports no symptoms associated with thyroid low Assessment & Plan (08/09/2024 3:06 PM CDT): Stable, well controlled, last TSH at goal; on supplements; continue to monitor Assessment & Plan (06/07/2024 3:29 PM ROTARY SOIL STABILIZER OPERATOR): Last TSH at goal, taking natural supplements Will continue to monitor closely Assessment & Plan (02/25/2024 10:15 AM ROTARY SOIL STABILIZER OPERATOR): Will recheck TSH and T4. Will continue to take OTC thyroid medication and seeing global transportation manager. Class 3 severe obesity due t o [...] surgery Assessment & Plan (06/07/2024 3:29 PM ROTARY SOIL STABILIZER OPERATOR): Not well controlled, has been having [...] week. Assessment & Plan (02/25/2024 10:15 AM ROTARY SOIL STABILIZER OPERATOR): Encouraged heart healthy diet and lifestyle. [...] b.i.d. Assessment & Plan (06/07/2024 3:29 PM ROTARY SOIL STABILIZER OPERATOR): Stable, well controlled, blood pressure mildly elevated today, some peripheral edema with limited relief Will start furosemide 20 mg b.i.d., continue lisinopril 40 mg, discontinue hydrochlorothiazide Assessment & Plan (02/25/2024 10:14 AM ROTARY SOIL STABILIZER OPERATOR): Blood pressure not well controlled. Will [...] weeks Assessment & Plan (02/18/2023 10:15 AM ROTARY SOIL STABILIZER OPERATOR): Stable, currently well-controlled BP at visit 120/84 Continue lisinopril 40 mg daily Resolved Problems Problem Noted Date Diagnosed Date Resolved Date Ascending aortic aneurysm 07/26/2014 Assessment & Plan (02/25/2024 10:25 AM ROTARY SOIL STABILIZER OPERATOR): Continues with routine monitoring. Will continue to follow. Assessment & Plan (02/18/2023 11:51 AM ROTARY SOIL STABILIZER OPERATOR): Gets regular monitoring Patient will call back with location she would like to get next US done at Encounters Date Type Department Care Team Description 11/11/2024 Orders Only [facility] Health Information Management [address] [place] [address] Scanning, Provider 10/30/2024 Orders Only [facility] Health Information Management [address] [place] [address] Scanning, Provider 10/29/2024 Orders Only [facility] Health Information Management [address] [place] [address] Scanning, Provider 10/26/2024 Orders Only [facility] Health Information Management [address] [place] [address] Scanning, Provider 10/07/2024 10:00 AM CDT Office Visit [facility] [address] [place] [address] [address] [place] [phone] August Pickett MD Severe Obstructive sleep apnea (Primary Dx); Hypersomnia with sleep apnea; Morbid obesity with BMI of 40.0-44.9, adult (HCC) 10/07/2024 Telephone [facility] [address] [place] [address] [address] [place] [address] August Pickett MD 09/23/2024 Orders Only [facility] Health Information Management [address] [place] [address] Scanning, Provider 09/15/2024 9:00 AM CDT [facility] Visit [facility] [address] [address] Anibal Avendano MD Peripheral edema (Primary Dx); Primary hypertension; Class 3 severe obesity due to excess calories with serious comorbidity and body mass index (BMI) of 40.0 to 44.9 in adult; SHANIQUE (obstructive sleep apnea) 08/19/2024 Results Follow-Up [facility] [address] [phone] Anibal Avendano MD Hepatitis C antibody Blood, [...] Tobacco: Never Tobacco Cessation:Counseling Given: Not Answered [facility] Utilities Answer Date Recorded In the past 12 months has th e [employer], gas, oil, or water [employer] threatened to shut off services in your [...] any clubs o r organizations such as catholic groups, unions, fraternal or athletic groups, or [...] staff should administer the PHQ-9) 0 02/25/2024 [facility] Health - Occupational Stress Questionnaire Answer Date [...] place to sleep or slept in a half-way (including now)? No 02/18/2023 Comments Unknown Sex and Gender Information Value Date Recorded Sex Assigned at Not on file Legal Sex Female 2:32 AM ROTARY SOIL STABILIZER OPERATOR Gender Identity Not on file Sexual [...] last revised on 2019. Testing performed by: [facility], [address] [place] [address]., [address] Blood 08/18/2024 9:59 AM CDT 08/18/2024 3:52 PM CDT Anibal Avendano MD LAB MICROBIOLOGY - GENERA L ORDERABLES Final Result [facility] [address] [facility] Department [place] [address] from Last 3 Months or Most Recently Relevant to Health Maintenance Insurance MEDICARE CHOICE [facility] PPO [place] Member Subscriber Plan / Payer ([facility] Camp[facility] 04/13/2018-) Name:Rere Garner Relation to Subscriber:Self Name:Rere Garner Payer ID:[id number] (NAIC) Type:HEALTHCARE/EXCHANGE Address: [address] [place] [address] MEDICARE AETNA SENIOR SUPPLEMENT Care Teams Manager Respiratory Care Relationship Specialty Start Date End Date Shanda Mead NP PCP - General Family Medicine 02/18/23
--- OUTSIDE RECORDS SUMMARY | 2024-11-19 10:31 | XMS_ITS | Clinical Summary ---
Author Organization [facility] Address [address] [place] [address] Care Team Providers Care Security Officer Supervisor Name Role Phone Patti Aiken MD Primary Care Provider [phone] Allergies No known active allergies Medications XARELTO [...] on file Legal Sex Female 4:34 AM DOCTOR PODIATRIC MEDICINE Gender Identity Not on file Sexual Orientation [...] (1 - 1-dose 75+ series) 2030 Insurance [facility] PREFERRED Care Teams Security Officer Supervisor Relationship Specialty Start Date End Date Patti Aiken MD [address] [place] [address] PCP - General Family Practice 08/11/18
--- OUTSIDE RECORDS SUMMARY | 2024-11-19 10:31 | XMS_ITS | Clinical Summary ---
Author Organization [facility] Address [address] [place] [address] Care Team Providers Care Hospitality Workers Name Role Phone None, Provider Primary Care [...] this topic Insurance MEDICARE AET Care Teams Hospitality Workers Relationship Specialty Start Date End Date None, Provider, PCP - General UNKNOWN PHYSICIAN SPECIALTY 06/21/24
--- NOTE | 2024-11-19 10:40 | ED.GENADULT ---
HPI - General Adult General Chief complaint: Unspecified Stated complaint: R rib pain Time Seen by Provider: 11/19/24 10:04 History of Present Illness HPI narrative: 69-year-old female presents to the emergency department for evaluation for some right-sided chest pain. Patient did have follow-up with a new slot [employer] department floorperson and they wanted to get a cardiac echo with bubble study. Patient states after getting the imaging she had some right-sided chest pain. Patient describes the chest pain is sharp and pleuritic and worsened with deep inspiration. Patient does have prior history of pulmonary embolism back in 2016 after she had a tummy tuck. Patient did have recent hernia repair and urethral stent placement on September 23 then did have emergency stent placement on October 29. Patient is not currently on blood thinners. Patient denies any associated shortness of breath but states she is afraid to take a deep breath because of the pain.\ Patient declined any medications for pain control Related Data Home Medications ?Medication ?Instructions ?Recorded ?Confirmed ?Last Taken ?Type ascorbic acid (vitamin C) 1,000 mg 1 g PO DAILY 09/09/24 11/19/24 09/20/24 History tablet (C-1000) spironolactone 25 mg tablet 100 mg PO DAILY 09/09/24 11/19/24 11/19/24 History vitamin B complex (Vitamins B 1 cap PO DAILY 09/09/24 11/19/24 11/18/24 History Complex capsule) Allergies Allergy/AdvReac Type Severity Reaction Status Date / Time lisinopril Allergy Severe Swelling Verified 11/19/24 14:14 of Lip/Tongue/Throat Review of Systems Review of Systems: All systems reviewed & are unremarkable except as noted in HPI and below PMFSH Past Medical History Medical History (Updated 11/19/24 @ 16:50 by Beny Clark MD) Kidney stones SHANIQUE on CPAP Obesity Hypertension Surgical History Surgical History H/O umbilical hernia repair 09/23/24 Robotic assisted repair incarcerated umbilical measuring [address] Marsh H/O abdominoplasty 02/2018 History of cosmetic plastic surgery History of hysterectomy 12/2015 History of bilateral breast reduction surgery 1976 1978 Family History Family History (Updated 11/19/24 @ 14:23 by Gina L. Davis, RN) Father Family history of Alzheimer's disease Mother No problems noted. Sibling Hypertension Social History Social History Smoking status: Never smoker Second hand tobacco smoke exposure: No Alcohol intake: former Drinks per week: 1 Alcohol use details: ONE/MONTH Substance use: never Substance use type: does not use Do You Feel Safe in your Home?: Yes Lack of Transportation: No Lack of Food: Sometimes True Current Housing: I Have Housing Concerned About Future Housing: No Difficulty Paying Gas/Electric Bills: No Difficulty Paying for Meds: No Currently Unemployed: No Education: High School Diploma/GED Difficulty w/ Childcare or Family Care: No Living arrangements: with family Spiritual care concerns: No Exam Narrative: APPEARANCE: Well appearing, no pain, no distress, well-nourished. HEAD: normocephalic, atraumatic. EYES: PERRLA/EOMI, conjunctivae clear. NOSE: Normal no drainage EARS:TMS clear with good light reflex. THROAT: Pharynx clear, no exudate. NECK: Supple. No adenopathy, no masses. RESPIRATORY: Airway patent, respirations nonlabored. Clear to auscultation bilaterally, no rales, rhonchi, wheezing. CARDIOVASCULAR: Regular rate and rhythm without murmurs rubs or gallops. ABDOMINAL: Soft, nontender, nondistended, normal bowel sounds MUSCULOSKELETAL: Moves all extremities. Strength/ROM intact, No edema, No calf tenderness. NEURO: Alert. Cranial nerves II through XII intact. Good gait. Good coordination SKIN: Warm, dry. Normal Color Course Vital Signs Vital signs: Vital Signs Temperature 97.9 F 11/19/24 09:58 Pulse Rate 70 11/19/24 09:58 Respiratory Rate 18 11/19/24 09:58 Blood Pressure 158/85 H 11/19/24 09:58 Pulse Oximetry 98 11/19/24 09:58 Oxygen Delivery Room Air 11/19/24 09:58 Temperature 97.9 F 11/19/24 09:58 Pulse Rate 59 L 11/19/24 16:00 Respiratory Rate 19 11/19/24 13:06 Blood Pressure 170/93 H 11/19/24 13:06 Pulse Oximetry 97 11/19/24 16:00 Oxygen Delivery Room Air 11/19/24 16:00 Medical Decision Making MDM Narrative Medical decision making narrative: 69-year-old female presents emergency department for evaluation for right-sided pleuritic chest pain. Patient is currently afebrile with no leukocytosis hemoglobin of 13.5. Patient's INR is 1.1. No significant acute abnormalities on her CMP and patient's troponin was negative. Chest x-ray did show cardiomegaly. CTA was ordered to rule out pulmonary embolism due to clinical concern due to the patient's symptoms and also patient having a prior history of pulmonary embolism. CTA did show likely pulmonary emboli in the right lower lobe and left upper pulmonary arteries with moderate clot burden, there was some motion artifacts of this was a limited study, no evident of right heart strain. Patient does have discoid atelectasis in the bilateral lower lobes in addition to more ground-glass opacity in the anterior basilar segment of the right lower lobe which is suspicious for pulmonary infarct. Patient does have fusiform ascending thoracic aortic aneurysm which is not significantly changed compared to previous imaging. Case was discussed with the hospitalist patient was accepted to the IMU. Patient was started on heparin bolus and heparin infusion in the emergency department. Patient family were also updated the results of the workup and plan for admission treatment. All questions concerns were addressed and patient was well-appearing at time of admission. Critical Care Procedure Note Authorized and Performed by: Beny Clark Total critical care time: Approximately 36 minutes Due to a high probability of clinically significant, life threatening deterioration, the patient required my highest level of preparedness to intervene emergently and I personally spent this critical care time directly and personally managing the patient. This critical care time included obtaining a history; examining the patient; pulse oximetry; ordering and review of studies; arranging urgent treatment with development of a management plan; evaluation of patient's response to treatment; frequent reassessment; and, discussions with other providers. This critical care time was performed to assess and manage the high probability of imminent, life-threatening deterioration that could result in multi-organ failure. It was exclusive of separately billable procedures and treating other patients and teaching time. Please see MDM section and the rest of the note for further information on patient assessment and treatment. Differential Diagnosis Differential Diagnosis: Pneumonia, pneumothorax, pulmonary embolism, pulmonary infarct, ACS Vital Signs Vital Signs: Vital Signs Temperature 97.9 F 11/19/24 09:58 Pulse Rate 70 11/19/24 09:58 Respiratory Rate 18 11/19/24 09:58 Blood Pressure 158/85 H 11/19/24 09:58 Pulse Oximetry 98 11/19/24 09:58 Oxygen Delivery Room Air 11/19/24 09:58 Temperature 97.9 F 11/19/24 09:58 Pulse Rate 59 L 11/19/24 16:00 Respiratory Rate 19 11/19/24 13:06 Blood Pressure 170/93 H 11/19/24 13:06 Pulse Oximetry 97 11/19/24 16:00 Oxygen Delivery Room Air 11/19/24 16:00 Lab Data Lab results reviewed: Yes I reviewed the patient's lab results. 11/19/24 10:53 11/19/24 10:53 Labs: Lab Results 11/19/24 Range/Units 10:53 WBC 8.0 (4.5-10.0) K/mm3 RBC 4.42 (4.2-5.4) M/mm3 Hgb 13.5 (12.0-15.0) g/dL Hct 40.1 (37.0-47.0) % MCV 90.7 (80-100) fl MCH 30.5 (26-34) pg MCHC 33.7 (32-36) g/dl RDW 14.3 (11.5-14.5) % Plt Count 223 (150-375) k/mm3 MPV 9.2 (7.4-10.4) fl Immature Gran % (Auto) 0.4 (0-0.5) % Neut % (Auto) 75.7 H (45.5-73.1) % Lymph % (Auto) 12.5 L (18.3-44.2) % [place] % (Auto) 10.3 H (2.6-8.5) % Eos % (Auto) 0.6 (0-4.4) % Baso % (Auto) 0.5 (0.2-1.2) % Lymph # (Auto) 1.00 (0.9-3.2) K/mm3 [place] # (Auto) 0.8 H (0.1-0.6) K/mm3 Eos # (Auto) 0.1 (0-0.3) K/mm3 Baso # (Auto) 0.0 (0.0-0.1) K/mm3 Abs Immat Gran (auto) 0.03 (0.00-0.031) K/mm3 Absolute Neuts (auto) 6.1 (1.3-6.7) K/mm3 Absolute Nucleated RBC 0.000 (0.0-0.012) K/mm3 Nucleated RBC % 0.0 (0.0-0.2) % PT 14.2 (11.1-14.7) Seconds INR 1.1 APTT 30.3 (22.3-36.8) Seconds Sodium 138 (137-145) mmol/L Potassium 4.5 (3.4-5.0) mmol/L Chloride 108 H (98-107) mmol/L Carbon Dioxide 20 L (22-30) mmol/L Anion Gap 10 (4-12) mmol/L BUN 18 H (7-17) mg/dL Creatinine 0.54 L (0.7-1.0) mg/dL Estim Creat Clear Calc 103 ml/min Estimated GFR > 60 (59 - ) Glucose 114 H (65-110) mg/dL Calcium 9.4 (8.4-10.2) mg/dL Total Bilirubin 0.8 (0.2-1.3) mg/dL AST 34 (14-36) U/L ALT 23 (6-35) U/L Alkaline Phosphatase 54 (38-126) U/L Troponin I < 0.012 (0.000-0.034) ng/mL Total Protein 6.9 (6.3-8.2) g/dL Albumin 3.9 (3.5-5.1) g/dL Imaging Data Radiologist's impression: Impressions Chest X-Ray 11/19/24 10:21 IMPRESSION: 1. Cardiomegaly. Chest CTA 11/19/24 12:28 IMPRESSION: 1. Multiple likely pulmonary emboli in right lower lobar and left upper lobar pulmonary arteries with moderate clot burden. Sensitivity and specificity is however decreased by moderate amount of motion artifact. No evident right heart strain. Dr. Sue discussed these findings with Dr. Clark at 12:38 PM. 2. Discoid atelectasis in the bilateral lower lobes with additional more groundglass opacity at the anterobasilar segment of the right lower lobe which is more suspicious for pulmonary infarct and with differential including pneumonia. 3. Cardiomegaly. 4. Minimal change in a fusiform ascending thoracic aortic aneurysm measuring up to 5.1 x 4.9 cm. Critical Care Time Critical Care Time Critical Care Time: Yes Total Critical Care Time: 36 Discharge Plan Discharge Clinical Impression: Chest pain, Pulmonary embolism Patient Disposition: Still a Patient Condition: Serious Quality HEART score for chest pain patients History: slightly suspicious ECG: normal Age: > or = to 65 years Risk factors: 1 or 2 risk factors Troponin: < or = to 1x normal limit Heart score: 3
[2024-11-19 11:13] LABS: Hematocrit 40.1 % (37.0-47.0); Hemoglobin 13.5 g/dL (12.0-15.0); Immature Granulocyte Percent A 0.4 % (0-0.5); Lymphocytes Absolute Auto 1.00 K/mm3 (0.9-3.2); Mean Corpuscular HGB Conc 33.7 g/dl (32-36); Mean Corpuscular Hemoglobin 30.5 pg (26-34); Mean Corpuscular Volume 90.7 fl (80-100); Nucleated Red Blood Cells Absolute Auto 0.000 K/mm3 (0.0-0.012); Nucleated Red Blood Cells Perc 0.0 % (0.0-0.2); Platelet Count Result 223 k/mm3 (150-375); Red Blood Count 4.42 M/mm3 (4.2-5.4); White Blood Count 8.0 K/mm3 (4.5-10.0)
[2024-11-19 11:36] LABS: INR 1.1; Prothrombin Time 14.2 Seconds (11.1-14.7)
[2024-11-19 11:37] LABS: Partial Thromboplastin Time 30.3 Seconds (22.3-36.8)
[2024-11-19 11:44] LABS: Alanine Aminotransferase 23 U/L (6-35); Albumin Level 3.9 g/dL (3.5-5.1); Alkaline Phosphatase 54 U/L (38-126); Anion Gap 10 mmol/L (4-12); Aspartate Amino Transferase 34 U/L (14-36); Bilirubin,Total 0.8 mg/dL (0.2-1.3); Blood Urea Nitrogen 18 mg/dL (7-17); Calcium 9.4 mg/dL (8.4-10.2); Carbon Dioxide 20 mmol/L (22-30); Chloride 108 mmol/L (98-107); Estimated CRCL calculation 103 ml/min; Estimated Glomerular Filt Rate > 60; Glucose 114 mg/dL (65-110); Potassium 4.5 mmol/L (3.4-5.0); Sodium 138 mmol/L (137-145); Total Protein 6.9 g/dL (6.3-8.2)
[2024-11-19 12:03] LABS: Troponin I < 0.012 ng/mL (0.000-0.034)
[2024-11-19] MEDS: HEPARIN SOD/D5W 100 UNITS/ML 25,000 UNITS/250 ML BAG 14 UNITS IV CONT (13:14)
[2024-11-19] MEDS: HYDROmorphone HCL INJ (*CRX) 2 MG/ML VIAL 0.5 MG IV PUSH (13:17)
[2024-11-19] MEDS: ONDANSETRON INJ 4 MG/2 ML VIAL IV PUSH (14:03)
--- NOTE | 2024-11-19 14:54 | ADMGEN ---
This patient, Rere Garner, was admitted to IMU Room 231-01. Patient/family oriented to hospital policies and general routines including ID bracelet, bed and alarms, visiting hours, pain management, procedures, bathroom and other care routines, personal items, smoking policy, room service/diet, and visiting hours. Information on how to activate the Rapid Response Team has been discussed. Patient/Family are encouraged to report perceived risks to care and to ask questions if they do not understand what they are told or what they should do. Patient resting in bed and voiced no complaints or concerns at this time. Head to toe assessment completed and documented. Patient's personal items in reach with call [place]. Bed low and locked. Will continue to monitor. Jeannette Davis RN
--- NOTE | 2024-11-19 18:20 | P.HP_ITS ---
H&P: HPI History of Present Illness Date/Time: 11/19/24 18:20 Chief Complaint: Chest pain Narrative: 69-year-old female with past medical history of kidney stones and stents, hypertension SHANIQUE on CPAP and PE after surgery presents the hospital with chest pain. She states that she had a bubble study the other day with a new 911 telecommunicator and she thinks that is what is causing her pain. Patient states that she has had several procedures over the last month with urinary stents placed and a umbilical hernia repair. She states that she also has a clotting disorder. And takes vitamin-B. Patient denies nausea vomiting fever chills, shortness of breath. Lab work shows chloride of 108, carbon dioxide 20, BUN of 18, creatinine of 0.54, glucose of 114, troponin negative, chest x-ray shows cardiomegaly, CTA sh ows multiple bilateral pulmonary embolisms with moderate clot burden. No signs of heart right heart strain. Possible pulmonary infarct. Minimal change Ascending thoracic aortic aneurysm. EKG shows sinus rhythm. Patient started on heparin drip. Review of Systems Review of Systems: 12 systems were reviewed and are negativ e except for as per HPI. [facility] Past Medical History Medical History (Updated 11/19/24 @ 18:27 by Frances Roper APRN) Kidney stones SHANIQUE on CPAP Obesity Hypertension Surgical History Surgical History H/O umbilical hernia repair 09/23/24 Robotic assisted repair incarcerated umbilical measuring [address] Marsh H/O abdominoplasty 02/2018 History of cosmetic plastic surgery History of hysterectomy 12/2015 History of bilateral breast reduction surgery 1976 1978 Family History Family History (Updated 11/19/24 @ 14:23 by Gina Davis RN) Father Family history of Alzheimer's disease Mother No problems noted. Sibling Hypertension Social History Social History Smoking status: Never smoker Second hand tobacco smoke exposure: No Alcohol intake: former Drinks per week: 1 Alcohol use details: ONE/MONTH Substance use: never Substance use type: does not use Do You Feel Safe in your Home?: Yes Lack of Transportation: No Lack of Food: Sometimes True Current Housing: I Have Housing Concerned About Future Housing: No Difficulty Paying Gas/Electric Bills: No Difficulty Paying for Meds: No Currently Unemployed: No Education: High School Diploma/GED Difficulty w/ Childcare or Family Care: No Living arrangements: with family Spiritual care concerns: No Meds Home Medications and Allergies Home Medications ?Medication ?Instructions ?Recorded ?Confirmed ?Type ascorbic acid (vitamin C) 1,000 mg 1 g PO DAILY 09/09/24 11/19/24 History tablet (C-1000) spironolactone 25 mg tablet 100 mg PO DAILY 09/09/24 11/19/24 History vitamin B complex (Vitamins B 1 cap PO DAILY 09/09/24 11/19/24 History Complex capsule) Allergies Allergy/AdvReac Type Severity Reaction Status Date / Time lisinopril Allergy Severe Swelling Verified 11/19/24 14:14 of Lip/Tongue/Throat Vital Signs Vital Signs - 24 hr 11/19/24 09:58 11/19/24 10:56 11/19/24 10:57 Temperature 97.9 F Pulse Rate 70 66 Respiratory Rate 18 Blood Pressure 158/85 H Pulse Oximetry 98 95 Oxygen Delivery Room Air Room Air 11/19/24 10:58 11/19/24 13:06 11/19/24 14:59 Temperature Pulse Rate 66 71 Respiratory Rate 18 19 Blood Pressure 170/93 H Pulse Oximetry 95 97 97 Oxygen Delivery Room Air 11/19/24 16:00 11/19/24 16:00 11/19/24 16:00 Temperature 97.7 F Pulse Rate 59 L 61 Respiratory Rate 12 Blood Pressure 149/85 H Pulse Oximetry 97 90 Oxygen Delivery Room Air Exam Narrative: General: well appearing, appears stated age. HEENT: normocephalic, atraumatic. Mucous membranes moist. EOMI, PERRLA, bilateral sclera anicteric, no conjunctival injection. Neck supple without JVD, lymphadenopathy, or bruit. Respiratory: clear to ascultation bilaterally. No rales/rhonic/wheezes. Cardiovascular: Regular rate and rhythm, normal S1-S2 upon ascultation. No murmurs, rubs, or clicks. PMI is nondisplaced, capillary refill less than 3 second. Abdomen: Soft, round, no pulsatile masses, nondistended and nontender. No rebound, no guarding. No CVA tenderness, no hepatosplenomegaly. Bowel sounds present to all four quadrants. No high pitch or tinkling sounds, resonant to percussion. Extremities: No cyanosis, clubbing, or edema present. Pulses are palpable 2/2. Active ROM to all four extremities. Neuro: Alert and orientated x 4. PERRLA. Cranial nerves 2-12 intact without focal deficit. Skin: Warm, dry, and intact, without rash, erythema, or lesion. Psych: pleasant, cooperative, normal speech, normal affect, no hallucinations, no dysarthia H&P: Results Labs Labs: Short CBC 11/19/24 Range/Units 10:53 WBC 8.0 (4.5-10.0) K/mm3 Hgb 13.5 (12.0-15.0) g/dL Hct 40.1 (37.0-47.0) % Plt Count 223 (150-375) k/mm3 BMP 11/19/24 10:53 Sodium 138 Potassium 4.5 Chloride 108 H Carbon Dioxide 20 L BUN 18 H Creatinine 0.54 L Glucose 114 H Calcium 9.4 Cardiac Enzymes 11/19/24 Range/Units 10:53 Troponin I < 0.012 (0.000-0.034) ng/mL Liver Function 11/19/24 Range/Units 10:53 Total Bilirubin 0.8 (0.2-1.3) mg/dL AST 34 (14-36) U/L ALT 23 (6-35) U/L Alkaline Phosphatase 54 (38-126) U/L Albumin 3.9 (3.5-5.1) g/dL Assessment and Plan Assessment and plan (1) Pulmonary embolism: Code(s): I26.99 - Other pulmonary embolism without acute cor pulmonale Status: Acute Assessment and Plan: This is patient's 2nd PE Heparin drip per protocol Patient had echocardiogram yesterday at [facility]. (2) Thoracic ascending aortic aneurysm: Code(s): I71.2 - Thoracic aortic aneurysm, without rupture Status: Acute Assessment and Plan: Recommend following up outpatient with vascular She states that she follows closely with her doctor (3) Hypertension: Code(s): I10 - Essential (primary) hypertension Status: Acute Assessment and Plan: Patient does not appear to be on hypertensive medications Quality VTE Prophylaxis VTE prophylaxis: mechanical ordered and pharmacologic ordered Hospitalist MIPS Advance Care Plan I have confirmed that the patient's Advanced Care Plan is present, code status is documented, or surrogate decision maker is listed in patient medical record.: Yes Medication Reconciliation I have utilized all available resources to obtain, update and review the patients current medications (includes all prescriptions, OTC, herbals, cannabis, and nutritional supplements).: Yes
[2024-11-19] MEDS: ACETAMINOPHEN 325 MG TABLET 650 MG PO (20:01)
[2024-11-19 20:35] LABS: Partial Thromboplastin Time 112.0 Seconds (22.3-36.8)
[2024-11-20] VITALS (13 sets, daily range): BP systolic 135–154; BP diastolic 75–87; PULSE 53–88; RESP 7–20; TEMP 36.4–36.9; O2SAT 95–97
[2024-11-20 03:50] LABS: Hematocrit 37.8 % (37.0-47.0); Hemoglobin 12.5 g/dL (12.0-15.0); Immature Granulocyte Percent A 0.4 % (0-0.5); Lymphocytes Absolute Auto 1.51 K/mm3 (0.9-3.2); Mean Corpuscular HGB Conc 33.1 g/dl (32-36); Mean Corpuscular Hemoglobin 30.6 pg (26-34); Mean Corpuscular Volume 92.6 fl (80-100); Nucleated Red Blood Cells Absolute Auto 0.000 K/mm3 (0.0-0.012); Nucleated Red Blood Cells Perc 0.0 % (0.0-0.2); Platelet Count Result 218 k/mm3 (150-375); Red Blood Count 4.08 M/mm3 (4.2-5.4); White Blood Count 7.4 K/mm3 (4.5-10.0)
[2024-11-20 04:03] LABS: Partial Thromboplastin Time 102.8 Seconds (22.3-36.8)
[2024-11-20 04:07] LABS: Anion Gap 7 mmol/L (4-12); Blood Urea Nitrogen 14 mg/dL (7-17); Calcium 9.1 mg/dL (8.4-10.2); Carbon Dioxide 26 mmol/L (22-30); Chloride 102 mmol/L (98-107); Estimated CRCL calculation 98 ml/min; Estimated Glomerular Filt Rate > 60; Glucose 120 mg/dL (65-110); Potassium 4.2 mmol/L (3.4-5.0); Sodium 135 mmol/L (137-145)
[2024-11-20] MEDS: ACETAMINOPHEN 325 MG TABLET 650 MG PO (05:39)
[2024-11-20] MEDS: SPIRONOLACTONE 25 MG TABLET 100 MG PO (08:15)
[2024-11-20] MEDS: DOCUSATE SODIUM 100 MG CAPSULE PO (08:15)
[2024-11-20] MEDS: HEPARIN SOD/D5W 100 UNITS/ML 25,000 UNITS/250 ML BAG 12 UNITS IV CONT (08:24)
[2024-11-20 10:20] LABS: Partial Thromboplastin Time 73.7 Seconds (22.3-36.8)
--- NOTE | 2024-11-20 10:56 | P.PNIM_ITS ---
Progress Note: A&P Assessment and Plan (1) Pulmonary embolism: Code(s): I26.99 - Other pulmonary embolism without acute cor pulmonale Status: Acute Assessment and Plan: PESI score of 69 places her in the low risk category amenable to outpatient treatment, however it is unclear whether her insurance will cover Eliquis or Xarelto 11/20 Transition from IV heparin to oral Eliquis this evening, transfer to [facility] floor Care coordination contacted and will attempt to confirm insurance coverage for Eliquis 11/21 (2) Thoracic ascending aortic aneurysm: Code(s): I71.2 - Thoracic aortic aneurysm, without rupture Status: Acute Assessment and Plan: Stable Continue outpatient follow-up (3) Hypertension: Code(s): I10 - Essential (primary) hypertension Status: Acute Assessment and Plan: Normotensive on no antihypertensives at present Subjective Date/time seen: 11/20/24 10:56 Interval history: 69-year-old female had undergone an umbilical hernia repair September 23 with lithotripsy for kidney stones. This was followed by cystoscopy he has and stent placement. She was admitted November 19 due to right pleuritic chest pain. CTA of the chest revealed a stable and known thoracic aortic aneurysm and multiple bilateral pulmonary emboli with moderate clot burden mainly in the right lower lung. She had a prior history of pulmonary emboli 3 weeks post tummy tuck in 2016 and took an anticoagulant for 3 months. No prior history of lung disease or heart disease otherwise. This morning she has no chest pain or shortness of breath. She is on room air. She had some blood in the urine last night and this morning that since resolved. She has 1 confirm a kidney stone. She was started on heparin last night. Review of Systems Review of Systems: All systems reviewed & are unremarkable except as noted in HPI and below Exam Narrative: HEENT: PERRL, sclerae nonicteric, pharyngeal mucosa pink and intact NECK: No JVD, adenopathy, or thyromegaly CHEST: Clear to auscultation. Normal effort HEART: NL S1/S2, regular, no murmur ABDOMEN: BS+, soft, nontender, no mass, no bruits EXTREMITIES: No cyanosis, edema, or clubbing NEUROLOGIC: CN intact and symmetric to inspection MUSCULOSKELETAL: Tone and strength symmetric PSYCH: Alert. Oriented to person, place, and time Objective Data Vital Signs Vital Signs: Vital Signs - 24 hr 11/19/24 10:57 11/19/24 10:58 11/19/24 13:06 Temperature Pulse Rate 66 71 Respiratory Rate 18 19 Blood Pressure 170/93 H Pulse Oximetry 95 95 97 Oxygen Delivery Room Air 11/19/24 14:59 11/19/24 16:00 11/19/24 16:00 Temperature Pulse Rate 59 L Respiratory Rate Blood Pressure Pulse Oximetry 97 97 Oxygen Delivery Room Air Room Air 11/19/24 16:00 11/19/24 18:00 11/19/24 20:00 Temperature 97.7 F Pulse Rate 61 63 Respiratory Rate 12 Blood Pressure 149/85 H Pulse Oximetry 90 Oxygen Delivery Room Air 11/19/24 20:00 11/19/24 20:45 11/19/24 22:00 Temperature 98.1 F Pulse Rate 76 69 61 Respiratory Rate 18 Blood Pressure 149/85 H Pulse Oximetry 95 Oxygen Delivery 11/19/24 22:06 11/19/24 23:51 11/20/24 00:00 Temperature 98.1 F Pulse Rate 63 69 Respiratory Rate 17 Blood Pressure 144/81 H Pulse Oximetry 95 95 Oxygen Delivery Room Air 11/20/24 00:30 11/20/24 02:00 11/20/24 04:00 Temperature Pulse Rate 55 L Respiratory Rate Blood Pressure Pulse Oximetry Oxygen Delivery Room Air Room Air 11/20/24 04:00 11/20/24 05:04 11/20/24 06:00 Temperature 97.8 F Pulse Rate 53 L 88 62 Respiratory Rate 7 L Blood Pressure 142/75 H Pulse Oximetry 96 Oxygen Delivery 11/20/24 07:24 11/20/24 08:00 11/20/24 08:00 Temperature 97.9 F Pulse Rate 61 61 Respiratory Rate 20 Blood Pressure 135/78 Pulse Oximetry 97 97 Oxygen Delivery Room Air 11/20/24 10:00 Temperature Pulse Rate 61 Respiratory Rate Blood Pressure Pulse Oximetry Oxygen Delivery Intake/Output Intake/Output: Intake & Output 11/17/24 11/18/24 11/19/24 11/20/24 23:59 23:59 23:59 23:59 Intake Total 627.8 572.4 Output Total 1 Balance 627.8 571.4 Meds/Results Medications: Active Medications Generic Name Dose Route Start Last Admin Trade Name Freq PRN Reason Stop Dose Admin Acetaminophen 650 mg 11/19/24 18:24 11/20/24 05:39 Acetaminophen 325 Mg Tablet PO 650 mg Q4H PRN Administration Mild Pain (1-3) or Fever Hydrocodone Bitart/Acetaminophen 1 tab 11/19/24 18:24 Hydrocodone/Acetaminophen (*Crx) 5-325 Mg Tablet PO Q4H PRN Moderate Pain (4-6) Docusate Sodium 100 mg 11/20/24 09:00 11/20/24 08:15 Docusate Sodium 100 Mg Capsule PO 100 mg BID ARABELLA Administration Heparin Sodium (Porcine) 6,500 units 11/19/24 13:03 Heparin Sodium 5,000 Units/Ml Vial IV PUSH PRN PRN aPTT less than 55 seconds Heparin Sodium (Porcine) 3,000 units 11/19/24 12:47 Heparin Sodium 5,000 Units/Ml Vial IV PUSH PRN PRN aPTT 55 - 70 seconds Hydromorphone HCl 0.5 mg 11/19/24 12:54 11/19/24 13:17 Hydromorphone Hcl Inj (*Crx) 2 Mg/Ml Vial IV PUSH 0.5 mg Q4H PRN Administration Pain Rated 7-10 Heparin Sodium/Dextrose 25,000 units in 250 mls @ 12 mls/hr 11/19/24 13:05 11/20/24 10:28 Heparin Sodium/D5w 100 Units/Ml IV CONT 1,200 units/hr .[id number] ARABELLA 12 mls/hr Titration Protocol 1,200 UNITS/HR Ondansetron HCl 4 mg 11/19/24 13:58 11/19/24 14:03 Ondansetron Inj 4 Mg/2 Ml Vial IV PUSH 4 mg Q6H PRN Administration Nausea And Vomiting Perflutren Lipid Microsphere 0 ml 11/19/24 18:55 Perflutren Lipid Microspheres 1.5 Ml Vial Diluted To 10 Ml Total Volume IV PUSH 11/22/24 18:55 ONCE PRN adequate visualization Protocol Spironolactone 100 mg 11/20/24 09:00 11/20/24 08:15 Spironolactone 25 Mg Tablet PO 100 mg DAILY ARABELLA Administration Radiology Results: ITS Impressions Chest X-Ray 11/19/24 10:21 IMPRESSION: 1. Cardiomegaly. Chest CTA 11/19/24 12:28 IMPRESSION: 1. Multiple likely pulmonary emboli in right lower lobar and left upper lobar pulmonary arteries with moderate clot burden. Sensitivity and specificity is however decreased by moderate amount of motion artifact. No evident right heart strain. Dr. Sue discussed these findings with Dr. Clark at 12:38 PM. 2. Discoid atelectasis in the bilateral lower lobes with additional more groundglass opacity at the anterobasilar segment of the right lower lobe which is more suspicious for pulmonary infarct and with differential including pneumonia. 3. Cardiomegaly. 4. Minimal change in a fusiform ascending thoracic aortic aneurysm measuring up to 5.1 x 4.9 cm. Labs Labs: Laboratory Results - last 24 hr 11/19/24 11/19/24 11/20/24 10:53 20:07 03:34 WBC 8.0 7.4 RBC 4.42 4.08 L Hgb 13.5 12.5 Hct 40.1 37.8 MCV 90.7 92.6 MCH 30.5 30.6 MCHC 33.7 33.1 RDW 14.3 14.6 H Plt Count 223 218 MPV 9.2 9.0 Immature Gran % (Auto) 0.4 0.4 Neut % (Auto) 75.7 H 66.6 Lymph % (Auto) 12.5 L 20.4 Weber % (Auto) 10.3 H 11.1 H Eos % (Auto) 0.6 1.1 Baso % (Auto) 0.5 0.4 Lymph # (Auto) 1.00 1.51 Weber # (Auto) 0.8 H 0.8 H Eos # (Auto) 0.1 0.1 Baso # (Auto) 0.0 0.0 Abs Immat Gran (auto) 0.03 0.03 Absolute Neuts (auto) 6.1 5.0 Absolute Nucleated RBC 0.000 0.000 Nucleated RBC % 0.0 0.0 PT 14.2 INR 1.1 APTT 30.3 112.0 H 102.8 H Sodium 138 135 L Potassium 4.5 4.2 Chloride 108 H 102 Carbon Dioxide 20 L 26 Anion Gap 10 7 BUN 18 H 14 Creatinine 0.54 L 0.57 L Estim Creat Clear Calc 103 98 Estimated GFR > 60 > 60 Glucose 114 H 120 H Calcium 9.4 9.1 Total Bilirubin 0.8 AST 34 ALT 23 Alkaline Phosphatase 54 Troponin I < 0.012 Total Protein 6.9 Albumin 3.9 11/20/24 09:59 WBC RBC Hgb Hct MCV MCH MCHC RDW Plt Count MPV Immature Gran % (Auto) Neut % (Auto) Lymph % (Auto) Weber % (Auto) Eos % (Auto) Baso % (Auto) Lymph # (Auto) Weber # (Auto) Eos # (Auto) Baso # (Auto) Abs Immat Gran (auto) Absolute Neuts (auto) Absolute Nucleated RBC Nucleated RBC % PT INR APTT 73.7 H Sodium Potassium Chloride Carbon Dioxide Anion Gap BUN Creatinine Estim Creat Clear Calc Estimated GFR Glucose Calcium Total Bilirubin AST ALT Alkaline Phosphatase Troponin I Total Protein Albumin
--- NOTE | 2024-11-20 17:56 | PC.NURSE ---
This patient, Rere Garner, was transferred to [facility] on 11/20/24 at 1648. Personal belongings sent with patient. Report given to ZACHARIAH Watson. Appropriate documentation sent with patient. Pt left resting in bed with call light in reach. Jeannette Davis RN
--- NOTE | 2024-11-20 18:29 | PC.NURSE ---
Patient transferred to room 242 from IMU at approximately 1745. Patient independent in room, instructed how to use call light. Eating dinner with currently
[2024-11-20] MEDS: APIXABAN 5 MG TABLET 10 MG PO (20:24)
[2024-11-21 04:50] VITALS: BP 140/80; PULSE 63; RESP 20; TEMP 36.4; O2SAT 95
[2024-11-21] MEDS: SPIRONOLACTONE 25 MG TABLET 100 MG PO (08:26)
[2024-11-21] MEDS: DOCUSATE SODIUM 100 MG CAPSULE PO (08:26)
[2024-11-21] MEDS: APIXABAN 5 MG TABLET 10 MG PO (08:26)
--- NOTE | 2024-11-21 08:31 | PM.IMPN ---
Progress Note: A&P Assessment and Plan (1) Pulmonary embolism: Code(s): I26.99 - Other pulmonary embolism without acute cor pulmonale Status: Acute (2) Thoracic ascending aortic aneurysm: Code(s): I71.2 - Thoracic aortic aneurysm, without rupture Status: Acute (3) Hypertension: Code(s): I10 - Essential (primary) hypertension Status: Acute Plan 69-year-old female had undergone an umbilical hernia repair September 23 with lithotripsy for kidney stones. This was followed by cystoscopy and stent placement. She was admitted November 19 due to right pleuritic chest pain. CTA of the chest revealed a stable and known thoracic aortic aneurysm and multiple bilateral pulmonary emboli with moderate clot burden mainly in the right lower lung. She had a prior history of pulmonary emboli 3 weeks post tummy tuck in 2016 and took an anticoagulant for 3 months. No prior history of lung disease or heart disease otherwise. She was started on heparin drip. She is hemodynamically stable. PESI score of 69 places her in the low risk category amenable to outpatient treatment, however it is unclear whether her insurance will cover Eliquis or Xarelto. On 11/20 she was transitioned from IV heparin to oral Eliquis. noted ascening thoracic aortic aneurysm measuring 5.1 cm x 4.9 cm. follow up as opbasis. Subjective Date/time seen: 11/21/24 08:31 Interval history: no overnight events. no sob, chest pain. feels well. leg swelling which is chronic. currrently taking spironolactone. Review of Systems Review of Systems: All systems reviewed & are unremarkable except as noted in HPI and below Exam Narrative: HEENT: PERRL, sclerae nonicteric, pharyngeal mucosa pink and intact NECK: No JVD, adenopathy, or thyromegaly CHEST: Clear to auscultation. Normal effort HEART: NL S1/S2, regular, no murmur ABDOMEN: BS+, soft, nontender, no mass, no bruits EXTREMITIES: No cyanosis, or clubbing. 1+ edema noted on legs bialterally NEUROLOGIC: CN intact and symmetric to inspection MUSCULOSKELETAL: Tone and strength symmetric PSYCH: Alert. Oriented to person, place, and time Objective Data Vital Signs Vital Signs: Vital Signs - 24 hr 11/20/24 10:00 11/20/24 11:13 11/20/24 12:00 Temperature 98.3 F Pulse Rate 61 60 Respiratory Rate 16 Blood Pressure 154/87 H Pulse Oximetry 97 97 Oxygen Delivery Room Air 11/20/24 16:00 11/20/24 20:00 11/20/24 20:52 Temperature 98.4 F 97.6 F Pulse Rate 62 61 Respiratory Rate 20 20 Blood Pressure 146/87 H 136/77 Pulse Oximetry 95 96 Oxygen Delivery Room Air 11/20/24 23:10 11/21/24 04:50 Temperature 97.6 F Pulse Rate 63 Respiratory Rate 20 Blood Pressure 140/80 Pulse Oximetry 95 95 Oxygen Delivery Room Air Intake/Output Intake/Output: Intake & Output 11/18/24 11/19/24 11/20/24 11/21/24 23:59 23:59 23:59 23:59 Intake Total 627.8 1587.4 390 Output Total 1 Balance 627.8 1586.4 390 Meds/Results Medications: Active Medications Generic Name Dose Route Start Last Admin Trade Name Freq PRN Reason Stop Dose Admin Acetaminophen 650 mg 11/19/24 18:24 11/20/24 05:39 Acetaminophen 325 Mg Tablet PO 650 mg Q4H PRN Administration Mild Pain (1-3) or Fever Hydrocodone Bitart/Acetaminophen 1 tab 11/19/24 18:24 Hydrocodone/Acetaminophen (*Crx) 5-325 Mg Tablet PO Q4H PRN Moderate Pain (4-6) Apixaban 10 mg 11/20/24 21:00 11/21/24 08:26 Apixaban 5 Mg Tablet PO 10 mg Q12HR ARABELLA Administration Docusate Sodium 100 mg 11/20/24 09:00 11/21/24 08:26 Docusate Sodium 100 Mg Capsule PO 100 mg BID ARABELLA Administration Ondansetron HCl 4 mg 11/19/24 13:58 11/19/24 14:03 Ondansetron Inj 4 Mg/2 Ml Vial IV PUSH 4 mg Q6H PRN Administration Nausea And Vomiting Spironolactone 100 mg 11/20/24 09:00 11/21/24 08:26 Spironolactone 25 Mg Tablet PO 100 mg DAILY ARABELLA Administration Radiology Results: ITS Impressions Chest X-Ray 11/19/24 10:21 IMPRESSION: 1. Cardiomegaly. Chest CTA 11/19/24 12:28 IMPRESSION: 1. Multiple likely pulmonary emboli in right lower lobar and left upper lobar pulmonary arteries with moderate clot burden. Sensitivity and specificity is however decreased by moderate amount of motion artifact. No evident right heart strain. Dr. Sue discussed these findings with Dr. Clark at 12:38 PM. 2. Discoid atelectasis in the bilateral lower lobes with additional more groundglass opacity at the anterobasilar segment of the right lower lobe which is more suspicious for pulmonary infarct and with differential including pneumonia. 3. Cardiomegaly. 4. Minimal change in a fusiform ascending thoracic aortic aneurysm measuring up to 5.1 x 4.9 cm. Labs Labs: Laboratory Results - last 24 hr 11/20/24 09:59 APTT 73.7 H
--- NOTE | 2024-11-21 11:13 | P.DS_ITS ---
DS: Admitting Diagnosis Discharge Date 11/21/2024 Admitting Diagnosis Chest pain DS: Discharge Diagnosis Discharge Diagnosis (1) Pulmonary embolism: Code(s): I26.99 - Other pulmonary embolism without acute cor pulmonale Status: Acute (2) Thoracic ascending aortic aneurysm: Code(s): I71.2 - Thoracic aortic aneurysm, without rupture Status: Acute (3) Hypertension: Code(s): I10 - Essential (primary) hypertension Status: Acute DS: Summary Hospital Course Hospital Course: 69-year-old female had undergone an umbilical hernia repair September 23 with lithotripsy for kidney stones. This was followed by cystoscopy and stent placement. She was admitted November 19 due to right pleuritic chest pain. CTA of the chest revealed a stable and known thoracic aortic aneurysm and multiple bilateral pulmonary emboli with moderate clot burden mainly in the right lower lung. She had a prior history of pulmonary emboli 3 weeks post tummy tuck in 2016 and took an anticoagulant for 3 months. No prior history of lung disease or heart disease otherwise. She was started on heparin drip. She is h emodynamically stable. PESI score of 69 places her in the low risk category amenable to outpatient treatment, however it is unclear whether her insurance will cover Eliquis or Xarelto. On 11/20 she was transitioned from IV heparin to oral Eliquis. Eliquis covered and will be continued on Eliquis at discharge. This likely postsurgical provoked PE. 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 This was discussed with the patient. She will follow up with PCP with regard to this. noted ascening thoracic aortic aneurysm measuring 5.1 cm x 4.9 cm. follow up as opbasis. Time Spent with Patient Time attestation: Total time spent providing and/or coordinating discharge services: 35 minutes Exam Narrative: HEENT: PERRL, sclerae nonicteric, pharyngeal mucosa pink and intact NECK: No JVD, adenopathy, or thyromegaly CHEST: Clear to auscultation. Normal effort HEART: NL S1/S2, regular, no murmur ABDOMEN: BS+, soft, nontender, no mass, no bruits EXTREMITIES: No cyanosis, or clubbing. 1+ edema noted on legs bialterally NEUROLOGIC: CN intact and symmetric to inspection MUSCULOSKELETAL: Tone and strength symmetric PSYCH: Alert. Oriented to person, place, and time DS: Data Imaging Radiologist's impression: ITS Impressions Chest X-Ray 11/19/24 10:21 IMPRESSION: 1. Cardiomegaly. Chest CTA 11/19/24 12:28 IMPRESSION: 1. Multiple likely pulmonary emboli in right lower lobar and left upper lobar pulmonary arteries with moderate clot burden. Sensitivity and specificity is however decreased by moderate amount of motion artifact. No evident right heart strain. Dr. Sue discussed these findings with Dr. Clark at 12:38 PM. 2. Discoid atelectasis in the bilateral lower lobes with additional more groundglass opacity at the anterobasilar segment of the right lower lobe which is more suspicious for pulmonary infarct and with differential including pneumonia. 3. Cardiomegaly. 4. Minimal change in a fusiform ascending thoracic aortic aneurysm measuring up to 5.1 x 4.9 cm. Discharge Plan Discharge Attending physician on discharge: Gurdeep Allen Discharging Clinician: Gurdeep Allen Anticipated Discharge Date/Time: 11/21/24 11:15 Patient Disposition: Home Activity: as tolerated Diet: as tolerated and heart healthy Patient Instructions: Antibiotic Form, Apixaban (By mouth) Patient Language: British Stand Alone Forms: General Discharge Information Follow-up/Referrals: Juan Alberto,MD Anibal [Primary Care Provider] - 1 Week Discharge Medications: New apixaban 5 mg tablet See Rx Instructions .ROUTE .COMPLEX Qty: 74 0RF Rx Instructions: take 2 tablet (10 mg) twice daily x 6 days then 1 tablet (5mg) twice daily to continue Continued spironolactone 25 mg tablet 100 mg PO DAILY ascorbic acid (vitamin C) [C-1000] 1,000 mg tablet 1 g PO DAILY vitamin B complex [Vitamins B Complex] Capsule 1 cap PO DAILY Date of admission: 11/20/24 15:05 Primary Care Provider: BettyAnibal Admitting Provider: Yue Damian Attending physician on admission: Yue Damian Condition: Improved
== END 2024-11-21 14:00 | disposition home or self-care (01) | DRG 176 ==
LOC: ANHED 10:29 → ANHIMU 13:34 → ANH2MED 11-20 17:35
PROVIDERS: Nurse Practitioner Gerontology; Admitting Provider General Practice; Emergency Provider Emergency Medicine; PCP Hospitalist; Visit Provider Internal Medicine
DX: I26.99 Other pulmonary embolism without acute cor pulmonale (principal); I10 Essential (primary) hypertension; I71.21 Aneurysm of the ascending aorta, without rupture; G47.33 Obstructive sleep apnea (adult) (pediatric); M79.89 Other specified soft tissue disorders; Z96.0 Presence of urogenital implants; Z86.711 Personal history of pulmonary embolism; Z87.442 Personal history of urinary calculi
CPT/HCPCS: 36415; 71046; 71275; 80048; 80053; 84484; 85025; 85610; 85730; 93005; 96365; 96366; 96375; 99285; A9270; G0378; J1171; J1644; J2405; Q9967

== ENCOUNTER 2024-12-22 13:11 | Outpatient (CLI) | payer MEDICARE, SELFPAY ==
--- NOTE | ~2024-12-22 | CT_ITS ---
EXAMINATION: CTA chest PE protocol DATE: 12/22/2024 13:51 INDICATION: Acute pulmonary emboli. TECHNIQUE: Computed tomography angiography (CTA) of the chest was performed with 100 mL Omnipaque-350 intravenous contrast timed to evaluate the pulmonary arteries. Coronal maximum intensity projection 3D-reconstructions were created by the technologist. Automated exposure control and iterative reconstruction technique were employed. The dose-length product was 537.73 mGy-cm. COMPARISON: Chest CTA 11/19/24 FINDINGS: The lungs demonstrate mild atelectasis. No pleural effusion. There is a 12 mm nodule in right thyroid lobe, likely not clinically significant. Cardiomegaly is noted. No pericardial effusion. There is a 5.0 cm fusiform aneurysm of ascending aorta. There are small peripheral nonobstructing pulmonary emboli in the lower lobes. There is moderate thoracic spondylosis and severe cervical spondylosis. IMPRESSION: 1. Mild chronic pulmonary emboli in the lower lobes with interval improvement. 2. Stable 5.0 cm fusiform aneurysm of ascending aorta. Reviewed, dictated and finalized at location E.
--- OUTSIDE RECORDS SUMMARY | 2024-12-22 10:15 | XMS_ITS | Encounter Summary ---
Author Organization [facility] Healthcare Address [address] [place] [address] Care Team Providers Care Barrel Lathe Operator Name Role Phone Shanda Mead BRIAN Primary Care Provider [phone] Reason for Visit * Reason Comments Follow-up 3 mo follow up Encounter Details Date Type Department Care Team (Late st Contact Info) Description 12/22/2024 10:15 AM CDT Office Visit Family Physicians [facility] [address] [place] [address] Anibal Avendano MD [address] [place] [address] Social History Tobacco Use Types Packs/Day Years Used Date Smoking Tobacco: Never Smokeless Tobacco: Never [facility] Utilities Answer Date Recorded In the past 12 months has [facility] [employer], gas, oil, or water [employer] threatened to shut off services in your [...] or ex-partner? No 02/18/2023 Social Connection and Isolation Panel Answer Date Recorded In a typical week, [...] points, staff should administer the PHQ-9) 0 12/22/2024 [facility] Occupational Stress Questionnaire Answer [...] to sleep or slept in a senior living (including now)? 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 Gender Identity Not on file Sexual Orientation Not on file documented as of this encounter Last Filed Vital Signs Vital Sign Reading Time Taken Comments Blood Pressure 130/80 12/22/2024 10:13 AM CDT Pulse 66 12/22/2024 10:13 AM CDT Temperature 36.4 C (97.5 F) 12/22/2024 10:13 AM CDT Respiratory Rate 18 12/22/2024 10:13 AM CDT Oxygen Saturation 96% 12/22/2024 10:13 AM CDT Inhaled Oxygen Concentration - - Weight 108 kg (238 lb) 12/22/2024 10:13 AM CDT Height 165.1 cm (5' 5) 12/22/2024 10:13 AM CDT Body Mass Index 39.61 12/22/2024 10:13 AM CDT documented in this encounter Plan of Treatment Not on file documented as of this encounter Visit Diagnoses Not on filedocumented in this encounter Care Teams Barrel Lathe Operator Relationship Specialty Start Date End Date Shanda Mead NP PCP - General Family Medicine 02/18/23 documented as of this encounter
[2024-12-22 13:45] LABS: Estimated Glomerular Filt Rate > 60
--- OUTSIDE RECORDS SUMMARY | 2024-12-22 14:58 | XMS_ITS | Encounter Summary ---
Author Organization [facility] Healthcare Address [address] [place] [address] Care Team Providers Care Chemical Maker Name Role Phone Shanda Mead NP Primary Care Provider [phone] Reason for Visit * Reason Onset Date Comments TOM Questions 11/22/2024 Encounter Details Date Type Department Care Team (Late st Contact Info) Description 11/22/2024 Telephone Family Physicians [facility] [address] [place] [address] Shanda Mead NP [address] [place] [address] TOM Questions Social History Tobacco Use Types Packs/Day Years Used Date Smoking Tobacco: Never Smokeless Tobacco: Never [facility] Utilities Answer Date Recorded In the past 12 months has [facility] electric, gas, oil, or water [employer] threatened to shut off services in your [...] How often do you attend chur or temple services? Never 02/18/2023 Do you belong to any clubs o r organizations such as hinduism groups, unions, fraternal or athletic groups, or [...] PHQ-9) 0 02/25/2024 [facility] - Occupational [...] place to sleep or slept in a nursing home (including now)? 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 Yes Date Admitted: 11/19/24 Date Discharged: 11/21/24 Facility Admitted To: [facility] Reason for Stay? Blood clot in lung If prescribed new medications, do you have any questions or concerns? No questions Do you have enough medication to get you to your follow-up appointment? Yes Since being released do you feel better, the same, or worse? Better Date of TOM Appointment: 11/29/24 Do you have transportation to the appointment? Yes Additional Comments: n/a Does message need to be routed? No documented in this encounter Plan of Treatment Not on file documented as of this encounter Visit Diagnoses Not on filedocumented in this encounter Care Teams Chemical Maker Relationship Specialty Start Date End Date Shanda Mead NP PCP - General Family Medicine 02/18/23 documented as of this encounter
--- OUTSIDE RECORDS SUMMARY | 2024-12-22 14:58 | XMS_ITS | Clinical Summary ---
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
--- OUTSIDE RECORDS SUMMARY | 2024-12-22 14:58 | XMS_ITS | Clinical Summary ---
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
--- OUTSIDE RECORDS SUMMARY | 2024-12-22 14:58 | XMS_ITS | Encounter Summary ---
Author Organization [facility] Healthcare Address [address] [place] [address] Care Team Providers Care Intern Product Marketing Manager Name Role Phone Shanda Mead NP Primary Care Provider [phone] Reason for Visit * Reason Onset Date Comments Appointment Request 11/23/2024 Encounter Details Date Type Department Care Team (Late st Contact Info) Description 11/23/2024 Telephone [facility] [address] [place] [address] Shanda Mead NP [address] [place] [address] Appointment Request Social History Tobacco Use Types Packs/Day Years Used Date Smoking Tobacco: Never Smokeless Tobacco: Never [facility] Utilities Answer Date Recorded In the past 12 months has [facility] [employer] [place], gas, oil, or water [employer] threatened to shut off services in your [...] How often do you attend chur or quaker services? 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 11/19 When were you discharged? 11/21 What hospital (or [facility] facility[facility] in? [facility] What was the reason for your hospital stay? Blood clot in lung If you were prescribed any new medications in the hospital, do you have any questions or concerns about them? n/a Do you have enough medication to get you to your follow-up appointment? yes Since being released from the hospital do you feel better, the same, or worse? better Date of Transition of Care Appointment: 11/29 Do you have transportation to the appointment? yes * Telephone Encounter - Theresa Cohen - 11/23/2024 4:11 PM CDT No availability with Shanda Avendano. Would you be willing to see patient? * Telephone Encounter - Char Cain - 11/23/2024 3:21 PM CDT Appointment Request What visit type does the patient need? Visit Type: TOM What is the reason for the visit? tom What is the reason we were unable to schedule the appointment? Current appointment availability didnot meet patient's need. If applicable, were all members of the patient's PCP care team offered (e.g., nurse practioner(s), physician assistant general manager(s)) ? Yes Additional Comments: patient is currently on Dr Alvarenga schedule for a tom She is not comfortable with this and states its like starting all over' I advised her he has access to her chart in [facility] I looked for an appointment with Dr Avendano but no availability until January Does message need to be routed? Yes-Action Needed documented in this encounter Plan of Treatment Not on file documented as of this encounter Visit Diagnoses Not on filedocumented in this encounter Care Teams Intern Product Marketing Manager Relationship Specialty Start Date End Date Shanda Mead NP PCP - General Family Medicine 02/18/23 documented as of this encounter
--- OUTSIDE RECORDS SUMMARY | 2024-12-22 14:58 | XMS_ITS | Clinical Summary ---
Author Organization [facility] Address [address] [place] [address] Care Team Providers Care Road Crew Member Name Role Phone Shanda Mead BRIAN Primary Care Provider [phone] Allergies Active Allergy Reactions Criticality Noted Date [...] daily Med Name: Thyrodain Active spironolactone (ALDACTONE) 100 mg tablet Take 1 tablet (100 mg total) by mouth daily 11/23/19 25 Active Eliquis 5 mg tablet TAKE 2 TABLETS BY MOUTH TWICE DAILY FOR 6 DAYS, THEN TAKE 1 TABLET TWICE DAILY THEREAFTER. 11/22/19 25 Active tirzepatide, weight loss, (ZEPBOUND) 2.5 mg/0.5 mL solution vial Inject 0.5 mL (2.5 mg total) under the skin once a week This medication record is used for ordering a prescription for [employer] [facility] 2 mL 12/03/19 25 Active spironolactone (ALDACTONE) 25 mg tablet Take 1 tablet (25 mg total) by mouth daily 90 tablet 4 08/19/19 025 Discontinued tirzepatide, weight loss, (Zepbound) 2.5 mg/0.5 mL pen injectorIndica tions:SHANIQUE (obstructive sleep apnea),Class 3 severe obesity due to excess calories with serious comorbidity and body mass index (BMI) of 40.0 to 44.9 in adult Inject 0.5 mL (2.5 mg total) under the skin once a week 2 mL 10/09/19 25 025 Discontinued tirzepatide, weight loss, (Zepbound) 2.5 mg/0.5 mL pen injectorIndica tions:SHANIQUE (obstructive sleep apnea) Inject 0.5 mL (2.5 mg total) under the skin once a week 2 mL 10/12/19 025 Discontinued Active Problems Problem Noted Date Diagnosed Date Umbilical hernia without obstruction and without gangrene 08/30/2024 Peripheral edema 08/09/2024 Assessment & Plan (11/29/2024 10:40 AM CDT): Greatly improved since switching to Spironolactone. Will continue to monitor. Assessment & Plan (09/15/2024 12:49 PM CDT): [...] 02/24 Assessment & Plan (02/25/2024 10:16 AM BREAD PACKER): In regard to health maintenance, Colonoscopy- Declined [...] healthier, we can set up appointment with pouncer/wheel loader operator. Have an active lifestyle, strive for [...] 02/24 Assessment & Plan (02/25/2024 10:17 AM BREAD PACKER): Lipid panel ordered. Will continue to monitor. Acquired hypothyroidism 02/18/2023 Assessment & Plan (08/30/2024 3:31 PM CDT): Subclinical; continue to monitor; patient reports no symptoms associated with thyroid low Assessment & Plan (08/09/2024 3:06 PM CDT): Stable, well controlled, last TSH at goal; on supplements; continue to monitor Assessment & Plan (06/07/2024 3:29 PM BREAD PACKER): Last TSH at goal, taking natural supplements Will continue to monitor closely Assessment & Plan (02/25/2024 10:15 AM BREAD PACKER): Will recheck TSH and T4. Will continue to take OTC thyroid medication and seeing pouncer. Class 3 severe obesity due t o excess calories with serious comorbidity and body mass index (BMI) of 40.0 to 44.9 in adult 02/18/2023 Assessment & Plan (11/29/2024 10:40 AM CDT): Encouraged heart healthy diet and lifestyle. Advised 150 min/week of aerobic exercise. Assessment & Plan (09/15/2024 12:49 PM CDT): Stable, patient currently scheduled for umbilical surgery; would recommend increased physical activity; dietary changes after cleared post surgery Assessment & Plan (08/30/2024 3:31 PM CDT): Stable, no major changes to weight; encourage regular physical activity and exercise; may improve after hernia surgery Assessment & Plan (06/07/2024 3:29 PM BREAD PACKER): Not well controlled, has been having weight [...] week. Assessment & Plan (02/25/2024 10:15 AM BREAD PACKER): Encouraged heart healthy diet and lifestyle. Advised 150 min/week of aerobic exercise. Hypertension 12/02/2016 Assessment & Plan (11/29/2024 10:40 AM CDT): See above. Stable and controlled. Assessment & Plan (09/15/2024 12:49 PM CDT): [...] b.i.d. Assessment & Plan (06/07/2024 3:29 PM BREAD PACKER): Stable, well controlled, blood pressure mildly elevated today, some peripheral edema with limited relief Will start furosemide 20 mg b.i.d., continue lisinopril 40 mg, discontinue hydrochlorothiazide Assessment & Plan (02/25/2024 10:14 AM BREAD PACKER): Blood pressure not well controlled. Will increase [...] weeks Assessment & Plan (02/18/2023 10:15 AM BREAD PACKER): Stable, currently well-controlled BP at visit 120/84 Continue lisinopril 40 mg daily Resolved Problems Problem Noted Date Diagnosed Date Resolved Date Ascending aortic aneurysm 07/26/2014 Assessment & Plan (02/25/2024 10:25 AM BREAD PACKER): Continues with routine monitoring. Will continue to follow. Assessment & Plan (02/18/2023 11:51 AM BREAD PACKER): Gets regular monitoring Patient will call back with location she would like to get next US done at Encounters Date Type Department Care Team Description 12/22/2024 10:15 AM CDT Office Visit [facility] [address] [phone] Anibal Avendano MD 12/02/2024 10:30 AM CDT Office Visit [facility] [address] [place] [phone] August Pickett MD Hypersomnia with sleep apnea (Primary Dx); SHANIQUE (obstructive sleep apnea); Class 3 severe obesity due to excess calories with serious comorbidity and body mass index (BMI) of 40.0 to 44.9 in adult 12/01/2024 8:20 AM CDT Lab [facility] [address] [place] [address] 11/29/2024 10:00 AM CDT Office Visit [facility] [address] [address] Tiffanie Gannon NP Hospital discharge follow-up (Primary Dx); Acute pulmonary embolism, unspecified pulmonary embolism type, unspecified whether acute cor pulmonale present (HCC); Peripheral edema; Primary hypertension; Class 2 severe obesity due to excess calories with serious comorbidity and body mass index (BMI) of 39.0 to 39.9 in adult (HCC) 11/29/2024 Telephone [facility] [address] [phone] Shanda Mead NP 11/23/2024 Telephone [facility] [address] [address] Shanda Mead NP Appointment Request 11/22/2024 Telephone [facility] [address] [address] Shanda Mead NP TOM Questions 11/19/2024 Orders Only [facility] Health Information Management [address] [place] [address] Scanning, Provider 11/11/2024 [facility] Information Management [address] [place] [address] Scanning, Provider 10/30/2024 Orders [facility] Information Management [address] [place] [address] Scanning, Provider 10/29/2024 Orders Only [facility] Health Information Management [address] [place] [address] Scanning, Provider 10/26/2024 Orders Only [facility] Health Information Management [address] [place] [address] Scanning, Provider 10/07/2024 10:00 AM CDT Office Visit [facility] [address] [place] [phone] August Pickett MD Severe Obstructive sleep apnea (Primary Dx); Hypersomnia with sleep apnea; Morbid obesity with BMI of 40.0-44.9, adult (HCC) 10/07/2024 Telephone [facility] [address] [place] [address] [address] [place] [phone] August Pickett MD 09/23/2024 Orders Only [facility] Health Information Management [address] [place] [address] Scanning, Provider from Last 3 Months Immunizations Immunization Administration Dates Next Due Influenza, Unspecified 11/29/2024(Deferr ed: Patient Refused),02/25/2024(Deferred: Patient Refused),01/08/2024(Deferred: Patient Refused),12/13/2023(Deferred: Patient Refused),01/11/2023(Deferred: Patient Refused),01/11/2023(Deferred: Patient Refused),12/12/2022(Deferred: Patient Refused),01/11/2022(Deferred: Patient Refused) Surgical History Surgery Date Site/Laterality Comments REDUCTION MAMMAPLASTY x2 MOLE REMOVAL Right right breast CYST REMOVAL Left left shoulder blade LITHOTRIPSY HYSTERECTOMY CATARACT EXTRACTION, BILATERAL Bilateral HAND SURGERY Right thumb and ring finger OTHER SURGICAL HISTORY Tummy Tuck OTHER SURGICAL HISTORY Right PRP HIP RIGHT UMBILICAL HERNIA REPAIR Medical History Medical History Date Comments Thyroid [...] Tobacco Cessation:Counseling Given: Not Answered [facility] Utilities Answer Date Recorded In the past 12 months has th e [employer], gas, oil, or water company threatened to [...] often do you attend chur ch or orthodox services? Never 02/18/2023 Do you belong to any clubs o r organizations such as amish groups, unions, fraternal or athletic groups, or [...] staff should administer the PHQ-9) 0 12/22/2024 [facility] - Occupational Stress Questionnaire Answer Date [...] place to sleep or slept in a long-term (including now)? 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 Gender Identity Not on file Sexual Orientation [...] Mass Index 39.61 12/22/2024 10:13 AM CDT Plan of Treatment Health Maintenance Due Date Last Done Comments DTaP/Tdap/Td Vaccine (1 - Tdap) 1966 Pneumococcal vaccine 65+ (1 of 1 - PCV) 2005 Zoster Vaccine (1 of 2) 2005 Influenza Vaccine (#1) 2024 Well Visit 65+ 02/24/2025 02/25/2024, 02/18/2023 Breast Cancer Screening-Mammogram 05/16/2025 Postponed from 1955 (Patient declined, but will receive in the future) Colon Cancer Screening-Colonoscopy 05/19/2025 Postponed from 1955 (Patient declined, but will receive in the future) Osteoporosis Screening-Bone Density Scan 08/09/2025 Postponed from 1955 (Patient declined, but will receive in the future) Fall Risk Assessment 11/29/2025 11/29/2024, 02/25/2024, 02/18/2023 Depression Screening 12/22/2025 12/22/2024, 11/29/2024, 02/25/2024, Additional history exists Hepatitis B Screening Completed 08/18/2024 Hepatitis C Screening Completed 08/18/2024 Procedures Procedure Name Priority Date/Time Associated Diagnosis Comments EGFR Routine 12/01/2024 8:34 AM CDT BASIC METABOLIC PANEL Routine 12/01/2024 8:34 AM CDT SCAN - RADIOLOGY/IMAGING 11/19/2024 SCAN - RADIOLOGY/IMAGING 11/11/2024 SCAN - RADIOLOGY/IMAGING 10/30/2024 SCAN - RADIOLOGY/IMAGING 10/29/2024 SCAN - RADIOLOGY/IMAGING 10/26/2024 SCAN - RADIOLOGY/IMAGING 09/23/2024 HEPATITIS C ANTIBODY Routine 08/18/2024 9:59 AM CDT Encounter for hepatitis C screening test for low risk patient from Last 3 Months or Most Recently Relevant to Health Maintenance Results * eGFR (12/01/2024 8:34 AM CDT) eGFR 90 >=60 mL/min/1. 73 m2 Comment: Interpretive Data [...] was last reviewed 2021. Testing performed by: [facility], [address] [place] [address], [place]., [address] Blood 12/01/2024 8:34 AM CDT 12/01/2024 2:23 PM CDT us Presley Azevedo MD LAB BLOOD ORDERABLES Final Re sult [facility] [place]) [address] Department [place] [address] * (ABNORMAL) Basic metabolic panel (12/01/2024 8:34 AM CDT) Sodium 138 135 - 145 mmol/L Comment:Testing performed by : [address], [place]., [address] Potassium, pl 5.1(H) 3.3 - 4.9 mmol/L [facility] ([place]) Comment:Testing performed by : [facility], [address] [place] [address]., [address] Chloride 100 97 - 110 mmol/L [facility] ([place]) Comment:Testing performed by : [address], [address] CO2 25 22 - 32 mmol/L [facility] ([place]) Comment:Testing performed by : [facility], [address] [place] [address], [address] Anion gap 13 2 - 15 mmol/L [facility] ([place]) Comment:Testing performed by : [address], [address] BUN 21 6 - 25 mg/dL [facility] ([place]) Comment:Testing performed by : [address], [address] Creatinine 0.72 0.60 - 1.10 mg/dL [facility] ([place]) Comment:Testing performed by : [address], [address] Glucose 107 70 - 199 mg/dL [facility] ([place]) [...] was last revised 2022. Testing performed by: [address] [address] Calcium 10.1 8.5 - 10.3 mg/dL [facility] ([place]) Comment:Testing performed by : [address], [address] Blood 12/01/2024 8:34 AM CDT 12/01/2024 2:10 PM CDT us Presley Azevedo MD LAB BLOOD ORDERABLES Final Re sult [facility] [place] [facility]) [address] Department [place] [address] * SCAN - RADIOLOGY/IMAGING (11/19/2024) Anatomical Region Laterality Modality Other us Provider Scanning Edited Result - Final * SCAN - RADIOLOGY/IMAGING (11/11/2024) Anatomical Region Laterality Modality Other us Provider [...] last revised on 2019. Testing performed by: [facility], [address] [place] [address], [place]., [address] Blood 08/18/2024 9:59 AM CDT 08/18/2024 3:52 PM CDT Anibal Avendano MD LAB MICROBIOLOGY - GENERA L ORDERABLES Final Result [facility] ([place]) [address] Department [place] [address] from Last 3 Months or Most Recently Relevant to Health Maintenance [place] [address] CHOICE PRF PPO [place] MEDICARE [employer] SENIOR SUPPLEMENT Care Teams Road Crew Member Relationship Specialty Start Date End Date Shanda Mead NP PCP - General Family Medicine 02/18/23
--- OUTSIDE RECORDS SUMMARY | 2024-12-22 14:59 | XMS_ITS | Encounter Summary ---
Author Organization [facility] Address [address] [place] [address] Phone Care Team Providers Care Set Up And Lay Out Inspector Name Role Phone Patti Aiken MD Primary Care Provider [phone] Shanda Mead NP Primary Care Provider [phone] Encounter Details Date Type Department Care Team (Late st Contact Info) Description 03/21/2019 Telephone [facility] [address] [facility] 8th [place] [address] [place] [address] Caleb Garcia MD PhD [address] [address] Social History Tobacco Use Types Packs/Day Years Used Date Smoking Tobacco: Never Smokeless Tobacco: Never Comments Unknown Sex and Gender Information Value Date Recorded Sex Assigned at Not on file 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
--- OUTSIDE RECORDS SUMMARY | 2024-12-22 14:59 | XMS_ITS | Encounter Summary ---
Author Organization [facility] Address [address] [place] [address] Phone Care Team Providers Care Orthopedic Mechanic Name Role Phone Patti Aiken MD Primary Care Provider [phone] Shanda Mead NP Primary Care Provider [phone] Encounter Details Date Type Department Care Team (Latest Contact Info) Description 09/08/2018 Orders Only [facility] Scanning, Provider Social History Tobacco Use Types Packs/Day Years Used Date Smoking Tobacco: Never Smokeless Tobacco: Never Comments Unknown Sex and Gender Information Value Date Recorded Sex Assigned at Not on file 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
== END 2024-12-22 13:12 | disposition home or self-care (01) ==
PROVIDERS: PCP Hospitalist
DX: N20.0 Calculus of kidney (principal); I26.99 Other pulmonary embolism without acute cor pulmonale
CPT/HCPCS: 71275; Q9967

== ENCOUNTER 2025-03-02 12:34 | Outpatient (CLI) | payer MEDICARE, SELFPAY ==
--- NOTE | ~2025-03-02 | XR_ITS ---
EXAMINATION: KUB: DATE: 03/02/2025 INDICATION: History of kidney stones. Preop. TECHNIQUE: Supine AP view of the abdomen were obtained. COMPARISON: Previous exam dated 11/11/2024 FINDINGS: 13.5 x 9 mm size calculus in the projection of lower right kidney is noted. No calcific densities are seen on the left side. Severe degenerative disc disease of lumbar spine with facet arthropathy at L4-5 level. IMPRESSION: 1. Right renal calculus as mentioned above. 2. Severe degenerative disc disease and facet arthropathy at L4-5 level. Reviewed, dictated and finalized at location T. E AND STORAGE CLERK
--- OUTSIDE RECORDS SUMMARY | 2025-03-02 14:54 | XMS_ITS | Data Portability ---
Author Organization [facility], [facility] Address [address] [address] Care Team Providers Care Administration Assistant Name Role Phone ALVIN LUIS Primary Care Provider Unavailabl e Assessment No assessment recorded. Plan of Treatment Reminders Order Date Submit Date Provider Last Modified By Organization Details Last Modified Time Details Appointments None recorded. Lab None recorded. Referral None recorded. Procedures None recorded. Surgeries None recorded. Imaging US, doppler, venous - left calf pain, rule out dvt, positive homans test 2018 BARBARA Not available 9 08:59:16 US, lower extremity, nonvascular 2018 019 [email or web address] Not available 9 07:23:53 Medication Orders diazepam 10 mg tablet 2018 [email or web address] Not available 9 21:29:21 Patient TargetsNo targets recorded. Patient InstructionsNo instructions recorded. Reason for Referral None Reported. Results Created Date Observation Date Name Description Value Unit Range Abnormal Flag Note LastModifiedBy Organization Detail LastModifiedTime 03/16/20 19 03/04/2019 MRI, pelvi s, w/o contr ast No observ ation record ed. BARCODE Not Available 2018 09:47:09 03/16/20 19 03/16/2019 US, doppl er, venou s No observ ation record ed. [email or web address] Sav [address], [place], [address], 03/17/2019 14:30:50 Result Notes None recorded. Problems No Known Problems Procedures Surgical History Date Name Laterality Status Provider Name and Address Organization Details Recorded Time Breast Surgery completed Chelo Parker [facility] 03/15/2019 15:41:33 Imaging Results None recorded. Procedure Notes None recorded. Medical Equipment None Reported. Allergies No known drug allergies Medications Name Sig Start Date Stop Date Status Note LastModified by Organization Details LastModified Time lisinopril 20 mg tablet active Not Available Not Available Not Available tramadol 50 mg tablet 06/07 completed Not Available Not Available Not Available furosemide 20 mg tablet active Not Available Not Available Not Available diazepam 10 mg tablet Take 1 tablet(s) 30 mins PRIOR to appointme nt PRN and repeat as directed by physician . 06/07 completed Not Available Not Available Not Available methylpredn isolone 4 mg tablets in a dose pack 06/07 completed Not Available Not Available Not Available hydrocodone 10 mg-acetamin ophen 300 mg tablet Take 1 tablet every 6 hours by oral route. 06/07 completed Not Available Not Available Not Available Xarelto 20 mg tablet 06/07 completed Not Available Not Available Not Available Xarelto DVT-PE Treatment 30-Day Starter 15 mg(42)-20 mg(9) tablet pack 06/07 completed Not Available Not Available Not Available Vitals Date Recorded Body height Body mass index (BMI) Body weight Heart rate Systolic And Diastolic Provider Name and Address Organization Details Last Updated DateTime 06/07/2019 167.64 cm 33.9 kg/m2 74084.4 g 62 /min 127/84 mm[Hg] Rafa Merino [facility] 06/07/2019 12:32:23 Date Recorded Body height Body mass index (BMI) Body weight Heart rate Systolic And Diastolic Provider Name and Address Organization Details Last Updated DateTime 03/15/2019 167.64 cm 33.9 kg/m2 72193.4 g 62 /min 161/94 mm[Hg] Chelo Parker [facility] 03/15/2019 15:41:01 Social History Question Answer Notes LastModified by Organization D etails LastModified Time Marital Status [email or web address] Informatio n not available 03/15/2019 Sex: Unknown Functional Status None recorded. Mental Status None recorded. Family History Relationship Description Onset Age of this Age Resolved Age Notes LastModified by Organization Details LastModified Time Father Alzheimer's disease [email or web address] Not available 2018 15:41:12 Medical History Condition Response Other Cancer N HIV or AIDS N Coronary Artery Disease N Gout N Kidney Stones N Hyperthyroidism N Breast Cancer N Head Trauma/Injury N Hernia N Lung Cancer N Hypothyroidism N Lung Disease N Blood Clots Y Depression N COPD N Pacemaker N Anxiety Disorder N Arthritis N Kidney Cancer N Cancer N Stroke N Neck Injury N Leg or Foot Ulcers N High Cholesterol N Liver Disease N Rheumatoid Arthritis N Headaches N Fibromyalgia N Kidney Disease N Heart Problems N Prostate Cancer N Migraines N Thyroid Problems N Anemia N Multiple Sclerosis N Ulcers N Heart Attack ([place]) N Diabetes N Bleeding Disorder N Seizures/Epilepsy N Tuberculosis N Urinary Tract Infection N Back Problems N Diverticulitis N Asthma N Lupus N Peripheral Vascular Disease N Sleep Disorder N GERD/Reflux N Hepatitis N Aneurysm Y Thyroid Cancer N Heart Disease N Pulmonary Embolism N Hypertension N Osteoporosis N Gynecological HistoryNo gynecological history recorded. Obstetrics History GPAL:G 0 P 0 0 0 0 Past Encounters Encounter ID Performer Location Encounter Start Date Encounter Closed Date Diagnosis/Indication Diagnosis SNOMED-CT Code Diagnosis ICD10 Code Diagnosis IMO Codes Diagnosis Note [id number] Davon Pittman MD [facility] [id number] [id number] 03/15/2019 15:14:56 03/16/2019 07:23:53 Pain in lower limb 62441388 M79.605 Anxiety 82374872 F41.9 [id number] Davon Pittman MD [facility] [id number] [place] [address] 06/07/2019 11:48:27 06/07/2019 13:26:08 Health Concerns Section Related Observation LastModified by Organization Detai ls LastModified Time None Recorded Concern Status LastModified by Organization Details LastModified Time None Recorded Advance Directives Directive None Recorded Payers Insurance Date Sequence Insurance Name Policy Number Policy Espinal Covered Member ID Espinal Member ID Guarantor Name 07/02/2019 1 [place] [id number] Rere Garner [id number] Rere Garner Notes Date Note Type Note Provider Name and Address Organization Details Recorded Time 03/15/2019 text/html Pain Score Pain Scale today 3 Chief Complaint Why are you here today? Torn Tendon And Muscle Better or Worse Worse Pain Description Aching Constant Dull Intermittent Problem Time of Day All Day Long Imported from [employer] on 03/15/2019 Not Available [facility] 03/17/2019 08:51:25 06/07/2019 text/html Pain Score Pain scale from 0-10, 10 being the worst 1 Chief Complaint Pain scale from 0-10, 10 being the worst 1 Imported from [employer] on 06/07/2019 Not Available [facility] 06/13/2019 08:30:03 OBGyn Episode No OBEpisode recorded.
== END 2025-03-02 12:35 | disposition home or self-care (01) ==
PROVIDERS: PCP Hospitalist; Visit Provider Urology
DX: N20.0 Calculus of kidney (principal); M51.369 Other intervertebral disc degeneration, lumbar region without mention of lumbar back pain or lower extremity pain
CPT/HCPCS: 74018

== ENCOUNTER 2025-03-07 07:56 | Outpatient (CLI) | payer MEDICARE, SELFPAY ==
--- OUTSIDE RECORDS SUMMARY | 2025-03-07 08:03 | XMS_ITS | Encounter Summary ---
Author Organization [facility] Address [address] [place] [address] Phone Care Team Providers Care Slurry Tank Operator Name Role Phone Patti Aiken MD Primary Care Provider [phone] Shanda Mead NP Primary Care Provider [phone] Encounter Details Date Type Department Care Team (Late st Contact Info) Description 03/21/[address] 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
--- OUTSIDE RECORDS SUMMARY | 2025-03-07 08:03 | XMS_ITS | Clinical Summary ---
Author Organization [facility] Address [address] [place] [address] Care Team Providers Care Diabetes Manager Name Role Phone None, Provider Primary Care [...] Scan (General) 01/03/2020 COVID-19 Vaccine ( - 2024-2 6 season) 2024 Influenza Adult (#1) 2025 RSV Immunization or 60+ Years (1 - 1-dose 75+ series) 2030 Hepatitis A Vaccines Aged Out No long er eligible based on patient's age to complete this topic Meningococcal B Vaccine Aged Out No l onger eligible based on patient's age to complete this topic Meningococcal Vaccine Aged Out No yahir jolly eligible based on patient's age to complete this topic RSV Immunizations Under 20 Months Aged Out No longer eligible based on patient's age to complete this topic Insurance MEDICARE AET Care Teams Diabetes Manager Relationship Specialty Start Date End Date None, Provider, MD PCP - General UNKNOWN PHYSICIAN SPECIALTY 06/21/24
--- OUTSIDE RECORDS SUMMARY | 2025-03-07 08:03 | XMS_ITS | Encounter Summary ---
Author Organization [facility] Address [address] [place] [address] Care Team Providers Care Cranberry Grower Name Role Phone Shanda Mead NP Primary Care Provider [phone] Reason for Visit * Reason Onset Date Comments Med Refill 03/03/2025 Encounter Details Date Type Department Care Team (Late st Contact Info) Description 03/03/2025 Telephone [facility] [address] [place] [address] Shanda Mead NP [address] [place] [address] Med Refill Social History Tobacco Use Types Packs/Day Years Used Date Smoking Tobacco: Never Smokeless Tobacco: Never [facility] Utilities Answer Date Recorded In the past 12 months has [facility] [employer], gas, oil, or water [employer] threatened to shut off services in your [...] How often do you attend chur or confucianist services? 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 PROCESSING SCIENTIST * Telephone Encounter - Theresa Cohen - 03/06/2025 9:42 AM CST Re-printed and On Shanda's desk for signature PROCESSING SCIENTIST * Telephone Encounter - Angélica Almonte MA - 03/06/2025 8:56 AM CST These medications are not on current med list, can you please send to pharmacy if agreeable. Thanks Reviewing last OV it states: Her current medications include a compounded hormone therapy from [facility] and spironolactone at 50 mg daily PROCESSING SCIENTIST * Telephone Encounter - Theresa Cohen - 03/03/2025 1:40 PM CST Patient is here to get a refill of estradiol, estriol, testosterone in one apply 0.5 to 1ml (2-4 clicksto clean dry hairless skin every morning alternating sites Can't find medication to pend. Please send to [facility] as they are the only one who can do it. PROCESSING SCIENTIST documented in this encounter Plan of Treatment Not on file documented as of this encounter Visit Diagnoses Not on filedocumented in this encounter Care Teams Cranberry Grower Relationship Specialty Start Date End Date Shanda Mead NP PCP - General Family Medicine 02/18/23 documented as of this encounter
--- OUTSIDE RECORDS SUMMARY | 2025-03-07 08:03 | XMS_ITS | Clinical Summary ---
Author Organization [email or web address] Address [address] [facility] [place] [address] Care Team Providers Care Bakery Helper Name Role Phone Chito Harrison MD Primary Care Provider Source Comments [email or web address],non-owned Affiliates and Associated Physician Practices is amultiple site organization consisting of ambulatory clinics and hospital sitesin [place], [place], [place] and [place]. This disclosure is being madepursuant to the Care Everywhere program and may not contain all information available regarding this patient. 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 Gender Identity Not on file Sexual Orientation Not on file Last Filed Vital Signs Vital Sign Reading Time Taken Comments Blood Pressure 140/80 02/27/2020 8:05 AM TAXI DRIVER SUPERVISOR Pulse 60 02/27/2020 8:05 AM TAXI DRIVER SUPERVISOR Temperature - - Respiratory Rate 12 02/27/2020 8:05 AM TAXI DRIVER SUPERVISOR Oxygen Saturation - - Inhaled Oxygen Concentration - - Weight 108.4 kg (239 lb) 02/27/2020 8:05 AM TAXI DRIVER SUPERVISOR Height 161.3 cm (5' 3.5) 02/27/2020 8:05 AM TAXI DRIVER SUPERVISOR Body Mass Index 41.67 02/27/2020 8:05 AM TAXI DRIVER SUPERVISOR Plan of Treatment Health Maintenance Due Date [...] 50+ (1 of 1 - PCV) 2005 Respiratory Syncytial Virus (RSV) Vaccine Pt: or over 60 yrs (1 - Risk 50-74 years 1-dose series) 2005 ZOSTER VACCINE (1 of 2) 2005 SCREENING FOR DIABETES 02/27/2020 DEPRESSION SCREENING 04/13/2024 COVID-19 VACCINE (1 - 2024-2 6 season) 2024 INFLUENZA VACCINE (#1) 2024 HEPATITIS B VACCINE [...] Payer (Ef fective for All Dates) Name:Khanh Garner Ruby Member ID:Not on file Relation to Subscriber:Not on file Name:KHANH GARNER Subscriber ID:Not on file (Home) Address: [address] [place] [address] [place] [address] Payer ID:Not on file Group ID:Not on file Type:Self Pay Address: [place], [place] Care Teams Bakery Helper Relationship Specialty Start Date End Date Chito Harrison MD [address] [place] [id number] PCP - General 06/26/21
--- OUTSIDE RECORDS SUMMARY | 2025-03-07 08:03 | XMS_ITS | Clinical Summary ---
Author Organization [facility] al Address [address] [place] [address] Care Team Providers Care Global Account Executive Name Role Phone Shanda Mead BRIAN Primary Care Provider [phone] Allergies Active Allergy Reactions Criticality Noted Date [...] UNABLE TO FIND Apply topically Med Name: E2(Estradiol) , E3(estrogen0, T2(testostero ne) 1-2-2mg/ml crm - compound medication Active UNABLE TO FIND 1 each daily Med Name: Thyrodain Active spironolactone (ALDACTONE) 50 mg tabletIndicatio ns:Primary hypertension Take 1 tablet (50 mg total) by mouth daily 90 tablet 3 02/29/20 25 Active tirzepatide, weight loss, (Zepbound) 5 mg/0.5 mL solution vialIndications :Class 2 severe obesity due to excess calories with serious comorbidity and body mass index (BMI) of 39.0 to 39.9 in adult Inject 0.5 mL (5 mg total) under the skin once a week 02/29/20 25 Active spironolactone (ALDACTONE) 100 mg tablet Take 1 tablet (100 mg total) by mouth daily 11/23/19 025 Discontinued(R eorder) Eliquis 5 mg tablet TAKE 2 TABLETS BY MOUTH TWICE DAILY FOR 6 DAYS, THEN TAKE 1 TABLET TWICE DAILY THEREAFTER. 11/22/19 Discontinued Zepbound 5 mg/0.5 mL solution vial INJECT 0.5 ML (5 MG) UNDER THE SKIN ONCE WEEKLY (0.5ML= 50 UNITS) 2 mL 01/26/20 Discontinued(R eorder) Active Problems Problem Noted Date Diagnosed Date Peripheral edema 08/09/2024 Assessment & Plan (02/28/2025 12:27 PM LIBRARY MEDIA SPECIALIST): Stable, well controlled Continue Spironolactone 50 mg daily Assessment & Plan (12/22/2024 5:22 PM CDT): Stable, improving; good relief for medications; follows with cardiology Continue spironolactone 100 mg daily Assessment & Plan (11/29/2024 10:40 AM CDT): [...] wellness visit, subsequent 02/24 Assessment & Plan (02/28/2025 11:58 AM LIBRARY MEDIA SPECIALIST): In regard to health maintenance, Colonoscopy- Declined Mammogram- declined DEXA- declined Influenza vaccine- Declined Pneumococcal vaccine- Declined Shingrix vaccine- Declined Eat a healthy diet: focus on lean meats and proteins, more fruits, vegetables and whole grains and low in sugars and fats. Limit red meat and avoid processed meat. Maintain a healthy weight; avoid being overweight. Aim for a normal body mass index (BMI) of 18.5-24.9. Help learning to eat healthier, we can set up appointment with adult nurse practitioner/microsoft infrastructure consultant. Have an active lifestyle, strive for 30 [...] 2 drinks per day for a man. Assessment & Plan (02/25/2024 10:16 AM LIBRARY MEDIA SPECIALIST): In regard to health maintenance, Colonoscopy- [...] healthier, we can set up appointment with adult nurse practitioner/microsoft infrastructure consultant. Have an active lifestyle, strive for 30 [...] 2 drinks per day for a man. Acquired hypothyroidism 02/18/2023 Assessment & Plan (08/30/2024 3:31 PM CDT): Subclinical; continue to monitor; patient reports no symptoms associated with thyroid low Assessment & Plan (08/09/2024 3:06 PM CDT): Stable, well controlled, last TSH at goal; on supplements; continue to monitor Assessment & Plan (06/07/2024 3:29 PM LIBRARY MEDIA SPECIALIST): Last TSH at goal, taking natural supplements Will continue to monitor closely Assessment & Plan (02/25/2024 10:15 AM LIBRARY MEDIA SPECIALIST): Will recheck TSH and T4. Will continue to take OTC thyroid medication and seeing adult nurse practitioner. Class 2 severe obesity due t o excess calories with serious comorbidity and body mass index (BMI) of 39.0 to 39.9 in adult 02/18/2023 Assessment & Plan (02/28/2025 12:27 PM LIBRARY MEDIA SPECIALIST): Stable, recent weight loss Continue Zepbound Assessment & Plan (12/22/2024 5:22 PM CDT): Stable, improving; patient is working on weight loss; recent started tirzepatide for treatment of sleep apnea Continue tirzepatide 2.5 mg weekly, advanced monthly as tolerated Assessment & Plan (11/29/2024 10:40 AM CDT): [...] surgery Assessment & Plan (06/07/2024 3:29 PM LIBRARY MEDIA SPECIALIST): Not well controlled, has been having [...] week. Assessment & Plan (02/25/2024 10:15 AM LIBRARY MEDIA SPECIALIST): Encouraged heart healthy diet and lifestyle. Advised 150 min/week of aerobic exercise. Hypertension 12/02/2016 Assessment & Plan (02/28/2025 12:26 PM LIBRARY MEDIA SPECIALIST): Chronic, stable BP at goal at visit; 126/78 Continue Spironolactone 50 mg daily Assessment & Plan (12/22/2024 5:22 PM CDT): Stable, well controlled, blood pressure at goal; follows with cardiology Continue spironolactone 100 mg daily Assessment & Plan (11/29/2024 10:40 AM CDT): [...] b.i.d. Assessment & Plan (06/07/2024 3:29 PM LIBRARY MEDIA SPECIALIST): Stable, well controlled, blood pressure mildly elevated today, some peripheral edema with limited relief Will start furosemide 20 mg b.i.d., continue lisinopril 40 mg, discontinue hydrochlorothiazide Assessment & Plan (02/25/2024 10:14 AM LIBRARY MEDIA SPECIALIST): Blood pressure not well controlled. Will [...] weeks Assessment & Plan (02/18/2023 10:15 AM LIBRARY MEDIA SPECIALIST): Stable, currently well-controlled BP at visit 120/84 Continue lisinopril 40 mg daily Thoracic ascending aortic aneurysm 07/26/2014 Assessment & Plan (02/25/2024 10:25 AM LIBRARY MEDIA SPECIALIST): Continues with routine monitoring. Will continue to follow. Assessment & Plan (02/18/2023 11:51 AM LIBRARY MEDIA SPECIALIST): Gets regular monitoring Patient will call back with location she would like to get next US done at Resolved Problems Problem Noted Date Diagnosed Date Resolved Date Abdominal aortic aneurysm (A AA) without rupture 02/28/2025 02/28/2025 Aortic stenosis 02/28/2025 02/28/2025 Diastolic dysfunction 02/28/20252024 Pulmonary emboli 02/28/2025 02/28/2025 Postoperative non-occlusive thrombus 12/22/2024 02/28/2025 Assessment & Plan (12/22/2024 5:22 PM CDT): Stable, monitor symptoms, patient reports decreased physical activity after recent umbilical and nephrolithiasis interventions; develop thrombus Continue 5 mg daily, 3 months Umbilical hernia without obs truction and without gangrene 08/30/2024 02/28/2025 Encounter for screening for lipid disorder 02/25/2024 02/28/2025 Assessment & Plan (02/25/2024 10:17 AM LIBRARY MEDIA SPECIALIST): Lipid panel ordered. Will continue to monitor. Encounters Date Type Department Care Team Description 03/03/2025 Telephone [facility] [address] [id number] Shanda Mead NP Med Refill 03/02/2025 Orders Only [facility] Health Information Management [address] [place] [address] Anibal Avendano MD 02/28/2025 11:30 AM LIBRARY MEDIA SPECIALIST Office Visit [facility] [address] [phone] Shanda Mead NP Medicare annual wellness visit, subsequent (Primary Dx); Primary hypertension; Peripheral edema; Class 2 severe obesity due to excess calories with serious comorbidity and body mass index (BMI) of 39.0 to 39.9 in adult 12/30/2024 9:10 AM CDT Lab [facility] [address] [place] [address] 12/30/2024 Results Follow-Up [facility] [address] [phone] Angiogram Chest W WO Contrast 12/30/2024 Orders Only [facility] [address] [phone] Tiffanie Gannon NP Acute pulmonary embolism, unspecified pulmonary embolism type, unspecified whether acute cor pulmonale present (HCC) 12/22/2024 10:15 AM CDT Office Visit [facility] [address] [phone] Anibal Avendano MD Primary hypertension (Primary Dx); Postoperative non-occlusive thrombus; Peripheral edema; Class 2 severe obesity due to excess calories with serious comorbidity and body mass index (BMI) of 39.0 to 39.9 in adult (HCC) from Last 3 Months Immunizations Immunization Administration Dates Next Due Influenza, Unspecified 02/28/2025(Deferr ed: Patient Refused),11/29/2024(Deferred: Patient Refused),02/25/2024(Deferred: Patient Refused),01/08/2024(Deferred: Patient Refused),12/13/2023(Deferred: Patient [...] Hypertension Sleep apnea Kidney stones Hernia, abdominal Pulmonary emboli (HCC) 02/28/2025 Aortic stenosis 02/28/2025 Diastolic dysfunction 02/28/2025 Abdominal aortic aneurysm (AAA) without rupture 02/28/2025 Postoperative non-occlusive thrombus 12/22/2024 Umbilical hernia without obstruction and without gangrene 08/30/2024 Family History Medical History Relation Name Comments No Known Problems Father No Known Problems Mother Aneurysm Son Aneurysm - (Add ed by TW Conv) Relation Name Status Comments Father Mother Son Social History Tobacco Use Types Packs/Day Years Used Date Smoking Tobacco: Never Smokeless Tobacco: Never Tobacco Cessation:Counseling Given: Not Answered [facility] Utilities Answer Date Recorded In the past 12 months has [employer], gas, oil, or water [employer] threatened to shut off services in your [...] often do you attend chur ch or druze services? Never 02/18/2023 Do you belong to any clubs o r organizations such as samaritan groups, unions, fraternal or athletic groups, or [...] PHQ-9) 0 02/28/2025 [facility] - Occupational Stress Questionnaire Answer Date [...] on file Legal Sex Female 2:32 AM LIBRARY MEDIA SPECIALIST Gender Identity Not on file Sexual Orientation Not on file Last Filed Vital Signs Vital Sign Reading Time Taken Comments Blood Pressure 126/78 02/28/2025 11:31 AM LIBRARY MEDIA SPECIALIST Pulse 68 02/28/2025 11:31 AM LIBRARY MEDIA SPECIALIST Temperature 37.1 C (98.7 F) 02/28/2025 11:31 AM LIBRARY MEDIA SPECIALIST Respiratory Rate 16 02/28/2025 11:31 AM LIBRARY MEDIA SPECIALIST Oxygen Saturation 98% 02/28/2025 11:31 AM LIBRARY MEDIA SPECIALIST Inhaled Oxygen Concentration - - Weight 107 kg (236 lb) 02/28/2025 11:31 AM LIBRARY MEDIA SPECIALIST Height 165.1 cm (5' 5) 02/28/2025 11:31 AM LIBRARY MEDIA SPECIALIST Body Mass Index 39.27 02/28/2025 11:31 AM LIBRARY MEDIA SPECIALIST Plan of Treatment Health Maintenance Due Date Last Done Comments Breast Cancer Screening-Mammogram 05/16/2025 Postponed from 1955 (Patient declined, but will receive in the future) Colon Cancer Screening-Colonoscopy 05/19/2025 Postponed from 1955 (Patient declined, but will receive in the future) Osteoporosis Screening-Bone Density Scan 08/09/2025 Postponed from 1955 (Patient declined, but will receive in the future) Influenza Vaccine (#1) 2025 Postp oned from 12/12/2024 (Patient declined, but will receive in the future) DTaP/Tdap/Td Vaccine (1 - Tdap) 02/28/2026 Postponed from 1966 (Patient declined, but will receive in the future) Depression Screening 02/28/2026 02/28/2025, 12/22/2024, 11/29/2024, Additional history exists Fall Risk Assessment 02/28/2026 02/28/2025, 11/29/2024, 02/25/2024, Additional history exists Pneumococcal vaccine 65+ (1 of 1 - PCV) 02/28/2026 Postponed from 2005 (Patient declined, but will receive in the future) Well Visit 65+ 02/28/2026 02/28/2025, 02/11, 02/18/2023 Zoster Vaccine (1 of 2) 02/28/2026 Post poned from 2005 (Patient declined, but will receive in the future) Hepatitis B Screening Completed 08/18/2024 Hepatitis C Screening Completed 08/18/2024 Procedures Procedure Name Priority Date/Time Associated Diagnosis Comments SCAN - RADIOLOGY/IMAGING 03/02/2025 EGFR Routine 12/30/2024 9:08 AM CDT BASIC METABOLIC PANEL Routine 12/30/2024 9:08 AM CDT CTA CHEST W WO CONTRAST Schedule Routine, Read Routine (OP Routine) 12/22/2024 9:40 AM CDT Acute pulmonary embolism, unspecified pulmonary embolism type, unspecified whether acute cor pulmonale present (HCC) HEPATITIS C ANTIBODY Routine 08/18/2024 9:59 AM CDT Encounter for hepatitis C screening test for low risk patient from Last 3 Months or Most Recently Relevant to Health Maintenance Results * SCAN - RADIOLOGY/IMAGING (03/02/2025) Anatomical Region Laterality Modality Other us Anibal Avendano MD Final Res ult * eGFR (12/30/2024 9:08 AM CDT) eGFR >90 >=60 mL/min/1. 73 [...] was last reviewed 2021. Testing performed by: [facility], [address] [place] [address], [place]., [address] Blood 12/30/2024 9:08 AM CDT 12/30/2024 2:48 PM CDT us Presley Azevedo MD LAB BLOOD ORDERABLES Final Re sult [facility] [place] [address] * Basic metabolic panel (12/30/2024 9:08 AM CDT) Sodium 140 135 - 145 mmol/L Comment:Testing performed by : [facility], [address] [place] [address]., [address] Potassium, pl 4.8 3.3 - 4.9 mmol/L [facility]) Comment:Testing performed by : [facility], [address] [place] [address]., [address] Chloride 103 97 - 110 mmol/L [facility] ([place]) Comment:Testing performed by : [facility], [address] [place] [address]., [address] CO2 25 22 - 32 mmol/L [facility]) Comment:Testing performed by : [facility], [address] [place] [address], [address] Anion gap 12 2 - 15 mmol/L [facility] ([place]) Comment:Testing performed by : [facility], [address] [place] [address], [address] BUN 21 6 - 25 mg/dL [facility] ([place]) Comment:Testing performed by : [address], [address] Creatinine 0.69 0.60 - 1.10 mg/dL [facility] ([place]) Comment:Testing performed by : [address], [address] Glucose 86 70 - 199 mg/dL [facility] ([place]) [...] was last revised 2022. Testing performed by: [address] [address] Calcium 9.5 8.5 - 10.3 mg/dL [facility] ([place]) Comment:Testing performed by : [address], [address] Blood 12/30/2024 9:08 AM CDT 12/30/2024 1:44 PM CDT Presley Azevedo MD LAB BLOOD ORDERABLES Final Re sult Performing Organization Address City/[facility]/ZIP Co de Phone Number [facility] [employer] [place] [employer] [place] [address] * CT Angiogram Chest W WO Contrast (12/22/2024 9:40 AM CDT) Anatomical Region Laterality Modality Chest N/A Computed Tomogra phy Tiffanie Gannon NP IMG CT PROCEDURES Final Resul t * Hepatitis C antibody Blood (08/18/2024 9:59 [...] revised on 2019. Testing performed by: [facility], [address] [place] [address]., [address] Blood 08/18/2024 9:59 AM CDT 08/18/2024 3:52 PM CDT Anibal Avendano MD LAB MICROBIOLOGY - GENERA L ORDERABLES Final Result [facility] [place] [address] from Last 3 Months or Most Recently Relevant to Health Maintenance Insurance MEDICARE CHOICE PRF PPO DE MEDICARE [employer] SENIOR SUPPLEMENT Care Teams Global Account Executive Relationship Specialty Start Date End Date Shanda Mead NP PCP - General Family Medicine 02/18/23
--- OUTSIDE RECORDS SUMMARY | 2025-03-07 08:03 | XMS_ITS | Encounter Summary ---
Author Organization [facility] Healthcare Address [address] [place] [address] Care Team Providers Care Gas Torch Solderer Name Role Phone Shanda Mead BRIAN Primary Care Provider [phone] Encounter Details Date Type Department Care Team (Late st Contact Info) Description 03/02/2025 Orders Only [facility] [place] Information Management [address] [place] [address] Anibal Avendano MD [address] [place] [address] Social History Tobacco Use Types Packs/Day Years Used Date Smoking Tobacco: Never Smokeless Tobacco: Never [facility] Utilities Answer Date Recorded In the past 12 months has [facility], gas, oil, or water [employer] threatened to shut off services in your [...] often do you attend chur ch or muslim services? Never 02/18/2023 Do you belong to any clubs o r organizations such as advent groups, unions, fraternal or athletic groups, or [...] staff should administer the PHQ-9) 0 02/28/2025 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 Gender Identity Not on file Sexual Orientation Not on file documented as of this encounter Plan of Treatment Not on file documented as of this encounter Procedures Procedure Name Priority Date/Time Associated Diagnosis Comments SCAN - RADIOLOGY/IMAGING 03/02/2025 documented in this encounter Results * SCAN - RADIOLOGY/IMAGING (03/02/2025) Anatomical Region Laterality Modality Other us Anibal Avendano MD Final Res ult documented in this encounter Visit Diagnoses Not on filedocumented in this encounter Care Teams Gas Torch Solderer Relationship Specialty Start Date End Date Shanda Mead NP PCP - General Family Medicine 02/18/23 documented as of this encounter
--- OUTSIDE RECORDS SUMMARY | 2025-03-07 08:03 | XMS_ITS | Clinical Summary ---
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
--- OUTSIDE RECORDS SUMMARY | 2025-03-07 08:03 | XMS_ITS | Clinical Summary ---
Author Organization [facility] Address [address] [place] [address] Care Team Providers Care Straightedge Machine Operator Helper Name Role Phone Patti Aiken MD Primary Care Provider [phone] Allergies No known active allergies Medications XARELTO [...] on file Legal Sex Female 4:34 AM DOCUMENT SPECIALIST Gender Identity Not on file Sexual [...] (1 - 1-dose 75+ series) 2030 Insurance [facility] BLUE PREFERRED Care Teams Straightedge Machine Operator Helper Relationship Specialty Start Date End Date Patti Aiken MD [address] [place] [id number] PCP - General Family Practice 08/11/18
--- OUTSIDE RECORDS SUMMARY | 2025-03-07 08:03 | XMS_ITS | Encounter Summary ---
Author Organization [facility] [employer] [facility] Address [address] [place] [address] Phone Care Team Providers Care Locator Specialist Name Role Phone Patti Aiken MD Primary Care Provider [phone] Shanda Mead NP Primary Care Provider [phone] Encounter Details Date Type Department Care Team (Latest Contact Info) Description 09/08/2018 Orders Only [facility] Scanning, Provider Social History Tobacco Use Types Packs/Day Years Used Date Smoking Tobacco: Never Smokeless Tobacco: Never Comments Unknown Sex and Gender Information Value Date Recorded Sex Assigned at Not on file Legal Sex Female 2:32 AM DIRECTOR OF PRODUCT DEVELOPMENT Gender Identity Not on file Sexual Orientation [...] on filedocumented in this encounter Care Teams Locator Specialist Relationship Specialty Start Date End Date Patti Aiken MD PCP - General 10/31/16 02/17/23 Shanda Mead NP PCP - General Family Medicine 02/18/23 documented as of this encounter
[2025-03-07 08:40] LABS: INR 1.1; Partial Thromboplastin Time 30.5 Seconds (22.3-36.8); Prothrombin Time 13.7 Seconds (11.1-14.7)
[2025-03-07 08:46] LABS: Anion Gap 5 mmol/L (4-12); Blood Urea Nitrogen 21 mg/dL (7-17); Calcium 9.6 mg/dL (8.4-10.2); Carbon Dioxide 29 mmol/L (22-30); Chloride 104 mmol/L (98-107); Estimated Glomerular Filt Rate > 60; Glucose 93 mg/dL (65-110); Potassium 4.1 mmol/L (3.4-5.0); Sodium 138 mmol/L (137-145)
== END 2025-03-07 07:57 | disposition home or self-care (01) ==
LOC: ANHSURGERY 08:00
PROVIDERS: Anesthesiology; PCP Hospitalist; Visit Provider Urology
DX: Z01.818 Encounter for other preprocedural examination (principal); N20.0 Calculus of kidney; I10 Essential (primary) hypertension
CPT/HCPCS: 36415; 80048; 85610; 85730; 87086

== ENCOUNTER 2025-03-17 01:10 | Day surgery (SDC) | payer MEDICARE, SELFPAY ==
--- NOTE | 2025-03-02 14:37 | PC.NURSE ---
[facility] has started construction of its new state of the art ER which will open Spring 2026. With this, we anticipate parking may be a challenge for some our surgical patients and families. Parking spaces are limited but are available for all Surgical, obstetrics, and ER patients sharing this lot. If you arrive and find you are having a hard time finding a parking space, please note that we understand the challenges, please drive around the hospital and park near Hospital Entrance 1. When you enter this entrance, you can ask a volunteer to direct or take you back to the surgical waiting area to check in. We appreciate everyone?s understanding of these expected challenges while we build for your future. Report to the Outpatient Waiting Room, entrance under the green pavilion located off [address], at time _6:30 am on date __03/17/25 . Planned Procedure Time: ___8:30 am .? Time changes happen often and if your time is changed the preop area will call you the afternoon before. - You and your visitor will be asked to self-screen and do not enter if you have any COVID symptoms. Please call surgeon if you need to reschedule. - A mask is optional within the hospital at this time. Patients may have clear liquids (water, carbonated beverages, clear teas, apple juice) until 3 hours prior to surgery( 5:30 am) with a maximum of 20 ounces. - No food from midnight until time of surgery and no smoking, or chewing tobacco (or any form of nicotine). No chewing gum, candy or mints. - Take only the following medications with a SIP of water on the morning of surgery: __NONE DO NOT STOP ANY OF YOUR OTHER PRESCRIPTION MEDICATIONS PRIOR TO SURGERY EXCEPT THE FOLLOWING Hold all vitamins and supplements for 3 days per anesthesiologist.LAST DOSE 03/13/25 Medications to discontinue per physician HOLD ZEPBOUND 10 DAYS PRE OP PER ANESTHESIA____LAST DOSE 03/06/25 Please no make-up, nail chadian, hairspray, perfume, deodorant, or body powder the day of surgery.? No jewelry (including any body piercings) or valuables the day of surgery, leave them at home.? Please take a shower or bath the night before, or the morning of, surgery with an antibacterial soap.? Wear comfortable, loose fitting clothing.? Children are encouraged to wear pajamas. - Jewelry must be removed prior to entering the operating room.? Rings and piercings that are not removed may be cut off. - The hospital will not accept responsibility for valuables.? - Please leave all valuables, including medications, at home the day of surgery. If you are going home after surgery, a licensed cement truck driver must drive you home.? - NO public transportation without another adult if you receive anesthesia. - We recommend that an adult stay with you for 24 hours following discharge. - We also recommend that you do not drive, make important decision, drink alcoholic beverages, or take any drugs that were not prescribed by your health care provider for at least 24 hours after your discharge time. For Pediatric surgeries, we recommend two adults accompany the child home. Follow any additional instructions given to you from your surgeon. Telephone instructions given to ___PATIENT and asked if any additional questions and then verbalized understanding. Patient advised to call surgeon office or pre surgery nurse liaison [phone] if any additional questions.
[2025-03-02 14:49] VITALS: BMI 38.7
--- NOTE | 2025-03-03 10:12 | PM.HPGS ---
History of Present Illness History of Present Illness Consent: Risks, benefits, and alternatives have been discussed and questions answered. Patient agrees to proceed with procedure. Chief complaint: right kidney stones Narrative: Rere Garner is a 70 year old female s/p ?left ureteral stent removal after ureteroscopy with laser lithotripsy and stone extraction in 11/2024. ?She has a known 7-8 mm stone in right kidney but is dealing with her son-in-law has stage IV rectal cancer. ?She will call when she is ready for ESWL Addendum Note?(Fernando Keane MD; 02/24/2025 12:41 PM) Patient called and is now ready for right ESWL Addendum Note?(Fernando Keane MD; 03/03/2025 7:19 AM) KUB: ?Calcified right renal calculus Addendum Note?(Fernando Keane MD; 03/03/2025 7:21 AM) KUB shows a 12.5 mm right calcified renal calculus. ?I will add possible cystoscopy and stent placement to her ESWL Review of Systems Cardiovascular: Cardiovascular: Denies chest pain, Denies lightheadedness, Denies palpitations and Denies dyspnea Respiratory: Respiratory: Denies dyspnea Gastrointestinal: Gastrointestinal: Denies diarrhea, Denies nausea and Denies vomiting Genitourinary: Genitourinary: Denies hematuria and Denies dysuria Endocrine: Endocrine: Denies palpitations [facility] Past Medical History Medical History (Updated 11/19/24 @ 18:27 by Frances Roper APRN) Kidney stones SHANIQUE on CPAP Obesity Hypertension Surgical History Surgical History H/O umbilical hernia repair 09/23/24 Robotic assisted repair incarcerated umbilical measuring [address] Marsh H/O abdominoplasty 02/2018 History of cosmetic plastic surgery History of hysterectomy 12/2015 History of bilateral breast reduction surgery 1976 1978 Family History Family History (Updated 11/19/24 @ 14:23 by Gina Davis RN) Father Family history of Alzheimer's disease Mother No problems noted. Sibling Hypertension Social History Social History Smoking status: Never smoker Second hand tobacco smoke exposure: No Alcohol intake: current Drinks per week: 1 Alcohol use details: ONE DRINK/MONTH Substance use: never Substance use type: does not use Do You Feel Safe in your Home?: Yes Lack of Transportation: No Lack of Food: Sometimes True Current Housing: I Have Housing Concerned About Future Housing: No Difficulty Paying Gas/Electric Bills: No Difficulty Paying for Meds: No Currently Unemployed: No Education: High School Diploma/GED Difficulty w/ Childcare or Family Care: No Living arrangements: with family Spiritual care concerns: No Meds Home Medications and Allergies Home Medications ?Medication ?Instructions ?Recorded ?Confirmed ?Type ascorbic acid (vitamin C) 1,000 mg 1 g PO DAILY 09/09/24 03/02/25 History tablet (C-1000) spironolactone 25 mg tablet 50 mg PO DAILY 09/09/24 03/02/25 History vitamin B complex (Vitamins B 1 cap PO DAILY 09/09/24 03/02/25 History Complex capsule) apixaban 5 mg tablet See Rx Instructions .Route 11/21/24 03/02/25 Rx .COMPLEX #74 tabs tirzepatide (weight loss) 5 mg/0.5 5 mg subcut WEEKLY 03/02/25 03/02/25 History mL subcutaneous pen injector (Zepbound) Allergies Allergy/AdvReac Type Severity Reaction Status Date / Time lisinopril Allergy Severe Swelling Verified 03/02/25 14:31 of Lip/Tongue/Throat Exam Const: General: no acute distress Resp: Effort & Inspection: normal respiratory effort GI: Inspection: non-distended GI Palp: No abdominal tenderness and No Guarding due to palpation present (GI) Auscultation: normal bowel sounds Assessment and Plan Assessment and plan (1) Kidney stones: Code(s): N20.0 - Calculus of kidney Status: Acute Assessment and Plan: Right ESWL, possible cystoscopy and right ureteral stent placement
[2025-03-17] VITALS (11 sets, daily range): BP systolic 138–161; BP diastolic 61–98; PULSE 52–65; RESP 10–16; TEMP 36.2–36.3; O2SAT 94–99; BMI 38.0
--- NOTE | ~2025-03-17 | XR_ITS ---
Examination: XR abdomen/kub 1V Clinical History: ESWL Comparison: Abdominal x-ray 8 03/02/2025 Technique: Supine AP abdomen Findings: Right renal stone persists. Lung bases clear. Cardiomegaly. Scattered colonic gas and stool. No acute bony abnormality. IMPRESSION: 1. Right renal stone persists. No significant change. Reviewed, dictated and finalized at location R. OMATIC HONE OPERATOR
--- OUTSIDE RECORDS SUMMARY | 2025-03-17 01:15 | XMS_ITS | Clinical Summary ---
Author Organization [facility] Address [address] [place] [address] Care Team Providers Care Truck Body Repairer Name Role Phone Chito Harrison MD Primary Care Provider [phone] Source Comments [facility],non-owned Affiliates and Associated Physician Practices is amultiple site organization consisting of ambulatory clinics and hospital sitesin [place], [place], [place] and [place]. This disclosure is being madepursuant to the Care Everywhere program and may not contain all information available regarding this patient. Last updated 18.[facility] Allergies No known active allergies Medications * [...] on file Legal Sex Female 2:32 PM FASHION INTERN Gender Identity Not on file Sexual Orientation Not on file Last Filed Vital Signs Vital Sign Reading Time Taken Comments Blood Pressure 140/80 02/27/2020 8:05 AM FASHION INTERN Pulse 60 02/27/2020 8:05 AM FASHION INTERN Temperature - - Respiratory Rate 12 02/27/2020 8:05 AM FASHION INTERN Oxygen Saturation - - Inhaled Oxygen Concentration - - Weight 108.4 kg (239 lb) 02/27/2020 8:05 AM FASHION INTERN Height 161.3 cm (5' 3.5) 02/27/2020 8:05 AM FASHION INTERN Body Mass Index 41.67 02/27/2020 8:05 AM FASHION INTERN Plan of Treatment Health Maintenance Due Date [...] GARNER Subscriber ID:Not on file (Home) Address: [address] [place] [address] [place] [address] Payer ID:Not on file Group ID:Not on file Type:Self Pay Address: [place], [place] Care Teams Truck Body Repairer Relationship Specialty Start Date End Date Chito Harrison MD [address] [place] [id number] PCP - General 06/26/21
--- OUTSIDE RECORDS SUMMARY | 2025-03-17 01:15 | XMS_ITS | Clinical Summary ---
Author Organization [facility] Address [address] [place] [address] Care Team Providers Care Consultant In Ergonomics And Safety Name Role Phone Patti Aiken MD Primary Care Provider [phone] Allergies No known active allergies Medications XARELTO [...] on file Legal Sex Female 4:34 AM ORACLE TECHNICAL ARCHITECT Gender Identity Not on file Sexual Orientation [...] (1 - 1-dose 75+ series) 2030 Insurance [facility] BLUE PREFERRED Care Teams Consultant In Ergonomics And Safety Relationship Specialty Start Date End Date Patti Aiken MD [address] [place] [id number] PCP - General Family Practice 08/11/18
--- OUTSIDE RECORDS SUMMARY | 2025-03-17 01:15 | XMS_ITS | Clinical Summary ---
Author Organization [facility] Address [address] [place] [address] Care Team Providers Care Furnace Combination Analyst Name Role Phone None, Provider Primary Care [...] this topic Insurance MEDICARE AET Care Teams Furnace Combination Analyst Relationship Specialty Start Date End Date None, Provider, MD PCP - General UNKNOWN PHYSICIAN SPECIALTY 06/21/24
--- OUTSIDE RECORDS SUMMARY | 2025-03-17 01:15 | XMS_ITS | Clinical Summary ---
Author Organization [facility] al Address [address] [place] [address] Care Team Providers Care Metal Products Viewer Name Role Phone Shanda Mead BRIAN Primary Care Provider [phone] Allergies Active Allergy Reactions Criticality Noted Date [...] 08/09/2024 Assessment & Plan (02/28/2025 12:27 PM COMPUTER CONSOLE OPERATOR): Stable, well controlled Continue Spironolactone 50 mg [...] 02/24 Assessment & Plan (02/28/2025 11:58 AM COMPUTER CONSOLE OPERATOR): In regard to health maintenance, Colonoscopy- [...] healthier, we can set up appointment with trench pipe layer helper/event staff member. Have an active lifestyle, strive for 30 [...] man. Assessment & Plan (02/25/2024 10:16 AM COMPUTER CONSOLE OPERATOR): In regard to health maintenance, Colonoscopy- [...] healthier, we can set up appointment with trench pipe layer helper/event staff member. Have an active lifestyle, strive for 30 [...] monitor Assessment & Plan (06/07/2024 3:29 PM COMPUTER CONSOLE OPERATOR): Last TSH at goal, taking natural supplements Will continue to monitor closely Assessment & Plan (02/25/2024 10:15 AM COMPUTER CONSOLE OPERATOR): Will recheck TSH and T4. Will continue to take OTC thyroid medication and seeing trench pipe layer helper. Class 2 severe obesity due t o excess calories with serious comorbidity and body mass index (BMI) of 39.0 to 39.9 in adult 02/18/2023 Assessment & Plan (02/28/2025 12:27 PM COMPUTER CONSOLE OPERATOR): Stable, recent weight loss Continue Zepbound Assessment [...] surgery Assessment & Plan (06/07/2024 3:29 PM COMPUTER CONSOLE OPERATOR): Not well controlled, has been having [...] week. Assessment & Plan (02/25/2024 10:15 AM COMPUTER CONSOLE OPERATOR): Encouraged heart healthy diet and lifestyle. Advised 150 min/week of aerobic exercise. Hypertension 12/02/2016 Assessment & Plan (02/28/2025 12:26 PM COMPUTER CONSOLE OPERATOR): Chronic, stable BP at goal at visit; [...] b.i.d. Assessment & Plan (06/07/2024 3:29 PM COMPUTER CONSOLE OPERATOR): Stable, well controlled, blood pressure mildly elevated today, some peripheral edema with limited relief Will start furosemide 20 mg b.i.d., continue lisinopril 40 mg, discontinue hydrochlorothiazide Assessment & Plan (02/25/2024 10:14 AM COMPUTER CONSOLE OPERATOR): Blood pressure not well controlled. Will [...] weeks Assessment & Plan (02/18/2023 10:15 AM COMPUTER CONSOLE OPERATOR): Stable, currently well-controlled BP at visit 120/84 Continue lisinopril 40 mg daily Thoracic ascending aortic aneurysm 07/26/2014 Assessment & Plan (02/25/2024 10:25 AM COMPUTER CONSOLE OPERATOR): Continues with routine monitoring. Will continue to follow. Assessment & Plan (02/18/2023 11:51 AM COMPUTER CONSOLE OPERATOR): Gets regular monitoring Patient will call [...] 02/28/2025 Assessment & Plan (02/25/2024 10:17 AM COMPUTER CONSOLE OPERATOR): Lipid panel ordered. Will continue to monitor. Encounters Date Type Department Care Team Description 03/16/2025 Results [facility] [address] [address] Anibal Avendano MD SCAN - RADIOLOGY/IMAGING 03/13/2025 11:00 AM COMPUTER CONSOLE OPERATOR Office Visit [facility] [address] [facility] [address] [place] [address] August Pickett MD SHANIQUE (obstructive sleep apnea) (Primary Dx); Class 3 severe obesity due to excess calories with serious comorbidity and body mass index (BMI) of 40.0 to 44.9 in adult; Hypersomnia with sleep apnea 03/03/2025 Telephone [facility] [address] [address] Shanda Mead NP Med Refill 03/02/2025 Orders Only [facility] Health Information Management [address] [place] [address] Anibal Avendano MD 02/28/2025 11:30 AM COMPUTER CONSOLE OPERATOR Office Visit [facility] [place] [address] [place] [address] Shanda Mead NP Medicare annual wellness visit, subsequent (Primary Dx); Primary hypertension; Peripheral edema; Class 2 severe obesity due to excess calories with serious comorbidity and body mass index (BMI) of 39.0 to 39.9 in adult 12/30/2024 9:10 AM CDT Lab [facility] [address] [place] [address] 12/30/2024 Results [facility] [address] [phone] Angiogram Chest W WO Contrast 12/30/2024 Orders Only [facility] [address] [phone] Tiffanie Gannon NP Acute pulmonary embolism, unspecified pulmonary embolism type, unspecified whether acute cor pulmonale present (HCC) 12/22/2024 10:15 AM CDT Office Visit [facility] [address] [phone] Anibal Avendano MD Primary hypertension (Primary Dx); [...] Tobacco: Never Tobacco Cessation:Counseling Given: Not Answered [facility] Utilities Answer Date Recorded In the past 12 months has th e electric, gas, oil, or water company [...] often do you attend chur ch or yazdanism services? Never 02/18/2023 Do you belong to [...] staff should administer the PHQ-9) 0 02/28/2025 [facility] - Occupational Stress Questionnaire Answer Date [...] place to sleep or slept in a usp (including now)? No 02/18/2023 Comments Unknown Sex and Gender Information Value Date Recorded Sex Assigned at Not on file Legal Sex Female 2:32 AM COMPUTER CONSOLE OPERATOR Gender Identity Not on file Sexual Orientation Not on file Last Filed Vital Signs Vital Sign Reading Time Taken Comments Blood Pressure 130/78 03/13/2025 10:58 AM COMPUTER CONSOLE OPERATOR Pulse 63 03/13/2025 10:58 AM COMPUTER CONSOLE OPERATOR Temperature 37.1 C (98.7 F) 02/28/2025 11:31 AM COMPUTER CONSOLE OPERATOR Respiratory Rate 16 02/28/2025 11:31 AM COMPUTER CONSOLE OPERATOR Oxygen Saturation 95% 03/13/2025 10:58 AM COMPUTER CONSOLE OPERATOR Inhaled Oxygen Concentration - - Weight 105.7 kg (233 lb) 03/13/2025 10:58 AM COMPUTER CONSOLE OPERATOR Height 165.1 cm (5' 5) 03/13/2025 10:58 AM COMPUTER CONSOLE OPERATOR Body Mass Index 38.77 03/13/2025 10:58 AM COMPUTER CONSOLE OPERATOR Plan of Treatment Health Maintenance Due [...] last reviewed 2021. Testing performed by: [address] [address] Blood 12/30/2024 9:08 AM CDT 12/30/2024 2:48 PM CDT Presley Azevedo MD LAB BLOOD ORDERABLES Final Re sult [facility] [address] Department [place] [address] * Basic metabolic panel (12/30/2024 9:08 AM CDT) Sodium 140 135 - 145 mmol/L Comment:Testing performed by : [address] [address] Potassium, pl 4.8 3.3 - 4.9 mmol/L [facility] ([place]) Comment:Testing performed by : [address], [address] Chloride 103 97 - 110 mmol/L [facility] ([place]) Comment:Testing performed by : [address], [address] CO2 25 22 - 32 mmol/L [facility] ([place]) Comment:Testing performed by : [address] [address] Anion gap 12 2 - 15 mmol/L [facility] ([place]) Comment:Testing performed by : [address], [address] BUN 21 6 - 25 mg/dL [facility]) Comment:Testing performed by : [address], [address] Creatinine 0.69 0.60 - 1.10 mg/dL [facility]) Comment:Testing performed by : [address], [address] Glucose 86 70 - 199 mg/dL [facility] [...] was last revised 2022. Testing performed by: [facility], [address] [place] [address]., [address] Calcium 9.5 8.5 - 10.3 mg/dL [facility] ([place]) Comment:Testing performed by : [facility], [address] [place] [address]., [address] Blood 12/30/2024 9:08 AM CDT 12/30/2024 1:44 PM CDT Presley Azevedo MD LAB BLOOD ORDERABLES Final Re sult [facility] [address] Department [place] [address] * CT Angiogram Chest W WO Contrast [...] last revised on 2019. Testing performed by: [facility], [address] [place] [address], [place]., [address] Blood 08/18/2024 9:59 AM CDT 08/18/2024 3:52 PM CDT us Anibal Avendano MD LAB MICROBIOLOGY - GENERA L ORDERABLES Final Result [facility] [address] Department [place] [address] from Last 3 Months or Most Recently Relevant to Health Maintenance Insurance MEDICARE [place] [employer] SENIOR SUPPLEMENT Care Teams Metal Products Viewer Relationship Specialty Start Date End Date Shanda Mead NP PCP - General Family Medicine 02/18/23
--- OUTSIDE RECORDS SUMMARY | 2025-03-17 01:15 | XMS_ITS | Encounter Summary ---
Author Organization [facility] Address [address] [place] [address] Phone Care Team Providers Care Welding Machine Operator Electroslag Name Role Phone Patti Aiken MD Primary Care Provider [phone] Shanda Mead NP Primary Care Provider [phone] Encounter Details Date Type Department Care Team (Latest Contact Info) Description 09/08/2018 Orders Only [facility] Scanning, Provider Social History Tobacco Use Types Packs/Day Years Used Date Smoking Tobacco: Never Smokeless Tobacco: Never Comments Unknown Sex and Gender Information Value Date Recorded Sex Assigned at Not on file Legal Sex Female 2:32 AM SPONSORSHIP COORDINATOR Gender Identity Not on file Sexual Orientation [...] on filedocumented in this encounter Care Teams Welding Machine Operator Electroslag Relationship Specialty Start Date End Date Patti Aiken MD PCP - General 10/31/16 02/17/23 Shanda Mead NP PCP - General Family Medicine 02/18/23 documented as of this encounter
--- OUTSIDE RECORDS SUMMARY | 2025-03-17 01:15 | XMS_ITS | Clinical Summary ---
Author Organization [facility] Address [address] [place] [address] Phone Care Team Providers Care Paperhanger Pipe Name Role Phone Patti Aiken MD Primary Care Provider [phone] Allergies No known active allergies Medications lisinopril [...] on file Legal Sex Female 2:04 PM ELECTRONIC INDUSTRIAL CONTROLS MECHANIC Gender Identity Not on file Sexual Orientation [...] patient's age to complete this topic Insurance [facility] Care Teams Paperhanger Pipe Relationship Specialty Start Date End Date Patti Aiken MD [address] [place] [address] PCP - General Family Medicine 04/14/17
--- OUTSIDE RECORDS SUMMARY | 2025-03-17 01:15 | XMS_ITS | Encounter Summary ---
Author Organization [facility] Healthcare Address [address] [place] [address] Care Team Providers Care Thin Film Technician Name Role Phone MeadShanda BRIAN Primary Care Provider [phone] Encounter Details Date Type Department Care Team (Late st Contact Info) Description 03/16/2025 Results Follow-Up [facility] [place] [address] [place] [address] Anibal Avendano MD [address] [place] [address] SCAN - RADIOLOGY/IMAGING Social History Tobacco Use Types Packs/Day Years Used Date Smoking Tobacco: Never Smokeless Tobacco: Never [facility] Utilities Answer Date Recorded In the past 12 months has [facility] electric, gas, oil, or water [employer] threatened to shut off services in your [...] often do you attend chur ch or religion services? Never 02/18/2023 Do you belong to any clubs o r organizations such as evangelical groups, unions, fraternal or athletic groups, or [...] staff should administer the PHQ-9) 0 02/28/2025 [facility] of Occupat ional Health - Occupational [...] file Legal Sex Female 2:32 AM DIRECTOR SAFETY Gender Identity Not on file Sexual Orientation Not on file documented as of this encounter Plan of Treatment Not on file documented as of this encounter Visit Diagnoses Not on filedocumented in this encounter Care Teams Thin Film Technician Relationship Specialty Start Date End Date Shanda Mead NP PCP - General Family Medicine 02/18/23 documented as of this encounter
--- OUTSIDE RECORDS SUMMARY | 2025-03-17 01:15 | XMS_ITS | Encounter Summary ---
Author Organization [facility] Address [address] [place] [address] Phone Care Team Providers Care Asset Protection Representative Name Role Phone Patti Aiken MD Primary Care Provider [phone] Shanda Mead NP Primary Care Provider [phone] Encounter Details Date Type Department Care Team (Late st Contact Info) Description 03/21/2019 Telephone [facility] Cardiology [address] [facility] 8th [place] [address] [place] [address] Caleb Garcia MD PhD [address] [place] [address] Social History Tobacco Use Types Packs/Day Years Used Date Smoking Tobacco: Never Smokeless Tobacco: Never Comments Unknown Sex and Gender Information Value Date Recorded Sex Assigned at Not on file Legal Sex Female 2:32 AM SCRUM PROJECT MANAGER Gender Identity Not on file Sexual Orientation Not on file documented as of this encounter Plan of Treatment Not on file documented as of this encounter Visit Diagnoses Not on filedocumented in this encounter Care Teams Asset Protection Representative Relationship Specialty Start Date End Date Patti Aiken MD PCP - General 10/31/16 02/17/23 Shanda Mead NP PCP - General Family Medicine 02/18/23 documented as of this encounter
--- NOTE | 2025-03-17 06:23 | WPDHPUPDATE1 ---
History and Physical Update Update Date/Time: 03/17/25 06:23 History and Physical has been reviewed, including an updated exam of the patient. There are NO changes in the patient's condition. Risks, benefits, and alternatives have been discussed and questions answered. Patient agrees to proceed with procedure.
[2025-03-17] MEDS: LACTATED RINGERS 1,000 ML 30 ML IV CONT ×2 (07:00→11:15)
--- NOTE | 2025-03-17 07:11 | P.PNAN_ITS ---
Anes - Initial Pre Proc Eval Procedure: Operation Date: 03/17/25 08:30 Proposed Procedures p Right Extracorporeal Shock Wave Lithotripsy - Fernando Keane MD s Cystoscopy - Fernando Keane MD Date/Time: 03/17/25 07:11 Surgeon: Fernando Keane MD Pre Op Diagnosis: right kidney stones Patient Data Age: 70 Gender: F Height: 1.68 m Weight: 108.8 kg Allergies Allergy/AdvReac Type Severity Reaction Status Date / Time lisinopril Allergy Severe Swelling Verified 03/02/25 14:31 of Lip/Tongue/Throat Home Medications ?Medication ?Instructions ?Recorded ?Confirmed ?Type ascorbic acid (vitamin C) 1,000 mg 1 g PO DAILY 03/02/25 History tablet (C-1000) spironolactone 25 mg tablet 50 mg PO DAILY 09/09/24 History vitamin B complex (Vitamins B 1 cap PO DAILY 09/09/24 03/02/25 History Complex capsule) apixaban 5 mg tablet See Rx Instructions .Route 0 11/21/24 03/02/25 Rx .COMPLEX #74 tabs tirzepatide (weight loss) 5 mg/0.5 5 mg subcut WEEKLY 03/02/25 03/02/25 History mL subcutaneous pen injector (Zepbound) Patient hx anesthesia problems: none Family hx anesthesia problems: none Results Review: All pre-operative results and documents have been reviewed as part of the pre- operative evaluation. [facility] Past Medical History Medical History Kidney stones SHANIQUE on CPAP Obesity Hypertension Surgical History Surgical History H/O umbilical hernia repair 09/23/24 Robotic assisted repair incarcerated umbilical measuring [address] H/O abdominoplasty 02/2018 History of cosmetic plastic surgery History of hysterectomy 12/2015 History of bilateral breast reduction surgery 1976 1978 Family History Family History Father Family history of Alzheimer's disease Mother No problems noted. Sibling Hypertension Social History Social History Smoking status: Never smoker Second hand tobacco smoke exposure: No Alcohol intake: former Drinks per week: 1 Alcohol use details: ONE/MONTH Substance use: never Substance use type: does not use Lack of Transportation: No Lack of Food: Sometimes True Current Housing: I Have Housing Concerned About Future Housing: No Difficulty Paying Gas/Electric Bills: No Difficulty Paying for Meds: No Currently Unemployed: No Education: High School Diploma/GED Difficulty w/ Childcare or Family Care: No Living arrangements: with family Spiritual care concerns: No Anes - Eval Final PreProcedure Day of Procedure 03/17/25 07:11 Patient weight: obese Heart: regular rate and rhythm Lungs: clear to auscultation Airway: Mallampati scale class II Neurological: alert and oriented Last oral intake: >/= 8 hours ASA classification: III Emergent: no Anesthetic plan: proceed Anesthesia type and monitoring: general LMA and standard monitoring Results Review: All pre-operative results and documents have been reviewed as part of the pre- operative evaluation. Informed Consent: The patient's anesthetic plan and its attendant risks and benefits were discussed with the patient/family/POA. Questions were solicited and answers provided to the satisfaction of the patient/family/POA.
[2025-03-17] MEDS: ceFAZolin 2 GM in SODIUM CHLORIDE 0.9% IV 50 ML 100 ML IVPB (08:22)
--- NOTE | 2025-03-17 09:05 | P.OP_ITS ---
Procedure Note - Detailed Date of Procedure 03/17/25 Pre-op Diagnosis Right kidney stones Post-op Diagnosis Same Procedure Performed Cystoscopy, right ureteral stent placement, right ESWL Surgeon Fernando Keane MD Anesthesia General Description of Procedure The patient was brought to the operative suite where she was placed in the frog- legged position on the Dornier lithotripter table. Flexible cystoscopy was undertaken with a 16F flexible cystoscopy. Her urethra and bladder neck were endoscopically normal. The bladder mucosa was normal and there was a single, orthotopic ureteral orifice bilaterally. A 0.035 glidewire was advanced into the right renal pelvis under fluoroscopy. A 4.8F J-J ureteral stent was positioned with the proximal coil in the renal pelvis and the distal coil in the bladder. The patient was then repositioned in the supine position and the focal point of the lithotriptor was placed at a 6-7mm left mid-ureteral calculus. A total of 2500 shocks were delivered at a power setting of 4. There appeared to be good fragmentation of the stone. The patient tolerated the procedure well and was taken to the recovery room in good condition.
[2025-03-17] MEDS: ONDANSETRON INJ 4 MG/2 ML VIAL IV PUSH (11:15)
== END 2025-03-17 12:15 | disposition home or self-care (01) ==
PROVIDERS: PCP Hospitalist; Visit Provider Urology
PROC: (CPT 50590; principal; 2025-03-17 08:30)
PROC: 0TCB8ZZ Extirpation of Matter from Bladder, Via Natural or Artificial Opening Endoscopic (ICD-10-PCS; CPT 52352; 2025-03-17 08:30)
DX: N20.0 Calculus of kidney (principal); E66.9 Obesity, unspecified; Z68.38 Body mass index [BMI] 38.0-38.9, adult
CPT/HCPCS: 52332; 50590; 74018; J0690; C1769; C2617; J1100; J1171; J2003; J2250; J2405; J2704; J7120

== ENCOUNTER 2025-03-28 12:55 | Outpatient (CLI) | payer MEDICARE, SELFPAY ==
--- NOTE | ~2025-03-28 | XR_ITS ---
EXAM/PROCEDURE: XR abdomen/kub 1V HISTORY: N20.0 - Calculus of kidney, LITHOTRIPSY 11 DAYS AGO COMPARISON: March 17, 2025 TECHNIQUE: KUB FINDINGS: Discretely defined right-sided renal stone not as clearly seen on today's exam. There is a slightly larger but somewhat amorphous calcification possibly corresponding to previous kidney stone measuring 1.9 x 1.1 cm. Double pigtail right ureteral stent is present. The remainder the exam is unremarkable. IMPRESSION: Amorphous appearance of what was probably the same stone on the March 17 exam which has a more amorphous appearance on today's exam possibly due to interval intervention versus KUB technique. Reviewed, dictated and finalized at location A. MAKING MACHINE OPERATOR
--- OUTSIDE RECORDS SUMMARY | 2025-03-28 14:56 | XMS_ITS | Clinical Summary ---
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
--- OUTSIDE RECORDS SUMMARY | 2025-03-28 14:56 | XMS_ITS | Clinical Summary ---
Author Organization [facility] Address [address] [facility] [place] [address] Care Team Providers Care Director Business Development Name Role Phone Patti Aiken MD Primary Care Provider [phone] Allergies No known active allergies Medications XARELTO [...] on file Legal Sex Female 4:34 AM FRESH FOODS TECHNICIAN Gender Identity Not on file Sexual [...] (1 - 1-dose 75+ series) 2030 Insurance [facility] BLUE PREFERRED Care Teams Director Business Development Relationship Specialty Start Date End Date Patti Aiken MD [address] [place] [address] PCP - General Family Practice 08/11/18
--- OUTSIDE RECORDS SUMMARY | 2025-03-28 14:57 | XMS_ITS | Clinical Summary ---
Author Organization [facility] Address [address] [place] [address] Care Team Providers Care Process Safety Specialist Name Role Phone None, Provider Primary Care [...] this topic Insurance MEDICARE AET Care Teams Process Safety Specialist Relationship Specialty Start Date End Date None, Provider, MD PCP - General UNKNOWN PHYSICIAN SPECIALTY 06/21/24
--- OUTSIDE RECORDS SUMMARY | 2025-03-28 14:57 | XMS_ITS | Encounter Summary ---
Author Organization [facility] Healthcare Address [address] [place] [address] Care Team Providers Care Hostel Manager Name Role Phone MeadShanda BRIAN Primary Care Provider [phone] Encounter Details Date Type Department Care Team (Late st Contact Info) Description 03/21/2025 Results [facility]Up [facility] [place] [address] [place] [address] Anibal Avendano MD [address] [place] [address] SCAN - RADIOLOGY/IMAGING Social History Tobacco Use Types Packs/Day Years Used Date Smoking Tobacco: Never Smokeless Tobacco: Never [facility] Utilities Answer Date Recorded In the past 12 months has [facility] electric, gas, oil, or water [employer] threatened to shut off services in your [...] any clubs o r organizations such as spiritism groups, unions, fraternal or athletic groups, or [...] points, staff should administer the PHQ-9) 0 03/24/2025 [facility] of Occupat ional Health - Occupational Stress [...] on file Legal Sex Female 2:32 AM COMMUNITY AFFAIRS DIRECTOR Gender Identity Not on file Sexual Orientation Not on file documented as of this encounter Functional Status * In the past year, patient experienced: Question Answer Date of Assessment Author One or more falls in the las t year 0 03/24/2025 2:35 PM COMMUNITY AFFAIRS DIRECTOR Adri Hurt MA * BP Location Answer Date of Assessment Author Right arm 03/24/2025 2:33 PM Wilian Oropeza MA * BP Location Answer Date of Assessment Author Right arm 03/24/2025 2:33 PM Wilian Oropeza MA documented as of this encounter Plan of Treatment Not on file documented as of this encounter Visit Diagnoses Not on filedocumented in this encounter Care Teams Hostel Manager Relationship Specialty Start Date End Date Shanda Mead NP PCP - General Family Medicine 02/18/23 documented as of this encounter
--- OUTSIDE RECORDS SUMMARY | 2025-03-28 14:57 | XMS_ITS | Encounter Summary ---
Author Organization [facility] Healthcare Address [address] [place] [address] Care Team Providers Care Door Attendant Name Role Phone MeadShanda BRIAN Primary Care Provider [phone] Encounter Details Date Type Department Care Team (Late st Contact Info) Description 03/16/2025 Results [facility] [place] [address] [place] [address] Anibal Avendano MD [address] [address] SCAN - RADIOLOGY/IMAGING Social History Tobacco Use Types Packs/Day Years Used Date Smoking Tobacco: Never Smokeless Tobacco: Never [facility] Utilities Answer Date Recorded In the past 12 months has [facility] electric, gas, oil, or water [employer] threatened to shut off services in [...] often do you attend chur ch or uatsdin services? Never 02/18/2023 Do you belong to any clubs o r organizations such as mormonism groups, unions, fraternal or athletic groups, or [...] staff should administer the PHQ-9) 0 02/28/2025 [facility] of Occupat ional Health - [...] on file Legal Sex Female 2:32 AM REPORTING ANALYST Gender Identity Not on file Sexual Orientation Not on file documented as of this encounter Plan of Treatment Not on file documented as of this encounter Visit Diagnoses Not on filedocumented in this encounter Care Teams Door Attendant Relationship Specialty Start Date End Date Shanda Mead NP PCP - General Family Medicine 02/18/23 documented as of this encounter
--- OUTSIDE RECORDS SUMMARY | 2025-03-28 14:57 | XMS_ITS | Clinical Summary ---
Author Organization [facility] Address [address] [place] [address] Care Team Providers Care Hyperbaric Nurse Name Role Phone Chito Harrison MD Primary Care Provider Source Comments [employer] [facility],non-owned Affiliates and Associated Physician Practices is amultiple site organization consisting of ambulatory clinics and hospital sitesin [place], [place], [place] and [place]. This disclosure is being madepursuant to the Care Everywhere program and may not contain all information available regarding this patient. 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 Gender Identity Not on file Sexual Orientation Not on file Last Filed Vital Signs Vital Sign Reading Time Taken Comments Blood Pressure 140/80 02/27/2020 8:05 AM SCOURING TRAIN OPERATOR Pulse 60 02/27/2020 8:05 AM SCOURING TRAIN OPERATOR Temperature - - Respiratory Rate 12 02/27/2020 8:05 AM SCOURING TRAIN OPERATOR Oxygen Saturation - - Inhaled Oxygen Concentration - - Weight 108.4 kg (239 lb) 02/27/2020 8:05 AM SCOURING TRAIN OPERATOR Height 161.3 cm (5' 3.5) 02/27/2020 8:05 AM SCOURING TRAIN OPERATOR Body Mass Index 41.67 02/27/2020 8:05 AM SCOURING TRAIN OPERATOR Plan of Treatment Health Maintenance Due [...] Insurance MEDICARE COMMERCIAL GENERIC MEDICARE [place] [address] SELF PAY NO INSURANCE Member Subscriber Plan / Payer (Ef fective for All Dates) Name:Khanh Chin Ruby Member ID:Not on file Relation to Subscriber:Not on file Name:KHANH CHIN Subscriber ID:Not on file (Home) Address: [address] [place] [address] [place] [address] Payer ID:Not on file Group ID:Not on file Type:Self Pay Address: [place], [place] Care Teams Hyperbaric Nurse Relationship Specialty Start Date End Date Chito Harrison MD [address] [place] [id number] PCP - General 06/26/21
--- OUTSIDE RECORDS SUMMARY | 2025-03-28 14:57 | XMS_ITS | Encounter Summary ---
Author Organization [facility] Address [address] [place] [address] Phone Care Team Providers Care Recorder Of Deeds Name Role Phone Patti Aiken MD Primary Care Provider [phone] Shanda Mead NP Primary Care Provider [phone] Encounter Details Date Type Department Care Team (Late st Contact Info) Description 03/21/2019 Telephone [facility] Cardiology [address] 8th [place] [address] [place] [address] Caleb Garcia MD PhD [address] [facility] [address] [place] [address] Social History Tobacco Use Types Packs/Day Years Used Date Smoking Tobacco: Never Smokeless Tobacco: Never Comments Unknown Sex and Gender Information Value Date Recorded Sex Assigned at Not on file 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
--- OUTSIDE RECORDS SUMMARY | 2025-03-28 14:57 | XMS_ITS | Encounter Summary ---
Author Organization [facility] Address [address] [place] [address] Phone Care Team Providers Care Funeral Prearrangement Counselor Name Role Phone Patti Aiken MD Primary Care Provider [phone] Shanda Mead NP Primary Care Provider [phone] Encounter Details Date Type Department Care Team (Latest Contact Info) Description 09/08/2018 Orders Only [facility] Scanning, Provider Social History Tobacco Use Types Packs/Day Years Used Date Smoking Tobacco: Never Smokeless Tobacco: Never Comments Unknown Sex and Gender Information Value Date Recorded Sex Assigned at Not on file 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
--- OUTSIDE RECORDS SUMMARY | 2025-03-28 14:57 | XMS_ITS | Clinical Summary ---
Author Organization [facility] Address [address] [place] [address] Care Team Providers Care Rail Transit Operator Name Role Phone Shanda Mead BRIAN Primary Care Provider [phone] Allergies Active Allergy Reactions Criticality Noted Date [...] 08/09/2024 Assessment & Plan (02/28/2025 12:27 PM BLOCK INSPECTOR): Stable, well controlled Continue Spironolactone 50 mg [...] 02/24 Assessment & Plan (02/28/2025 11:58 AM BLOCK INSPECTOR): In regard to health maintenance, Colonoscopy- [...] healthier, we can set up appointment with commission agent livestock/refinery operator crude unit. Have an active lifestyle, strive for 30 [...] man. Assessment & Plan (02/25/2024 10:16 AM BLOCK INSPECTOR): In regard to health maintenance, Colonoscopy- [...] healthier, we can set up appointment with commission agent livestock/refinery operator crude unit. Have an active lifestyle, strive for 30 [...] monitor Assessment & Plan (06/07/2024 3:29 PM BLOCK INSPECTOR): Last TSH at goal, taking natural supplements Will continue to monitor closely Assessment & Plan (02/25/2024 10:15 AM BLOCK INSPECTOR): Will recheck TSH and T4. Will continue to take OTC thyroid medication and seeing commission agent livestock. Class 2 severe obesity due t o excess calories with serious comorbidity and body mass index (BMI) of 39.0 to 39.9 in adult 02/18/2023 Assessment & Plan (02/28/2025 12:27 PM BLOCK INSPECTOR): Stable, recent weight loss Continue Zepbound Assessment [...] surgery Assessment & Plan (06/07/2024 3:29 PM BLOCK INSPECTOR): Not well controlled, has been having [...] week. Assessment & Plan (02/25/2024 10:15 AM BLOCK INSPECTOR): Encouraged heart healthy diet and lifestyle. Advised 150 min/week of aerobic exercise. Hypertension 12/02/2016 Assessment & Plan (02/28/2025 12:26 PM BLOCK INSPECTOR): Chronic, stable BP at goal at visit; [...] b.i.d. Assessment & Plan (06/07/2024 3:29 PM BLOCK INSPECTOR): Stable, well controlled, blood pressure mildly elevated today, some peripheral edema with limited relief Will start furosemide 20 mg b.i.d., continue lisinopril 40 mg, discontinue hydrochlorothiazide Assessment & Plan (02/25/2024 10:14 AM BLOCK INSPECTOR): Blood pressure not well controlled. Will [...] weeks Assessment & Plan (02/18/2023 10:15 AM BLOCK INSPECTOR): Stable, currently well-controlled BP at visit 120/84 Continue lisinopril 40 mg daily Thoracic ascending aortic aneurysm 07/26/2014 Assessment & Plan (02/25/2024 10:25 AM BLOCK INSPECTOR): Continues with routine monitoring. Will continue to follow. Assessment & Plan (02/18/2023 11:51 AM BLOCK INSPECTOR): Gets regular monitoring Patient will call [...] 02/28/2025 Assessment & Plan (02/25/2024 10:17 AM BLOCK INSPECTOR): Lipid panel ordered. Will continue to monitor. Encounters Date Type Department Care Team Description 03/24/2025 2:30 PM BLOCK INSPECTOR Office Visit [facility] [place] [address] [facility] [address] [facility] [address] [place] [phone] Graham Davies MD Verrudaniela (Primary Dx) 03/21/2025 Results [facility] [address] [address] Anibal Avendano MD SCAN - RADIOLOGY/IMAGING 03/17/2025 Orders Only [facility] Health Information Management [address] [place] [address] Anibal Avendano MD 03/16/2025 Results [facility] [address] [address] Anibal Avendano MD SCAN - RADIOLOGY/IMAGING 03/13/2025 11:00 AM BLOCK INSPECTOR Office Visit [facility] [address] [facility] [address] [place] [phone] August Pickett MD SHANIQUE (obstructive sleep apnea) (Primary Dx); Class 3 severe obesity due to excess calories with serious comorbidity and body mass index (BMI) of 40.0 to 44.9 in adult; Hypersomnia with sleep apnea 03/03/2025 Telephone [facility] [address] [address] Shanda Mead NP Med Refill 03/02/2025 Orders Only [facility] Health Information Management [address] [place] [address] Anibal Avendano MD 02/28/2025 11:30 AM BLOCK INSPECTOR Office Visit [facility] [address] [phone] Shanda Mead NP Medicare annual wellness visit, subsequent (Primary Dx); Primary hypertension; Peripheral edema; Class 2 severe obesity due to excess calories with serious comorbidity and body mass index (BMI) of 39.0 to 39.9 in adult 12/30/2024 9:10 AM CDT Lab [facility] [address] [place] [phone] 12/30/2024 Results [facility] [address] [phone] Angiogram Chest W WO Contrast 12/30/2024 Orders Only [facility] [address] [phone] Tiffanie Gannon NP Acute pulmonary embolism, unspecified pulmonary embolism type, unspecified whether acute cor pulmonale present (HCC) from Last 3 Months Immunizations Immunization Administration Dates Next Due Influenza, Unspecified 03/24/2025(Deferr ed: Patient Refused),02/28/2025(Deferred: Patient Refused),11/29/2024(Deferred: Patient Refused),02/25/2024(Deferred: Patient Refused),01/08/2024(Deferred: Patient [...] Tobacco: Never Tobacco Cessation:Counseling Given: Not Answered [facility] Utilities Answer Date Recorded In the past 12 months has e [employer], oil, or water [employer]line App threatened to shut off services in your [...] often do you attend chur ch or church services? Never 02/18/2023 Do you belong to any clubs o r organizations such as orthodox groups, unions, fraternal or athletic groups, or [...] staff should administer the PHQ-9) 0 03/24/2025 [facility] - Occupational Stress Questionnaire Answer Date [...] on file Legal Sex Female 2:32 AM BLOCK INSPECTOR Gender Identity Not on file Sexual Orientation Not on file Last Filed Vital Signs Vital Sign Reading Time Taken Comments Blood Pressure 153/89 03/24/2025 2:33 PM BLOCK INSPECTOR Pulse 61 03/24/2025 2:33 PM BLOCK INSPECTOR Temperature 37.1 C (98.7 F) 02/28/2025 11:31 AM BLOCK INSPECTOR Respiratory Rate 16 03/24/2025 2:33 PM BLOCK INSPECTOR Oxygen Saturation 98% 03/24/2025 2:33 PM BLOCK INSPECTOR Inhaled Oxygen Concentration - - Weight 105.1 kg (231 lb 11.2 oz) 03/24/2025 2:33 PM BLOCK INSPECTOR Height 165.1 cm (5' 5) 03/24/2025 2:33 PM BLOCK INSPECTOR Body Mass Index 38.56 03/24/2025 2:33 PM BLOCK INSPECTOR Plan of Treatment Health Maintenance Due Date [...] declined, but will receive in the future) Pneumococcal vaccine 65+ (1 of 1 - PCV) 02/28/2026 Postponed from 2005 (Patient declined, but will receive in the future) Well Visit 65+ 02/28/2026 02/28/2025, 02/11, 02/18/2023 Zoster Vaccine (1 of 2) 02/28/2026 Post poned from 2005 (Patient declined, but will receive in the future) Depression Screening 03/24/2026 03/24/2025, 02/28/2025, 12/22/2024, Additional history exists Fall Risk Assessment 03/24/2026 03/24/2025, 02/28/2025, 11/29/2024, Additional history exists Hepatitis B Screening Completed 08/18/2024 Hepatitis C Screening Completed 08/18/2024 Procedures Procedure Name Priority Date/Time Associated Diagnosis Comments CRYOTHERAPY SKIN LESION Routine 03/24/2025 2:51 PM BLOCK INSPECTOR Verruca SCAN - RADIOLOGY/IMAGING 03/17/2025 SCAN - RADIOLOGY/IMAGING 03/02/2025 EGFR Routine 12/30/2024 9:08 AM CDT BASIC METABOLIC PANEL Routine 12/30/2024 9:08 AM CDT HEPATITIS C ANTIBODY Routine 08/18/2024 9:59 AM CDT Encounter for hepatitis C screening test for low risk patient from Last 3 Months or Most Recently Relevant to Health Maintenance Results * Cryotherapy, skin lesion (03/24/2025 2:51 PM BLOCK INSPECTOR) Narrative Vilma Irene MD - 03/24/2025 2:51 PM BLOCK INSPECTOR Vilma Irene MD 03/24/2025 4:03 PM Cryotherapy, skin lesion Date/Time: 03/24/2025 2:51 PM Performed by: Graham Davies MD Authorized by: Graham Davies MD Consent: Verbal consent obtained. Written consent obtained Risks and benefits: risks, benefits and alternatives were discussed Consent given by: patient Patient understanding: patient states understanding of the procedure being performed Patient consent: the patient's understanding of the procedure matches consent given Procedure consent: procedure consent matches procedure scheduled Required items: required blood products, implants, devices, and special equipment available Patient identity confirmed: verbally with patient Patient tolerance: patient tolerated the procedure well with no immediate complications Comments: Cryotherapy performed with spray. The wart was matched with an appropriate cone size and then sprayed three times with thawing allowed between sprays. us Graham Davies MD IN CLINIC/BEDSIDE ORDERABLES Fin al Result * SCAN - RADIOLOGY/IMAGING (03/17/2025) Anatomical Region Laterality Modality Other Anibal Avendano MD Final Res ult * SCAN - RADIOLOGY/IMAGING (03/02/2025) Anatomical Region Laterality Modality Other Anibal Avendano MD Final Res ult * [...] was last reviewed 2021. Testing performed by: [facility], [address] [place] [address], [place]., [address] Blood 12/30/2024 9:08 AM CDT 12/30/2024 2:48 PM CDT Presley Azevedo MD LAB BLOOD ORDERABLES Final Re sult [facility] [address] [facility] Department [place] [address] * Basic metabolic panel (12/30/2024 9:08 AM CDT) Sodium 140 135 - 145 mmol/L Comment:Testing performed by : [facility], [address] [place] [address]., [id number] Potassium, pl 4.8 3.3 - 4.9 mmol/L [facility] ([facility]) Comment:Testing performed by : [facility], [address] [place] [address]., [id number] Chloride 103 97 - 110 mmol/L [facility] ([place]) Comment:Testing performed by : [facility], [address] [place] [address]., [address] CO2 25 22 - 32 mmol/L [facility] ([place]) Comment:Testing performed by : [address], [address] Anion gap 12 2 - 15 mmol/L [facility] ([place]) Comment:Testing performed by : [address], [address] BUN 21 6 - 25 mg/dL [facility] ([place]) Comment:Testing performed by : [address], [address] Creatinine 0.69 0.60 - 1.10 mg/dL [facility] ([place]) Comment:Testing performed by : [address] [address] Glucose 86 70 - 199 mg/dL [facility] [...] was last revised 2022. Testing performed by: [address] [address] Calcium 9.5 8.5 - 10.3 mg/dL [facility] ([place]) Comment:Testing performed by : [address], [address] Blood 12/30/2024 9:08 AM CDT 12/30/2024 1:44 PM CDT us Presley Azevedo MD LAB BLOOD ORDERABLES Final Re sult [facility] ([facility]) [address] [facility] [email or web address] [address] * Hepatitis C antibody Blood (08/18/2024 9:59 [...] last revised on 2019. Testing performed by: [facility], [address] [place] [address]., [id number] Blood 08/18/2024 9:59 AM CDT 08/18/2024 3:52 PM CDT us Anibal Avendano MD LAB MICROBIOLOGY - GENERA L ORDERABLES Final Result [facility] ([facility]) [address] [facility] [employer] [place] [address] from Last 3 Months or Most Recently Relevant to Health Maintenance Insurance MEDICARE [place] CHOICE [place] [employer] SENIOR SUPPLEMENT Care Teams Rail Transit Operator Relationship Specialty Start Date End Date Shanda Mead NP PCP - General Family Medicine 02/18/23
== END 2025-03-28 12:56 | disposition home or self-care (01) ==
PROVIDERS: PCP Hospitalist; Visit Provider Urology
DX: N20.0 Calculus of kidney (principal)
CPT/HCPCS: 74018